=== PATIENT | male | born 1955 | race African-American/Black ===

== ENCOUNTER 2016-12-01 14:24 | Outpatient (CLI) | payer BC ==
[~2016-12-01] VITALS: Ht 170.2 cm; Wt 96.4 kg
[2016-12-01 14:22] VITALS: BP 151/84; PULSE 78; RESP 18; Ht 170.2 cm; Wt 96.4 kg
[2016-12-01] MEDS ORDERED: LISI20TA11 PO (14:30)
[2016-12-01] MEDS ORDERED: NPH,100I5 SQ (14:30)
[2016-12-01] MEDS ORDERED: DILT240C79 PO (14:30)
[2016-12-01] MEDS ORDERED: LEDI1TAB PO (14:30)
[2016-12-01] MEDS ORDERED: HYDR-3672 PO (14:30)
[2016-12-01] MEDS ORDERED: ATOR20TA38 PO (14:30)
[2016-12-01] MEDS ORDERED: ASPI-716 PO (14:30)
[2016-12-01] MEDS ORDERED: CLON-379 PO (14:30)
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
== END 2016-12-01 16:49 | disposition home or self-care (01) ==
LOC: HPC 14:24
PROVIDERS: ATTEND Transplant Surgery
DX: C22.0 Liver cell carcinoma (principal); B19.20 Unspecified viral hepatitis C without hepatic coma; E11.9 Type 2 diabetes mellitus without complications; E78.5 Hyperlipidemia, unspecified; I10 Essential (primary) hypertension; Z87.891 Personal history of nicotine dependence; Z79.82 Long term (current) use of aspirin; Z87.81 Personal history of (healed) traumatic fracture
CPT/HCPCS: G0463

== ENCOUNTER 2017-02-04 09:24 | Outpatient (CLI) | payer BC ==
[~2017-02-04] VITALS: Ht 170.2 cm; Wt 98.6 kg
[~2017-02-04 09:24] MED LIST: ASPI-716 PO; ATOR20TA38 PO; CLON-379 PO; DILT240C79 PO; HYDR-3672 PO; LEDI1TAB PO; LISI20TA11 PO; NPH,100I5 SQ
[2017-02-04 09:40] VITALS: BP 135/81; PULSE 86; RESP 18; Ht 170.2 cm; Wt 98.6 kg
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
== END 2017-02-04 16:54 | disposition home or self-care (01) ==
LOC: HPC 09:24
PROVIDERS: ATTEND Transplant Surgery
DX: B18.2 Chronic viral hepatitis C (principal); E11.9 Type 2 diabetes mellitus without complications; I10 Essential (primary) hypertension; E78.5 Hyperlipidemia, unspecified
CPT/HCPCS: G0463

== ENCOUNTER 2017-05-27 14:57 | Outpatient (CLI) | payer BC ==
[~2017-05-27] VITALS: Ht 170.2 cm; Wt 98.2 kg
[2017-05-27 15:05] VITALS: BP 184/93; PULSE 85; RESP 18; Ht 170.2 cm; Wt 98.2 kg
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
== END 2017-05-27 16:11 | disposition home or self-care (01) ==
LOC: HPC 14:57
PROVIDERS: ATTEND Transplant Surgery
DX: C22.8 Malignant neoplasm of liver, primary, unspecified as to type (principal); B19.20 Unspecified viral hepatitis C without hepatic coma; E11.9 Type 2 diabetes mellitus without complications; E78.5 Hyperlipidemia, unspecified; I10 Essential (primary) hypertension; G47.33 Obstructive sleep apnea (adult) (pediatric); E55.9 Vitamin D deficiency, unspecified; Z87.891 Personal history of nicotine dependence
CPT/HCPCS: G0463

== ENCOUNTER 2017-06-09 06:00 | Inpatient (IN) | payer BC ==
[2017-06-09] VITALS (69 sets, daily range): BP systolic 64–218; BP diastolic 44–97; PULSE 62–118; RESP 0–27; Ht 170.2 cm; Wt 97.4 kg
[~2017-06-09] VITALS: Ht 170.2 cm; Wt 97.4 kg
[~2017-06-09 06:00] MED LIST changes: +NACL 0.9% 3 ML SYG IV SCH; +PIPER-TAZO 3.375 GM IV (PMX) 100 ML IVPB SCH
[2017-06-09] MEDS ORDERED: BUPIVACAINE 0.25%/EPI (SDV) 30 ML INJ ONE (07:05)
[2017-06-09] MEDS ORDERED: INSU100V3 SQ (07:20)
[2017-06-09] MEDS ORDERED: HYDR100T7 PO (07:20)
[2017-06-09] MEDS ORDERED: LISI40TA9 PO (07:20)
--- NOTE | 2017-06-09 07:30 | HPN ---
Date/Time of Note Date/Time of Note DATE: 06/09/17 TIME: 07:30 Interval H&P Admission Note Pt. seen H&P reviewed: No system changes Pt. seen H&P reviewed. No system changes (I attest that I have seen and examined the patient and reviewed the operation in detail, as well as its risks , benefits and alternatives of the operation). I attest that I have seen and examined the patient and reviewed in detail the operation, and its associated risks, benefits and alternative. I have answered all the patient's questions to the best of my ability and the patient wishes to proceed. Please refer to rest of electronic medical record for additional updates. KAYA BERMAN M.D. Jun 09, 2017 07:30
[2017-06-09] MEDS ORDERED: SUCCINYLCHOLINE CHLORIDE 100 MG/5 ML SYG IV ONE (07:44)
[2017-06-09] MEDS ORDERED: MIDAZOLAM 1 MG/ML 2 ML INJ ONE (07:44)
[2017-06-09] MEDS ORDERED: ROCURONIUM 50 MG INJ ONE ×3 (07:44→10:34)
[2017-06-09] MEDS ORDERED: LIDOCAINE 2% (SDV) 5 ML INJ ONE (07:44)
[2017-06-09] MEDS ORDERED: PROPOFOL 20 ML ONE (07:44)
[2017-06-09] MEDS ORDERED: FENTAnyl 50 MCG/ML VIAL ONE (07:45)
[2017-06-09] MEDS ORDERED: PHENYLephrine (100 MCG/ML) 5ML SYG ONE ×4 (08:12→15:43)
[2017-06-09] MEDS ORDERED: FAMOTIDINE 20 MG INJ ONE (09:48)
[2017-06-09] MEDS ORDERED: ONDANSETRON 4 MG INJ ONE (09:48)
[2017-06-09] MEDS ORDERED: HYDROmorphONE (0.2 MG/ML) 10ML SYG IV PRN ×2 (10:30→13:30)
[2017-06-09] MEDS ORDERED: hydrALAzine 20 MG INJ IV PRN ×2 (10:30→13:30)
[2017-06-09] MEDS ORDERED: DIPHENHYDRAMINE 50 MG INJ IV PRN ×2 (10:30→13:30)
[2017-06-09] MEDS ORDERED: MEPERIDINE 25 MG INJ IV PRN ×2 (10:30→13:30)
[2017-06-09] MEDS ORDERED: ONDANSETRON 4 MG INJ IV PRN ×2 (10:30→13:30)
[2017-06-09] MEDS ORDERED: LABETALOL HCL 20MG INJ IV PRN ×2 (10:30→13:30)
[2017-06-09] MEDS ORDERED: FENTAnyl 50 MCG/ML VIAL IV PRN ×2 (10:30→13:30)
[2017-06-09] MEDS ORDERED: OXYCODONE/ACETAMINOPHEN (5/325) TAB PO PRN (10:30)
[2017-06-09] MEDS ORDERED: EPHEDrine SULFATE 50 MG/5 ML SYG ONE (10:58)
[2017-06-09] MEDS ORDERED: HYDROmorphONE 2 MG/ML SYG ONE (12:31)
[2017-06-09] MEDS ORDERED: GLYCOPYRROLATE 0.4 MG INJ ONE (12:39)
[2017-06-09] MEDS ORDERED: NEOSTIGMINE 3 MG/3 ML SYRINGE ONE ×2 (12:39→13:48)
[2017-06-09] MEDS ORDERED: LABETALOL HCL 20MG INJ ONE (13:49)
[2017-06-09] MEDS ORDERED: D5W-0.45 NACL + KCL 20 MEQ 1,000 ML IV SCH (13:56)
[2017-06-09] MEDS ORDERED: DOCUSATE SODIUM 100 MG CAP PO PRN (14:00)
[2017-06-09] MEDS ORDERED: HYDROmorphONE 1 MG/ML SYG IV PRN (14:00)
[2017-06-09] MEDS ORDERED: HYDROCODONE/APAP (5/325) TAB PO PRN ×2 (14:00)
[2017-06-09] MEDS ORDERED: NA PHOSPHATE/BIPHOS 133 ML ENEMA PR PRN (14:00)
[2017-06-09] MEDS ORDERED: BISACODYL 10 MG SUPP PR PRN (14:00)
[2017-06-09] MEDS ORDERED: hydrALAzine 20 MG INJ ONE ×2 (14:21→14:47)
--- NOTE | 2017-06-09 14:30 | OPR ---
Date/Time of Note Date/Time of Note DATE: 06/09/17 TIME: 14:29 Operative Report Procedure Description [facility] INPATIENT OPERATIVE NOTE PLACE OF SERVICE: [facility] DATE OF SURGERY: 06/09/2017 PREOPERATIVE DIAGNOSIS: 1. Hepatocellular carcinoma in the setting of hepatitis C. Hepatitis C that was thought to be chronic, treated with Harvoni 08/2016 with near resolution and disappearance of the viral load. His hepatitis C is thought to be genotype 1A with prior viral load in 2012 of approximately 18 million international units per mL. 2. Diabetes mellitus type 2. 3. Hyperlipidemia. 4. Hypertension. 5. Left distal tibial fracture. 6. Left tibia fracture. 7. Obstructive sleep apnea. 8. Vitamin D deficiency. 9. Former smoker. POSTOPERATIVE DIAGNOSIS: 1. Hepatocellular carcinoma in segment 5 of liver in the setting of hepatitis C , along with several regenerative nodules. Hepatitis C that was thought to be chronic, treated with Harvoni 08/2016 with near resolution and disappearance of the viral load. His hepatitis C is thought to be genotype 1A with prior viral load in 2012 of approximately 18 million international units per mL. 2. Diabetes mellitus type 2. 3. Hyperlipidemia. 4. Hypertension. 5. Left distal tibial fracture. 6. Left tibia fracture. 7. Obstructive sleep apnea. 8. Vitamin D deficiency. 9. Former smoker. OPERATION: 1. Laparoscopic exploration with intraoperative ultrasound of liver and core needle liver biopsy with ultrasound guidance segment 8 lesion and separately segment 4B normal liver 2. Open partial hepatectomy segment 5/6 3. Ultrasound-guided core needle liver biopsy segment 4B (left side) mass under direct visualization 4. Cholecystectomy 5. Lysis of adhesions 6. Umbilical hernia repair SURGEON: Kaya Berman M.D. DRAY TRUCK DRIVER: 1. DIANA Durán Please note that Katiuska Ferraro was present for the entire duration of the operation and was instrumental in assisting with the most critical portions of the operation. ANESTHESIA: General endotracheal tube anesthesia ANESTHESIOLOGIST: Elissa Hardwick M.D. BRIEF SUMMARY: An otherwise uncomplicated but somewhat challenging partial hepatectomy mainly due to decision-making was performed with findings of hepatocellular carcinoma in the setting of hepatitis C early cirrhosis and several regenerative nodules (6 additional areas noted with ultrasound) with nonmalignant intraoperative biopsy findings on frozen section. Cholecystectomy was also performed as well as incidental umbilical hernia repair without mesh. Updated Clinical Summary: Patient is a very pleasant 60-year-old gentleman with comorbid issues including a BMI of 34, as well as history of hepatitis C, treated with Harvoni in August 2016 with near complete disappearance of his viral count, who was noted to have a liver lesion that was initially detected on 04/26/2016, liver CT of the abdomen and pelvis read as a somewhat well-defined 4.8 x 4.4 x 4.6 cm area of low attenuation within the right lobe of the liver. Note that he also had a few followup scans since then including ultrasound of the abdomen 05/22/2016 showing a solid mass 4.6 x 4.8 x 3.9 cm that appeared to be hypoechoic and no increased Doppler flow, liver dedicated MRI of the abdomen 06/19/2016 showing a 3.5 cm solid mass anteriorly in the right lobe of the liver that cannot be further characterized due to lack of contrast, liver dedicated contrast study of the abdomen on 07/08/2016 showing no evidence of increased uptake, corresponding to a liver mass seen in the right lobe of the liver and therefore not consistent with a hemangioma. He had a liver biopsy percutaneously done on 08/07/2016 with ultrasound guidance with the final pathology showing necrotic material, otherwise nondiagnostic. He had a repeat MRI of the liver with and without contrast 09/24/2016 that showed the previously seen lesion that was 3.8 cm at the junction of the right and left lobes but additional 2.3 cm lesion in segment 5 of the liver showing low signal intensity on the T1 weighted images, intermediate signal intensity on the T2 weighted images and arterial phase contrast enhancement. These findings were thought to be metastatic disease or multifocal hepatocellular carcinoma. Due to growth seen in segment 5 lesion, repeat biopsy of the liver was ordered which was done on 04/07/2017. Segment 5 lesion was biopsied and final pathology was consistent with moderately differentiated hepatocellular carcinoma in a background of chronic hepatitis C. Normal liver biopsy done at the same time showed grade 2 portal inflammation and interface hepatitis, grade 2 lobular activity and stage I fibrosis. Comorbidities: 1. Hepatitis C that was chronic, treated with Harvoni 08/2016 with near resolution and disappearance of the viral load. His hepatitis C is thought to be genotype 1A with prior viral load in 2012 of approximately 18 million international units per mL. 2. Diabetes mellitus type 2. 3. Hyperlipidemia. 4. Hypertension. 5. Left distal tibial fracture. 6. Left tibia fracture. 7. Obstructive sleep apnea. 8. Vitamin D deficiency. 9. Former smoker. BRIEF HISTORY: The patient is a very pleasant 60-year-old gentleman with above- mentioned comorbidities with hepatitis C history and mass in segment 5 of liver that was biopsy-proven HCC as above. I met with the patient and family and counseled them regarding the possible options of treatment, and I strongly suggested a laparoscopic exploration with intraoperative ultrasound of liver, possible biopsy and possible partial hepatectomy if still clinically indicated or possible. We reviewed the operation in detail as well as the risks, benefits , alternatives, and expected outcomes of this operation. After careful consideration of all the risks, benefits, and alternatives, the patient and family appeared to understand those risks and wished to proceed with surgery. For a detailed report of my consultation with patient and family, please refer to my separate consultation note. STATEMENT OF THE INFORMED CONSENT: The patient and family appeared to understand the risks of the operation to include, but not be limited to risk of postoperative pain and scar tissue, possible infection or bleeding requiring other interventions such as opening the wound, placement of drainage catheters, or other operative interventions; possible injury to surrounding to structures including bowel, bladder, bile duct, or blood vessels, or solid organs such as liver, kidney, or pancreas requiring other interventions or procedures; possible leakage of bowel from anastomotic sites or suture lines causing significant increase in morbidity and mortality and requiring multiple interventions including but not limited to, placement of drainage catheters, imaging studies, as well as operative interventions; possible other source of sepsis such as urinary tract infections or pneumonias, or other sources of potentially life threatening problems such as deep venous thrombus formation causing pulmonary embolism, myocardial arrhythmias and infarctions, and even . We also briefly discussed the potential need to receive blood products and their potential complications of blood transfusion reactions, transmission of infections, or other complications. We also discussed liver specific complications such as liver failure, liver dysfunction, bile leak or bleeding from cut surface of liver or other issues stemming from his liver resection. I also specifically reviewed the reality that an unlimited number of complications may occur and that it is virtually impossible to educate the patient completely on all of them. After careful consideration of all their options, the patient and family appeared to understand and wished to proceed with surgery. DESCRIPTION OF PROCEDURE: After obtaining informed consent, the patient was brought into the operating room and was placed in a normal supine position, where successful general endotracheal tube anesthesia was performed. Intravenous access was already in place and intravenous antimicrobials had been appropriately chosen and dosed prior to the operation. Central line and A-line were placed by anesthesia. At my request, an epidural was not placed due to potential elevation in INR that is commonly seen after partial hepatectomy is in this clinical condition. The patient's abdominal skin was prepped and draped from the nipple line down to the level of the upper thighs in the usual sterile fashion. We then called a surgical time-out where the patient's identification, date of , nature of the operation, allergies, presence of intravenous antimicrobials, presence of needed equipment, and any other concerns were reviewed and agreed upon by all members of the operating room team. We then started the operation by placing a 5 mm skin incision in the right upper quadrant midclavicular subcostal line and placing and applied medical trocar into the peritoneal space visualizing all the layers of the abdominal wall as we entered using direct entry technique. Note that there was no indication of any injury to underlying structures once we entered the abdominal cavity. We insufflated the abdominal cavity to a maximum pressure of 15 mmHg and inspected the portions that were visible. Liver appeared not to have macronodular cirrhotic appearance. There was no obvious ascites or evidence for portal hypertension. Visible portion of bowel appear to be normal. There was no significant abnormalities on the peritoneal surfaces and no evidence of malignancy that was obvious. Right upper quadrant area was covered by the omentum and we could not see the lesion in segment 5 of the liver. I therefore injected the future site of a another 5 mm trocar that we placed in the midline after injecting the site with quarter percent Marcaine with epinephrine and used this to visualize the area of segment 5. Lesion was noticed. There was adhesions from the transverse colon onto the area of the gallbladder, but the lesion itself did not appear to have direct invasion into any organs that were surrounding it. The lesion appeared to be bigger than what we had noted in the preoperative images. We also noted that there was an umbilical hernia. In order to do the intraoperative ultrasound, I injected the periumbilical skin with quarter percent Marcaine with epinephrine and cut through skin using a scalpel and then placed a 12 mm trocar through the umbilical hernia area which allowed us to perform an intraoperative ultrasound of the liver. Intraoperative ultrasound of the liver: The following segments were visualized, and there were the following findings: Caudate lobe: No lesion. Segment 2: No lesion. Segment 3: No lesion. Segment 4: No lesion in segment 4A and portion of a round masslike area was inside of segment 4B overlying the left portal pedicle (this was the left lesion in segment 4B that we eventually biopsied under direct visualization using intraoperative ultrasound). Segment 5: 2 round areas that were overlying the course of the portal pedicle at the bifurcation. The one to the right was approximately 1.5 cm. One to the left was approximately 2 cm in diameter. There was also the known hepatocellular carcinoma lesion that was approximately 10 cm in greatest dimension at the age of segment 5 and also involving portion of segment 6. Segment 6: Above-mentioned involvement of segment 6 from segment 5 lesion. Segment 7: Single 1-1/2 cm area of hypoechoic lesion in segment 7. Segment 8: Small area of hypoechoic lesion that was also around approximately 1.5 cm in greatest dimension. We also noted antegrade flow through the portal vein on the left and right as well as the hepatic artery on the left and right and also antegrade flow through the middle right and left hepatic veins. Biliary system was not dilated. With this information, I used the guidance of intraoperative ultrasound to perform biopsy of the segment 4B lesion as a human resources hr representative biopsy to see if there is any obvious malignancy. We also obtained further tissue from segment 4B away from these lesions to send for permanent sections of the normal liver. 3 core needle biopsies were obtained at each biopsy location. Frozen section of the segment 4B lesion came back as benign liver. After careful consideration of all the options, I decided to proceed with surgical resection. Part of the thought process was that if these lesions were malignant, that there would most likely be no meaningful benefit to life by further surgical treatment and surgery may not be possible given the extent of liver resection that would be needed to clear all of these lesions (trisegmentectomy with very careful dissection around the left portal pedicle to remove all of the abnormal areas on the ultrasound). Additionally, we had 2 separate biopsies of these lesions, one preoperatively and one intraoperatively that showed normal benign liver possibly indicating these lesions to be regenerative nodules. In that situation, the patient would benefit from surgical resection of the segment 5 lesion which was on the periphery and could be easily performed without undue harm to the patient. With this thought process, I decided to continue with the operation and placed a subcostal skin incision using a scalpel and then going through the subcutaneous fat onto the fascia using cautery, entering the fascia and the peritoneal space using cautery and then placing a Kemp retractor to achieve excellent access to the abdominal cavity. We then performed lysis of adhesions to disconnect the colon from the gallbladder, and then performed a cholecystectomy top-down using cautery. Gallbladder was sent to pathology for permanent sections. Cystic duct and cystic artery were transected between 2-0 silk ligatures. I then marked the borders of the main and right portal pedicle as well as the borders of the lesion and shows a plane between them that would give us adequate normal liver parenchyma around the tumor using high-energy cautery on the surface of the liver. We then performed a partial hepatectomy removing segment 5 and 6 using the Erbe jet to come through the parenchyma and appropriate use of clips versus judicious application of 4-0 Prolene suture and 2-0 silk ligatures to come across the parenchyma and all the large and small vessels and bile ducts ever going into segments 5 and 6. Blood loss for this portion of the operation was approximately 100-250 cc. All of this went with adequate control without any major complications. We marked the specimen by putting long silk sutures on the lateral aspect and short silk suture on the superior aspect and intraoperative pathologic evaluation of the margins showed adequate margin on the medial side (at least 5 mm) and this was the closest margin. Adequate hemostasis and bile stasis was achieved. We then performed ultrasound-guided biopsy of the left sided segment 4B lesion again, this time using the open probe and under direct visualization to visualize the needle going through the lesion and send this core (single) of liver tissue to pathology for permanent sections. Hemostasis was again achieved. Repeat intraoperative ultrasound of the liver showed adequate and antegrade flow of blood through the portal pedicles as well as the hepatic veins. We then ensured adequate hemostasis prior to closing the umbilical hernia defect site after dissecting the hernia sac away from the edges of the fascia and closing the edges of the fascia using 4 [id number] 0 Vicryl sutures on UR 6 needle. We then reapproximated the main surgical incision in layers using #1 PDS suture, washed the wounds with copious amounts of normal saline, and then closed the skin using a skin stapler on the subcostal incision and interrupted 4 -0 Monocryl suture on the umbilical incision. Light dressing was then applied. At the end of the operation, both the sponge count and needle count were reportedly correct x2. The patient tolerated the procedure without any reported complications. ESTIMATED BLOOD LOSS: 200 mL BLOOD OR BLOOD PRODUCT TRANSFUSIONS: None to my knowledge. SPECIMENS: 1. Segment 4B (left) lesion with intraoperative ultrasound guidance (3 cores) 2. Segment 4B normal liver (3 cores) 3. Gallbladder 4. Segment 5 and 6 of liver 6. Re-biopsy of segment 4B left lesion with intraoperative ultrasound guidance (1 core) COMPLICATIONS: None. DISPOSITION: Recovery area. Disclaimer: Inadvertent spelling and grammatical errors are likely due to EHR/ dictation software use and do not reflect on the quality of delivered patient care. Also, please note that the electronic time recorded on this node does not necessarily reflect the actual time of the visit. KAYA BERMAN M.D. Jun 09, 2017 14:30
[2017-06-09] MEDS ORDERED: ESMOLOL 10 ML ONE (14:50)
[2017-06-09] MEDS ORDERED: ALBUTEROL 0.5% (NEB) 2.5 MG/0.5 ML AMP ONE (15:19)
[2017-06-09] MEDS ORDERED: ALBUTEROL 0.083% (NEB) 2.5 MG/3 ML AMP HHN PRN (15:30)
[2017-06-09] MEDS ORDERED: IPRATROPIUM (NEB) 0.5 MG/2.5 ML AMP HHN PRN (15:30)
[2017-06-09 15:51] LABS: ABNORMAL IP MESSAGE 1; BASOPHIL # 0.1 10^3/ul (0.0-0.1); BASOPHILS % 0.2 % (0.0-2.0); EOSINOPHILS % 0.1 % (0.0-7.0); HEMATOCRIT 46.3 % (42.0-52.0); HEMOGLOBIN 14.2 g/dl (14.0-18.0); LYMPHOCYTES # 2.9 10^3/ul (0.8-2.9); LYMPHOCYTES % 14.5 % (15.0-51.0); MEAN CORPUSCULAR HEMOGLOBIN 25.8 pg (29.0-33.0); MEAN CORPUSCULAR HGB CONC 30.7 g/dl (32.0-37.0); MEAN PLATELET VOLUME 9.7 fl (7.4-10.4); MONOCYTE # 1.7 10^3/ul (0.3-0.9); MONOCYTES % 8.6 % (0.0-11.0); NEUTROPHIL # 15.2 10^3/ul (1.6-7.5); NEUTROPHILS % 75.7 % (39.0-77.0); PLATELET COUNT 372 10^3/UL (140-415); POSITIVE DIFF @See below; RED BLOOD COUNT 5.51 10^6/ul (4.70-6.10); RED CELL DISTRIBUTION WIDTH 15.8 % (11.5-14.5); WHITE BLOOD COUNT 20.1 10^3/ul (4.8-10.8)
[2017-06-09 16:05] LABS: INR 1.01; PROTIME 13.3 Sec (12.2-14.2)
[2017-06-09 16:06] LABS: PARTIAL THROMBOPLASTIN TIME 29.6 Sec (25.0-35.0)
[2017-06-09 16:09] LABS: MAGNESIUM 1.4 mg/dl (1.7-2.5); PHOSPHORUS 6.4 mg/dl (2.5-4.9)
[2017-06-09] MEDS ORDERED: PROPOFOL 100 ML IV ONE (16:30)
[2017-06-09 16:50] LABS: AADO2 Arterial 526.5 mmHg (7.0-24.0); Arterial Base Excess -11.5 mmol/L (-3.0-3); Arterial COHb 0.3 % (0.0-3.0); Arterial Fraction of Oxyhgb 96.6 % (93.0-99.0); Arterial HCO3 18.3 mmol/L (22.0-26.0); Arterial MetHb 0.6 % (0.0-1.5); Arterial Total Hemglobin 15.2 g/dl (12.0-18.0); MODE VENT - AC
[2017-06-09 17:15] LABS: ALBUMIN 3.3 g/dl (3.3-4.9); ALBUMIN/GLOBULIN RATIO 0.86; TOTAL PROTEIN 7.1 g/dl (6.1-8.1)
[2017-06-09 17:16] LABS: CALCIUM 7.6 mg/dl (8.4-10.2); CREATININE 3.52 mg/dl (0.61-1.24); POTASSIUM 9.1 mmol/L (3.5-5.1)
[2017-06-09] MEDS ORDERED: CA CHLORIDE 10% 10 ML SYRINGE ONE (17:17)
[2017-06-09] MEDS ORDERED: DEXTROSE 50% 50 ML SYRINGE ONE (17:20)
--- NOTE | 2017-06-09 17:20 | RADRPT ---
PROCEDURE: XR Chest. CLINICAL INDICATION: Central line placement. TECHNIQUE: Single frontal chest x-ray. COMPARISON: None available FINDINGS: The right internal jugular central venous catheters present with the tip in the region of the right atrium. Endotracheal tube is present with the tip 3.9 cm above the ellen. The lungs are hypoinfla stevie. There are scattered bilateral interstitial opacities, predominately in the left upper lobe and bilateral lower lobes. There is mild blunting of the bilateral costophrenic angles. There is no e vidence of pneumothorax. The heart size is enlarged. There is gaseous distension of the stomach wh ich is partially imaged in the left upper abdomen. The osseous structures are grossly intact. IMPRESSION: 1. Endotracheal tube tip 3.9 cm above the ellen. 2. Right internal jugular central venous catheter tip in the region of the right atrium. 3. Hypoinflation with bilateral prominent interstitial lung markings, especially at the lung bases, may represent atypical infection versus edema or chronic interstitial lung change. 4. Partially imaged gaseous distension of the stomach. RPTAT: JJ .Thanh Bazan MD, Date Time Electronically viewed and signed by .Thanh Bazan MD, on 06/09/2017 17:19 .A/
[2017-06-09] MEDS ORDERED: FUROSEMIDE 40 MG INJ ONE (17:29)
[2017-06-09] MEDS ORDERED: GLUCOSE GEL 15 GRAM TUBE PO PRN ×2 (17:30)
[2017-06-09] MEDS ORDERED: DEXTROSE 50% 50 ML SYRINGE IV PRN ×2 (17:30)
[2017-06-09] MEDS ORDERED: NA POLYST SULFON 15 GM/60 ML BTL GTB ONE (17:30)
[2017-06-09] MEDS ORDERED: INSULIN REGULAR 10 ML INJ IV ONE (17:30)
[2017-06-09] MEDS ORDERED: FUROSEMIDE 40 MG INJ IV ONE (17:30)
[2017-06-09] MEDS ORDERED: GLUCAGON 1 MG INJ IM PRN (17:30)
[2017-06-09] MEDS ORDERED: GLUCOSE GEL 15 GRAM TUBE BUCCAL PRN (17:30)
[2017-06-09] MEDS ORDERED: SODIUM BICARBONATE (IV ADD) 50 ML ONE (17:43)
[2017-06-09] MEDS ORDERED: NA BICARBONATE 8.4% 50 ML SYG IV STA ×2 (17:44→18:11)
[2017-06-09] MEDS ORDERED: INSULIN ASPART [NOVOLOG] 3 ML PEN SC ONE (18:00)
[2017-06-09] MEDS: PROPOFOL 100 ML IV SCH ×2 (18:12→23:38)
[2017-06-09 18:21] LABS: Arterial Base Excess -8.3 mmol/L (-3.0-3); Arterial COHb 0.2 % (0.0-3.0); Arterial Fraction of Oxyhgb 91.5 % (93.0-99.0); Arterial HCO3 18.6 mmol/L (22.0-26.0); Arterial MetHb 0.5 % (0.0-1.5); Arterial Total Hemglobin 14.5 g/dl (12.0-18.0); MODE VENT - AC
--- NOTE | 2017-06-09 18:27 | HP ---
Date/Time of Note Date/Time of Note DATE: 06/09/17 TIME: 18:13 Assessment/Plan VTE Prophylaxis VTE Prophylaxis Intervention: SCD's Assessment/Plan Chief Complaint/Hosp Course 1. Hyperkalemia secondary to CKD Patient is now status post insulin and calcium given in the PACU, patient's cardiac rhythm is stable at this time Have ordered Lasix 40 mg IV 1, bicarbonate and Kayexalate 30 g via OGT 1 Follow-up on repeat BMP this evening and in a.m. Consult nephrology with Dr. Perales 2. Acute respiratory failure Continue vent management Pulmonology consultation Transfer to ICU 3. Hepatocellular carcinoma secondary to hepatitis C now status post partial hepatectomy and biopsy Follow-up with surgery recommendations 4. Diabetes type 2 Insulin sliding scale as well as basal insulin 5. Hypertension Hydralazine as needed at this time 6. Obesity with sleep apnea Lifestyle changes to be advised when patient was stable Prophylaxis: SCD's Problems: HPI/ROS Admit Date/Time Admit Date/Time Jun 09, 2017 at 06:00 Hx of Present Illness Patient is a 61-year-old male with history of Hepatocellular carcinoma secondary to chronic hepatitis C status post treatment with Harvoni 08/2016 with near resolution and disappearance of the viral load. Patient also has a history of CKD, diabetes type 2, dyslipidemia, hypertension, obesity with sleep apnea. Patient is status post partial hepatectomy of segment 5/6 as well as well as liver biopsy. Cholecystectomy, lysis of adhesions and umbilical hernia repair postop day #0. Patient was extubated in recovery but was noted to go into respiratory distress and hence was reintubated. Patient's potassium was checked and was found to be elevated at 9.1, patient did have peak T waves and widened QRS complexes was given calcium which normalized his cardiac rhythm. Of note patient was also given insulin in the PACU. Patient's potassium was rechecked and was reportedly still elevated. Patient does have a history of CKD and last known potassium was not significantly elevated. Patient is currently intubated in the PACU and is unable to provide any history, history is obtained from medical records. ROS Unable to provide history or review of systems secondary to patient being intubated and sedated PMH/Family/Social Past Medical History HCC secondary to chronic hepatitis C which was treated with Harvoni 08/2016 now status post partial hepatectomy postop day #0, CKD, diabetes type 2, dyslipidemia, hypertension, obesity with sleep apnea Social History Unknown at this time as patient is intubated and sedated Exam/Review of Systems Vital Signs Vitals Vital Signs Date Time Temp Pulse Resp B/P Pulse Ox O2 Delivery O2 Flow Rate FiO2 06/09/17 17:16 118 23 96 50 06/09/17 16:56 158/88 Mechanical Ventilator 06/09/17 15:26 10.0 06/09/17 15:01 98.0 Exam Constitutional: non-verbal Head: normocephalic ENMT: intubated Respiratory: clear to auscultation Cardiovascular: regular rate and rhythm Gastrointestinal: soft, No distended Musculoskeletal: nl extremities to inspection Labs Result Diagram: 06/09/17 1525 06/09/17 1525 Medications Medications Current Medications Potassium Chloride/Dextrose/ Sod Cl (D5-1/2ns + KCl 20 Meq) 1,000 ml @ 100 mls/ hr Q10H IV ; Start 06/09/17 at 13:56 Acetaminophen/ Hydrocodone Bitart ([place] (5/325)) 1 tab Q4H PRN PO PAIN LEVEL 4 -7; Start 06/09/17 at 14:00 Acetaminophen/ Hydrocodone Bitart ([place] (5/325)) 2 tab Q4H PRN PO PAIN LEVEL 7 -10; Start 06/09/17 at 14:00 Hydromorphone HCl (Dilaudid) 0.5 mg Q2H PRN IV PAIN; Start 06/09/17 at 14:00 Hydromorphone HCl (Dilaudid) 1 mg Q2H PRN IV PAIN; Start 06/09/17 at 14:00 Docusate Sodium (Colace) 100 mg BID PRN PO CONSTIPATION; Start 06/09/17 at 14:00 Bisacodyl (Dulcolax Supp) 10 mg BID PRN RI CONSTIPATION; Start 06/09/17 at 14:00 Sodium Biphosphate/ Sodium Phosphate (Fleet Enema) 133 ml BID PRN RI CONSTIPATION; Start 06/09/17 at 14:00 Famotidine (Pepcid Iv) 20 mg DAILY IV ; Start 06/10/17 at 09:00 Enoxaparin Sodium (Lovenox) 40 mg DAILY SC ; Start 06/10/17 at 09:00 Miscellaneous Information 1 ea NOTE XX ; Start 06/09/17 at 17:30 Glucose (Glutose) 15 gm Q15M PRN PO DECREASED GLUCOSE; Start 06/09/17 at 17:30 Glucose (Glutose) 22.5 gm Q15M PRN PO DECREASED GLUCOSE; Start 06/09/17 at 17:30 Dextrose (D50w Syringe) 25 ml Q15M PRN IV DECREASED GLUCOSE; Start 06/09/17 at 17:30 Dextrose (D50w Syringe) 50 ml Q15M PRN IV DECREASED GLUCOSE Last administered on 06/09/17t 17:47; Admin Dose 50 ML; Start 06/09/17 at 17:30 Glucagon (Glucagen) 1 mg Q15M PRN IM DECREASED GLUCOSE; Start 06/09/17 at 17:30 Glucose 15 gm 15 gm Q15M PRN BUCCAL DECREASED GLUCOSE; Start 06/09/17 at 17:30 Propofol (Diprivan) 100 ml @ 2.922 mls/ hr Q12H IV ; Start 06/09/17 at 18:00 ODESSA ARELLANO Jun 09, 2017 18:24
[2017-06-09] MEDS: SOD CHLORIDE 0.9% 1,000 ML IV SCH (18:30)
--- NOTE | 2017-06-09 18:49 | CONS ---
Date/Time of Note Date/Time of Note DATE: 06/09/17 TIME: 18:41 Assessment/Plan Assessment/Plan Chief Complaint/Hosp Course A/P HYPERKALEMIA DM CKD HTN HEP C S/P LIVER SURGERY PLAN PER ORDER KAYEXALATE IF NO RESPONSE HD D/W DR ARELLANO AND DR BUI AND DR LEON Problems: Consultation Date/Type/Reason Admit Date/Time Jun 09, 2017 at 06:00 Initial Consult Date Type of Consultation: RENAL 24 HR Interval Summary Subjective hx not possible: pt non-verbal, other (ON VENT) Exam/Review of Systems Vital Signs Vitals Vital Signs Date Time Temp Pulse Resp B/P Pulse Ox O2 Delivery O2 Flow Rate FiO2 06/09/17 17:16 118 23 96 50 06/09/17 16:56 158/88 Mechanical Ventilator 06/09/17 15:26 10.0 06/09/17 15:01 98.0 Exam Constitutional: alert Head: normocephalic Eyes: nl conjunctiva Neck: supple Respiratory: clear to auscultation Cardiovascular: regular rate and rhythm Gastrointestinal: bowel sounds (+), soft Musculoskeletal: nl extremities to inspection Extremities: normal pulses Neurological: ASSOCIATE DIRECTOR OF DEVELOPMENT II-XII intact Results Result Diagram: 06/09/17 1525 06/09/17 1525 Results 24 hrs Laboratory Tests Test 06/09/17 06:48 06/09/17 11:28 06/09/17 14:00 06/09/17 15:19 Bedside Glucose 124 169 178 Blood Gas Specimen Source Blood arterial Arterial Blood Date Drawn 06/09/2017 4:44:58 PM Arterial Blood pH (Temp corrected) 7.122 *L Arterial Blood pCO2 (Temp correct) 57.4 H Arterial Blood pO2 (Temp corrected) 129.1 H Arterial Blood HCO3 18.3 L Arterial Blood Base Excess -11.5 L Arterial Blood Oxygen Saturation 97.5 Cristian Test N/A Arterial Blood Gas Puncture Site A-Line Arterial Blood Carboxyhemoglobin 0.3 Arterial Blood Methemoglobin 0.6 Blood Gas A-a O2 Differential 526.5 H Oxyhemoglobin Percent 96.6 Total Hemoglobin 15.2 Blood Gas Temperature 37.0 Blood Gas Respiration Rate 12.0 Blood Gas Actual Respiration Rate 12 Blood Gas Modality VENT - AC FiO2 100.0 Blood Gas Tidal Volume 550.0 Blood Gas Low PEEP Setting 5.0 Blood Gas Critical Value Read Back JLOPEZ R.N. Blood Gas Notified Whom [facility] Blood Gas Notified Time 06/09/2017 4:49:39 PM Test 06/09/17 15:25 06/09/17 15:38 06/09/17 18:16 06/09/17 18:20 White Blood Count 20.1 H Red Blood Count 5.51 Hemoglobin 14.2 Hematocrit 46.3 Mean Corpuscular Volume 84.0 Mean Corpuscular Hemoglobin 25.8 L Mean Corpuscular Hemoglobin Concent 30.7 L Red Cell Distribution Width 15.8 H Platelet Count 372 Mean Platelet Volume 9.7 Neutrophils % 75.7 Lymphocytes % 14.5 L Monocytes % 8.6 Eosinophils % 0.1 Basophils % 0.2 Nucleated Red Blood Cells % 0.0 Neutrophils # 15.2 H Lymphocytes # 2.9 Monocytes # 1.7 H Eosinophils # 0.0 Basophils # 0.1 Nucleated Red Blood Cells # 0.0 Prothrombin Time 13.3 Prothrombin Time Ratio 1.0 INR International Normalized Ratio 1.01 Activated Partial Thromboplast Time 29.6 Sodium Level 140 Potassium Level 9.1 *H Chloride Level 107 Carbon Dioxide Level 23 Anion Gap 19 H Blood Urea Nitrogen 35 H Creatinine 3.52 H Glucose Level 232 H Lactic Acid Level 2.1 H Calcium Level 7.6 L Phosphorus Level 6.4 H Magnesium Level 1.4 L Total Bilirubin 0.0 L Direct Bilirubin 0.00 Indirect Bilirubin 0.0 Aspartate Amino Transf (AST/SGOT) 145 H Alanine Aminotransferase (ALT/SGPT) 69 Alkaline Phosphatase 125 H Total Protein 7.1 Albumin 3.3 Globulin 3.80 H Albumin/Globulin Ratio 0.86 Bedside Glucose 200 291 H Blood Gas Specimen Source Blood arterial Arterial Blood Date Drawn 06/09/2017 6:15:40 PM Arterial Blood pH (Temp corrected) 7.250 *L Arterial Blood pCO2 (Temp correct) 43.4 Arterial Blood pO2 (Temp corrected) 69.7 L Arterial Blood HCO3 18.6 L Arterial Blood Base Excess -8.3 L Arterial Blood Oxygen Saturation 92.1 L Cristian Test N/A Arterial Blood Gas Puncture Site A-Line Arterial Blood Carboxyhemoglobin 0.2 Arterial Blood Methemoglobin 0.5 Blood Gas A-a O2 Differential 238.0 H Oxyhemoglobin Percent 91.5 L Total Hemoglobin 14.5 Blood Gas Temperature 37.0 Blood Gas Respiration Rate 18.0 Blood Gas Actual Respiration Rate 22 Blood Gas Modality VENT - AC FiO2 50.0 Blood Gas Tidal Volume 650.0 Blood Gas Low PEEP Setting 5.0 Blood Gas Critical Value Read Back EARNESTINE Carrion Blood Gas Notified Whom [facility] Blood Gas Notified Time 06/09/2017 6:20:52 PM Medications Medications Current Medications Potassium Chloride/Dextrose/ Sod Cl (D5-1/2ns + KCl 20 Meq) 1,000 ml @ 100 mls/ hr Q10H IV ; Start 06/09/17 at 13:56 Acetaminophen/ Hydrocodone Bitart ([place] (5/325)) 1 tab Q4H PRN PO PAIN LEVEL 4 -7; Start 06/09/17 at 14:00 Acetaminophen/ Hydrocodone Bitart ([place] (5/325)) 2 tab Q4H PRN PO PAIN LEVEL 7 -10; Start 06/09/17 at 14:00 Hydromorphone HCl (Dilaudid) 0.5 mg Q2H PRN IV PAIN; Start 06/09/17 at 14:00 Hydromorphone HCl (Dilaudid) 1 mg Q2H PRN IV PAIN; Start 06/09/17 at 14:00 Docusate Sodium (Colace) 100 mg BID PRN PO CONSTIPATION; Start 06/09/17 at 14:00 Bisacodyl (Dulcolax Supp) 10 mg BID PRN [place] CONSTIPATION; Start 06/09/17 at 14:00 Sodium Biphosphate/ Sodium Phosphate (Fleet Enema) 133 ml BID PRN [place] CONSTIPATION; Start 06/09/17 at 14:00 Famotidine (Pepcid Iv) 20 mg DAILY IV ; Start 06/10/17 at 09:00 Enoxaparin Sodium (Lovenox) 40 mg DAILY SC ; Start 06/10/17 at 09:00 Miscellaneous Information 1 ea NOTE XX ; Start 06/09/17 at 17:30 Glucose (Glutose) 15 gm Q15M PRN PO DECREASED GLUCOSE; Start 06/09/17 at 17:30 Glucose (Glutose) 22.5 gm Q15M PRN PO DECREASED GLUCOSE; Start 06/09/17 at 17:30 Dextrose (D50w Syringe) 25 ml Q15M PRN IV DECREASED GLUCOSE; Start 06/09/17 at 17:30 Dextrose (D50w Syringe) 50 ml Q15M PRN IV DECREASED GLUCOSE Last administered on 06/09/17 17:47; Admin Dose 50 ML; Start 06/09/17 at 17:30 Glucagon (Glucagen) 1 mg Q15M PRN IM DECREASED GLUCOSE; Start 06/09/17 at 17:30 Glucose 15 gm 15 gm Q15M PRN BUCCAL DECREASED GLUCOSE; Start 06/09/17 at 17:30 Propofol (Diprivan) 100 ml @ 2.922 mls/ hr Q12H IV Last administered on 18:12; Admin Dose 2.922 MLS/HR; Start 06/09/17 at 18:00 Diagnostic Test (Pha) (Accu-Chek) 1 ea 02 XX ; Start 06/10/17 at 02:00 Insulin Glargine (Lantus) 15 unit DAILY@08 SC ; Start 06/09/17 at 19:30 Insulin Aspart (Novolog Insulin Pen) NOVOLOG *MILD* ALGORI... Q4 SC ; Start 06/09 at 21:00 Hydralazine HCl 10 mg 10 mg Q4H PRN IV SBP>170; Start 06/09/17 at 18:30 Sodium Chloride (NS) 1,000 ml @ 100 mls/hr Q10H IV ; Start 06/09/17 at 19:00; Status UNV Sodium Polystyrene Sulfonate (Kayexalate) 30 gm Q6 NV ; Start 06/10/17 at 00:00; Stop 06/10/17 at 18:00; Status UNV JAY JIANG MD Jun 09, 2017 18:49
[2017-06-09] MEDS: HYDROmorphONE 1 MG/ML SYG IV PRN ×2 (19:22→23:31)
[2017-06-09 20:44] LABS: CK-MB 2.48 ng/ml (0.0-2.4)
[2017-06-09 20:45] LABS: TROPONIN-I 0.2 ng/ml (0.00-0.12)
[2017-06-09] MEDS: INSULIN ASPART [NOVOLOG] 3 ML PEN SC SCH (21:47)
[2017-06-09] MEDS: INSULIN GLARGINE [LANtus] 3 ML PEN SC SCH (21:48)
[2017-06-09] MEDS: hydrALAzine 20 MG INJ IV PRN (23:36)
[2017-06-10] VITALS (35 sets, daily range): BP systolic 112–186; BP diastolic 64–109; PULSE 71–134; RESP 9–28
[2017-06-10] MEDS ORDERED: NA POLYST SULFON 15 GM/60 ML BTL PR SCH
[2017-06-10] MEDS: INSULIN ASPART [NOVOLOG] 3 ML PEN SC SCH ×6 (01:04→21:13)
--- NOTE | 2017-06-10 01:08 | OPR ---
DATE OF OPERATION: 06/09/2017 PREOPERATIVE DIAGNOSIS: Renal failure. POSTOPERATIVE DIAGNOSIS: Renal failure. OPERATION PERFORMED: Right femoral hemodialysis catheter placement. SURGEON: Joey Bills MD ANESTHESIA: Local. COMPLICATIONS: None. INDICATION: Alternatives therapies explained to the patient and the family. Consent obtained. OPERATIVE TECHNIQUE: The patient was placed in the supine position and prepped and draped in the usual sterile fashion; 1 percent lidocaine was used throughout the outpatient for local anesthesia. Access was gained in the right common femoral vein. Guidewire was advanced through without any difficulty. Subcutaneous tissue was dilated; 20-cm dialysis catheter advanced over the guidewire and secured to skin using silk sutures. All ports of the catheter were aspirated and injected using saline solution. The patient tolerated the procedure well. Dictated By: Joey Bills MD /[email or web address]/bryan /Document#: [id number]
[2017-06-10] MEDS ORDERED: ACCU-CHEK XX SCH (02:00)
[2017-06-10] MEDS: SOD CHLORIDE 0.9% 1,000 ML IV SCH ×2 (04:00→15:42)
[2017-06-10] MEDS: PROPOFOL 100 ML IV SCH (05:22)
[2017-06-10 05:31] LABS: ABNORMAL IP MESSAGE 1; BASOPHIL # 0.1 10^3/ul (0.0-0.1); BASOPHILS % 0.3 % (0.0-2.0); EOSINOPHILS % 0.2 % (0.0-7.0); HEMATOCRIT 38.2 % (42.0-52.0); HEMOGLOBIN 11.8 g/dl (14.0-18.0); LYMPHOCYTES # 1.6 10^3/ul (0.8-2.9); LYMPHOCYTES % 10.3 % (15.0-51.0); MEAN CORPUSCULAR HEMOGLOBIN 24.9 pg (29.0-33.0); MEAN CORPUSCULAR HGB CONC 30.9 g/dl (32.0-37.0); MEAN CORPUSCULAR VOLUME 80.8 fl (82.0-101.0); MEAN PLATELET VOLUME 9.9 fl (7.4-10.4); MONOCYTE # 1.6 10^3/ul (0.3-0.9); MONOCYTES % 10.8 % (0.0-11.0); NEUTROPHIL # 11.7 10^3/ul (1.6-7.5); PLATELET COUNT 211 10^3/UL (140-415); POSITIVE DIFF @See below; RED BLOOD COUNT 4.73 10^6/ul (4.70-6.10); RED CELL DISTRIBUTION WIDTH 16.2 % (11.5-14.5)
--- NOTE | 2017-06-10 05:44 | RADRPT ---
PROCEDURE: XR Chest. CLINICAL INDICATION: Respiratory distress TECHNIQUE: A single AP view of the chest was obtained. COMPARISON: Chest x-ray dated 06/09/2017 FINDINGS: The endotracheal tube tip is approximately 3.0 cm above the ellen. The tip of the enteric tube pr ojects over the left upper quadrant. There is a right internal jugular central venous catheter with tip in the mid SVC. Lung volumes are low with compressive changes and crowding of the central pulmonary vascular marking s. There is mild prominence of the interstitial markings. There are small bilateral pleural effusi ons. No pneumothorax is seen. The cardiomediastinal silhouette is mildly enlarged. The osseous str uctures are unremarkable. IMPRESSION: 1. Prominent interstitial markings, at least partially related to low lung volumes. Mild interstit ial edema is not excluded. No significant interval change. 2. Mild cardiomegaly. 3. Tubes and lines, as described above. RPTAT: .Shanel Menendez MD, MD Date Time Electronically viewed and signed by .Shanel Menendez MD, on 06/10/2017 05:43 .G/
[2017-06-10 06:19] LABS: ALBUMIN 2.5 g/dl (3.3-4.9); ALBUMIN/GLOBULIN RATIO 0.8; BILIRUBIN,INDIRECT 0.1 mg/dl (0-1.1); BILIRUBIN,TOTAL 0.1 mg/dl (0.2-1.3); CALCIUM 8.2 mg/dl (8.4-10.2); CREATININE 3.65 mg/dl (0.61-1.24); MAGNESIUM 1.4 mg/dl (1.7-2.5); PHOSPHORUS 4.7 mg/dl (2.5-4.9); POTASSIUM 4.6 mmol/L (3.5-5.1); TOTAL PROTEIN 5.6 g/dl (6.1-8.1)
--- NOTE | 2017-06-10 06:22 | CONS ---
DATE OF ADMISSION: 06/09/2017 DATE OF CONSULTATION: 06/09/2017 REASON FOR CONSULTATION: Evaluation for dialysis catheter placement. HISTORY OF PRESENT ILLNESS: Thank you, Dr. Perales for asking me to see this patient. This is a 61-year-old male admitted for liver resection and subsequently was found to have renal failure. I have been asked by Dr. Perales to evaluate this patient for the placement of a dialysis catheter. The patient is currently in the recovery room, blood pressure is 155/70, pulse is 103, respirations 18, saturation 97 percent and orotracheal intubated. Potassium has been checked and has been evaluated to be 9. PAST MEDICAL HISTORY: Diabetes, hypertension, hyperlipidemia, hepatocellular carcinoma, hepatitis C and former smoker. PAST SURGICAL HISTORY: None. ALLERGIES: NONE. SOCIAL HISTORY: Former smoker. PHYSICAL EXAMINATION: GENERAL APPEARANCE: The patient is asleep. VITAL SIGNS: Blood pressure is 150/79, pulse is 105, respirations 18, and saturation 98 percent on room air. HEART: Irregularly irregular. LUNGS: Clear. ABDOMEN: Soft. EXTREMITIES: Warm. IMPRESSION: Renal failure. RECOMMENDATIONS: We will proceed with placement of dialysis catheter. Risks, benefits, complications and alternatives therapies explained to the patient. All questions answered. Dictated By: Joey Bills MD /[email or web address]/yoel /Document#: [id number]
[2017-06-10 06:41] LABS: INR 1.14; PROTIME 14.6 Sec (12.2-14.2); PT RATIO 1.1
[2017-06-10 06:42] LABS: PARTIAL THROMBOPLASTIN TIME 30.1 Sec (25.0-35.0)
[2017-06-10 07:16] LABS: AADO2 Arterial 168.5 mmHg (7.0-24.0); Arterial COHb 0.3 % (0.0-3.0); Arterial Fraction of Oxyhgb 94.9 % (93.0-99.0); Arterial HCO3 25.1 mmol/L (22.0-26.0); Arterial MetHb 0.4 % (0.0-1.5); Arterial Total Hemglobin 12.9 g/dl (12.0-18.0); MODE VENT - AC
[2017-06-10] MEDS: FAMOTIDINE 20 MG INJ IV SCH (08:32)
[2017-06-10] MEDS: ENOXAPARIN 40 MG/0.4 ML SYG SC SCH (08:38)
[2017-06-10] MEDS: INSULIN GLARGINE [LANtus] 3 ML PEN SC SCH (08:39)
[2017-06-10] MEDS: HYDROmorphONE 1 MG/ML SYG IV PRN ×3 (09:57→16:03)
--- NOTE | 2017-06-10 12:23 | CONS ---
Date/Time of Note Date/Time of Note DATE: 06/10/17 TIME: 12:19 Assessment/Plan Assessment/Plan Additional Assessment/Plan Chest x-ray was reviewed from today which is essentially clear. Endotracheal tube is at an adequate level. Current ventilator setting; patient on CPAP pressure support 10, 35% FiO2. Assessment recommendations; next 1. Patient admitted for hyperkalemia as well as liver mass status post partial hepatic resection. 2. End-stage renal disease, patient required one dialysis session yesterday. 3. History of hypertension. Extubated the patient. Continue current supportive care. Consultation Date/Type/Reason Admit Date/Time Jun 09, 2017 at 06:00 Date of Consultation: Jun 10, 2017 Type of Consultation: Pulmonary/critical care Reason for Consultation Pulmonary consultation requested for evaluation of respiratory failure. Patient status post partial liver resection for hepatocellular carcinoma. Next History of presenting any; patient is a very pleasant 61-year-old F [place] male who was admitted to the hospital yesterday with complaints of not feeling well upon evaluation patient was diagnosed with liver mass as well as one hyperkalemic patient was emergently dialyzed with correction of hyperkalemia also underwent resection of liver tumor. Patient could not be immediately extubated postop and was transferred to ICU intubated. By the time I saw the patient the patient was on ventilator but on CPAP mode for the last hour and a half and was completely awake and alert. Past medical history; 1. Patient with history of hepatitis C, hepatocellular carcinoma. 2. Hypertension. 3. End-stage renal disease, on hemodialysis. Which apparently was performed once yesterday. Medications; reviewed. Allergies; none. Social history; patient does not smoke. Family history; patient is , has supportive . No swelling illnesses in the family. Occupational history; patient is retired. Review systems; patient denies any headache, shortness of breath, abdominal pain is very minimal denies any nausea vomiting. Denies any recent GI or urinary symptoms. General exam; elderly male, awake alert currently in no distress. Orally intubated. Exam/Review of Systems Vital Signs Vitals Vital Signs Date Time Temp Pulse Resp B/P Pulse Ox O2 Delivery O2 Flow Rate FiO2 06/10/17 09:00 100 24 140/77 98 Mechanical Ventilator 06/10/17 08:00 40 06/10/17 08:00 98.4 06/09/17 15:26 10.0 Intake and Output 06/09/17 06/09/17 06/10/17 15:00 23:00 07:00 Intake Total 3600 ml 766.68 ml 879.932 ml Output Total 450 ml 1275 ml 310 ml Balance 3150 ml -508.32 ml 569.932 ml Exam HEENT exam; supple neck, no JVD. No lymphadenopathy. Midline trachea. No thyromegaly. Orally intubated. She has good dentition. Pupils are equal and reactive to light bilaterally and equally. Chest exam; clear to ulceration. S1-S2 audible, no murmurs. Regular rhythm. Abdomen exam; soft, protuberant. Nontender. There is a dressing applied over the right upper quadrant. Bowel sounds are sluggish. Extremity exam; no peripheral edema. Pulses 1+ bilaterally. No clubbing. WIRE PULLER exam; no focal deficit. Results Result Diagram: 06/10/17 0445 06/10/17 0925 Results 24 hrs Laboratory Tests Test 06/09/17 14:00 06/09/17 15:19 06/09/17 15:22 06/09/17 15:25 Bedside Glucose 178 Blood Gas Specimen Source Blood arterial Arterial Blood Date Drawn 06/09/2017 4:44:58 PM Arterial Blood pH (Temp corrected) 7.122 *L Arterial Blood pCO2 (Temp correct) 57.4 H Arterial Blood pO2 (Temp corrected) 129.1 H Arterial Blood HCO3 18.3 L Arterial Blood Base Excess -11.5 L Arterial Blood Oxygen Saturation 97.5 Cristian Test N/A Arterial Blood Gas Puncture Site A-Line Arterial Blood Carboxyhemoglobin 0.3 Arterial Blood Methemoglobin 0.6 Blood Gas A-a O2 Differential 526.5 H Oxyhemoglobin Percent 96.6 Total Hemoglobin 15.2 Blood Gas Temperature 37.0 Blood Gas Respiration Rate 12.0 Blood Gas Actual Respiration Rate 12 Blood Gas Modality VENT - AC FiO2 100.0 Blood Gas Tidal Volume 550.0 Blood Gas Low PEEP Setting 5.0 Blood Gas Critical Value Read Back EARNESTINE Carrion Blood Gas Notified Whom [facility] Blood Gas Notified Time 06/09/2017 4:49:39 PM Urine Random Sodium 80 White Blood Count 20.1 H Red Blood Count 5.51 Hemoglobin 14.2 Hematocrit 46.3 Mean Corpuscular Volume 84.0 Mean Corpuscular Hemoglobin 25.8 L Mean Corpuscular Hemoglobin Concent 30.7 L Red Cell Distribution Width 15.8 H Platelet Count 372 Mean Platelet Volume 9.7 Neutrophils % 75.7 Lymphocytes % 14.5 L Monocytes % 8.6 Eosinophils % 0.1 Basophils % 0.2 Nucleated Red Blood Cells % 0.0 Neutrophils # 15.2 H Lymphocytes # 2.9 Monocytes # 1.7 H Eosinophils # 0.0 Basophils # 0.1 Nucleated Red Blood Cells # 0.0 Prothrombin Time 13.3 Prothrombin Time Ratio 1.0 INR International Normalized Ratio 1.01 Activated Partial Thromboplast Time 29.6 Sodium Level 140 Potassium Level 9.1 *H Chloride Level 107 Carbon Dioxide Level 23 Anion Gap 19 H Blood Urea Nitrogen 35 H Creatinine 3.52 H Glucose Level 232 H Lactic Acid Level 2.1 H Calcium Level 7.6 L Phosphorus Level 6.4 H Magnesium Level 1.4 L Total Bilirubin 0.0 L Direct Bilirubin 0.00 Indirect Bilirubin 0.0 Aspartate Amino Transf (AST/SGOT) 145 H Alanine Aminotransferase (ALT/SGPT) 69 Alkaline Phosphatase 125 H Total Protein 7.1 Albumin 3.3 Globulin 3.80 H Albumin/Globulin Ratio 0.86 Test 06/09/17 15:38 06/09/17 18:16 06/09/17 18:20 06/09/17 20:05 Bedside Glucose 200 291 H Blood Gas Specimen Source Blood arterial Arterial Blood Date Drawn 06/09/2017 6:15:40 PM Arterial Blood pH (Temp corrected) 7.250 *L Arterial Blood pCO2 (Temp correct) 43.4 Arterial Blood pO2 (Temp corrected) 69.7 L Arterial Blood HCO3 18.6 L Arterial Blood Base Excess -8.3 L Arterial Blood Oxygen Saturation 92.1 L Cristian Test N/A Arterial Blood Gas Puncture Site A-Line Arterial Blood Carboxyhemoglobin 0.2 Arterial Blood Methemoglobin 0.5 Blood Gas A-a O2 Differential 238.0 H Oxyhemoglobin Percent 91.5 L Total Hemoglobin 14.5 Blood Gas Temperature 37.0 Blood Gas Respiration Rate 18.0 Blood Gas Actual Respiration Rate 22 Blood Gas Modality VENT - AC FiO2 50.0 Blood Gas Tidal Volume 650.0 Blood Gas Low PEEP Setting 5.0 Blood Gas Critical Value Read Back EARNESTINE Carrion Blood Gas Notified Whom [facility] Blood Gas Notified Time 06/09/2017 6:20:52 PM Potassium Level 6.1 #*H Creatine Kinase 1075 H Creatine Kinase Index 0.2 Creatinine Kinase MB (Mass) 2.48 H Troponin I 0.200 *H Test 06/09/17 21:14 06/10/17 00:53 06/10/17 00:56 06/10/17 04:37 Bedside Glucose 245 H 156 178 Potassium Level 4.3 Troponin I 0.339 *H Test 06/10/17 04:45 06/10/17 07:00 06/10/17 08:34 06/10/17 09:25 White Blood Count 15.0 #H Red Blood Count 4.73 Hemoglobin 11.8 L Hematocrit 38.2 L Mean Corpuscular Volume 80.8 L Mean Corpuscular Hemoglobin 24.9 L Mean Corpuscular Hemoglobin Concent 30.9 L Red Cell Distribution Width 16.2 H Platelet Count 211 # Mean Platelet Volume 9.9 Neutrophils % 78.0 H Lymphocytes % 10.3 L Monocytes % 10.8 Eosinophils % 0.2 Basophils % 0.3 Nucleated Red Blood Cells % 0.0 Neutrophils # 11.7 H Lymphocytes # 1.6 Monocytes # 1.6 H Eosinophils # 0.0 Basophils # 0.1 Nucleated Red Blood Cells # 0.0 Prothrombin Time 14.6 H Prothrombin Time Ratio 1.1 INR International Normalized Ratio 1.14 Activated Partial Thromboplast Time 30.1 Sodium Level 140 Potassium Level 4.6 4.5 Chloride Level 99 Carbon Dioxide Level 27 Anion Gap 19 H Blood Urea Nitrogen 32 H Creatinine 3.65 H Glucose Level 212 Lactic Acid Level 3.7 *H Calcium Level 8.2 L Phosphorus Level 4.7 Magnesium Level 1.4 L Total Bilirubin 0.1 L Direct Bilirubin 0.00 Indirect Bilirubin 0.1 Aspartate Amino Transf (AST/SGOT) 222 #H Alanine Aminotransferase (ALT/SGPT) 99 H Alkaline Phosphatase 81 B-Type Natriuretic Peptide 483 H Total Protein 5.6 #L Albumin 2.5 L Globulin 3.10 Albumin/Globulin Ratio 0.80 Blood Gas Specimen Source Blood arterial Arterial Blood Date Drawn 06/10/2017 7:08:51 AM Arterial Blood pH (Temp corrected) 7.478 H Arterial Blood pCO2 (Temp correct) 34.7 L Arterial Blood pO2 (Temp corrected) 76.8 L Arterial Blood HCO3 25.1 Arterial Blood Base Excess 2.0 Arterial Blood Oxygen Saturation 95.6 Cristian Test N/A Arterial Blood Gas Puncture Site A-Line Arterial Blood Carboxyhemoglobin 0.3 Arterial Blood Methemoglobin 0.4 Blood Gas A-a O2 Differential 168.5 H Oxyhemoglobin Percent 94.9 Total Hemoglobin 12.9 Blood Gas Temperature 37.0 Blood Gas Respiration Rate 18.0 Blood Gas Actual Respiration Rate 18 Blood Gas Modality VENT - AC FiO2 40.0 Blood Gas Tidal Volume 650.0 Blood Gas Low PEEP Setting 5.0 Blood Gas Notified Whom [facility] Blood Gas Notified Time 06/10/2017 7:16:43 AM Bedside Glucose 191 Troponin I 0.413 *H Medications Medications Current Medications Acetaminophen/ Hydrocodone Bitart ([place] (5/325)) 1 tab Q4H PRN PO PAIN LEVEL 4 -7; Start 06/09/17 at 14:00 Acetaminophen/ Hydrocodone Bitart ([place] (5/325)) 2 tab Q4H PRN PO PAIN LEVEL 7 -10; Start 06/09/17 at 14:00 Hydromorphone HCl (Dilaudid) 0.5 mg Q2H PRN IV PAIN; Start 06/09/17 at 14:00 Hydromorphone HCl (Dilaudid) 1 mg Q2H PRN IV PAIN Last administered on 09:57; Admin Dose 1 MG; Start 06/09/17 at 14:00 Docusate Sodium (Colace) 100 mg BID PRN PO CONSTIPATION; Start 06/09/17 at 14:00 Bisacodyl (Dulcolax Supp) 10 mg BID PRN [place] CONSTIPATION; Start 06/09/17 at 14:00 Sodium Biphosphate/ Sodium Phosphate (Fleet Enema) 133 ml BID PRN [place] CONSTIPATION; Start 06/09/17 at 14:00 Famotidine (Pepcid Iv) 20 mg DAILY IV Last administered on 06/10/17 08:32; Admin Dose 20 MG; Start 06/10/17 at 09:00 Enoxaparin Sodium (Lovenox) 40 mg DAILY SC Last administered on 06/10/17 08:38 ; Admin Dose 40 MG; Start 06/10/17 at 09:00 Miscellaneous Information 1 ea NOTE XX ; Start 06/09/17 at 17:30 Glucose (Glutose) 15 gm Q15M PRN PO DECREASED GLUCOSE; Start 06/09/17 at 17:30 Glucose (Glutose) 22.5 gm Q15M PRN PO DECREASED GLUCOSE; Start 06/09/17 at 17:30 Dextrose (D50w Syringe) 25 ml Q15M PRN IV DECREASED GLUCOSE; Start 06/09/17 at 17:30 Dextrose (D50w Syringe) 50 ml Q15M PRN IV DECREASED GLUCOSE Last administered on 06/09/17 17:47; Admin Dose 50 ML; Start 06/09/17 at 17:30 Glucagon (Glucagen) 1 mg Q15M PRN IM DECREASED GLUCOSE; Start 06/09/17 at 17:30 Glucose 15 gm 15 gm Q15M PRN BUCCAL DECREASED GLUCOSE; Start 06/09/17 at 17:30 Propofol (Diprivan) 100 ml @ 2.922 mls/ hr Q12H IV Last administered on 05:22; Admin Dose 17.532 MLS/HR; Start 06/09/17 at 18:00 Diagnostic Test (Pha) (Accu-Chek) 1 ea 02 XX ; Start 06/10/17 at 02:00 Insulin Glargine (Lantus) 15 unit DAILY@08 SC Last administered on 06/10/17 08: 39; Admin Dose 15 UNIT; Start 06/09/17 at 19:30 Insulin Aspart (Novolog Insulin Pen) NOVOLOG *MILD* ALGORI... Q4 SC Last administered on 06/10/17 08:39; Admin Dose 2 UNIT; Start 06/09/17 at 21:00 Hydralazine HCl 10 mg 10 mg Q4H PRN IV SBP>170 Last administered on 06/09/17 23 :36; Admin Dose 10 MG; Start 06/09/17 at 18:30 Sodium Chloride (NS) 1,000 ml @ 100 mls/hr Q10H IV Last administered on 04:00; Admin Dose 100 MLS/HR; Start 06/09/17 at 19:00 DEAN GLOVER Jun 10, 2017 12:23
--- NOTE | 2017-06-10 15:36 | RADRPT ---
Vent Rate: 109 bpm RR Interval: 0 msec MA Interval: 144 msec QRS Duration: 138 msec QT Interval: 400 msec QTC Interval: 538 msec P-R-T [place]: 0 - -65 - 86 degrees Sinus tachycardia versus A flutter with variable block Left axis deviation Nonspecific intraventricular block Cannot rule out Septal infarct , age undetermined Abnormal ECG Electronically Signed By: Robby Mcgill [id number]
--- NOTE | 2017-06-10 15:51 | PN ---
Date/Time of Note Date/Time of Note DATE: 06/10/17 TIME: 15:40 Assessment/Plan VTE Prophylaxis VTE Prophylaxis Intervention: SCD's Assessment/Plan Chief Complaint/Hosp Course 1. Hyperkalemia secondary to KYLE on CKD as well as possible tissue destruction during hepatectomy-resolved with dialysis and medication -Nephrology consult with Dr. Perales appreciated, further dialysis per nephrology 2. Acute respiratory failure-patient extubated today Pulmonology consultation appreciated 3. Hepatocellular carcinoma secondary to hepatitis C now status post partial hepatectomy and biopsy Follow-up with surgery recommendations 4. Diabetes type 2-stable Continue insulin sliding scale as well as basal insulin Check A1c Conservative increases of insulin considering recent hepatectomy 5. Hypertension-stable Resume home hydralazine, hold lisinopril for possible acute kidney injury on CKD , will start Norvasc 5 daily Hydralazine IV as needed 6. Obesity with sleep apnea Lifestyle changes to be advised Prophylaxis: SCD's Problems: Subjective 24 Hr Interval Summary Subjective hx not possible: pt non-verbal Exam/Review of Systems Vital Signs Vitals Vital Signs Date Time Temp Pulse Resp B/P Pulse Ox O2 Delivery O2 Flow Rate FiO2 06/10/17 13:00 118 25 142/76 96 Nasal Cannula 4.0 06/10/17 12:00 98.3 06/10/17 08:00 40 Intake and Output 06/09/17 06/09/17 06/10/17 15:00 23:00 07:00 Intake Total 3600 ml 766.68 ml 879.932 ml Output Total 450 ml 1275 ml 310 ml Balance 3150 ml -508.32 ml 569.932 ml Exam Constitutional: non-verbal ENMT: intubated Respiratory: clear to auscultation Cardiovascular: regular rate and rhythm Gastrointestinal: soft, No distended Musculoskeletal: nl extremities to inspection Results Result Diagram: 06/10/17 0445 06/10/17 0925 Results 24 hrs Laboratory Tests Test 06/09/17 18:16 06/09/17 18:20 06/09/17 20:05 06/09/17 21:14 Bedside Glucose 291 H 245 H Blood Gas Specimen Source Blood arterial Arterial Blood Date Drawn 06/09/2017 6:15:40 PM Arterial Blood pH (Temp corrected) 7.250 *L Arterial Blood pCO2 (Temp correct) 43.4 Arterial Blood pO2 (Temp corrected) 69.7 L Arterial Blood HCO3 18.6 L Arterial Blood Base Excess -8.3 L Arterial Blood Oxygen Saturation 92.1 L Cristian Test N/A Arterial Blood Gas Puncture Site A-Line Arterial Blood Carboxyhemoglobin 0.2 Arterial Blood Methemoglobin 0.5 Blood Gas A-a O2 Differential 238.0 H Oxyhemoglobin Percent 91.5 L Total Hemoglobin 14.5 Blood Gas Temperature 37.0 Blood Gas Respiration Rate 18.0 Blood Gas Actual Respiration Rate 22 Blood Gas Modality VENT - AC FiO2 50.0 Blood Gas Tidal Volume 650.0 Blood Gas Low PEEP Setting 5.0 Blood Gas Critical Value Read Back EARNESTINE Carrion Blood Gas Notified Whom MDA Blood Gas Notified Time 06/09/2017 6:20:52 PM Potassium Level 6.1 #*H Creatine Kinase 1075 H Creatine Kinase Index 0.2 Creatinine Kinase MB (Mass) 2.48 H Troponin I 0.200 *H Test 06/10/17 00:53 06/10/17 00:56 06/10/17 04:37 06/10/17 04:45 Bedside Glucose 156 178 Potassium Level 4.3 4.6 Troponin I 0.339 *H White Blood Count 15.0 #H Red Blood Count 4.73 Hemoglobin 11.8 L Hematocrit 38.2 L Mean Corpuscular Volume 80.8 L Mean Corpuscular Hemoglobin 24.9 L Mean Corpuscular Hemoglobin Concent 30.9 L Red Cell Distribution Width 16.2 H Platelet Count 211 # Mean Platelet Volume 9.9 Neutrophils % 78.0 H Lymphocytes % 10.3 L Monocytes % 10.8 Eosinophils % 0.2 Basophils % 0.3 Nucleated Red Blood Cells % 0.0 Neutrophils # 11.7 H Lymphocytes # 1.6 Monocytes # 1.6 H Eosinophils # 0.0 Basophils # 0.1 Nucleated Red Blood Cells # 0.0 Prothrombin Time 14.6 H Prothrombin Time Ratio 1.1 INR International Normalized Ratio 1.14 Activated Partial Thromboplast Time 30.1 Sodium Level 140 Chloride Level 99 Carbon Dioxide Level 27 Anion Gap 19 H Blood Urea Nitrogen 32 H Creatinine 3.65 H Glucose Level 212 Lactic Acid Level 3.7 *H Calcium Level 8.2 L Phosphorus Level 4.7 Magnesium Level 1.4 L Total Bilirubin 0.1 L Direct Bilirubin 0.00 Indirect Bilirubin 0.1 Aspartate Amino Transf (AST/SGOT) 222 #H Alanine Aminotransferase (ALT/SGPT) 99 H Alkaline Phosphatase 81 B-Type Natriuretic Peptide 483 H Total Protein 5.6 #L Albumin 2.5 L Globulin 3.10 Albumin/Globulin Ratio 0.80 Test 06/10/17 07:00 06/10/17 08:34 06/10/17 09:25 06/10/17 13:16 Blood Gas Specimen Source Blood arterial Arterial Blood Date Drawn 06/10/2017 7:08:51 AM Arterial Blood pH (Temp corrected) 7.478 H Arterial Blood pCO2 (Temp correct) 34.7 L Arterial Blood pO2 (Temp corrected) 76.8 L Arterial Blood HCO3 25.1 Arterial Blood Base Excess 2.0 Arterial Blood Oxygen Saturation 95.6 Cristian Test N/A Arterial Blood Gas Puncture Site A-Line Arterial Blood Carboxyhemoglobin 0.3 Arterial Blood Methemoglobin 0.4 Blood Gas A-a O2 Differential 168.5 H Oxyhemoglobin Percent 94.9 Total Hemoglobin 12.9 Blood Gas Temperature 37.0 Blood Gas Respiration Rate 18.0 Blood Gas Actual Respiration Rate 18 Blood Gas Modality VENT - AC FiO2 40.0 Blood Gas Tidal Volume 650.0 Blood Gas Low PEEP Setting 5.0 Blood Gas Notified Whom TM Blood Gas Notified Time 06/10/2017 7:16:43 AM Bedside Glucose 191 177 Potassium Level 4.5 Troponin I 0.413 *H Medications Medications Current Medications Acetaminophen/ Hydrocodone Bitart ([place] (5/325)) 1 tab Q4H PRN PO PAIN LEVEL 4 -7; Start 06/09/17 at 14:00 Acetaminophen/ Hydrocodone Bitart ([place] (5/325)) 2 tab Q4H PRN PO PAIN LEVEL 7 -10; Start 06/09/17 at 14:00 Hydromorphone HCl (Dilaudid) 0.5 mg Q2H PRN IV PAIN; Start 06/09/17 at 14:00 Hydromorphone HCl (Dilaudid) 1 mg Q2H PRN IV PAIN Last administered on t 12:39; Admin Dose 1 MG; Start 06/09/17 at 14:00 Docusate Sodium (Colace) 100 mg BID PRN PO CONSTIPATION; Start 06/09/17 at 14:00 Bisacodyl (Dulcolax Supp) 10 mg BID PRN [place] CONSTIPATION; Start 06/09/17 at 14:00 Sodium Biphosphate/ Sodium Phosphate (Fleet Enema) 133 ml BID PRN [place] CONSTIPATION; Start 06/09/17 at 14:00 Famotidine (Pepcid Iv) 20 mg DAILY IV Last administered on 06/10/17 08:32; Admin Dose 20 MG; Start 06/10/17 at 09:00 Enoxaparin Sodium (Lovenox) 40 mg DAILY SC Last administered on 06/10/17 08:38 ; Admin Dose 40 MG; Start 06/10/17 at 09:00 Miscellaneous Information 1 ea NOTE XX ; Start 06/09/17 at 17:30 Glucose (Glutose) 15 gm Q15M PRN PO DECREASED GLUCOSE; Start 06/09/17 at 17:30 Glucose (Glutose) 22.5 gm Q15M PRN PO DECREASED GLUCOSE; Start 06/09/17 at 17:30 Dextrose (D50w Syringe) 25 ml Q15M PRN IV DECREASED GLUCOSE; Start 06/09/17 at 17:30 Dextrose (D50w Syringe) 50 ml Q15M PRN IV DECREASED GLUCOSE Last administered on 06/09/17 17:47; Admin Dose 50 ML; Start 06/09/17 at 17:30 Glucagon (Glucagen) 1 mg Q15M PRN IM DECREASED GLUCOSE; Start 06/09/17 at 17:30 Glucose 15 gm 15 gm Q15M PRN BUCCAL DECREASED GLUCOSE; Start 06/09/17 at 17:30 Propofol (Diprivan) 100 ml @ 2.922 mls/ hr Q12H IV Last administered on 05:22; Admin Dose 17.532 MLS/HR; Start 06/09/17 at 18:00 Insulin Glargine (Lantus) 15 unit DAILY@08 SC Last administered on 06/10/17 08: 39; Admin Dose 15 UNIT; Start 06/09/17 at 19:30 Hydralazine HCl 10 mg 10 mg Q4H PRN IV SBP>170 Last administered on 06/09/17 23 :36; Admin Dose 10 MG; Start 06/09/17 at 18:30 Sodium Chloride (NS) 1,000 ml @ 100 mls/hr Q10H IV Last administered on 04:00; Admin Dose 100 MLS/HR; Start 06/09/17 at 19:00 Diagnostic Test (Pha) (Accu-Chek) 1 ea 02 XX ; Start 06/11/17 at 02:00 Diagnostic Test (Pha) (Accu-Chek) 1 XX ; Start 06/11/17 at 02:00 ODESSA ARELLANO Jun 10, 2017 15:51
[2017-06-10] MEDS: AMLODIPINE 5 MG TAB PO SCH (16:55)
[2017-06-10] MEDS ORDERED: MAGNESIUM SULFATE 4 GM/100 ML 100 ML IVPB ONE (17:30)
[2017-06-10] MEDS: HYDROmorphONE 0.2 MG/ML PCA IV SCH (19:00)
--- NOTE | 2017-06-10 19:02 | PN ---
Date/Time of Note Date/Time of Note DATE: 06/10/17 TIME: 19:01 Assessment/Plan Assessment/Plan Chief Complaint/Hosp Course CKD SP Dialysis cath placement Renal status improved will DC Dialysis cath Problems: Subjective 24 Hr Interval Summary Constitutional: improved Pain Control: mild Exam/Review of Systems Vital Signs Vitals Vital Signs Date Time Temp Pulse Resp B/P Pulse Ox O2 Delivery O2 Flow Rate FiO2 06/10/17 17:30 125 20 161/88 94 Nasal Cannula 3.0 06/10/17 16:00 98.4 06/10/17 09:25 40 Intake and Output 06/09/17 06/09/17 06/10/17 15:00 23:00 07:00 Intake Total 3600 ml 766.68 ml 879.932 ml Output Total 450 ml 1275 ml 310 ml Balance 3150 ml -508.32 ml 569.932 ml Exam ENMT: mucosa pink and moist, nl external ears & nose, nl lips & teeth, nl nasal mucosa & septum Neck: non-tender, supple Respiratory: clear to auscultation, normal air movement Cardiovascular: nl pulses, regular rate and rhythm Gastrointestinal: nl liver, spleen, non-tender, soft Results Result Diagram: 06/10/17 0445 06/10/17 1705 BEHZAD MICHEL MD Jun 10, 2017 19:02
[2017-06-10] MEDS: hydrALAzine 20 MG INJ IV PRN (19:38)
--- NOTE | 2017-06-10 19:52 | CONS ---
Date/Time of Note Date/Time of Note DATE: 06/10/17 TIME: 19:51 Assessment/Plan Assessment/Plan Chief Complaint/Hosp Course A/P HYPERKALEMIA BETTER S/P HD DM CKD HTN HEP C S/P LIVER SURGERY PLAN PER ORDER HOLD HD CK BMP Problems: Consultation Date/Type/Reason Admit Date/Time Jun 09, 2017 at 06:00 Type of Consultation: RENAL 24 HR Interval Summary Subjective hx not possible: other (NO ABD PAIN) Exam/Review of Systems Vital Signs Vitals Vital Signs Date Time Temp Pulse Resp B/P Pulse Ox O2 Delivery O2 Flow Rate FiO2 06/10/17 19:27 95 2.0 27 06/10/17 19:00 123 22 171/109 Nasal Cannula 06/10/17 16:00 98.4 Intake and Output 06/09/17 06/09/17 06/10/17 15:00 23:00 07:00 Intake Total 3600 ml 766.68 ml 879.932 ml Output Total 450 ml 1275 ml 310 ml Balance 3150 ml -508.32 ml 569.932 ml Exam Neck: supple Respiratory: clear to auscultation Cardiovascular: regular rate and rhythm Gastrointestinal: bowel sounds (+), soft Extremities: No edema Neurological: STRAIGHTENING PRESS OPERATOR II-XII intact Results Result Diagram: 06/10/17 0445 06/10/17 1705 Results 24 hrs Laboratory Tests Test 06/09/17 20:05 06/09/17 21:14 06/10/17 00:53 06/10/17 00:56 Potassium Level 6.1 #*H 4.3 Creatine Kinase 1075 H Creatine Kinase Index 0.2 Creatinine Kinase MB (Mass) 2.48 H Troponin I 0.200 *H 0.339 *H Bedside Glucose 245 H 156 Test 06/10/17 04:37 06/10/17 04:45 06/10/17 07:00 06/10/17 08:34 Bedside Glucose 178 191 White Blood Count 15.0 #H Red Blood Count 4.73 Hemoglobin 11.8 L Hematocrit 38.2 L Mean Corpuscular Volume 80.8 L Mean Corpuscular Hemoglobin 24.9 L Mean Corpuscular Hemoglobin Concent 30.9 L Red Cell Distribution Width 16.2 H Platelet Count 211 # Mean Platelet Volume 9.9 Neutrophils % 78.0 H Lymphocytes % 10.3 L Monocytes % 10.8 Eosinophils % 0.2 Basophils % 0.3 Nucleated Red Blood Cells % 0.0 Neutrophils # 11.7 H Lymphocytes # 1.6 Monocytes # 1.6 H Eosinophils # 0.0 Basophils # 0.1 Nucleated Red Blood Cells # 0.0 Prothrombin Time 14.6 H Prothrombin Time Ratio 1.1 INR International Normalized Ratio 1.14 Activated Partial Thromboplast Time 30.1 Sodium Level 140 Potassium Level 4.6 Chloride Level 99 Carbon Dioxide Level 27 Anion Gap 19 H Blood Urea Nitrogen 32 H Creatinine 3.65 H Glucose Level 212 Lactic Acid Level 3.7 *H Calcium Level 8.2 L Phosphorus Level 4.7 Magnesium Level 1.4 L Total Bilirubin 0.1 L Direct Bilirubin 0.00 Indirect Bilirubin 0.1 Aspartate Amino Transf (AST/SGOT) 222 #H Alanine Aminotransferase (ALT/SGPT) 99 H Alkaline Phosphatase 81 B-Type Natriuretic Peptide 483 H Total Protein 5.6 #L Albumin 2.5 L Globulin 3.10 Albumin/Globulin Ratio 0.80 Blood Gas Specimen Source Blood arterial Arterial Blood Date Drawn 06/10/2017 7:08:51 AM Arterial Blood pH (Temp corrected) 7.478 H Arterial Blood pCO2 (Temp correct) 34.7 L Arterial Blood pO2 (Temp corrected) 76.8 L Arterial Blood HCO3 25.1 Arterial Blood Base Excess 2.0 Arterial Blood Oxygen Saturation 95.6 Cristian Test N/A Arterial Blood Gas Puncture Site A-Line Arterial Blood Carboxyhemoglobin 0.3 Arterial Blood Methemoglobin 0.4 Blood Gas A-a O2 Differential 168.5 H Oxyhemoglobin Percent 94.9 Total Hemoglobin 12.9 Blood Gas Temperature 37.0 Blood Gas Respiration Rate 18.0 Blood Gas Actual Respiration Rate 18 Blood Gas Modality VENT - AC FiO2 40.0 Blood Gas Tidal Volume 650.0 Blood Gas Low PEEP Setting 5.0 Blood Gas Notified Whom TM Blood Gas Notified Time 06/10/2017 7:16:43 AM Test 06/10/17 09:25 06/10/17 13:16 06/10/17 17:05 06/10/17 17:36 Potassium Level 4.5 4.9 Troponin I 0.413 *H Bedside Glucose 177 207 Medications Medications Current Medications Acetaminophen/ Hydrocodone Bitart ([place] (5/325)) 1 tab Q4H PRN PO PAIN LEVEL 4 -7 Last administered on 06/10/17 16:55; Admin Dose 1 TAB; Start 06/09/17 at 14:00 ; Status Future Hold Acetaminophen/ Hydrocodone Bitart ([place] (5/325)) 2 tab Q4H PRN PO PAIN LEVEL 7 -10; Start 06/09/17 at 14:00; Status Future Hold Hydromorphone HCl (Dilaudid) 0.5 mg Q2H PRN IV PAIN; Start 06/09/17 at 14:00 Hydromorphone HCl (Dilaudid) 1 mg Q2H PRN IV PAIN Last administered on 16:03; Admin Dose 1 MG; Start 06/09/17 at 14:00 Docusate Sodium (Colace) 100 mg BID PRN PO CONSTIPATION; Start 06/09/17 at 14:00 Bisacodyl (Dulcolax Supp) 10 mg BID PRN [place] CONSTIPATION; Start 06/09/17 at 14:00 Sodium Biphosphate/ Sodium Phosphate (Fleet Enema) 133 ml BID PRN [place] CONSTIPATION; Start 06/09/17 at 14:00 Famotidine (Pepcid Iv) 20 mg DAILY IV Last administered on 06/10/17 08:32; Admin Dose 20 MG; Start 06/10/17 at 09:00 Enoxaparin Sodium (Lovenox) 40 mg DAILY SC Last administered on 06/10/17 08:38 ; Admin Dose 40 MG; Start 06/10/17 at 09:00 Miscellaneous Information 1 ea NOTE XX ; Start 06/09/17 at 17:30 Glucose (Glutose) 15 gm Q15M PRN PO DECREASED GLUCOSE; Start 06/09/17 at 17:30 Glucose (Glutose) 22.5 gm Q15M PRN PO DECREASED GLUCOSE; Start 06/09/17 at 17:30 Dextrose (D50w Syringe) 25 ml Q15M PRN IV DECREASED GLUCOSE; Start 06/09/17 at 17:30 Dextrose (D50w Syringe) 50 ml Q15M PRN IV DECREASED GLUCOSE Last administered on 06/09/17 17:47; Admin Dose 50 ML; Start 06/09/17 at 17:30 Glucagon (Glucagen) 1 mg Q15M PRN IM DECREASED GLUCOSE; Start 06/09/17 at 17:30 Glucose 15 gm 15 gm Q15M PRN BUCCAL DECREASED GLUCOSE; Start 06/09/17 at 17:30 Propofol (Diprivan) 100 ml @ 2.922 mls/ hr Q12H IV Last administered on 05:22; Admin Dose 17.532 MLS/HR; Start 06/09/17 at 18:00 Insulin Glargine (Lantus) 15 unit DAILY@08 SC Last administered on 06/10/17 08: 39; Admin Dose 15 UNIT; Start 06/09/17 at 19:30 Hydralazine HCl 10 mg 10 mg Q4H PRN IV SBP>170 Last administered on 06/10/17 19 :38; Admin Dose 10 MG; Start 06/09/17 at 18:30 Sodium Chloride (NS) 1,000 ml @ 100 mls/hr Q10H IV Last administered on 15:42; Admin Dose 100 MLS/HR; Start 06/09/17 at 19:00 Diagnostic Test (Pha) (Accu-Chek) 1 ea 02 XX ; Start 06/11/17 at 02:00 Hydralazine HCl (Apresoline) 100 mg BID PO ; Start 06/10/17 at 21:00 Amlodipine Besylate 5 mg 5 mg DAILY PO Last administered on 06/10/17 16:55; Admin Dose 5 MG; Start 06/10/17 at 16:00 Magnesium Sulfate (Magnesium Sulfate 4 Gm/100 ml) 100 ml @ 25 mls/hr ONCE ONCE IVPB Last administered on 06/10/17 16:56; Admin Dose 25 MLS/HR; Start 06/10 at 17:30; Stop 06/10/17 at 21:29 Hydromorphone HCl (Dilaudid HEEL SHAVER) 0.1 MG DOSE 10 ... Q4PCA IV Last administered on 06/10/17 19:00; Admin Dose 6 MG; Start 06/10/17 at 18:30 JAY JIANG MD Jun 10, 2017 19:52
--- NOTE | 2017-06-10 21:20 | PN ---
Date/Time of Note Date/Time of Note DATE: 06/10/17 TIME: 21:16 Assessment/Plan Lines/Catheters IV Catheter Type (from Nrsg): Central Line Sadler in Place (from Nrsg): Yes Assessment/Plan Assessment/Plan [facility] Progress Note Date of Service: 06/10/17 Today's Impression & Plan: Overall doing well post op with major issues that seem to have been appropriately managed. No major wound problems. Potassium appears to be improved and I personally do not see a clear reason for further dialysis, but will defer to Dr. Perales's excellent judgment. Liver function appears to be adequate and expected. Patient can benefit from an extra day in the ICU. With above assessment, I've recommended the following for today: 1. Keep in ICU 2. Cont current cares 3. Labs in am 4. Increase ICS 5. Increase activity Nature of presenting problem: High complexity Thank you again for your great care of this very pleasant patient and wonderful family. If there are any questions, please feel free to call me at [phone]. Disclaimer: Inadvertent spelling or grammatical errors are likely due to EHR/ dictation software use and do not reflect on the overall quality of patient care. Updated Clinical Summary: Subjective: No major events or complaints; no major abd pain and under control with medications; no n/v/d; no sob or cp; - flatus; - BM; - activity Objective: Vitals: See below Exam: GENERAL: On exam, the patient was laying in bed and appeared to be comfortable and in no acute distress. ABDOMEN: Soft, nontender and nondistended. Incision dressings are clean, dry and intact without any evidence of obvious underlying erythema, edema, discharge , or hernia. There are no peritoneal signs or guarding. SKIN: Skin appears to be pink and feels warm to touch. NEUROLOGIC: Patient is awake, alert, and follows commands appropriately. Exam/Review of Systems Vital Signs Vitals Vital Signs Date Time Temp Pulse Resp B/P Pulse Ox O2 Delivery O2 Flow Rate FiO2 06/11/17 12:00 99.3 103 27 144/113 93 Nasal Cannula 4.0 06/11/17 01:42 27 Intake and Output 06/10/17 06/10/17 06/11/17 15:00 23:00 07:00 Intake Total 698.408 ml 2140 ml 755 ml Output Total 155 ml 195 ml 595 ml Balance 543.408 ml 1945 ml 160 ml Results Result Diagram: 06/11/17 0500 06/11/17 0500 KAYA BERMAN M.D. Jun 10, 2017 21:20 KAYA BERMAN M.D. Jun 10, 2017 21:20
[2017-06-10] MEDS ORDERED: LABETALOL HCL 20MG INJ IV ONE (22:00)
--- NOTE | 2017-06-10 23:25 | CONS ---
Date/Time of Note Date/Time of Note DATE: 06/10/17 TIME: 23:24 Assessment/Plan Assessment/Plan Chief Complaint/Hosp Course A/P HYPERKALEMIA BETTER S/P HD DM CKD HTN HEP C S/P LIVER SURGERY PLAN PER ORDER HOLD HD CK BMP Problems: Consultation Date/Type/Reason Admit Date/Time Jun 09, 2017 at 06:00 Type of Consultation: RENAL [id number] HR Interval Summary Constitutional: no complaints Exam/Review of Systems Vital Signs Vitals Vital Signs Date Time Temp Pulse Resp B/P Pulse Ox O2 Delivery O2 Flow Rate FiO2 06/10/17 23:00 71 06/10/17 20:00 Nasal Cannula 4.0 06/10/17 19:27 95 27 06/10/17 19:00 22 171/109 06/10/17 16:00 98.4 Intake and Output 06/09/17 06/09/17 06/10/17 15:00 23:00 07:00 Intake Total 3600 ml 766.68 ml 879.932 ml Output Total 450 ml 1275 ml 310 ml Balance 3150 ml -508.32 ml 569.932 ml Exam Neck: supple Respiratory: clear to auscultation Cardiovascular: regular rate and rhythm Gastrointestinal: soft Results Result Diagram: 06/10/17 0445 06/10/17 2110 Results 24 hrs Laboratory Tests Test 06/10/17 00:53 06/10/17 00:56 06/10/17 04:37 06/10/17 04:45 Bedside Glucose 156 178 Potassium Level 4.3 4.6 Troponin I 0.339 *H White Blood Count 15.0 #H Red Blood Count 4.73 Hemoglobin 11.8 L Hematocrit 38.2 L Mean Corpuscular Volume 80.8 L Mean Corpuscular Hemoglobin 24.9 L Mean Corpuscular Hemoglobin Concent 30.9 L Red Cell Distribution Width 16.2 H Platelet Count 211 # Mean Platelet Volume 9.9 Neutrophils % 78.0 H Lymphocytes % 10.3 L Monocytes % 10.8 Eosinophils % 0.2 Basophils % 0.3 Nucleated Red Blood Cells % 0.0 Neutrophils # 11.7 H Lymphocytes # 1.6 Monocytes # 1.6 H Eosinophils # 0.0 Basophils # 0.1 Nucleated Red Blood Cells # 0.0 Prothrombin Time 14.6 H Prothrombin Time Ratio 1.1 INR International Normalized Ratio 1.14 Activated Partial Thromboplast Time 30.1 Sodium Level 140 Chloride Level 99 Carbon Dioxide Level 27 Anion Gap 19 H Blood Urea Nitrogen 32 H Creatinine 3.65 H Glucose Level 212 Lactic Acid Level 3.7 *H Calcium Level 8.2 L Phosphorus Level 4.7 Magnesium Level 1.4 L Total Bilirubin 0.1 L Direct Bilirubin 0.00 Indirect Bilirubin 0.1 Aspartate Amino Transf (AST/SGOT) 222 #H Alanine Aminotransferase (ALT/SGPT) 99 H Alkaline Phosphatase 81 B-Type Natriuretic Peptide 483 H Total Protein 5.6 #L Albumin 2.5 L Globulin 3.10 Albumin/Globulin Ratio 0.80 Test 06/10/17 07:00 06/10/17 08:34 06/10/17 09:25 06/10/17 13:16 Blood Gas Specimen Source Blood arterial Arterial Blood Date Drawn 06/10/2017 7:08:51 AM Arterial Blood pH (Temp corrected) 7.478 H Arterial Blood pCO2 (Temp correct) 34.7 L Arterial Blood pO2 (Temp corrected) 76.8 L Arterial Blood HCO3 25.1 Arterial Blood Base Excess 2.0 Arterial Blood Oxygen Saturation 95.6 Cristian Test N/A Arterial Blood Gas Puncture Site A-Line Arterial Blood Carboxyhemoglobin 0.3 Arterial Blood Methemoglobin 0.4 Blood Gas A-a O2 Differential 168.5 H Oxyhemoglobin Percent 94.9 Total Hemoglobin 12.9 Blood Gas Temperature 37.0 Blood Gas Respiration Rate 18.0 Blood Gas Actual Respiration Rate 18 Blood Gas Modality VENT - AC FiO2 40.0 Blood Gas Tidal Volume 650.0 Blood Gas Low PEEP Setting 5.0 Blood Gas Notified Whom TM Blood Gas Notified Time 06/10/2017 7:16:43 AM Bedside Glucose 191 177 Potassium Level 4.5 Troponin I 0.413 *H Test 06/10/17 17:05 06/10/17 17:36 06/10/17 21:10 Potassium Level 4.9 4.8 Bedside Glucose 207 224 H Medications Medications Current Medications Acetaminophen/ Hydrocodone Bitart ([place] (5/325)) 1 tab Q4H PRN PO PAIN LEVEL 4 -7 Last administered on 06/10/17t 16:55; Admin Dose 1 TAB; Start 06/09/17 at 14:00 ; Status Future Hold Acetaminophen/ Hydrocodone Bitart ([place] (5/325)) 2 tab Q4H PRN PO PAIN LEVEL 7 -10; Start 06/09/17 at 14:00; Status Future Hold Hydromorphone HCl (Dilaudid) 0.5 mg Q2H PRN IV PAIN; Start 06/09/17 at 14:00 Hydromorphone HCl (Dilaudid) 1 mg Q2H PRN IV PAIN Last administered on 16:03; Admin Dose 1 MG; Start 06/09/17 at 14:00 Docusate Sodium (Colace) 100 mg BID PRN PO CONSTIPATION; Start 06/09/17 at 14:00 Bisacodyl (Dulcolax Supp) 10 mg BID PRN [place] CONSTIPATION; Start 06/09/17 at 14:00 Sodium Biphosphate/ Sodium Phosphate (Fleet Enema) 133 ml BID PRN [place] CONSTIPATION; Start 06/09/17 at 14:00 Famotidine (Pepcid Iv) 20 mg DAILY IV Last administered on 06/10/17 08:32; Admin Dose 20 MG; Start 06/10/17 at 09:00 Enoxaparin Sodium (Lovenox) 40 mg DAILY SC Last administered on 06/10/17 08:38 ; Admin Dose 40 MG; Start 06/10/17 at 09:00 Miscellaneous Information 1 ea NOTE XX ; Start 06/09/17 at 17:30 Glucose (Glutose) 15 gm Q15M PRN PO DECREASED GLUCOSE; Start 06/09/17 at 17:30 Glucose (Glutose) 22.5 gm Q15M PRN PO DECREASED GLUCOSE; Start 06/09/17 at 17:30 Dextrose (D50w Syringe) 25 ml Q15M PRN IV DECREASED GLUCOSE; Start 06/09/17 at 17:30 Dextrose (D50w Syringe) 50 ml Q15M PRN IV DECREASED GLUCOSE Last administered on 06/09/17 17:47; Admin Dose 50 ML; Start 06/09/17 at 17:30 Glucagon (Glucagen) 1 mg Q15M PRN IM DECREASED GLUCOSE; Start 06/09/17 at 17:30 Glucose 15 gm 15 gm Q15M PRN BUCCAL DECREASED GLUCOSE; Start 06/09/17 at 17:30 Propofol (Diprivan) 100 ml @ 2.922 mls/ hr Q12H IV Last administered on 05:22; Admin Dose 17.532 MLS/HR; Start 06/09/17 at 18:00 Insulin Glargine (Lantus) 15 unit DAILY@08 SC Last administered on 06/10/17 08: 39; Admin Dose 15 UNIT; Start 06/09/17 at 19:30 Hydralazine HCl 10 mg 10 mg Q4H PRN IV SBP>170 Last administered on 06/10/17 19 :38; Admin Dose 10 MG; Start 06/09/17 at 18:30 Sodium Chloride (NS) 1,000 ml @ 100 mls/hr Q10H IV Last administered on 15:42; Admin Dose 100 MLS/HR; Start 06/09/17 at 19:00 Diagnostic Test (Pha) (Accu-Chek) 1 ea 02 XX ; Start 06/11/17 at 02:00 Hydralazine HCl (Apresoline) 100 mg BID PO Last administered on 06/10/17 21:08 ; Admin Dose 100 MG; Start 06/10/17 at 21:00 Amlodipine Besylate (Norvasc) 5 mg DAILY PO Last administered on 06/10/17 16:55 ; Admin Dose 5 MG; Start 06/10/17 at 16:00 Hydromorphone HCl (Dilaudid INVESTIGATOR VICE) 0.1 MG DOSE 10 ... Q4PCA IV Last administered on 06/10/17 19:00; Admin Dose 6 MG; Start 06/10/17 at 18:30 JAY JIANG MD Jun 10, 2017 23:25
[2017-06-11] VITALS (29 sets, daily range): BP systolic 131–210; BP diastolic 77–113; PULSE 99–120; RESP 16–35
[2017-06-11] MEDS: SOD CHLORIDE 0.9% 1,000 ML IV SCH (00:57)
[2017-06-11] MEDS: ACCU-CHEK XX SCH (01:23)
[2017-06-11] MEDS ORDERED: ACCU-CHEK XX SCH (02:00)
[2017-06-11] MEDS: LABETALOL HCL 20MG INJ IV PRN ×2 (02:02→07:03)
[2017-06-11 05:46] LABS: ABNORMAL IP MESSAGE 1; BASOPHILS % 0.3 % (0.0-2.0); EOSINOPHILS # 0.3 10^3/ul (0.0-0.5); HEMATOCRIT 34.6 % (42.0-52.0); HEMOGLOBIN 10.7 g/dl (14.0-18.0); LYMPHOCYTES # 1.4 10^3/ul (0.8-2.9); LYMPHOCYTES % 10.6 % (15.0-51.0); MEAN CORPUSCULAR HEMOGLOBIN 25.4 pg (29.0-33.0); MEAN CORPUSCULAR HGB CONC 30.9 g/dl (32.0-37.0); MEAN CORPUSCULAR VOLUME 82.2 fl (82.0-101.0); MEAN PLATELET VOLUME 9.9 fl (7.4-10.4); MONOCYTE # 2.1 10^3/ul (0.3-0.9); MONOCYTES % 15.6 % (0.0-11.0); NEUTROPHIL # 9.5 10^3/ul (1.6-7.5); NEUTROPHILS % 71.2 % (39.0-77.0); PLATELET COUNT 168 10^3/UL (140-415); POSITIVE DIFF @See below; RED BLOOD COUNT 4.21 10^6/ul (4.70-6.10); RED CELL DISTRIBUTION WIDTH 16.1 % (11.5-14.5); WHITE BLOOD COUNT 13.3 10^3/ul (4.8-10.8)
[2017-06-11] MEDS: hydrALAzine 20 MG INJ IV PRN ×4 (05:50→21:48)
[2017-06-11 06:25] LABS: CHOL/HDL RATIO 2.9 RATIO
[2017-06-11 06:27] LABS: CALCIUM 7.3 mg/dl (8.4-10.2); CREATININE 5.33 mg/dl (0.61-1.24); MAGNESIUM 2.3 mg/dl (1.7-2.5); PHOSPHORUS 4.7 mg/dl (2.5-4.9)
[2017-06-11 06:29] LABS: POTASSIUM 5.3 mmol/L (3.5-5.1)
[2017-06-11 06:53] LABS: TROPONIN-I 0.238 ng/ml (0.00-0.12)
[2017-06-11] MEDS: INSULIN ASPART [NOVOLOG] 3 ML PEN SC SCH ×5 (08:26→20:27)
[2017-06-11] MEDS: INSULIN GLARGINE [LANtus] 3 ML PEN SC SCH (08:29)
[2017-06-11] MEDS: AMLODIPINE 5 MG TAB PO SCH (08:44)
[2017-06-11] MEDS: FAMOTIDINE 20 MG INJ IV SCH (09:34)
[2017-06-11] MEDS: ENOXAPARIN 40 MG/0.4 ML SYG SC SCH (09:35)
--- NOTE | 2017-06-11 10:32 | CONS ---
Date/Time of Note Date/Time of Note DATE: 06/11/17 TIME: 10:29 Assessment/Plan Assessment/Plan Additional Assessment/Plan Assessment and recommendations; 1. Status post partial hepatic resection for possibly underlying malignancy. Patient with a history of hepatitis C. 2. Patient successfully extubated yesterday morning. With stable hemodynamics and respiratory status. 3. Mild postoperative pain. 4. Worsening serum creatinine. Continue current treatment. Monitor renal function. Patient may need dialysis. Consultation Date/Type/Reason Admit Date/Time Jun 09, 2017 at 06:00 Initial Consult Date 06/10/17 Type of Consultation: Pulmonary/critical care 24 HR Interval Summary Free Text/Dictation Patient condition is stable. Complains of right upper quadrant pain. Denies any shortness breath, nausea or vomiting. General exam; elderly male, awake and alert. Currently no distress. Exam/Review of Systems Vital Signs Vitals Vital Signs Date Time Temp Pulse Resp B/P Pulse Ox O2 Delivery O2 Flow Rate FiO2 06/11/17 09:00 105 26 174/89 93 Nasal Cannula 4.0 06/11/17 07:30 99.2 06/11/17 01:42 27 Intake and Output 06/10/17 06/10/17 06/11/17 15:00 23:00 07:00 Intake Total 698.408 ml 2140 ml 655 ml Output Total 155 ml 195 ml 595 ml Balance 543.408 ml 1945 ml 60 ml Exam HEENT exam; supple neck, no JVD. No lymphadenopathy. Midline trachea. No thyromegaly. Patient has fair dentition. Chest exam; clear to auscultation. S1-S2 audible, no murmurs. Regular rhythm. Abdomen exam; soft, tenderness involving right upper quadrant. There is a dressing in place as well. Bowel sounds are audible. Extremity exam; no peripheral edema. Pulses 1+ bilaterally. JAVASCRIPT APPLICATION DEVELOPER exam; no focal deficit. Results Result Diagram: 06/11/17 0500 06/11/17 0500 Results 24 hrs Laboratory Tests Test 06/10/17 13:16 06/10/17 17:05 06/10/17 17:36 06/10/17 21:10 Bedside Glucose 177 207 224 H Potassium Level 4.9 4.8 Test 06/11/17 00:55 06/11/17 05:00 06/11/17 08:22 Bedside Glucose 230 H 207 White Blood Count 13.3 H Red Blood Count 4.21 L Hemoglobin 10.7 L Hematocrit 34.6 L Mean Corpuscular Volume 82.2 Mean Corpuscular Hemoglobin 25.4 L Mean Corpuscular Hemoglobin Concent 30.9 L Red Cell Distribution Width 16.1 H Platelet Count 168 # Mean Platelet Volume 9.9 Neutrophils % 71.2 Lymphocytes % 10.6 L Monocytes % 15.6 H Eosinophils % 2.0 Basophils % 0.3 Nucleated Red Blood Cells % 0.0 Neutrophils # 9.5 H Lymphocytes # 1.4 Monocytes # 2.1 H Eosinophils # 0.3 Basophils # 0.0 Nucleated Red Blood Cells # 0.0 Sodium Level 139 Potassium Level 5.3 H Chloride Level 98 Carbon Dioxide Level 28 Anion Gap 18 H Blood Urea Nitrogen 49 #H Creatinine 5.33 H Glucose Level 236 H Hemoglobin A1c 7.9 H Lactic Acid Level 1.4 Calcium Level 7.3 L Phosphorus Level 4.7 Magnesium Level 2.3 Troponin I 0.238 *H Triglycerides Level 191 H Cholesterol Level 70 L LDL Cholesterol, Calculated 8 HDL Cholesterol 24 L Cholesterol/HDL Ratio 2.9 Medications Medications Current Medications Acetaminophen/ Hydrocodone Bitart ([place] (5/325)) 1 tab Q4H PRN PO PAIN LEVEL 4 -7 Last administered on 06/10/17 16:55; Admin Dose 1 TAB; Start 06/09/17 at 14:00 ; Status Future Hold Acetaminophen/ Hydrocodone Bitart ([place] (5/325)) 2 tab Q4H PRN PO PAIN LEVEL 7 -10; Start 06/09/17 at 14:00; Status Future Hold Hydromorphone HCl (Dilaudid) 0.5 mg Q2H PRN IV PAIN; Start 06/09/17 at 14:00 Hydromorphone HCl (Dilaudid) 1 mg Q2H PRN IV PAIN Last administered on 16:03; Admin Dose 1 MG; Start 06/09/17 at 14:00 Docusate Sodium (Colace) 100 mg BID PRN PO CONSTIPATION; Start 06/09/17 at 14:00 Bisacodyl (Dulcolax Supp) 10 mg BID PRN [place] CONSTIPATION; Start 06/09/17 at 14:00 Sodium Biphosphate/ Sodium Phosphate (Fleet Enema) 133 ml BID PRN [place] CONSTIPATION; Start 06/09/17 at 14:00 Famotidine (Pepcid Iv) 20 mg DAILY IV Last administered on 06/11/17 09:34; Admin Dose 20 MG; Start 06/10/17 at 09:00 Enoxaparin Sodium (Lovenox) 40 mg DAILY SC Last administered on 06/11/17 09:35 ; Admin Dose 40 MG; Start 06/10/17 at 09:00 Miscellaneous Information 1 ea NOTE XX ; Start 06/09/17 at 17:30 Glucose (Glutose) 15 gm Q15M PRN PO DECREASED GLUCOSE; Start 06/09/17 at 17:30 Glucose (Glutose) 22.5 gm Q15M PRN PO DECREASED GLUCOSE; Start 06/09/17 at 17:30 Dextrose (D50w Syringe) 25 ml Q15M PRN IV DECREASED GLUCOSE; Start 06/09/17 at 17:30 Dextrose (D50w Syringe) 50 ml Q15M PRN IV DECREASED GLUCOSE Last administered on 06/09/17 17:47; Admin Dose 50 ML; Start 06/09/17 at 17:30 Glucagon (Glucagen) 1 mg Q15M PRN IM DECREASED GLUCOSE; Start 06/09/17 at 17:30 Glucose (Glutose) 15 gm Q15M PRN BUCCAL DECREASED GLUCOSE; Start 06/09/17 at 17: 30 Insulin Glargine (Lantus) 15 unit DAILY@08 SC Last administered on 06/11/17 08: 29; Admin Dose 15 UNIT; Start 06/09/17 at 19:30 Hydralazine HCl 10 mg 10 mg Q4H PRN IV SBP>170 Last administered on 06/11/17 05 :50; Admin Dose 10 MG; Start 06/09/17 at 18:30 Sodium Chloride (NS) 1,000 ml @ 100 mls/hr Q10H IV Last administered on 00:57; Admin Dose 100 MLS/HR; Start 06/09/17 at 19:00 Diagnostic Test (Pha) (Accu-Chek) 1 ea 02 XX Last administered on 06/11/17 01: 23; Admin Dose 1 EA; Start 06/11/17 at 02:00 Hydralazine HCl (Apresoline) 100 mg BID PO Last administered on 06/11/17 08:43 ; Admin Dose 100 MG; Start 06/10/17 at 21:00 Amlodipine Besylate (Norvasc) 5 mg DAILY PO Last administered on 06/11/17 08:44 ; Admin Dose 5 MG; Start 06/10/17 at 16:00 Hydromorphone HCl (Dilaudid ACCOUNT INFORMATION CLERK) 0.1 MG DOSE 10 ... Q4PCA IV Last administered on 06/10/17 19:00; Admin Dose 6 MG; Start 06/10/17 at 18:30 Labetalol HCl (Labetalol) 10 mg Q2H PRN IV SBP>160 Last administered on 07:03; Admin Dose 10 MG; Start 06/11/17 at 01:30 DEAN GLOVER Jun 11, 2017 10:32
--- NOTE | 2017-06-11 13:18 | PN ---
Date/Time of Note Date/Time of Note DATE: 06/11/17 TIME: 13:15 Assessment/Plan Lines/Catheters IV Catheter Type (from Nrs): SVETLANA Sadler in Place (from Nrs): Yes Assessment/Plan Assessment/Plan [facility] Progress Note Date of Service: 06/11/17 Today's Impression & Plan: Overall stable and relatively doing well. No major wound problems. Potassium and renal function appear to be improved. Cardiopulmonary function and hepatic function also appear to be stable. No evidence for major intra-abdominal complication or surgical site infection. No indication for acute surgical intervention. Discussed with patient and with his over the phone and answered all questions. Patient and appear to understand and agreed with the plans. Also discussed with rest of the team. With above assessment, I've recommended the following for today: 1. Okay to transfer out of the ICU to [facility] 2. Saline lock IV with oral conversion 3. Labs in am 4. Increase ICS 5. Increase activity 6. Discontinue Sadler catheter if okay by Dr. Perales; same for dialysis catheter Nature of presenting problem: High complexity Thank you again for your great care of this very pleasant patient and wonderful family. If there are any questions, please feel free to call me at [phone]. Disclaimer: Inadvertent spelling or grammatical errors are likely due to EHR/ dictation software use and do not reflect on the overall quality of patient care. Updated Clinical Summary: Subjective: No major events or complaints; no major abd pain and under control with medications; no n/v/d; no sob or cp; + flatus; - BM; minimal activity Objective: Vitals: See below Exam: GENERAL: On exam, the patient was sitting in a chair and appeared to be comfortable and in no acute distress. ABDOMEN: Soft, nontender and nondistended. Incision dressings DC'd and incisions are clean, dry and intact without any evidence of obvious erythema, edema, discharge, or hernia. There are no peritoneal signs or guarding. SKIN: Skin appears to be pink and feels warm to touch. NEUROLOGIC: Patient is awake, alert, and follows commands appropriately. Exam/Review of Systems Vital Signs Vitals Vital Signs Date Time Temp Pulse Resp B/P Pulse Ox O2 Delivery O2 Flow Rate FiO2 06/11/17 12:00 99.3 103 27 144/113 93 Nasal Cannula 4.0 06/11/17 01:42 27 Intake and Output 06/10/17 06/10/17 06/11/17 15:00 23:00 07:00 Intake Total 698.408 ml 2140 ml 755 ml Output Total 155 ml 195 ml 595 ml Balance 543.408 ml 1945 ml 160 ml Results Result Diagram: 06/11/17 0500 06/11/17 0500 KAYA BERMAN M.D. Jun 11, 2017 13:18
--- NOTE | 2017-06-11 15:52 | PN ---
Date/Time of Note Date/Time of Note DATE: 06/11/17 TIME: 15:41 Assessment/Plan VTE Prophylaxis VTE Prophylaxis Intervention: SCD's Lines/Catheters IV Catheter Type (from [facility]): SVETLANA Assessment/Plan Chief Complaint/Hosp Course 1. Hyperkalemia secondary to KYLE on CKD as well as possible tissue destruction during hepatectomy-resolved with dialysis and medication -Nephrology consult with Dr. Perales appreciated, further dialysis per nephrology , patient having good urine output 2. Acute respiratory failure-patient extubated Pulmonology consultation appreciated 3. Hepatocellular carcinoma secondary to hepatitis C now status post partial hepatectomy and biopsy Follow-up with surgery recommendations 4. Diabetes type 2-sugars elevated Increase sliding scale to moderate, increase basal insulin to 20 units and start mealtime insulin A1c at 7.9 Conservative increases of insulin considering recent hepatectomy 5. Hypertension-BP elevated Continue home hydralazine and have resumed home clonidine today, hold lisinopril for possible acute kidney injury on CKD and in its place have started Norvasc 5 daily, BP still elevated tomorrow then increase Norvasc dose to 10 mg Hydralazine IV as needed 6. Obesity with sleep apnea Lifestyle changes to be advised Prophylaxis: SCD's Problems: Subjective 24 Hr Interval Summary Constitutional: no complaints Exam/Review of Systems Vital Signs Vitals Vital Signs Date Time Temp Pulse Resp B/P Pulse Ox O2 Delivery O2 Flow Rate FiO2 06/11/17 14:00 99 22 161/98 98 Nasal Cannula 06/11/17 12:00 99.3 4.0 06/11/17 01:42 27 Intake and Output 06/10/17 06/10/17 06/11/17 15:00 23:00 07:00 Intake Total 698.408 ml 2140 ml 755 ml Output Total 155 ml 195 ml 595 ml Balance 543.408 ml 1945 ml 160 ml Exam Constitutional: alert, oriented Head: normocephalic Respiratory: clear to auscultation Cardiovascular: regular rate and rhythm Gastrointestinal: soft, No distended Musculoskeletal: nl extremities to inspection Results Result Diagram: 06/11/17 0500 06/11/17 0500 Results 24 hrs Laboratory Tests Test 06/10/17 17:05 06/10/17 17:36 06/10/17 21:10 06/11/17 00:55 Potassium Level 4.9 4.8 Bedside Glucose 207 224 H 230 H Test 06/11/17 05:00 06/11/17 08:22 06/11/17 11:47 White Blood Count 13.3 H Red Blood Count 4.21 L Hemoglobin 10.7 L Hematocrit 34.6 L Mean Corpuscular Volume 82.2 Mean Corpuscular Hemoglobin 25.4 L Mean Corpuscular Hemoglobin Concent 30.9 L Red Cell Distribution Width 16.1 H Platelet Count 168 # Mean Platelet Volume 9.9 Neutrophils % 71.2 Lymphocytes % 10.6 L Monocytes % 15.6 H Eosinophils % 2.0 Basophils % 0.3 Nucleated Red Blood Cells % 0.0 Neutrophils # 9.5 H Lymphocytes # 1.4 Monocytes # 2.1 H Eosinophils # 0.3 Basophils # 0.0 Nucleated Red Blood Cells # 0.0 Sodium Level 139 Potassium Level 5.3 H Chloride Level 98 Carbon Dioxide Level 28 Anion Gap 18 H Blood Urea Nitrogen 49 #H Creatinine 5.33 H Glucose Level 236 H Hemoglobin A1c 7.9 H Lactic Acid Level 1.4 Calcium Level 7.3 L Phosphorus Level 4.7 Magnesium Level 2.3 Troponin I 0.238 *H Triglycerides Level 191 H Cholesterol Level 70 L LDL Cholesterol, Calculated 8 HDL Cholesterol 24 L Cholesterol/HDL Ratio 2.9 Bedside Glucose 207 237 H Medications Medications Current Medications Acetaminophen/ Hydrocodone Bitart ([place] (5/325)) 1 tab Q4H PRN PO PAIN LEVEL 4 -7 Last administered on 06/10/17 16:55; Admin Dose 1 TAB; Start 06/09/17 at 14:00 ; Status Future Hold Acetaminophen/ Hydrocodone Bitart ([place] (5/325)) 2 tab Q4H PRN PO PAIN LEVEL 7 -10; Start 06/09/17 at 14:00; Status Future Hold Hydromorphone HCl (Dilaudid) 0.5 mg Q2H PRN IV PAIN; Start 06/09/17 at 14:00 Hydromorphone HCl (Dilaudid) 1 mg Q2H PRN IV PAIN Last administered on 16:03; Admin Dose 1 MG; Start 06/09/17 at 14:00 Docusate Sodium (Colace) 100 mg BID PRN PO CONSTIPATION; Start 06/09/17 at 14:00 Bisacodyl (Dulcolax Supp) 10 mg BID PRN [place] CONSTIPATION; Start 06/09/17 at 14:00 Sodium Biphosphate/ Sodium Phosphate (Fleet Enema) 133 ml BID PRN [place] CONSTIPATION; Start 06/09/17 at 14:00 Enoxaparin Sodium (Lovenox) 40 mg DAILY SC Last administered on 06/11/17 09:35 ; Admin Dose 40 MG; Start 06/10/17 at 09:00 Miscellaneous Information 1 ea NOTE XX ; Start 06/09/17 at 17:30 Glucose (Glutose) 15 gm Q15M PRN PO DECREASED GLUCOSE; Start 06/09/17 at 17:30 Glucose (Glutose) 22.5 gm Q15M PRN PO DECREASED GLUCOSE; Start 06/09/17 at 17:30 Dextrose (D50w Syringe) 25 ml Q15M PRN IV DECREASED GLUCOSE; Start 06/09/17 at 17:30 Dextrose (D50w Syringe) 50 ml Q15M PRN IV DECREASED GLUCOSE Last administered on 06/09/17 17:47; Admin Dose 50 ML; Start 06/09/17 at 17:30 Glucagon (Glucagen) 1 mg Q15M PRN IM DECREASED GLUCOSE; Start 06/09/17 at 17:30 Glucose (Glutose) 15 gm Q15M PRN BUCCAL DECREASED GLUCOSE; Start 06/09/17 at 17: 30 Hydralazine HCl (Apresoline) 10 mg Q4H PRN IV SBP>170 Last administered on 14:17; Admin Dose 10 MG; Start 06/09/17 at 18:30 Diagnostic Test (Pha) (Accu-Chek) 1 ea 02 XX Last administered on 06/11/17 01: 23; Admin Dose 1 EA; Start 06/11/17 at 02:00 Hydralazine HCl (Apresoline) 100 mg BID PO Last administered on 06/11/17 08:43 ; Admin Dose 100 MG; Start 06/10/17 at 21:00 Amlodipine Besylate (Norvasc) 5 mg DAILY PO Last administered on 06/11/17 08:44 ; Admin Dose 5 MG; Start 06/10/17 at 16:00 Hydromorphone HCl (Dilaudid MEDICAL RESEARCH SCIENTIST) 0.1 MG DOSE 10 ... Q4PCA IV Last administered on 06/10/17 19:00; Admin Dose 6 MG; Start 06/10/17 at 18:30 Labetalol HCl (Labetalol) 10 mg Q2H PRN IV SBP>160 Last administered on t 07:03; Admin Dose 10 MG; Start 06/11/17 at 01:30 Famotidine (Pepcid) 40 mg HS PO ; Start 06/11/17 at 21:00 Clonidine (Catapres) 0.2 mg BID PO ; Start 06/11/17 at 21:00 Insulin Glargine (Lantus) 20 unit DAILY@08 SC ; Start 06/12/17 at 08:00 ODESSA ARELLANO Jun 11, 2017 15:52
[2017-06-11] MEDS ORDERED: NA POLYST SULFON 15 GM/60 ML BTL PO ONE (17:30)
[2017-06-11] MEDS ORDERED: SOD CHLORIDE 0.45% 1,000 ML IV SCH (18:30)
--- NOTE | 2017-06-11 19:16 | PN ---
Date/Time of Note Date/Time of Note DATE: 06/11/17 TIME: 19:15 Assessment/Plan Lines/Catheters IV Catheter Type (from Nrsg): SVETLANA Assessment/Plan Chief Complaint/Hosp Course CKD SP Dialysis cath placement Renal status improved Dialysis catheter removed Problems: Subjective 24 Hr Interval Summary Constitutional: improved Pain Control: mild Exam/Review of Systems Vital Signs Vitals Vital Signs Date Time Temp Pulse Resp B/P Pulse Ox O2 Delivery O2 Flow Rate FiO2 06/11/17 18:15 106 20 210/100 99 Nasal Cannula 06/11/17 16:22 2.0 06/11/17 12:00 99.3 06/11/17 01:42 27 Intake and Output 06/10/17 06/10/17 06/11/17 15:00 23:00 07:00 Intake Total 698.408 ml 2140 ml 755 ml Output Total 155 ml 195 ml 595 ml Balance 543.408 ml 1945 ml 160 ml Exam ENMT: mucosa pink and moist, nl external ears & nose, nl lips & teeth, nl nasal mucosa & septum Neck: non-tender, supple Respiratory: clear to auscultation, normal air movement Cardiovascular: nl pulses, regular rate and rhythm Results Result Diagram: 06/11/17 0500 06/11/17 0500 BEHZAD MICHEL MD Jun 11, 2017 19:16
[2017-06-11] MEDS: FAMOTIDINE 20 MG TAB PO SCH (20:23)
[2017-06-12] VITALS (54 sets, daily range): BP systolic 123–227; BP diastolic 63–114; PULSE 80–122; RESP 8–25
--- NOTE | 2017-06-12 00:07 | CONS ---
Date/Time of Note Date/Time of Note DATE: 06/12/17 TIME: 00:06 Assessment/Plan Assessment/Plan Chief Complaint/Hosp Course A/P HYPERKALEMIA BETTER S/P HD DM CKD HTN unc HEP C S/P LIVER SURGERY PLAN PER ORDER HOLD HD CK BMP kayexalate inc bp meds Problems: Consultation Date/Type/Reason Admit Date/Time Jun 09, 2017 at 06:00 Type of Consultation: renal 24 HR Interval Summary Constitutional: other (no sob) Exam/Review of Systems Vital Signs Vitals Vital Signs Date Time Temp Pulse Resp B/P Pulse Ox O2 Delivery O2 Flow Rate FiO2 06/11/17 20:45 99.2 113 20 191/99 92 06/11/17 18:15 Nasal Cannula 06/11/17 16:22 2.0 06/11/17 01:42 27 Intake and Output 06/11/17 06/11/17 06/12/17 15:00 23:00 07:00 Intake Total 1000 ml 500 ml Output Total 800 ml 800 ml Balance 200 ml -300 ml Exam Respiratory: diminished breath sounds Cardiovascular: regular rate and rhythm Gastrointestinal: bowel sounds (+), soft Musculoskeletal: nl extremities to inspection Extremities: normal pulses Results Result Diagram: 06/11/17 0500 06/11/17 0500 Results 24 hrs Laboratory Tests Test 06/11/17 00:55 06/11/17 05:00 06/11/17 08:22 06/11/17 11:47 Bedside Glucose 230 H 207 237 H White Blood Count 13.3 H Red Blood Count 4.21 L Hemoglobin 10.7 L Hematocrit 34.6 L Mean Corpuscular Volume 82.2 Mean Corpuscular Hemoglobin 25.4 L Mean Corpuscular Hemoglobin Concent 30.9 L Red Cell Distribution Width 16.1 H Platelet Count 168 # Mean Platelet Volume 9.9 Neutrophils % 71.2 Lymphocytes % 10.6 L Monocytes % 15.6 H Eosinophils % 2.0 Basophils % 0.3 Nucleated Red Blood Cells % 0.0 Neutrophils # 9.5 H Lymphocytes # 1.4 Monocytes # 2.1 H Eosinophils # 0.3 Basophils # 0.0 Nucleated Red Blood Cells # 0.0 Sodium Level 139 Potassium Level 5.3 H Chloride Level 98 Carbon Dioxide Level 28 Anion Gap 18 H Blood Urea Nitrogen 49 #H Creatinine 5.33 H Glucose Level 236 H Hemoglobin A1c 7.9 H Lactic Acid Level 1.4 Calcium Level 7.3 L Phosphorus Level 4.7 Magnesium Level 2.3 Troponin I 0.238 *H Triglycerides Level 191 H Cholesterol Level 70 L LDL Cholesterol, Calculated 8 HDL Cholesterol 24 L Cholesterol/HDL Ratio 2.9 Test 06/11/17 17:36 06/11/17 20:26 Bedside Glucose 184 145 Medications Medications Current Medications Acetaminophen/ Hydrocodone Bitart ([place] (5/325)) 1 tab Q4H PRN PO PAIN LEVEL 4 -7 Last administered on 06/10/17 16:55; Admin Dose 1 TAB; Start 06/09/17 at 14:00 ; Status Future Hold Acetaminophen/ Hydrocodone Bitart ([place] (5/325)) 2 tab Q4H PRN PO PAIN LEVEL 7 -10; Start 06/09/17 at 14:00; Status Future Hold Hydromorphone HCl (Dilaudid) 0.5 mg Q2H PRN IV PAIN; Start 06/09/17 at 14:00 Hydromorphone HCl (Dilaudid) 1 mg Q2H PRN IV PAIN Last administered on 16:03; Admin Dose 1 MG; Start 06/09/17 at 14:00 Docusate Sodium (Colace) 100 mg BID PRN PO CONSTIPATION; Start 06/09/17 at 14:00 Bisacodyl (Dulcolax Supp) 10 mg BID PRN [place] CONSTIPATION; Start 06/09/17 at 14:00 Sodium Biphosphate/ Sodium Phosphate (Fleet Enema) 133 ml BID PRN [place] CONSTIPATION; Start 06/09/17 at 14:00 Enoxaparin Sodium (Lovenox) 40 mg DAILY SC Last administered on 06/11/17 09:35 ; Admin Dose 40 MG; Start 06/10/17 at 09:00 Miscellaneous Information 1 ea NOTE XX ; Start 06/09/17 at 17:30 Glucose (Glutose) 15 gm Q15M PRN PO DECREASED GLUCOSE; Start 06/09/17 at 17:30 Glucose (Glutose) 22.5 gm Q15M PRN PO DECREASED GLUCOSE; Start 06/09/17 at 17:30 Dextrose (D50w Syringe) 25 ml Q15M PRN IV DECREASED GLUCOSE; Start 06/09/17 at 17:30 Dextrose (D50w Syringe) 50 ml Q15M PRN IV DECREASED GLUCOSE Last administered on 06/09/17 17:47; Admin Dose 50 ML; Start 06/09/17 at 17:30 Glucagon (Glucagen) 1 mg Q15M PRN IM DECREASED GLUCOSE; Start 06/09/17 at 17:30 Glucose (Glutose) 15 gm Q15M PRN BUCCAL DECREASED GLUCOSE; Start 06/09/17 at 17: 30 Hydralazine HCl (Apresoline) 10 mg Q4H PRN IV SBP>170 Last administered on 21:48; Admin Dose 10 MG; Start 06/09/17 at 18:30 Diagnostic Test (Pha) (Accu-Chek) 1 ea 02 XX Last administered on 06/11/17 01: 23; Admin Dose 1 EA; Start 06/11/17 at 02:00 Hydralazine HCl (Apresoline) 100 mg BID PO Last administered on 06/11/17 20:27 ; Admin Dose 100 MG; Start 06/10/17 at 21:00 Amlodipine Besylate (Norvasc) 5 mg DAILY PO Last administered on 06/11/17 08:44 ; Admin Dose 5 MG; Start 06/10/17 at 16:00 Hydromorphone HCl (Dilaudid MENTAL HEALTH NURSE PRACTITIONER) 0.1 MG DOSE 10 ... Q4PCA IV Last administered on 06/10/17 19:00; Admin Dose 6 MG; Start 06/10/17 at 18:30 Famotidine (Pepcid) 40 mg HS PO Last administered on 06/11/17 20:23; Admin Dose 40 MG; Start 06/11/17 at 21:00 Clonidine (Catapres) 0.2 mg BID PO Last administered on 06/11/17 20:27; Admin Dose 0.2 MG; Start 06/11/17 at 21:00 Insulin Glargine (Lantus) 20 unit DAILY@08 SC ; Start 06/12/17 at 08:00 Simethicone 80 mg 80 mg Q6H PRN GTB DISTENSION/GAS/BLOATING Last administered on 06/11/17 18:13; Admin Dose 80 MG; Start 06/11/17 at 18:00 Sodium Chloride (1/2 NS) 1,000 ml @ 50 mls/hr Q20H IV Last administered on 06/11t 20:28; Admin Dose 50 MLS/HR; Start 06/11/17 at 18:30 JAY JIANG MD Jun 12, 2017 00:07
[2017-06-12] MEDS: ACCU-CHEK XX SCH (00:59)
[2017-06-12] MEDS: hydrALAzine 20 MG INJ IV PRN (01:59)
[2017-06-12] MEDS ORDERED: ACCU-CHEK XX SCH (02:00)
[2017-06-12] MEDS ORDERED: METOPROLOL 25 MG TAB PO ONE (04:00)
[2017-06-12] MEDS ORDERED: METOPROLOL 50 MG TAB PO ONE (04:19)
[2017-06-12 05:13] LABS: ABNORMAL IP MESSAGE 1; BASOPHILS % 0.3 % (0.0-2.0); EOSINOPHILS # 0.2 10^3/ul (0.0-0.5); EOSINOPHILS % 1.2 % (0.0-7.0); HEMATOCRIT 35.2 % (42.0-52.0); HEMOGLOBIN 10.8 g/dl (14.0-18.0); LYMPHOCYTES # 1.3 10^3/ul (0.8-2.9); LYMPHOCYTES % 10.1 % (15.0-51.0); MEAN CORPUSCULAR HGB CONC 30.7 g/dl (32.0-37.0); MEAN CORPUSCULAR VOLUME 81.5 fl (82.0-101.0); MEAN PLATELET VOLUME 10.5 fl (7.4-10.4); MONOCYTE # 1.9 10^3/ul (0.3-0.9); MONOCYTES % 14.4 % (0.0-11.0); NEUTROPHIL # 9.7 10^3/ul (1.6-7.5); NEUTROPHILS % 73.4 % (39.0-77.0); PLATELET COUNT 196 10^3/UL (140-415); POSITIVE DIFF @See below; RED BLOOD COUNT 4.32 10^6/ul (4.70-6.10); RED CELL DISTRIBUTION WIDTH 15.9 % (11.5-14.5); WHITE BLOOD COUNT 13.3 10^3/ul (4.8-10.8)
[2017-06-12 05:18] LABS: CALCIUM 7.6 mg/dl (8.4-10.2); CREATININE 5.85 mg/dl (0.61-1.24); POTASSIUM 4.4 mmol/L (3.5-5.1)
[2017-06-12] MEDS ORDERED: niCARdipine-NS 0.1MG/ML DRIP 200 ML ONE (05:30)
[2017-06-12] MEDS: niCARdipine-NS 0.1MG/ML DRIP 200 ML IV SCH ×3 (05:42→08:39)
[2017-06-12] MEDS ORDERED: INSULIN GLARGINE [LANtus] 3 ML PEN SC SCH (08:00)
[2017-06-12] MEDS: INSULIN ASPART [NOVOLOG] 3 ML PEN SC SCH ×7 (08:14→21:02)
[2017-06-12] MEDS: AMLODIPINE 5 MG TAB PO SCH (08:42)
[2017-06-12] MEDS: ENOXAPARIN 40 MG/0.4 ML SYG SC SCH (09:23)
[2017-06-12] MEDS: niCARdipine 25 MG in SOD CHLORIDE 0.9% 240 ML IV SCH ×2 (10:24→17:09)
--- NOTE | 2017-06-12 11:18 | CONS ---
Date/Time of Note Date/Time of Note DATE: 06/12/17 TIME: 11:16 Assessment/Plan Assessment/Plan Additional Assessment/Plan Chest x-ray was reviewed from today which is essentially clear. Patient currently on Cardizem drip for hypertension. Assessment and recommendations; 1. Patient status post partial liver resection for liver mass, pathology results are pending. Possibly underlying carcinoma. 2. History of hepatitis C. 3. Renal failure. 4. Hypertension, requiring readmission to ICU patient currently on Cardizem drip with significant improvement in hemodynamics. Continue current treatment. Patient responding well to current treatment regimen. Consultation Date/Type/Reason Admit Date/Time Jun 09, 2017 at 06:00 Initial Consult Date 06/10/17 Type of Consultation: Pulmonary/critical care 24 HR Interval Summary Free Text/Dictation Patient condition stable. Denies any shortness of breath, chest pain, right upper quadrant pain is markedly improved. Denies any nausea vomiting. Able to eat. General exam; elderly male, awake alert currently in no distress. Sitting in a chair by bedside. Exam/Review of Systems Vital Signs Vitals Vital Signs Date Time Temp Pulse Resp B/P Pulse Ox O2 Delivery O2 Flow Rate FiO2 06/12/17 09:00 106 22 161/72 95 Nasal Cannula 06/12/17 07:45 98.3 06/12/17 07:15 4.0 06/11/17 01:42 27 Intake and Output 06/11/17 06/11/17 06/12/17 15:00 23:00 07:00 Intake Total 1000 ml 500 ml 1122 ml Output Total 800 ml 800 ml 1900 ml Balance 200 ml -300 ml -778 ml Exam HEENT exam; supple neck, no JVD. No lymphadenopathy. Midline trachea. No thyromegaly. Patient has fair dentition. Chest exam; clear to auscultation. S1-S2 audible, no murmurs. Regular rhythm. Abdomen exam; soft, there is significant reduction in right upper quadrant tenderness. Bowel sounds audible. Extremity exam; no peripheral edema. Pulses 1+ bilaterally. POWDER PRESS OPERATOR exam; no focal deficit. Results Result Diagram: 06/12/17 0430 06/12/17 0430 Results 24 hrs Laboratory Tests Test 06/11/17 11:47 06/11/17 17:36 06/11/17 20:26 06/12/17 04:30 Bedside Glucose 237 H 184 145 White Blood Count 13.3 H Red Blood Count 4.32 L Hemoglobin 10.8 L Hematocrit 35.2 L Mean Corpuscular Volume 81.5 L Mean Corpuscular Hemoglobin 25.0 L Mean Corpuscular Hemoglobin Concent 30.7 L Red Cell Distribution Width 15.9 H Platelet Count 196 Mean Platelet Volume 10.5 H Neutrophils % 73.4 Lymphocytes % 10.1 L Monocytes % 14.4 H Eosinophils % 1.2 Basophils % 0.3 Nucleated Red Blood Cells % 0.0 Neutrophils # 9.7 H Lymphocytes # 1.3 Monocytes # 1.9 H Eosinophils # 0.2 Basophils # 0.0 Nucleated Red Blood Cells # 0.0 Sodium Level 140 Potassium Level 4.4 Chloride Level 103 Carbon Dioxide Level 24 Anion Gap 17 H Blood Urea Nitrogen 57 H Creatinine 5.85 H Glucose Level 189 Calcium Level 7.6 L B-Type Natriuretic Peptide 1620 H Test 06/12/17 08:12 Bedside Glucose 223 H Medications Medications Current Medications Acetaminophen/ Hydrocodone Bitart ([place] (5/325)) 1 tab Q4H PRN PO PAIN LEVEL 4 -7 Last administered on 06/10/17 16:55; Admin Dose 1 TAB; Start 06/09/17 at 14:00 ; Status Future Hold Acetaminophen/ Hydrocodone Bitart ([place] (5/325)) 2 tab Q4H PRN PO PAIN LEVEL 7 -10; Start 06/09/17 at 14:00; Status Future Hold Hydromorphone HCl (Dilaudid) 0.5 mg Q2H PRN IV PAIN; Start 06/09/17 at 14:00 Hydromorphone HCl (Dilaudid) 1 mg Q2H PRN IV PAIN Last administered on 16:03; Admin Dose 1 MG; Start 06/09/17 at 14:00 Docusate Sodium (Colace) 100 mg BID PRN PO CONSTIPATION; Start 06/09/17 at 14:00 Bisacodyl (Dulcolax Supp) 10 mg BID PRN [place] CONSTIPATION; Start 06/09/17 at 14:00 Sodium Biphosphate/ Sodium Phosphate (Fleet Enema) 133 ml BID PRN [place] CONSTIPATION; Start 06/09/17 at 14:00 Enoxaparin Sodium (Lovenox) 40 mg DAILY SC Last administered on 06/12/17 09:23 ; Admin Dose 40 MG; Start 06/10/17 at 09:00 Miscellaneous Information 1 ea NOTE XX ; Start 06/09/17 at 17:30 Glucose (Glutose) 15 gm Q15M PRN PO DECREASED GLUCOSE; Start 06/09/17 at 17:30 Glucose (Glutose) 22.5 gm Q15M PRN PO DECREASED GLUCOSE; Start 06/09/17 at 17:30 Dextrose (D50w Syringe) 25 ml Q15M PRN IV DECREASED GLUCOSE; Start 06/09/17 at 17:30 Dextrose (D50w Syringe) 50 ml Q15M PRN IV DECREASED GLUCOSE Last administered on 06/09/17 17:47; Admin Dose 50 ML; Start 06/09/17 at 17:30 Glucagon (Glucagen) 1 mg Q15M PRN IM DECREASED GLUCOSE; Start 06/09/17 at 17:30 Glucose (Glutose) 15 gm Q15M PRN BUCCAL DECREASED GLUCOSE; Start 06/09/17 at 17: 30 Hydralazine HCl (Apresoline) 10 mg Q4H PRN IV SBP>170 Last administered on 01:59; Admin Dose 10 MG; Start 06/09/17 at 18:30 Diagnostic Test (Pha) (Accu-Chek) 1 ea 02 XX Last administered on 06/11/17 01: 23; Admin Dose 1 EA; Start 06/11/17 at 02:00 Hydromorphone HCl (Dilaudid SOAPING DEPARTMENT SUPERVISOR) 0.1 MG DOSE 10 ... Q4PCA IV Last administered on 06/10/17 19:00; Admin Dose 6 MG; Start 06/10/17 at 18:30 Famotidine (Pepcid) 40 mg HS PO Last administered on 06/11/17 20:23; Admin Dose 40 MG; Start 06/11/17 at 21:00 Insulin Glargine (Lantus) 20 unit DAILY@08 SC Last administered on 06/12/17 08: 19; Admin Dose 20 UNIT; Start 06/12/17 at 08:00 Simethicone 80 mg 80 mg Q6H PRN GTB DISTENSION/GAS/BLOATING Last administered on 06/12/17 00:58; Admin Dose 80 MG; Start 06/11/17 at 18:00 Sodium Chloride (1/2 NS) 1,000 ml @ 50 mls/hr Q20H IV Last administered on 06/11 20:28; Admin Dose 50 MLS/HR; Start 06/11/17 at 18:30 Clonidine (Catapres) 0.2 mg TID PO Last administered on 06/12/17 08:41; Admin Dose 0.2 MG; Start 06/12/17 at 09:00 Hydralazine HCl 100 mg 100 mg TID PO Last administered on 06/12/17 08:42; Admin Dose 100 MG; Start 06/12/17 at 09:00 Nicardipine HCl 25 mg/Sodium Chloride 250 ml @ 50 mls/hr TITRATE IV Last administered on 06/12/17 10:24; Admin Dose 50 MLS/HR; Start 06/12/17 at 09:00 Bumetanide/ Dextrose (Bumex/D5W) 60 ml @ 10 mls/hr Q6H ONCE IV ; Start 06/12/17 at 12:00; Stop 06/12/17 at 17:59 Nifedipine (Procardia Xl) 30 mg BID PO ; Start 06/12/17 at 21:00; Status UNV Labetalol HCl (Normodyne) 200 mg TID PO ; Start 06/12/17 at 13:00; Status UNV DEAN GLOVER Jun 12, 2017 11:18
--- NOTE | 2017-06-12 11:18 | PN ---
Date/Time of Note Date/Time of Note DATE: 06/12/17 TIME: 11:14 Assessment/Plan Lines/Catheters IV Catheter Type (from [facility] Central Line Sadler in Place (from [facility]): No Assessment/Plan Assessment/Plan [facility] Progress Note Date of Service: 06/12/17 Today's Impression & Plan: Overall stable and relatively doing well. Had to be transferred back to the ICU due to hypertension and tachycardia. No obvious surgical etiology behind this finding (no evidence of aortic dissection on recent CT-guided biopsy); no major wound problems. Potassium and renal function appear to be improved. Cardiopulmonary function and hepatic function also appear to be stable other than above. No evidence for major intra-abdominal complication or surgical site infection. No indication for acute surgical intervention. Discussed with patient and with his and answered all questions. Patient and appear to understand and agreed with the plans. Also discussed with rest of the team. With above assessment, I've recommended the following for today: 1. Keep in ICU 2. Saline lock IV with oral conversion 3. Labs in am 4. Increase ICS 5. Increase activity 6. Gentle diuresis is okay by Dr. Perales Nature of presenting problem: High complexity Thank you again for your great care of this very pleasant patient and wonderful family. If there are any questions, please feel free to call me at [phone]. Disclaimer: Inadvertent spelling or grammatical errors are likely due to EHR/ dictation software use and do not reflect on the overall quality of patient care. Updated Clinical Summary: Patient is a very pleasant 60-year-old gentleman with comorbid issues including a BMI of 34, as well as history of hepatitis C, treated with Harvoni in August 2016 with near complete disappearance of his viral count, who was noted to have a liver lesion that was initially detected on 04/26/2016, liver CT of the abdomen and pelvis read as a somewhat well-defined 4.8 x 4.4 x 4.6 cm area of low attenuation within the right lobe of the liver. Note that he also had a few followup scans since then including ultrasound of the abdomen 05/22/2016 showing a solid mass 4.6 x 4.8 x 3.9 cm that appeared to be hypoechoic and no increased Doppler flow, liver dedicated MRI of the abdomen 06/19/2016 showing a 3.5 cm solid mass anteriorly in the right lobe of the liver that cannot be further characterized due to lack of contrast, liver dedicated contrast study of the abdomen on 07/08/2016 showing no evidence of increased uptake, corresponding to a liver mass seen in the right lobe of the liver and therefore not consistent with a hemangioma. He had a liver biopsy percutaneously done on 08/07/2016 with ultrasound guidance with the final pathology showing necrotic material, otherwise nondiagnostic. He had a repeat MRI of the liver with and without contrast 09/24/2016 that showed the previously seen lesion that was 3.8 cm at the junction of the right and left lobes but additional 2.3 cm lesion in segment 5 of the liver showing low signal intensity on the T1 weighted images, intermediate signal intensity on the T2 weighted images and arterial phase contrast enhancement. These findings were thought to be metastatic disease or multifocal hepatocellular carcinoma. Due to growth seen in segment 5 lesion, repeat biopsy of the liver was ordered which was done on 04/07/2017. Segment 5 lesion was biopsied and final pathology was consistent with moderately differentiated hepatocellular carcinoma in a background of chronic hepatitis C. Normal liver biopsy done at the same time showed grade 2 portal inflammation and interface hepatitis, grade 2 lobular activity and stage I fibrosis. Comorbidities: 1. Hepatocellular carcinoma in segment 5 of liver in the setting of hepatitis C , along with several regenerative nodules. Hepatitis C that was thought to be chronic, treated with Harvoni 08/2016 with near resolution and disappearance of the viral load. His hepatitis C is thought to be genotype 1A with prior viral load in 2012 of approximately 18 million international units per mL. 2. Diabetes mellitus type 2. 3. Hyperlipidemia. 4. Hypertension. 5. Left distal tibial fracture. 6. Left tibia fracture. 7. Obstructive sleep apnea. 8. Vitamin D deficiency. 9. Former smoker. 10. S/p laparoscopic exploration with intraoperative ultrasound of liver and core needle liver biopsy with ultrasound guidance segment 8 lesion and separately segment 4B normal liver, open partial hepatectomy segment 5/6, ultrasound-guided core needle liver biopsy segment 4B (left side) mass under direct visualization, cholecystectomy, lysis of adhesions, and umbilical hernia repair at [facility] 06/10/17. Subjective: No major events or complaints other than above; no major abd pain and under control with medications; no n/v/d; no sob or cp; + flatus; - BM; minimal activity Objective: Vitals: See below Exam: GENERAL: On exam, the patient was sitting in a chair and appeared to be comfortable and in no acute distress. ABDOMEN: Soft, nontender and nondistended. Incisions are clean, dry and intact without any evidence of obvious erythema, edema, discharge, or hernia. There are no peritoneal signs or guarding. SKIN: Skin appears to be pink and feels warm to touch. NEUROLOGIC: Patient is awake, alert, and follows commands appropriately. Exam/Review of Systems Vital Signs Vitals Vital Signs Date Time Temp Pulse Resp B/P Pulse Ox O2 Delivery O2 Flow Rate FiO2 06/12/17 09:00 106 22 161/72 95 Nasal Cannula 06/12/17 07:45 98.3 06/12/17 07:15 4.0 06/11/17 01:42 27 Intake and Output 06/11/17 06/11/17 06/12/17 15:00 23:00 07:00 Intake Total 1000 ml 500 ml 1122 ml Output Total 800 ml 800 ml 1900 ml Balance 200 ml -300 ml -778 ml Results Result Diagram: 06/12/17 0430 06/12/17 0430 KAYA BERMAN M.D. Jun 12, 2017 11:18
--- NOTE | 2017-06-12 11:19 | RADRPT ---
PROCEDURE: XR Chest. CLINICAL INDICATION: F/U TECHNIQUE: Single frontal view of the chest was obtained COMPARISON: Chest x-ray 06/10/2017 FINDINGS: The endotracheal tube and nasogastric tube have been removed. Right internal jugular central venous catheter stable in position. The cardiac silhouette is mildly enlarged. No pneumothorax is identified. There are increased ill-defined linear opacities in the right mid to upper lung. There is increased ill-defined opacity in the left lung base, suggesting increased atelectasis or co nsolidation. There is mild increased line atelectasis at the right lung base. Stable small bilateral pleural effusions. There are degenerative changes of the visualized spine. IMPRESSION: 1. Interval removal of endotracheal tube and nasogastric tube. Stable right internal jugular central venous catheter. 2. Increased ill-defined linear opacities in the right mid to upper lung with differential including atelectasis, edema, or early consolidation. 3. Interval increased ill-defined opacity at the left lung base, suggesting increased atelectasis or consolidation. 4. Stable small bilateral pleural effusions. 5. Mild cardiomegaly RPTAT: PP Physician Sarah Date Time Electronically viewed and signed by Physician Sarah on 06/12/2017 11:19 /
[2017-06-12] MEDS ORDERED: BUMETANIDE 6 MG in DEXTROSE 5% 36 ML IV ONE (12:00)
[2017-06-12] MEDS: LABETALOL 200 MG TAB PO SCH ×2 (12:18→21:08)
[2017-06-12] MEDS: NIFEdipine (XL) 30 MG TAB PO SCH ×2 (12:22→21:09)
--- NOTE | 2017-06-12 13:22 | CONS ---
Date/Time of Note Date/Time of Note DATE: 06/12/17 TIME: 13:18 Assessment/Plan Assessment/Plan Chief Complaint/Hosp Course 1. Acute kidney injury 2. HEPATIS C 3. S/P LIVER BIOPSY 4. dm TYPE II 5. CKD moderate Problems: Additional Assessment/Plan 1. Continue HD as needed if diuresis with [id number] are not sucessful 2. Better DM control Consultation Date/Type/Reason Admit Date/Time Jun 09, 2017 at 06:00 Initial Consult Date 06/10/17 Type of Consultation: Nephrology Reason for Consultation Dr Perales Exam/Review of Systems Vital Signs Vitals Vital Signs Date Time Temp Pulse Resp B/P Pulse Ox O2 Delivery O2 Flow Rate FiO2 06/12/17 12:00 106 06/12/17 12:00 18 149/83 94 06/12/17 11:30 Nasal Cannula 06/12/17 11:00 98.4 06/12/17 07:15 4.0 06/11/17 01:42 27 Intake and Output 06/11/17 06/11/17 06/12/17 15:00 23:00 07:00 Intake Total 1000 ml 500 ml 1122 ml Output Total 800 ml 800 ml 1900 ml Balance 200 ml -300 ml -778 ml Exam Constitutional: alert, oriented Neck: supple Respiratory: clear to auscultation, diminished breath sounds Cardiovascular: regular rate and rhythm Gastrointestinal: soft Genitourinary - Male: nl penis Results Result Diagram: 06/12/17 0430 06/12/17 0430 Results 24 hrs Laboratory Tests Test 06/11/17 17:36 06/11/17 20:26 06/12/17 04:30 06/12/17 08:12 Bedside Glucose 184 145 223 H White Blood Count 13.3 H Red Blood Count 4.32 L Hemoglobin 10.8 L Hematocrit 35.2 L Mean Corpuscular Volume 81.5 L Mean Corpuscular Hemoglobin 25.0 L Mean Corpuscular Hemoglobin Concent 30.7 L Red Cell Distribution Width 15.9 H Platelet Count 196 Mean Platelet Volume 10.5 H Neutrophils % 73.4 Lymphocytes % 10.1 L Monocytes % 14.4 H Eosinophils % 1.2 Basophils % 0.3 Nucleated Red Blood Cells % 0.0 Neutrophils # 9.7 H Lymphocytes # 1.3 Monocytes # 1.9 H Eosinophils # 0.2 Basophils # 0.0 Nucleated Red Blood Cells # 0.0 Sodium Level 140 Potassium Level 4.4 Chloride Level 103 Carbon Dioxide Level 24 Anion Gap 17 H Blood Urea Nitrogen 57 H Creatinine 5.85 H Glucose Level 189 Calcium Level 7.6 L B-Type Natriuretic Peptide 1620 H Test 06/12/17 12:09 Bedside Glucose 292 H Medications Medications Current Medications Acetaminophen/ Hydrocodone Bitart ([place] (5/325)) 1 tab Q4H PRN PO PAIN LEVEL 4 -7 Last administered on 06/10/17 16:55; Admin Dose 1 TAB; Start 06/09/17 at 14:00 ; Status Future Hold Acetaminophen/ Hydrocodone Bitart ([place] (5/325)) 2 tab Q4H PRN PO PAIN LEVEL 7 -10; Start 06/09/17 at 14:00; Status Future Hold Hydromorphone HCl (Dilaudid) 0.5 mg Q2H PRN IV PAIN; Start 06/09/17 at 14:00 Hydromorphone HCl (Dilaudid) 1 mg Q2H PRN IV PAIN Last administered on 16:03; Admin Dose 1 MG; Start 06/09/17 at 14:00 Docusate Sodium (Colace) 100 mg BID PRN PO CONSTIPATION; Start 06/09/17 at 14:00 Bisacodyl (Dulcolax Supp) 10 mg BID PRN [place] CONSTIPATION; Start 06/09/17 at 14:00 Sodium Biphosphate/ Sodium Phosphate (Fleet Enema) 133 ml BID PRN [place] CONSTIPATION; Start 06/09/17 at 14:00 Enoxaparin Sodium (Lovenox) 40 mg DAILY SC Last administered on 06/12/17 09:23 ; Admin Dose 40 MG; Start 06/10/17 at 09:00 Miscellaneous Information 1 ea NOTE XX ; Start 06/09/17 at 17:30 Glucose (Glutose) 15 gm Q15M PRN PO DECREASED GLUCOSE; Start 06/09/17 at 17:30 Glucose (Glutose) 22.5 gm Q15M PRN PO DECREASED GLUCOSE; Start 06/09/17 at 17:30 Dextrose (D50w Syringe) 25 ml Q15M PRN IV DECREASED GLUCOSE; Start 06/09/17 at 17:30 Dextrose (D50w Syringe) 50 ml Q15M PRN IV DECREASED GLUCOSE Last administered on 06/09/17 17:47; Admin Dose 50 ML; Start 06/09/17 at 17:30 Glucagon (Glucagen) 1 mg Q15M PRN IM DECREASED GLUCOSE; Start 06/09/17 at 17:30 Glucose (Glutose) 15 gm Q15M PRN BUCCAL DECREASED GLUCOSE; Start 06/09/17 at 17: 30 Hydralazine HCl (Apresoline) 10 mg Q4H PRN IV SBP>170 Last administered on 01:59; Admin Dose 10 MG; Start 06/09/17 at 18:30 Diagnostic Test (Pha) (Accu-Chek) 1 ea 02 XX Last administered on 06/11/17 01: 23; Admin Dose 1 EA; Start 06/11/17 at 02:00 Hydromorphone HCl (Dilaudid PLASTICS HEAT WELDER) 0.1 MG DOSE 10 ... Q4PCA IV Last administered on 06/10/17 19:00; Admin Dose 6 MG; Start 06/10/17 at 18:30 Famotidine (Pepcid) 40 mg HS PO Last administered on 06/11/17 20:23; Admin Dose 40 MG; Start 06/11/17 at 21:00 Insulin Glargine (Lantus) 20 unit DAILY@08 SC Last administered on 06/12/17 08: 19; Admin Dose 20 UNIT; Start 06/12/17 at 08:00 Simethicone (Mylicon) 80 mg Q6H PRN GTB DISTENSION/GAS/BLOATING Last administered on 06/12/17 00:58; Admin Dose 80 MG; Start 06/11/17 at 18:00 Clonidine (Catapres) 0.2 mg TID PO Last administered on 06/12/17 12:18; Admin Dose 0.2 MG; Start 06/12/17 at 09:00 Hydralazine HCl 100 mg 100 mg TID PO Last administered on 06/12/17 12:18; Admin Dose 100 MG; Start 06/12/17 at 09:00 Nicardipine HCl 25 mg/Sodium Chloride 250 ml @ 50 mls/hr TITRATE IV Last administered on 06/12/17 10:24; Admin Dose 50 MLS/HR; Start 06/12/17 at 09:00 Bumetanide/ Dextrose (Bumex/D5W) 60 ml @ 10 mls/hr Q6H ONCE IV Last administered on 06/12/17 11:34; Admin Dose 10 MLS/HR; Start 06/12/17 at 12:00; Stop 06/12/17 at 17:59 Nifedipine (Procardia Xl) 30 mg BID PO Last administered on 06/12/17 12:22; Admin Dose 30 MG; Start 06/12/17 at 12:00 Labetalol HCl (Normodyne) 200 mg TID PO Last administered on 06/12/17 12:18; Admin Dose 200 MG; Start 06/12/17 at 12:00 DELGADO LORENZ Jun 12, 2017 13:22
[2017-06-12 14:45] LABS: TROPONIN-I 0.102 ng/ml (0.00-0.12)
[2017-06-12 14:46] LABS: CK-MB 3.02 ng/ml (0.0-2.4)
--- NOTE | 2017-06-12 14:47 | CONS ---
DATE OF ADMISSION: 06/09/2017 DATE OF CONSULTATION: 06/12/2017 REASON FOR CONSULTATION: REFERRING PHYSICIAN:: Mark Banerjee MD HISTORY OF PRESENT ILLNESS: Mr. Edmondson is a 61-year-old male with a history of hepatocellular carcinoma secondary to chronic hepatitis c which has been status post treatment August 2016, chronic kidney disease, diabetes mellitus, dyslipidemia, hypertension, obstructive sleep apnea, who subsequently presented for and underwent a partial hepatectomy as well as liver biopsy, cholecystectomy, lysis of adhesions, and umbilical hernia repair. Postoperatively, the patient was then placed in ICU and has been having uncontrolled systolic blood pressures requiring IV drip. Given these findings, cardiology consult was requested. The patient this time, denies chest pain, shortness of breath. PAST MEDICAL HISTORY: As above in HPI. MEDICATION: Currently in the hospital: 1. Bumex drip to be started. 2. Clonidine 0.2 mg p.o. t.i.d. 3. Hydralazine 100 mg t.i.d. 4. Nicardipine drip. 5. Norvasc 5 mg daily. 6. Lovenox 40 mg subcu daily. ALLERGIES: NO KNOWN DRUG ALLERGIES. SOCIAL HISTORY: Remote history of tobacco. ETOH intake: None times greater than 15-20 years in. No illicit drug use. FAMILY HISTORY: No history of sudden cardiac or early CAD. REVIEW OF SYSTEMS: As above in HPI. CONSTITUTIONAL: No fevers or chills. PULMONARY: No current shortness of breath. CARDIOVASCULAR: No current chest pain, tachycardia. GASTROINTESTINAL: No vomiting. Status post liver resection. GENITOURINARY: No hematuria. MUSCULOSKELETAL: No joint disease. PSYCHIATRIC: Patient denies depression. NEUROLOGIC: No documented CVA. ENDOCRINE: Diabetes positive history. PHYSICAL EXAMINATION: VITAL SIGNS: At this time, temperature of 98.3, blood pressure most recent 161/72, pulse 106, respiratory rate 22, satting 95 percent. GENERAL: The patient is alert, awake, in no acute distress. NECK: JVP approximately 8 to 9 cm water. CHEST: Fair with mildly decreased breath sounds at the bases bilaterally. HEART: Regular rate and rhythm. Normal S1, S2. 1/6 systolic murmur. Nondisplaced PMI. ABDOMEN: Positive bowel sounds. Soft. Abdomen with lateral incision with indu in place. Clean, dry and intact. EXTREMITIES: Trace edema, 1 plus pulses bilaterally posterior tibial. NEUROLOGIC: No focal defects. LABORATORY: Most recently from today: Sodium 140, potassium 4.4, creatinine 5.5, BUN 57, BNP of 1620. INR of 1.1. White blood count 13.3, hemoglobin 10.8, platelet count 196. IMAGING STUDIES: As above in HPI. Imaging studies available for my review at this time with most recent being 06/10/2017 revealing prominent interstitial markings, mild interstitial edema. ELECTROCARDIOGRAM: No electrocardiogram for review at this time IMPRESSION: 1. Hypertensive urgency emergency. 2. Tachycardia consistent with sinus tachycardia at this time. 3. History of dyslipidemia. 4. Status post liver resection of hepatocellular carcinoma. 5. History of hepatocellular carcinoma, status post resection as above. 6. Acute on chronic renal failure with intermittent hemodialysis as necessary. 7. Hyperkalemia, resolved with dialysis. 8. Congestive heart failure. Assess for volume overload by chest x-ray. 9. Diabetes mellitus. RECOMMENDATIONS: 1. At this time, would maintain patient on telemetry monitoring to follow rhythm and rates closely. Check a baseline EKG to assess the patient's current rhythm and repeat EKG in the morning. 2. Check 2D echo to ejection fraction, wall motion, and major abnormalities. 3. Continue the patient's current hydralazine and clonidine for control of blood pressure, as well as the patient's Nicardipine drip. Will titrate the patient's baseline p.o. calcium channel caridad and change from Norvasc to Procardia XL for possible increased efficacy, and will additionally add beta caridad to improve overall blood pressure and heart rate control. Follow the patient's potassium closely with further hemodialysis as necessary. 4. Agree with Bumex drip in order to improve volume status and possible also affecting patient's blood pressure. 5. Pain control. Thank you very much for allowing me to take part in the care of this patient. I will continue to follow him closely with you with further recommendations to be made through patient's hospital course. Dictated By: Raymond Alfonso /[email or web address]/jose /Document#: [id number] CC: Mark Banerjee MD;*[facility]*
[2017-06-12] MEDS: HYDROmorphONE 0.2 MG/ML PCA IV SCH (14:48)
--- NOTE | 2017-06-12 15:03 | RADRPT ---
Echocardiogram Report Patient Name: SHANIKA HEIN Gender: Male Date: 1955 Study Date: 12-Jun-2017 Public Service Representative: Carmen Curran BRINA Location: [facility] Ref. Physician: SAI MCGILL Quality: Good Procedures: Transthoracic echocardiogram with complete 2D, M-Mode, and doppler examination. Indications: Hypertension. 2D/M Mode Doppler Measurement Value Normal Ranges Measurement Value Normal Ranges LVIDd 2D 4.3 3.5 - 5.6 cm AV Peak Jose 1.8 m/sec LVIDs 2D 2.2 2.1 - 4.1 cm AV Peak PG 12.4 mmHg LVPWd 2D 1.7 0.6 - 1.1 cm LVOT Peak Jose 1.2 m/sec IVSd 2D 1.6 0.6 - 1.1 cm LVOT Peak PG 5.5 mmHg AoR Diam 2D 3.2 2.0 - 3.7 cm MV E Peak Jose 0.6 m/sec EDV 2D 82.0 cm3 MV A Peak Jose 0.9 m/sec ESV 2D 11.1 cm3 MV E/A 0.7 LA Dimen 2D 3.1 2.3 - 4.0 cm MV Decel Time 150 msec MV Decel Alfalfa 4 MV E/A 0.7 Findings Left Ventricle: Hyperdynamic left ventricular systolic function. Normal left ventricular cavity size. Moderate concentric left ventricular hypertrophy. Ejection fraction is visually estimated at >65 %. Tissue Doppler/Mitral Doppler indices are consistent with impaired relaxation (Stage I diastolic dysfunction). Right Ventricle: Normal right ventricular size. Normal right ventricular systolic function. Left Atrium: The left atrium is normal in size. Right Atrium: The right atrium is normal in size. Mitral Valve: Normal appearance and function of the mitral valve with trace physiologic regurgitation. Aortic Valve: Normal appearance of the aortic valve. No significant aortic stenosis or insufficiency. Tricuspid Valve: Normal appearance of the tricuspid valve. Unable to obtain RVSP due to minimal presence of tricuspid regurgitation. Pulmonic Valve: Normal pulmonic valve appearance. Pericardium: Normal pericardium with no significant pericardial effusion. Aorta: Normal aortic root. IVC: Normal size and normal respiratory collapse consistent with normal right atrial pressure. Conclusions 1.Hyperdynamic left ventricular systolic function. Normal left ventricular cavity size. Moderate concentric left ventricular hypertrophy. Ejection fraction is visually estimated at >65 %. Tissue Doppler/Mitral Doppler indices are consistent with impaired relaxation (Stage I diastolic dysfunction). 2.Normal appearance and function of the mitral valve with trace physiologic regurgitation. 3.Normal appearance of the tricuspid valve. Unable to obtain RVSP due to minimal presence of tricuspid regurgitation. Electronically Signed By: Sai Mcgill 12-Jun-2017 15:02:40 -0700 Patient Name: SHANIKA HEIN Study Date: 12-Jun-2017 [id number]
--- NOTE | 2017-06-12 15:05 | RADRPT ---
Vent Rate: 104 bpm RR Interval: 0 msec SD Interval: 128 msec QRS Duration: 64 msec QT Interval: 354 msec QTC Interval: 465 msec P-R-T [place]: 54 - -34 - 1 degrees Sinus tachycardia Left axis deviation Abnormal ECG Electronically Signed By: Robby Mcgill [id number]
--- NOTE | 2017-06-12 17:32 | PN ---
Date/Time of Note Date/Time of Note DATE: 06/12/17 TIME: 17:07 Assessment/Plan VTE Prophylaxis VTE Prophylaxis Intervention: SCD's Assessment/Plan Chief Complaint/Hosp Course 1. Hyperkalemia secondary to KYLE on CKD as well as possible tissue destruction during hepatectomy-resolved with dialysis and medication -Nephrology consult with Dr. Perales appreciated, further dialysis per nephrology , patient having good urine output 2. Acute respiratory failure-patient extubated Pulmonology consultation appreciated 3. Hepatocellular carcinoma secondary to hepatitis C now status post partial hepatectomy and biopsy Follow-up with surgery recommendations 4. Diabetes type 2-sugars elevated Insulin increased A1c at 7.9 5. Hypertension-BP elevated Cardiology consultation appreciated, Norvasc discontinued and patient started on nifedipine as well as nicardipine IV Continue home hydralazine and clonidine today, hold lisinopril for possible acute kidney injury on CKD 6. Obesity with sleep apnea Lifestyle changes to be advised 7. Anasarca Continue Bumex Prophylaxis: SCD's Problems: Subjective 24 Hr Interval Summary Constitutional: no complaints Exam/Review of Systems Vital Signs Vitals Vital Signs Date Time Temp Pulse Resp B/P Pulse Ox O2 Delivery O2 Flow Rate FiO2 06/12/17 15:00 19 06/12/17 14:00 108 160/83 92 Nasal Cannula 06/12/17 11:00 98.4 06/12/17 07:15 4.0 06/11/17 01:42 27 Intake and Output 06/11/17 06/11/17 06/12/17 15:00 23:00 07:00 Intake Total 1000 ml 500 ml 1122 ml Output Total 800 ml 800 ml 1900 ml Balance 200 ml -300 ml -778 ml Exam Constitutional: alert, oriented Respiratory: clear to auscultation Cardiovascular: regular rate and rhythm Gastrointestinal: soft, No distended Extremities: edema Results Result Diagram: 06/12/17 0430 06/12/17 0430 Results 24 hrs Laboratory Tests Test 06/11/17 17:36 06/11/17 20:26 06/12/17 04:30 06/12/17 08:12 Bedside Glucose 184 145 223 H White Blood Count 13.3 H Red Blood Count 4.32 L Hemoglobin 10.8 L Hematocrit 35.2 L Mean Corpuscular Volume 81.5 L Mean Corpuscular Hemoglobin 25.0 L Mean Corpuscular Hemoglobin Concent 30.7 L Red Cell Distribution Width 15.9 H Platelet Count 196 Mean Platelet Volume 10.5 H Neutrophils % 73.4 Lymphocytes % 10.1 L Monocytes % 14.4 H Eosinophils % 1.2 Basophils % 0.3 Nucleated Red Blood Cells % 0.0 Neutrophils # 9.7 H Lymphocytes # 1.3 Monocytes # 1.9 H Eosinophils # 0.2 Basophils # 0.0 Nucleated Red Blood Cells # 0.0 Sodium Level 140 Potassium Level 4.4 Chloride Level 103 Carbon Dioxide Level 24 Anion Gap 17 H Blood Urea Nitrogen 57 H Creatinine 5.85 H Glucose Level 189 Calcium Level 7.6 L B-Type Natriuretic Peptide 1620 H Test 06/12/17 12:09 06/12/17 13:59 Bedside Glucose 292 H Creatine Kinase 2266 H Creatine Kinase Index 0.1 Creatinine Kinase MB (Mass) 3.02 H Troponin I 0.102 Medications Medications Current Medications Acetaminophen/ Hydrocodone Bitart ([place] (5/325)) 1 tab Q4H PRN PO PAIN LEVEL 4 -7 Last administered on 06/10/17 16:55; Admin Dose 1 TAB; Start 06/09/17 at 14:00 ; Status Future Hold Acetaminophen/ Hydrocodone Bitart ([place] (5/325)) 2 tab Q4H PRN PO PAIN LEVEL 7 -10; Start 06/09/17 at 14:00; Status Future Hold Hydromorphone HCl (Dilaudid) 0.5 mg Q2H PRN IV PAIN; Start 06/09/17 at 14:00 Hydromorphone HCl (Dilaudid) 1 mg Q2H PRN IV PAIN Last administered on 16:03; Admin Dose 1 MG; Start 06/09/17 at 14:00 Docusate Sodium (Colace) 100 mg BID PRN PO CONSTIPATION; Start 06/09/17 at 14:00 Bisacodyl (Dulcolax Supp) 10 mg BID PRN [place] CONSTIPATION; Start 06/09/17 at 14:00 Sodium Biphosphate/ Sodium Phosphate (Fleet Enema) 133 ml BID PRN [place] CONSTIPATION; Start 06/09/17 at 14:00 Enoxaparin Sodium (Lovenox) 40 mg DAILY SC Last administered on 06/12/17 09:23 ; Admin Dose 40 MG; Start 06/10/17 at 09:00 Miscellaneous Information 1 ea NOTE XX ; Start 06/09/17 at 17:30 Glucose (Glutose) 15 gm Q15M PRN PO DECREASED GLUCOSE; Start 06/09/17 at 17:30 Glucose (Glutose) 22.5 gm Q15M PRN PO DECREASED GLUCOSE; Start 06/09/17 at 17:30 Dextrose (D50w Syringe) 25 ml Q15M PRN IV DECREASED GLUCOSE; Start 06/09/17 at 17:30 Dextrose (D50w Syringe) 50 ml Q15M PRN IV DECREASED GLUCOSE Last administered on 06/09/17 17:47; Admin Dose 50 ML; Start 06/09/17 at 17:30 Glucagon (Glucagen) 1 mg Q15M PRN IM DECREASED GLUCOSE; Start 06/09/17 at 17:30 Glucose (Glutose) 15 gm Q15M PRN BUCCAL DECREASED GLUCOSE; Start 06/09/17 at 17: 30 Hydralazine HCl (Apresoline) 10 mg Q4H PRN IV SBP>170 Last administered on 01:59; Admin Dose 10 MG; Start 06/09/17 at 18:30 Diagnostic Test (Pha) (Accu-Chek) 1 ea 02 XX Last administered on 06/11/17 01: 23; Admin Dose 1 EA; Start 06/11/17 at 02:00 Hydromorphone HCl (Dilaudid GUIDE TRAVEL) 0.1 MG DOSE 10 ... Q4PCA IV Last administered on 06/12/17 14:48; Admin Dose 0.1 MG; Start 06/10/17 at 18:30 Famotidine (Pepcid) 40 mg HS PO Last administered on 06/11/17 20:23; Admin Dose 40 MG; Start 06/11/17 at 21:00 Simethicone (Mylicon) 80 mg Q6H PRN GTB DISTENSION/GAS/BLOATING Last administered on 06/12/17 00:58; Admin Dose 80 MG; Start 06/11/17 at 18:00 Clonidine (Catapres) 0.2 mg TID PO Last administered on 06/12/17 12:18; Admin Dose 0.2 MG; Start 06/12/17 at 09:00 Hydralazine HCl 100 mg 100 mg TID PO Last administered on 06/12/17 12:18; Admin Dose 100 MG; Start 06/12/17 at 09:00 Nicardipine HCl 25 mg/Sodium Chloride 250 ml @ 50 mls/hr TITRATE IV Last administered on 06/12/17 10:24; Admin Dose 50 MLS/HR; Start 06/12/17 at 09:00 Bumetanide/ Dextrose (Bumex/D5W) 60 ml @ 10 mls/hr Q6H ONCE IV Last administered on 06/12/17 11:34; Admin Dose 10 MLS/HR; Start 06/12/17 at 12:00; Stop 06/12/17 at 17:59 Nifedipine (Procardia Xl) 30 mg BID PO Last administered on 06/12/17 12:22; Admin Dose 30 MG; Start 06/12/17 at 12:00 Labetalol HCl (Normodyne) 200 mg TID PO Last administered on 06/12/17 12:18; Admin Dose 200 MG; Start 06/12/17 at 12:00 Insulin Glargine (Lantus) 35 unit QHS SC ; Start 06/12/17 at 21:00 ODESSA ARELLANO Jun 12, 2017 17:32
[2017-06-12 19:20] LABS: TROPONIN-I 0.108 ng/ml (0.00-0.12)
[2017-06-12 19:30] LABS: CK-MB 3.4 ng/ml (0.0-2.4)
[2017-06-12] MEDS: INSULIN GLARGINE [LANtus] 3 ML PEN SC SCH (20:56)
[2017-06-12] MEDS: FAMOTIDINE 20 MG TAB PO SCH (21:09)
[2017-06-13] VITALS (44 sets, daily range): BP systolic 107–161; BP diastolic 61–96; PULSE 92–112; RESP 13–31
[2017-06-13] MEDS: ACCU-CHEK XX SCH (02:00)
[2017-06-13] MEDS: BUMETANIDE 1 MG INJ IV SCH ×2 (05:24→17:28)
[2017-06-13 06:08] LABS: ABNORMAL IP MESSAGE 1; BASOPHILS % 0.1 % (0.0-2.0); EOSINOPHILS # 0.3 10^3/ul (0.0-0.5); EOSINOPHILS % 2.1 % (0.0-7.0); HEMATOCRIT 27.6 % (42.0-52.0); HEMOGLOBIN 8.6 g/dl (14.0-18.0); LYMPHOCYTES # 1.7 10^3/ul (0.8-2.9); LYMPHOCYTES % 11.3 % (15.0-51.0); MEAN CORPUSCULAR HEMOGLOBIN 25.1 pg (29.0-33.0); MEAN CORPUSCULAR HGB CONC 31.2 g/dl (32.0-37.0); MEAN CORPUSCULAR VOLUME 80.7 fl (82.0-101.0); MEAN PLATELET VOLUME 10.2 fl (7.4-10.4); MONOCYTE # 1.8 10^3/ul (0.3-0.9); MONOCYTES % 12.2 % (0.0-11.0); NEUTROPHIL # 10.9 10^3/ul (1.6-7.5); NEUTROPHILS % 73.6 % (39.0-77.0); PLATELET COUNT 241 10^3/UL (140-415); POSITIVE DIFF @See below; RED BLOOD COUNT 3.42 10^6/ul (4.70-6.10); RED CELL DISTRIBUTION WIDTH 15.9 % (11.5-14.5); WHITE BLOOD COUNT 14.8 10^3/ul (4.8-10.8)
[2017-06-13 06:36] LABS: ALBUMIN 2.4 g/dl (3.3-4.9); ALBUMIN/GLOBULIN RATIO 0.75; BILIRUBIN,DIRECT 0.3 mg/dl (0.00-0.20); BILIRUBIN,INDIRECT 0.1 mg/dl (0-1.1); BILIRUBIN,TOTAL 0.4 mg/dl (0.2-1.3); CALCIUM 7.2 mg/dl (8.4-10.2); CREATININE 6.24 mg/dl (0.61-1.24); POTASSIUM 3.9 mmol/L (3.5-5.1); TOTAL PROTEIN 5.6 g/dl (6.1-8.1)
[2017-06-13 06:37] LABS: MAGNESIUM 2.1 mg/dl (1.7-2.5); PHOSPHORUS 5.2 mg/dl (2.5-4.9)
[2017-06-13] MEDS: INSULIN ASPART [NOVOLOG] 3 ML PEN SC SCH ×7 (07:35→21:00)
[2017-06-13] MEDS: LABETALOL 200 MG TAB PO SCH ×3 (08:20→21:46)
[2017-06-13] MEDS: MUPIROCIN 2% 22 GM OINT TOP SCH ×2 (08:20→22:01)
[2017-06-13] MEDS: NIFEdipine (XL) 30 MG TAB PO SCH ×2 (08:20→21:46)
[2017-06-13] MEDS: ENOXAPARIN 40 MG/0.4 ML SYG SC SCH (08:22)
--- NOTE | 2017-06-13 12:19 | CONS ---
Date/Time of Note Date/Time of Note DATE: 06/13/17 TIME: 12:15 Assessment/Plan Assessment/Plan Additional Assessment/Plan Hepatocellular carcinoma secondary to chronic hepatitis c s/p Hepatectomy chronic kidney disease diabetes mellitus dyslipidemia, hypertension Obstructive sleep apnea Hyperkalemia receiving HD Anemia He is tachycardic and BP controlled Continue HD as scheduled Continue Labetalol, Clonidine and Hydralazine Continue Procardia Continue Bumex drip Continue Insulin Continue GI and DVT Prophylaxis Consultation Date/Type/Reason Admit Date/Time Jun 09, 2017 at 06:00 Constitutional: no complaints Exam/Review of Systems Vital Signs Vitals Vital Signs Date Time Temp Pulse Resp B/P Pulse Ox O2 Delivery O2 Flow Rate FiO2 06/13/17 10:30 100 25 125/76 94 Nasal Cannula 4.0 06/13/17 07:30 98.8 06/11/17 01:42 27 Intake and Output 06/12/17 06/12/17 06/13/17 15:00 23:00 07:00 Intake Total 1230 ml 575 ml 540 ml Output Total 1100 ml 1025 ml 850 ml Balance 130 ml -450 ml -310 ml Exam Constitutional: alert, oriented Head: atraumatic, normocephalic Neck: non-tender, supple Respiratory: clear to auscultation Cardiovascular: regular rate and rhythm Gastrointestinal: soft Extremities: normal pulses Results Result Diagram: 06/13/17 0500 06/13/17 0500 Results 24 hrs Laboratory Tests Test 06/12/17 13:59 06/12/17 17:45 06/12/17 18:00 06/12/17 20:51 Creatine Kinase 2266 H 2306 H Creatine Kinase Index 0.1 0.1 Creatinine Kinase MB (Mass) 3.02 H 3.40 H Troponin I 0.102 0.108 Bedside Glucose 192 143 Test 06/13/17 02:20 06/13/17 05:00 06/13/17 05:12 06/13/17 08:00 Bedside Glucose 99 75 88 White Blood Count 14.8 H Red Blood Count 3.42 #L Hemoglobin 8.6 #L Hematocrit 27.6 #L Mean Corpuscular Volume 80.7 L Mean Corpuscular Hemoglobin 25.1 L Mean Corpuscular Hemoglobin Concent 31.2 L Red Cell Distribution Width 15.9 H Platelet Count 241 # Mean Platelet Volume 10.2 Neutrophils % 73.6 Lymphocytes % 11.3 L Monocytes % 12.2 H Eosinophils % 2.1 Basophils % 0.1 Nucleated Red Blood Cells % 0.0 Neutrophils # 10.9 H Lymphocytes # 1.7 Monocytes # 1.8 H Eosinophils # 0.3 Basophils # 0.0 Nucleated Red Blood Cells # 0.0 Sodium Level 140 Potassium Level 3.9 Chloride Level 99 Carbon Dioxide Level 25 Anion Gap 20 H Blood Urea Nitrogen 87 #H Creatinine 6.24 H Glucose Level 58 #L Calcium Level 7.2 L Phosphorus Level 5.2 H Magnesium Level 2.1 Total Bilirubin 0.4 Direct Bilirubin 0.30 H Indirect Bilirubin 0.1 Aspartate Amino Transf (AST/SGOT) 132 H Alanine Aminotransferase (ALT/SGPT) 108 H Alkaline Phosphatase 196 H Total Protein 5.6 L Albumin 2.4 L Globulin 3.20 Albumin/Globulin Ratio 0.75 Test 06/13/17 11:49 Bedside Glucose 91 Medications Medications Current Medications Acetaminophen/ Hydrocodone Bitart ([place] (5/325)) 1 tab Q4H PRN PO PAIN LEVEL 4 -7 Last administered on 06/10/17 16:55; Admin Dose 1 TAB; Start 06/09/17 at 14:00 ; Status Future Hold Acetaminophen/ Hydrocodone Bitart ([place] (5/325)) 2 tab Q4H PRN PO PAIN LEVEL 7 -10; Start 06/09/17 at 14:00; Status Future Hold Hydromorphone HCl (Dilaudid) 0.5 mg Q2H PRN IV PAIN; Start 06/09/17 at 14:00 Hydromorphone HCl (Dilaudid) 1 mg Q2H PRN IV PAIN Last administered on 16:03; Admin Dose 1 MG; Start 06/09/17 at 14:00 Docusate Sodium (Colace) 100 mg BID PRN PO CONSTIPATION; Start 06/09/17 at 14:00 Bisacodyl (Dulcolax Supp) 10 mg BID PRN [place] CONSTIPATION; Start 06/09/17 at 14:00 Sodium Biphosphate/ Sodium Phosphate (Fleet Enema) 133 ml BID PRN [place] CONSTIPATION; Start 06/09/17 at 14:00 Enoxaparin Sodium (Lovenox) 40 mg DAILY SC Last administered on 06/13/17 08:22 ; Admin Dose 40 MG; Start 06/10/17 at 09:00 Miscellaneous Information 1 ea NOTE XX ; Start 06/09/17 at 17:30 Glucose (Glutose) 15 gm Q15M PRN PO DECREASED GLUCOSE; Start 06/09/17 at 17:30 Glucose (Glutose) 22.5 gm Q15M PRN PO DECREASED GLUCOSE; Start 06/09/17 at 17:30 Dextrose (D50w Syringe) 25 ml Q15M PRN IV DECREASED GLUCOSE; Start 06/09/17 at 17:30 Dextrose (D50w Syringe) 50 ml Q15M PRN IV DECREASED GLUCOSE Last administered on 06/09/17 17:47; Admin Dose 50 ML; Start 06/09/17 at 17:30 Glucagon (Glucagen) 1 mg Q15M PRN IM DECREASED GLUCOSE; Start 06/09/17 at 17:30 Glucose (Glutose) 15 gm Q15M PRN BUCCAL DECREASED GLUCOSE; Start 06/09/17 at 17: 30 Hydralazine HCl (Apresoline) 10 mg Q4H PRN IV SBP>170 Last administered on 01:59; Admin Dose 10 MG; Start 06/09/17 at 18:30 Diagnostic Test (Pha) (Accu-Chek) 1 ea 02 XX Last administered on 06/11/17 01: 23; Admin Dose 1 EA; Start 06/11/17 at 02:00 Hydromorphone HCl (Dilaudid APARTMENT MANAGER) 0.1 MG DOSE 10 ... Q4PCA IV Last administered on 06/12/17 14:48; Admin Dose 0.1 MG; Start 06/10/17 at 18:30 Famotidine (Pepcid) 40 mg HS PO Last administered on 06/12/17 21:09; Admin Dose 40 MG; Start 06/11/17 at 21:00 Simethicone (Mylicon) 80 mg Q6H PRN GTB DISTENSION/GAS/BLOATING Last administered on 06/13/17 12:12; Admin Dose 80 MG; Start 06/11/17 at 18:00 Clonidine (Catapres) 0.2 mg TID PO Last administered on 06/13/17 08:19; Admin Dose 0.2 MG; Start 06/12/17 at 09:00 Hydralazine HCl (Apresoline) 100 mg TID PO Last administered on 06/13/17 08:18 ; Admin Dose 100 MG; Start 06/12/17 at 09:00 Nifedipine (Procardia Xl) 30 mg BID PO Last administered on 06/13/17 08:20; Admin Dose 30 MG; Start 06/12/17 at 12:00 Labetalol HCl (Normodyne) 200 mg TID PO Last administered on 06/13/17 08:20; Admin Dose 200 MG; Start 06/12/17 at 12:00 Insulin Glargine (Lantus) 35 unit QHS SC Last administered on 06/12/17 20:56; Admin Dose 35 UNIT; Start 06/12/17 at 21:00 Mupirocin (Bactroban) 1 applic BID TOP Last administered on 06/13/17 08:20; Admin Dose 1 APPLIC; Start 06/13/17 at 09:00 ANSON JON M.D. Jun 13, 2017 12:19
--- NOTE | 2017-06-13 12:40 | PN ---
Date/Time of Note Date/Time of Note DATE: 06/13/17 TIME: 12:39 Assessment/Plan Lines/Catheters IV Catheter Type (from Nrsg): SVETLANA Sadler in Place (from Nrsg): Yes Assessment/Plan Chief Complaint/Hosp Course CKD SP Dialysis cath placement Renal status improved Patient to have 1 more session of dialysis today We will remove the dialysis catheter after no more dialysis needed Problems: Subjective 24 Hr Interval Summary Constitutional: improved Pain Control: mild Exam/Review of Systems Vital Signs Vitals Vital Signs Date Time Temp Pulse Resp B/P Pulse Ox O2 Delivery O2 Flow Rate FiO2 06/13/17 10:30 100 25 125/76 94 Nasal Cannula 4.0 06/13/17 07:30 98.8 06/11/17 01:42 27 Intake and Output 06/12/17 06/12/17 06/13/17 15:00 23:00 07:00 Intake Total 1230 ml 575 ml 540 ml Output Total 1100 ml 1025 ml 850 ml Balance 130 ml -450 ml -310 ml Exam Neck: non-tender, supple Respiratory: clear to auscultation, normal air movement Cardiovascular: nl pulses, regular rate and rhythm Gastrointestinal: nl liver, spleen, non-tender, soft Results Result Diagram: 06/13/17 0500 06/13/17 0500 BEHZAD MICHEL MD Jun 13, 2017 12:40
--- NOTE | 2017-06-13 12:54 | CONS ---
Date/Time of Note Date/Time of Note DATE: 06/13/17 TIME: 12:51 Assessment/Plan Assessment/Plan Chief Complaint/Hosp Course 1. Acute kidney injury 2. HEPATIS C 3. S/P LIVER BIOPSY 4. dm TYPE II, controlled 5. CKD moderate Problems: Additional Assessment/Plan 1. Pt is having HD today 2. Transfer to telemetry Consultation Date/Type/Reason Admit Date/Time Jun 09, 2017 at 06:00 Initial Consult Date 06/10/17 Type of Consultation: Nephrology Reason for Consultation Dr Perales 24 HR Interval Summary Subjective hx not possible: pt non-verbal Exam/Review of Systems Vital Signs Vitals Vital Signs Date Time Temp Pulse Resp B/P Pulse Ox O2 Delivery O2 Flow Rate FiO2 06/13/17 10:30 100 25 125/76 94 Nasal Cannula 4.0 06/13/17 07:30 98.8 06/11/17 01:42 27 Intake and Output 06/12/17 06/12/17 06/13/17 14:59 22:59 06:59 Intake Total 1330 ml 650 ml 465 ml Output Total 950 ml 1125 ml 800 ml Balance 380 ml -475 ml -335 ml Exam Constitutional: alert, oriented Eyes: nl conjunctiva ENMT: nl external ears & nose Respiratory: clear to auscultation Cardiovascular: regular rate and rhythm Genitourinary - Male: nl scrotum, other (R femoral Charan) Results Result Diagram: 06/13/17 0500 06/13/17 0500 Results 24 hrs Laboratory Tests Test 06/12/17 13:59 06/12/17 17:45 06/12/17 18:00 06/12/17 20:51 Creatine Kinase 2266 H 2306 H Creatine Kinase Index 0.1 0.1 Creatinine Kinase MB (Mass) 3.02 H 3.40 H Troponin I 0.102 0.108 Bedside Glucose 192 143 Test 06/13/17 02:20 06/13/17 05:00 06/13/17 05:12 06/13/17 08:00 Bedside Glucose 99 75 88 White Blood Count 14.8 H Red Blood Count 3.42 #L Hemoglobin 8.6 #L Hematocrit 27.6 #L Mean Corpuscular Volume 80.7 L Mean Corpuscular Hemoglobin 25.1 L Mean Corpuscular Hemoglobin Concent 31.2 L Red Cell Distribution Width 15.9 H Platelet Count 241 # Mean Platelet Volume 10.2 Neutrophils % 73.6 Lymphocytes % 11.3 L Monocytes % 12.2 H Eosinophils % 2.1 Basophils % 0.1 Nucleated Red Blood Cells % 0.0 Neutrophils # 10.9 H Lymphocytes # 1.7 Monocytes # 1.8 H Eosinophils # 0.3 Basophils # 0.0 Nucleated Red Blood Cells # 0.0 Sodium Level 140 Potassium Level 3.9 Chloride Level 99 Carbon Dioxide Level 25 Anion Gap 20 H Blood Urea Nitrogen 87 #H Creatinine 6.24 H Glucose Level 58 #L Calcium Level 7.2 L Phosphorus Level 5.2 H Magnesium Level 2.1 Total Bilirubin 0.4 Direct Bilirubin 0.30 H Indirect Bilirubin 0.1 Aspartate Amino Transf (AST/SGOT) 132 H Alanine Aminotransferase (ALT/SGPT) 108 H Alkaline Phosphatase 196 H Total Protein 5.6 L Albumin 2.4 L Globulin 3.20 Albumin/Globulin Ratio 0.75 Test 06/13/17 11:49 Bedside Glucose 91 Medications Medications Current Medications Acetaminophen/ Hydrocodone Bitart ([place] (5/325)) 1 tab Q4H PRN PO PAIN LEVEL 4 -7 Last administered on 06/10/17 16:55; Admin Dose 1 TAB; Start 06/09/17 at 14:00 ; Status Future Hold Acetaminophen/ Hydrocodone Bitart ([place] (5/325)) 2 tab Q4H PRN PO PAIN LEVEL 7 -10; Start 06/09/17 at 14:00; Status Future Hold Hydromorphone HCl (Dilaudid) 0.5 mg Q2H PRN IV PAIN; Start 06/09/17 at 14:00 Hydromorphone HCl (Dilaudid) 1 mg Q2H PRN IV PAIN Last administered on 16:03; Admin Dose 1 MG; Start 06/09/17 at 14:00 Docusate Sodium (Colace) 100 mg BID PRN PO CONSTIPATION; Start 06/09/17 at 14:00 Bisacodyl (Dulcolax Supp) 10 mg BID PRN [place] CONSTIPATION; Start 06/09/17 at 14:00 Sodium Biphosphate/ Sodium Phosphate (Fleet Enema) 133 ml BID PRN [place] CONSTIPATION; Start 06/09/17 at 14:00 Enoxaparin Sodium (Lovenox) 40 mg DAILY SC Last administered on 06/13/17 08:22 ; Admin Dose 40 MG; Start 06/10/17 at 09:00 Miscellaneous Information 1 ea NOTE XX ; Start 06/09/17 at 17:30 Glucose (Glutose) 15 gm Q15M PRN PO DECREASED GLUCOSE; Start 06/09/17 at 17:30 Glucose (Glutose) 22.5 gm Q15M PRN PO DECREASED GLUCOSE; Start 06/09/17 at 17:30 Dextrose (D50w Syringe) 25 ml Q15M PRN IV DECREASED GLUCOSE; Start 06/09/17 at 17:30 Dextrose (D50w Syringe) 50 ml Q15M PRN IV DECREASED GLUCOSE Last administered on 06/09/17 17:47; Admin Dose 50 ML; Start 06/09/17 at 17:30 Glucagon (Glucagen) 1 mg Q15M PRN IM DECREASED GLUCOSE; Start 06/09/17 at 17:30 Glucose (Glutose) 15 gm Q15M PRN BUCCAL DECREASED GLUCOSE; Start 06/09/17 at 17: 30 Hydralazine HCl (Apresoline) 10 mg Q4H PRN IV SBP>170 Last administered on 01:59; Admin Dose 10 MG; Start 06/09/17 at 18:30 Diagnostic Test (Pha) (Accu-Chek) 1 ea 02 XX Last administered on 06/11/17 01: 23; Admin Dose 1 EA; Start 06/11/17 at 02:00 Hydromorphone HCl (Dilaudid MEDICAL BILLER/CODER) 0.1 MG DOSE 10 ... Q4PCA IV Last administered on 06/12/17 14:48; Admin Dose 0.1 MG; Start 06/10/17 at 18:30 Famotidine (Pepcid) 40 mg HS PO Last administered on 06/12/17 21:09; Admin Dose 40 MG; Start 06/11/17 at 21:00 Simethicone (Mylicon) 80 mg Q6H PRN GTB DISTENSION/GAS/BLOATING Last administered on 06/13/17 12:12; Admin Dose 80 MG; Start 06/11/17 at 18:00 Clonidine (Catapres) 0.2 mg TID PO Last administered on 06/13/17 08:19; Admin Dose 0.2 MG; Start 06/12/17 at 09:00 Hydralazine HCl (Apresoline) 100 mg TID PO Last administered on 06/13/17 08:18 ; Admin Dose 100 MG; Start 06/12/17 at 09:00 Nifedipine (Procardia Xl) 30 mg BID PO Last administered on 06/13/17 08:20; Admin Dose 30 MG; Start 06/12/17 at 12:00 Labetalol HCl (Normodyne) 200 mg TID PO Last administered on 06/13/17 08:20; Admin Dose 200 MG; Start 06/12/17 at 12:00 Insulin Glargine (Lantus) 35 unit QHS SC Last administered on 06/12/17 20:56; Admin Dose 35 UNIT; Start 06/12/17 at 21:00 Mupirocin (Bactroban) 1 applic BID TOP Last administered on 06/13/17 08:20; Admin Dose 1 APPLIC; Start 06/13/17 at 09:00 DELGADO LORENZ Jun 13, 2017 12:53
--- NOTE | 2017-06-13 13:05 | CONS ---
Date/Time of Note Date/Time of Note DATE: 06/13/17 TIME: 13:00 Consult Date/Type/Reason Admit Date/Time Jun 09, 2017 at 06:00 Initial Consult Date 06/10/17 Type of Consultation: Pulm/CCM Subjective s/p HD; no events. Objective Vital Signs Date Time Temp Pulse Resp B/P Pulse Ox O2 Delivery O2 Flow Rate FiO2 06/13/17 10:30 100 25 125/76 94 Nasal Cannula 4.0 06/13/17 07:30 98.8 06/11/17 01:42 27 Intake and Output 06/12/17 06/12/17 06/13/17 15:00 23:00 07:00 Intake Total 1230 ml 575 ml 540 ml Output Total 1100 ml 1025 ml 850 ml Balance 130 ml -450 ml -310 ml Exam HEENT: Neck supple; no JVD; no LAD CVS: RRR, S1 and S2 CHEST: Clear ABD: Soft, NT, + BS EXT: No c/c; + edema Results/Medications Result Diagram: 06/13/17 0500 06/13/17 0500 Results 24 hrs Laboratory Tests Test 06/12/17 13:59 06/12/17 17:45 06/12/17 18:00 06/12/17 20:51 Creatine Kinase 2266 H 2306 H Creatine Kinase Index 0.1 0.1 Creatinine Kinase MB (Mass) 3.02 H 3.40 H Troponin I 0.102 0.108 Bedside Glucose 192 143 Test 06/13/17 02:20 06/13/17 05:00 06/13/17 05:12 06/13/17 08:00 Bedside Glucose 99 75 88 White Blood Count 14.8 H Red Blood Count 3.42 #L Hemoglobin 8.6 #L Hematocrit 27.6 #L Mean Corpuscular Volume 80.7 L Mean Corpuscular Hemoglobin 25.1 L Mean Corpuscular Hemoglobin Concent 31.2 L Red Cell Distribution Width 15.9 H Platelet Count 241 # Mean Platelet Volume 10.2 Neutrophils % 73.6 Lymphocytes % 11.3 L Monocytes % 12.2 H Eosinophils % 2.1 Basophils % 0.1 Nucleated Red Blood Cells % 0.0 Neutrophils # 10.9 H Lymphocytes # 1.7 Monocytes # 1.8 H Eosinophils # 0.3 Basophils # 0.0 Nucleated Red Blood Cells # 0.0 Sodium Level 140 Potassium Level 3.9 Chloride Level 99 Carbon Dioxide Level 25 Anion Gap 20 H Blood Urea Nitrogen 87 #H Creatinine 6.24 H Glucose Level 58 #L Calcium Level 7.2 L Phosphorus Level 5.2 H Magnesium Level 2.1 Total Bilirubin 0.4 Direct Bilirubin 0.30 H Indirect Bilirubin 0.1 Aspartate Amino Transf (AST/SGOT) 132 H Alanine Aminotransferase (ALT/SGPT) 108 H Alkaline Phosphatase 196 H Total Protein 5.6 L Albumin 2.4 L Globulin 3.20 Albumin/Globulin Ratio 0.75 Test 06/13/17 11:49 Bedside Glucose 91 Medications Current Medications Acetaminophen/ Hydrocodone Bitart ([place] (5/325)) 1 tab Q4H PRN PO PAIN LEVEL 4 -7 Last administered on 06/10/17 16:55; Admin Dose 1 TAB; Start 06/09/17 at 14:00 ; Status Future Hold Acetaminophen/ Hydrocodone Bitart ([place] (5/325)) 2 tab Q4H PRN PO PAIN LEVEL 7 -10; Start 06/09/17 at 14:00; Status Future Hold Hydromorphone HCl (Dilaudid) 0.5 mg Q2H PRN IV PAIN; Start 06/09/17 at 14:00 Hydromorphone HCl (Dilaudid) 1 mg Q2H PRN IV PAIN Last administered on 16:03; Admin Dose 1 MG; Start 06/09/17 at 14:00 Docusate Sodium (Colace) 100 mg BID PRN PO CONSTIPATION; Start 06/09/17 at 14:00 Bisacodyl (Dulcolax Supp) 10 mg BID PRN [place] CONSTIPATION; Start 06/09/17 at 14:00 Sodium Biphosphate/ Sodium Phosphate (Fleet Enema) 133 ml BID PRN [place] CONSTIPATION; Start 06/09/17 at 14:00 Enoxaparin Sodium (Lovenox) 40 mg DAILY SC Last administered on 06/13/17 08:22 ; Admin Dose 40 MG; Start 06/10/17 at 09:00 Miscellaneous Information 1 ea NOTE XX ; Start 06/09/17 at 17:30 Glucose (Glutose) 15 gm Q15M PRN PO DECREASED GLUCOSE; Start 06/09/17 at 17:30 Glucose (Glutose) 22.5 gm Q15M PRN PO DECREASED GLUCOSE; Start 06/09/17 at 17:30 Dextrose (D50w Syringe) 25 ml Q15M PRN IV DECREASED GLUCOSE; Start 06/09/17 at 17:30 Dextrose (D50w Syringe) 50 ml Q15M PRN IV DECREASED GLUCOSE Last administered on 06/09/17 17:47; Admin Dose 50 ML; Start 06/09/17 at 17:30 Glucagon (Glucagen) 1 mg Q15M PRN IM DECREASED GLUCOSE; Start 06/09/17 at 17:30 Glucose (Glutose) 15 gm Q15M PRN BUCCAL DECREASED GLUCOSE; Start 06/09/17 at 17: 30 Hydralazine HCl (Apresoline) 10 mg Q4H PRN IV SBP>170 Last administered on 01:59; Admin Dose 10 MG; Start 06/09/17 at 18:30 Diagnostic Test (Pha) (Accu-Chek) 1 ea 02 XX Last administered on 06/11/17 01: 23; Admin Dose 1 EA; Start 06/11/17 at 02:00 Hydromorphone HCl (Dilaudid [employer] INS[employer]ATION SUPERVISOR) 0.1 MG DOSE 10 ... Q4PCA IV Last administered on 06/12/17 14:48; Admin Dose 0.1 MG; Start 06/10/17 at 18:30 Famotidine (Pepcid) 40 mg HS PO Last administered on 06/12/17 21:09; Admin Dose 40 MG; Start 06/11/17 at 21:00 Simethicone (Mylicon) 80 mg Q6H PRN GTB DISTENSION/GAS/BLOATING Last administered on 06/13/17 12:12; Admin Dose 80 MG; Start 06/11/17 at 18:00 Clonidine (Catapres) 0.2 mg TID PO Last administered on 06/13/17 08:19; Admin Dose 0.2 MG; Start 06/12/17 at 09:00 Hydralazine HCl (Apresoline) 100 mg TID PO Last administered on 06/13/17 08:18 ; Admin Dose 100 MG; Start 06/12/17 at 09:00 Nifedipine (Procardia Xl) 30 mg BID PO Last administered on 06/13/17 08:20; Admin Dose 30 MG; Start 06/12/17 at 12:00 Labetalol HCl (Normodyne) 200 mg TID PO Last administered on 06/13/17 08:20; Admin Dose 200 MG; Start 06/12/17 at 12:00 Insulin Glargine (Lantus) 35 unit QHS SC Last administered on 06/12/17 20:56; Admin Dose 35 UNIT; Start 06/12/17 at 21:00 Mupirocin (Bactroban) 1 applic BID TOP Last administered on 06/13/17 08:20; Admin Dose 1 APPLIC; Start 06/13/17 at 09:00 Assessment/Plan Additional Assessment/Plan IMP: 1. s/p Acute Respiratory Failure 2. ARF 3. Hepatocellular ca 4. DM 5. Anemia RECS: 1. HD 2. Titrate FiO2 3. ICS 4. BD's 5. Mobilize OOB to chair 35 min cc time TIAN LICONA MD Jun 13, 2017 13:05
--- NOTE | 2017-06-13 13:46 | PN ---
Date/Time of Note Date/Time of Note DATE: 06/13/17 TIME: 13:42 Assessment/Plan VTE Prophylaxis VTE Prophylaxis Intervention: SCD's Lines/Catheters IV Catheter Type (from Nrs): SVETLANA Assessment/Plan Chief Complaint/Hosp Course 1. Hyperkalemia secondary to KYLE on CKD as well as possible tissue destruction during hepatectomy-resolved with dialysis and medication -Creatinine and BUN continue to trend up -Nephrology consult with Dr. Perales appreciated, further dialysis per nephrology , patient having good urine output with Bumex, will have hemodialysis today 2. Acute respiratory failure-patient extubated Pulmonology consultation appreciated 3. Hepatocellular carcinoma secondary to hepatitis C now status post partial hepatectomy and biopsy Follow-up with surgery recommendations 4. Diabetes type 2-sugars elevated Insulin increased A1c at 7.9 5. Hypertension-BP now stable Cardiology consultation appreciated, continue nifedipine, hydralazine, labetalol and clonidine -Continue hold lisinopril for possible acute kidney injury on CKD -No longer requiring nicardipine IV 6. Obesity with sleep apnea Lifestyle changes to be advised 7. Anasarca Continue Bumex Prophylaxis: SCD's Problems: Subjective 24 Hr Interval Summary Constitutional: no complaints Exam/Review of Systems Vital Signs Vitals Vital Signs Date Time Temp Pulse Resp B/P Pulse Ox O2 Delivery O2 Flow Rate FiO2 06/13/17 13:30 100 13 140/83 06/13/17 13:00 94 Nasal Cannula 4.0 06/13/17 12:00 98.7 06/11/17 01:42 27 Intake and Output 06/12/17 06/12/17 06/13/17 15:00 23:00 07:00 Intake Total 1230 ml 575 ml 540 ml Output Total 1100 ml 1025 ml 850 ml Balance 130 ml -450 ml -310 ml Exam Constitutional: alert Respiratory: clear to auscultation Cardiovascular: regular rate and rhythm Gastrointestinal: soft, No distended Musculoskeletal: nl extremities to inspection Results Result Diagram: 06/13/17 0500 06/13/17 0500 Results 24 hrs Laboratory Tests Test 06/12/17 13:59 06/12/17 17:45 06/12/17 18:00 06/12/17 20:51 Creatine Kinase 2266 H 2306 H Creatine Kinase Index 0.1 0.1 Creatinine Kinase MB (Mass) 3.02 H 3.40 H Troponin I 0.102 0.108 Bedside Glucose 192 143 Test 06/13/17 02:20 06/13/17 05:00 06/13/17 05:12 06/13/17 08:00 Bedside Glucose 99 75 88 White Blood Count 14.8 H Red Blood Count 3.42 #L Hemoglobin 8.6 #L Hematocrit 27.6 #L Mean Corpuscular Volume 80.7 L Mean Corpuscular Hemoglobin 25.1 L Mean Corpuscular Hemoglobin Concent 31.2 L Red Cell Distribution Width 15.9 H Platelet Count 241 # Mean Platelet Volume 10.2 Neutrophils % 73.6 Lymphocytes % 11.3 L Monocytes % 12.2 H Eosinophils % 2.1 Basophils % 0.1 Nucleated Red Blood Cells % 0.0 Neutrophils # 10.9 H Lymphocytes # 1.7 Monocytes # 1.8 H Eosinophils # 0.3 Basophils # 0.0 Nucleated Red Blood Cells # 0.0 Sodium Level 140 Potassium Level 3.9 Chloride Level 99 Carbon Dioxide Level 25 Anion Gap 20 H Blood Urea Nitrogen 87 #H Creatinine 6.24 H Glucose Level 58 #L Calcium Level 7.2 L Phosphorus Level 5.2 H Magnesium Level 2.1 Total Bilirubin 0.4 Direct Bilirubin 0.30 H Indirect Bilirubin 0.1 Aspartate Amino Transf (AST/SGOT) 132 H Alanine Aminotransferase (ALT/SGPT) 108 H Alkaline Phosphatase 196 H Total Protein 5.6 L Albumin 2.4 L Globulin 3.20 Albumin/Globulin Ratio 0.75 Test 06/13/17 11:49 Bedside Glucose 91 Medications Medications Current Medications Acetaminophen/ Hydrocodone Bitart ([place] (5/325)) 1 tab Q4H PRN PO PAIN LEVEL 4 -7 Last administered on 06/10/17 16:55; Admin Dose 1 TAB; Start 06/09/17 at 14:00 ; Status Future Hold Acetaminophen/ Hydrocodone Bitart ([place] (5/325)) 2 tab Q4H PRN PO PAIN LEVEL 7 -10; Start 06/09/17 at 14:00; Status Future Hold Hydromorphone HCl (Dilaudid) 0.5 mg Q2H PRN IV PAIN; Start 06/09/17 at 14:00 Hydromorphone HCl (Dilaudid) 1 mg Q2H PRN IV PAIN Last administered on 16:03; Admin Dose 1 MG; Start 06/09/17 at 14:00 Docusate Sodium (Colace) 100 mg BID PRN PO CONSTIPATION; Start 06/09/17 at 14:00 Bisacodyl (Dulcolax Supp) 10 mg BID PRN [place] CONSTIPATION; Start 06/09/17 at 14:00 Sodium Biphosphate/ Sodium Phosphate (Fleet Enema) 133 ml BID PRN [place] CONSTIPATION; Start 06/09/17 at 14:00 Enoxaparin Sodium (Lovenox) 40 mg DAILY SC Last administered on 06/13/17 08:22 ; Admin Dose 40 MG; Start 06/10/17 at 09:00 Miscellaneous Information 1 ea NOTE XX ; Start 06/09/17 at 17:30 Glucose (Glutose) 15 gm Q15M PRN PO DECREASED GLUCOSE; Start 06/09/17 at 17:30 Glucose (Glutose) 22.5 gm Q15M PRN PO DECREASED GLUCOSE; Start 06/09/17 at 17:30 Dextrose (D50w Syringe) 25 ml Q15M PRN IV DECREASED GLUCOSE; Start 06/09/17 at 17:30 Dextrose (D50w Syringe) 50 ml Q15M PRN IV DECREASED GLUCOSE Last administered on 06/09/17 17:47; Admin Dose 50 ML; Start 06/09/17 at 17:30 Glucagon (Glucagen) 1 mg Q15M PRN IM DECREASED GLUCOSE; Start 06/09/17 at 17:30 Glucose (Glutose) 15 gm Q15M PRN BUCCAL DECREASED GLUCOSE; Start 06/09/17 at 17: 30 Hydralazine HCl (Apresoline) 10 mg Q4H PRN IV SBP>170 Last administered on 01:59; Admin Dose 10 MG; Start 06/09/17 at 18:30 Diagnostic Test (Pha) (Accu-Chek) 1 ea 02 XX Last administered on 06/11/17 01: 23; Admin Dose 1 EA; Start 06/11/17 at 02:00 Hydromorphone HCl (Dilaudid PLEATING SUPERVISOR) 0.1 MG DOSE 10 ... Q4PCA IV Last administered on 06/12/17 14:48; Admin Dose 0.1 MG; Start 06/10/17 at 18:30 Famotidine (Pepcid) 40 mg HS PO Last administered on 06/12/17 21:09; Admin Dose 40 MG; Start 06/11/17 at 21:00 Simethicone (Mylicon) 80 mg Q6H PRN GTB DISTENSION/GAS/BLOATING Last administered on 06/13/17 12:12; Admin Dose 80 MG; Start 06/11/17 at 18:00 Clonidine (Catapres) 0.2 mg TID PO Last administered on 06/13/17 08:19; Admin Dose 0.2 MG; Start 06/12/17 at 09:00 Hydralazine HCl (Apresoline) 100 mg TID PO Last administered on 06/13/17 08:18 ; Admin Dose 100 MG; Start 06/12/17 at 09:00 Nifedipine (Procardia Xl) 30 mg BID PO Last administered on 06/13/17 08:20; Admin Dose 30 MG; Start 06/12/17 at 12:00 Labetalol HCl (Normodyne) 200 mg TID PO Last administered on 06/13/17 08:20; Admin Dose 200 MG; Start 06/12/17 at 12:00 Insulin Glargine (Lantus) 35 unit QHS SC Last administered on 06/12/17 20:56; Admin Dose 35 UNIT; Start 06/12/17 at 21:00 Mupirocin (Bactroban) 1 applic BID TOP Last administered on 06/13/17 08:20; Admin Dose 1 APPLIC; Start 06/13/17 at 09:00 ODESSA ARELLANO Jun 13, 2017 13:46
[2017-06-13 15:19] LABS: HEMATOCRIT 27.9 % (42.0-52.0); HEMOGLOBIN 8.8 g/dl (14.0-18.0)
[2017-06-13 15:33] LABS: INR 1.05; PROTIME 13.7 Sec (12.2-14.2); PT RATIO 1.1
[2017-06-13 15:34] LABS: PARTIAL THROMBOPLASTIN TIME 31.8 Sec (25.0-35.0)
[2017-06-13] MEDS: PANTOPRAZOLE 40 MG INJ IV SCH (16:02)
--- NOTE | 2017-06-13 19:59 | PN ---
Date/Time of Note Date/Time of Note DATE: 06/13/17 TIME: 13:56 Assessment/Plan Lines/Catheters IV Catheter Type (from Nrs): SVETLANA Assessment/Plan Assessment/Plan [facility] Progress Note Date of Service: 06/13/17 Today's Impression & Plan: Overall stable, but with issues keeping him in the ICU including need for dialysis, tachycardia, hypertension, and others; no major wound problems. No evidence for major intra-abdominal complication or surgical site infection. No indication for acute surgical intervention. Discussed with patient and with his , including the preliminary pathology that demonstrates possibility of residual separate HCC in his liver, and answered all questions. Will await final pathology report prior to further planning for the HCC. Patient and appear to understand and agreed with the plans. Also discussed with rest of the team. With above assessment, I've recommended the following for today: 1. Keep in ICU 2. Shortened dialysis, prophylactic anticoagulation and need for diuresis per renal 3. Labs in am 4. Increase ICS 5. Increase activity Nature of presenting problem: High complexity Thank you again for your great care of this very pleasant patient and wonderful family. If there are any questions, please feel free to call me at [phone]. Disclaimer: Inadvertent spelling or grammatical errors are likely due to EHR/ dictation software use and do not reflect on the overall quality of patient care. Updated Clinical Summary: Patient is a very pleasant 60-year-old gentleman with comorbid issues including a BMI of 34, as well as history of hepatitis C, treated with Harvoni in August 2016 with near complete disappearance of his viral count, who was noted to have a liver lesion that was initially detected on 04/26/2016, liver CT of the abdomen and pelvis read as a somewhat well-defined 4.8 x 4.4 x 4.6 cm area of low attenuation within the right lobe of the liver. Note that he also had a few followup scans since then including ultrasound of the abdomen 05/22/2016 showing a solid mass 4.6 x 4.8 x 3.9 cm that appeared to be hypoechoic and no increased Doppler flow, liver dedicated MRI of the abdomen 06/19/2016 showing a 3.5 cm solid mass anteriorly in the right lobe of the liver that cannot be further characterized due to lack of contrast, liver dedicated contrast study of the abdomen on 07/08/2016 showing no evidence of increased uptake, corresponding to a liver mass seen in the right lobe of the liver and therefore not consistent with a hemangioma. He had a liver biopsy percutaneously done on 08/07/2016 with ultrasound guidance with the final pathology showing necrotic material, otherwise nondiagnostic. He had a repeat MRI of the liver with and without contrast 09/24/2016 that showed the previously seen lesion that was 3.8 cm at the junction of the right and left lobes but additional 2.3 cm lesion in segment 5 of the liver showing low signal intensity on the T1 weighted images, intermediate signal intensity on the T2 weighted images and arterial phase contrast enhancement. These findings were thought to be metastatic disease or multifocal hepatocellular carcinoma. Due to growth seen in segment 5 lesion, repeat biopsy of the liver was ordered which was done on 04/07/2017. Segment 5 lesion was biopsied and final pathology was consistent with moderately differentiated hepatocellular carcinoma in a background of chronic hepatitis C. Normal liver biopsy done at the same time showed grade 2 portal inflammation and interface hepatitis, grade 2 lobular activity and stage I fibrosis. Comorbidities: 1. Hepatocellular carcinoma in segment 5 of liver in the setting of hepatitis C , along with several regenerative nodules. Hepatitis C that was thought to be chronic, treated with Harvoni 08/2016 with near resolution and disappearance of the viral load. His hepatitis C is thought to be genotype 1A with prior viral load in 2012 of approximately 18 million international units per mL. 2. Diabetes mellitus type 2. 3. Hyperlipidemia. 4. Hypertension. 5. Left distal tibial fracture. 6. Left tibia fracture. 7. Obstructive sleep apnea. 8. Vitamin D deficiency. 9. Former smoker. 10. S/p laparoscopic exploration with intraoperative ultrasound of liver and core needle liver biopsy with ultrasound guidance segment 8 lesion and separately segment 4B normal liver, open partial hepatectomy segment 5/6, ultrasound-guided core needle liver biopsy segment 4B (left side) mass under direct visualization, cholecystectomy, lysis of adhesions, and umbilical hernia repair at [facility] 06/10/17. Subjective: No major events or complaints other than above; no major abd pain and under control with medications; no n/v/d; no sob or cp; + flatus; - BM; minimal activity Objective: Vitals: See below Exam: GENERAL: On exam, the patient was laying in bed being dialyzed and appeared to be comfortable and in no acute distress. ABDOMEN: Soft, nontender and nondistended. Incisions are clean, dry and intact without any evidence of obvious erythema, edema, discharge, or hernia. There are no peritoneal signs or guarding. SKIN: Skin appears to be pink and feels warm to touch. NEUROLOGIC: Patient is awake, alert, and follows commands appropriately. Exam/Review of Systems Vital Signs Vitals Vital Signs Date Time Temp Pulse Resp B/P Pulse Ox O2 Delivery O2 Flow Rate FiO2 06/13/17 19:00 102 20 143/95 94 Nasal Cannula 4.0 06/13/17 16:00 98.0 06/11/17 01:42 27 Intake and Output 06/12/17 06/12/17 06/13/17 15:00 23:00 07:00 Intake Total 1230 ml 575 ml 540 ml Output Total 1100 ml 1025 ml 850 ml Balance 130 ml -450 ml -310 ml Results Result Diagram: 06/13/17 1455 06/13/17 0500 KAYA BERMAN M.D. Jun 13, 2017 19:59
[2017-06-13] MEDS: ONDANSETRON 4 MG INJ IV PRN (20:34)
[2017-06-13] MEDS: INSULIN GLARGINE [LANtus] 3 ML PEN SC SCH (21:00)
[2017-06-14] VITALS (30 sets, daily range): BP systolic 94–137; BP diastolic 42–83; PULSE 72–102; RESP 15–31
[2017-06-14] MEDS: ACCU-CHEK XX SCH (02:00)
[2017-06-14 03:18] LABS: ADD UMIC YES; UR ASCORBIC ACID NEGATIVE (NEGATIVE); UR BILIRUBIN (Dip) NEGATIVE (NEGATIVE); UR BLOOD (Dip) NEGATIVE (NEGATIVE); UR CLARITY CLEAR (CLEAR); UR COLOR YELLOW (YELLOW); UR GLUCOSE (Dip) NEGATIVE (NEGATIVE); UR KETONES (Dip) NEGATIVE (NEGATIVE); UR LEUKOCYTE ESTERASE (Dip) TRACE Leu/ul (NEGATIVE); UR NITRITE (Dip) NEGATIVE (NEGATIVE); UR RBC 5 /HPF (0-5); UR SPECIFIC GRAVITY (Dip) 1.009 (1.003-1.030); UR TOTAL PROTEIN (Dip) NEGATIVE (NEGATIVE); UR UROBILINOGEN (Dip) 1+ mg/dL (NEGATIVE)
[2017-06-14] MEDS: BUMETANIDE 1 MG INJ IV SCH ×2 (05:40→18:24)
[2017-06-14] MEDS: PANTOPRAZOLE 40 MG INJ IV SCH ×2 (05:40→18:24)
[2017-06-14 05:41] LABS: ABNORMAL IP MESSAGE 1; BASOPHILS % 0.2 % (0.0-2.0); EOSINOPHILS # 0.3 10^3/ul (0.0-0.5); EOSINOPHILS % 1.4 % (0.0-7.0); HEMATOCRIT 25.3 % (42.0-52.0); HEMOGLOBIN 8.2 g/dl (14.0-18.0); LYMPHOCYTES # 2.5 10^3/ul (0.8-2.9); LYMPHOCYTES % 13.4 % (15.0-51.0); MEAN CORPUSCULAR HGB CONC 32.4 g/dl (32.0-37.0); MEAN CORPUSCULAR VOLUME 80.3 fl (82.0-101.0); MEAN PLATELET VOLUME 10.5 fl (7.4-10.4); MONOCYTE # 2.9 10^3/ul (0.3-0.9); MONOCYTES % 15.2 % (0.0-11.0); NEUTROPHILS % 68.7 % (39.0-77.0); NUCLEATED RED BLOOD CELLS% 0.1 /100WBC (0.0-0.0); PLATELET COUNT 249 10^3/UL (140-415); POSITIVE DIFF @See below; RED BLOOD COUNT 3.15 10^6/ul (4.70-6.10); RED CELL DISTRIBUTION WIDTH 15.6 % (11.5-14.5); WHITE BLOOD COUNT 18.9 10^3/ul (4.8-10.8)
[2017-06-14 06:23] LABS: CALCIUM 7.1 mg/dl (8.4-10.2); CREATININE 5.64 mg/dl (0.61-1.24); POTASSIUM 4.1 mmol/L (3.5-5.1)
[2017-06-14] MEDS: ENOXAPARIN 40 MG/0.4 ML SYG SC SCH (09:00)
[2017-06-14] MEDS: NIFEdipine (XL) 30 MG TAB PO SCH ×2 (09:22→21:00)
[2017-06-14] MEDS: LABETALOL 200 MG TAB PO SCH ×3 (09:22→21:00)
[2017-06-14] MEDS: INSULIN ASPART [NOVOLOG] 3 ML PEN SC SCH ×7 (09:26→21:16)
[2017-06-14] MEDS: MUPIROCIN 2% 22 GM OINT TOP SCH ×2 (09:27→21:14)
--- NOTE | 2017-06-14 12:30 | CONS ---
Date/Time of Note Date/Time of Note DATE: 06/14/17 TIME: 12:28 Consult Date/Type/Reason Admit Date/Time Jun 09, 2017 at 06:00 Initial Consult Date 06/10/17 Type of Consultation: Pulm/CCM Subjective No events. Doing well. Objective Vital Signs Date Time Temp Pulse Resp B/P Pulse Ox O2 Delivery O2 Flow Rate FiO2 06/14/17 12:00 97.8 86 28 98/59 94 Nasal Cannula 4.0 06/11/17 01:42 27 Intake and Output 06/13/17 06/13/17 06/14/17 15:00 23:00 07:00 Intake Total 900 ml 660 ml 0 ml Output Total 2000 ml 420 ml Balance -1100 ml 240 ml 0 ml Exam HEENT: Neck supple; no JVD; no LAD CVS: RRR, S1 and S2 CHEST: Clear ABD: Soft, NT, + BS EXT: No c/c; + edema Results/Medications Result Diagram: 06/14/17 0450 06/14/17 0450 Results 24 hrs Laboratory Tests Test 06/13/17 14:55 06/13/17 17:12 06/13/17 21:49 06/13/17 23:00 Hemoglobin 8.8 L Hematocrit 27.9 L Prothrombin Time 13.7 Prothrombin Time Ratio 1.1 INR International Normalized Ratio 1.05 Activated Partial Thromboplast Time 31.8 Bedside Glucose 142 72 Urine Color YELLOW Urine Clarity CLEAR Urine pH 5.0 Urine Specific [place] 1.009 Urine Ketones NEGATIVE Urine Nitrite NEGATIVE Urine Bilirubin NEGATIVE Urine Urobilinogen 1+ H Urine Leukocyte Esterase TRACE A Urine Microscopic RBC 5 Urine Microscopic WBC 11 H Urine Bacteria Urine Hemoglobin NEGATIVE Urine Glucose NEGATIVE Urine Total Protein NEGATIVE Test 06/14/17 02:20 06/14/17 04:50 06/14/17 09:15 Bedside Glucose 137 185 White Blood Count 18.9 #H Red Blood Count 3.15 L Hemoglobin 8.2 L Hematocrit 25.3 L Mean Corpuscular Volume 80.3 L Mean Corpuscular Hemoglobin 26.0 L Mean Corpuscular Hemoglobin Concent 32.4 Red Cell Distribution Width 15.6 H Platelet Count 249 Mean Platelet Volume 10.5 H Neutrophils % 68.7 Lymphocytes % 13.4 L Monocytes % 15.2 H Eosinophils % 1.4 Basophils % 0.2 Nucleated Red Blood Cells % 0.1 H Neutrophils # 13.0 H Lymphocytes # 2.5 Monocytes # 2.9 H Eosinophils # 0.3 Basophils # 0.0 Nucleated Red Blood Cells # 0.0 Sodium Level 135 Potassium Level 4.1 Chloride Level 97 Carbon Dioxide Level 22 Anion Gap 20 H Blood Urea Nitrogen 92 H Creatinine 5.64 H Glucose Level 157 Calcium Level 7.1 L Medications Current Medications Acetaminophen/ Hydrocodone Bitart ([place] (5/325)) 1 tab Q4H PRN PO PAIN LEVEL 4 -7 Last administered on 06/10/17 16:55; Admin Dose 1 TAB; Start 06/09/17 at 14:00 ; Status Future Hold Acetaminophen/ Hydrocodone Bitart ([place] (5/325)) 2 tab Q4H PRN PO PAIN LEVEL 7 -10; Start 06/09/17 at 14:00; Status Future Hold Hydromorphone HCl (Dilaudid) 0.5 mg Q2H PRN IV PAIN; Start 06/09/17 at 14:00 Hydromorphone HCl (Dilaudid) 1 mg Q2H PRN IV PAIN Last administered on 16:03; Admin Dose 1 MG; Start 06/09/17 at 14:00 Docusate Sodium (Colace) 100 mg BID PRN PO CONSTIPATION; Start 06/09/17 at 14:00 Bisacodyl (Dulcolax Supp) 10 mg BID PRN [place] CONSTIPATION; Start 06/09/17 at 14:00 Sodium Biphosphate/ Sodium Phosphate (Fleet Enema) 133 ml BID PRN ME CONSTIPATION; Start 06/09/17 at 14:00 Enoxaparin Sodium (Lovenox) 40 mg DAILY SC Last administered on 06/13/17 08:22 ; Admin Dose 40 MG; Start 06/10/17 at 09:00; Status Future Hold Miscellaneous Information 1 ea NOTE XX ; Start 06/09/17 at 17:30 Glucose (Glutose) 15 gm Q15M PRN PO DECREASED GLUCOSE; Start 06/09/17 at 17:30 Glucose (Glutose) 22.5 gm Q15M PRN PO DECREASED GLUCOSE; Start 06/09/17 at 17:30 Dextrose (D50w Syringe) 25 ml Q15M PRN IV DECREASED GLUCOSE; Start 06/09/17 at 17:30 Dextrose (D50w Syringe) 50 ml Q15M PRN IV DECREASED GLUCOSE Last administered on 06/09/17 17:47; Admin Dose 50 ML; Start 06/09/17 at 17:30 Glucagon (Glucagen) 1 mg Q15M PRN IM DECREASED GLUCOSE; Start 06/09/17 at 17:30 Glucose (Glutose) 15 gm Q15M PRN BUCCAL DECREASED GLUCOSE; Start 06/09/17 at 17: 30 Hydralazine HCl (Apresoline) 10 mg Q4H PRN IV SBP>170 Last administered on 01:59; Admin Dose 10 MG; Start 06/09/17 at 18:30 Diagnostic Test (Pha) (Accu-Chek) 1 ea 02 XX Last administered on 06/11/17 01: 23; Admin Dose 1 EA; Start 06/11/17 at 02:00 Hydromorphone HCl (Dilaudid [employer]Y CH[employer]GRAM MANAGER) 0.1 MG DOSE 10 ... Q4PCA IV Last administered on 06/12/17 14:48; Admin Dose 0.1 MG; Start 06/10/17 at 18:30 Simethicone (Mylicon) 80 mg Q6H PRN GTB DISTENSION/GAS/BLOATING Last administered on 06/13/17 18:41; Admin Dose 80 MG; Start 06/11/17 at 18:00 Clonidine (Catapres) 0.2 mg TID PO Last administered on 06/13/17 21:47; Admin Dose 0.2 MG; Start 06/12/17 at 09:00 Hydralazine HCl (Apresoline) 100 mg TID PO Last administered on 06/13/17 21:46 ; Admin Dose 100 MG; Start 06/12/17 at 09:00 Nifedipine (Procardia Xl) 30 mg BID PO Last administered on 06/14/17 09:22; Admin Dose 30 MG; Start 06/12/17 at 12:00 Labetalol HCl (Normodyne) 200 mg TID PO Last administered on 06/14/17 09:22; Admin Dose 200 MG; Start 06/12/17 at 12:00 Insulin Glargine (Lantus) 35 unit QHS SC Last administered on 06/12/17 20:56; Admin Dose 35 UNIT; Start 06/12/17 at 21:00 Mupirocin (Bactroban) 1 applic BID TOP Last administered on 06/14/17 09:27; Admin Dose 1 APPLIC; Start 06/13/17 at 09:00 Pantoprazole (Protonix Iv) 40 mg DAILY@06 IV Last administered on 06/14/17 05: 40; Admin Dose 40 MG; Start 06/13/17 at 15:00 Ondansetron HCl (Zofran Inj) 4 mg Q6H PRN IV NAUSEA AND/OR VOMITING Last administered on 06/13/17 20:34; Admin Dose 4 MG; Start 06/13/17 at 20:30 Assessment/Plan Additional Assessment/Plan IMP: 1. s/p Acute Respiratory Failure 2. ARF--on HD 3. Hepatocellular ca -- s/p resection 4. DM 5. Anemia 6. Leukocytosis RECS: 1. Obtain Cxs 2. Titrate FiO2 3. ICS/BD's 4. HD 5. Mobilize OOB to chair 35 min cc time TIAN LICONA MD Jun 14, 2017 12:30
--- NOTE | 2017-06-14 12:41 | PN ---
Date/Time of Note Date/Time of Note DATE: 06/14/17 TIME: 12:40 Assessment/Plan Lines/Catheters IV Catheter Type (from Nrs): Nader Assessment/Plan Chief Complaint/Hosp Course CKD SP Dialysis cath placement Renal status improved Patient to have 1 more session of dialysis today We will remove the dialysis catheter after no more dialysis needed Problems: Subjective 24 Hr Interval Summary Constitutional: improved Exam/Review of Systems Vital Signs Vitals Vital Signs Date Time Temp Pulse Resp B/P Pulse Ox O2 Delivery O2 Flow Rate FiO2 06/14/17 12:00 97.8 86 28 98/59 94 Nasal Cannula 4.0 06/11/17 01:42 27 Intake and Output 06/13/17 06/13/17 06/14/17 15:00 23:00 07:00 Intake Total 900 ml 660 ml 0 ml Output Total 2000 ml 420 ml Balance -1100 ml 240 ml 0 ml Exam ENMT: mucosa pink and moist, nl external ears & nose, nl lips & teeth, nl nasal mucosa & septum Neck: non-tender, supple Respiratory: clear to auscultation, normal air movement Cardiovascular: nl pulses, regular rate and rhythm Results Result Diagram: 06/14/1744906/14/17449 BEHZAD MICHEL MD Jun 14, 2017 12:41
--- NOTE | 2017-06-14 13:41 | PN ---
Date/Time of Note Date/Time of Note DATE: 06/14/17 TIME: 13:38 Assessment/Plan VTE Prophylaxis VTE Prophylaxis Intervention: SCD's Lines/Catheters IV Catheter Type (from Nrsg): Nader Assessment/Plan Chief Complaint/Hosp Course 1. Hyperkalemia secondary to YKLE on CKD as well as possible tissue destruction during hepatectomy-resolved with dialysis and medication -Creatinine and BUN continue to trend up, patient is status post dialysis 2 last time was yesterday -Nephrology consult with Dr. Perales appreciated, further dialysis per nephrology , patient having good urine output with Bumex 2. Acute respiratory failure-patient extubated Pulmonology consultation appreciated 3. Hepatocellular carcinoma secondary to hepatitis C now status post partial hepatectomy and biopsy Follow-up with surgery recommendations 4. Diabetes type 2-sugars stable Continue insulin regimen A1c at 7.9 5. Hypertension-BP now stable Cardiology consultation appreciated, continue nifedipine, hydralazine, labetalol and clonidine -Continue hold lisinopril for possible acute kidney injury on CKD -No longer requiring nicardipine IV 6. Obesity with sleep apnea Lifestyle changes to be advised 7. Anasarca Continue Bumex 8. Melena Obtain stool occult sample and have consulted GI Prophylaxis: SCD's Problems: Subjective 24 Hr Interval Summary Respiratory: cough Exam/Review of Systems Vital Signs Vitals Vital Signs Date Time Temp Pulse Resp B/P Pulse Ox O2 Delivery O2 Flow Rate FiO2 06/14/17 12:00 97.8 86 28 98/59 94 Nasal Cannula 4.0 06/11/17 01:42 27 Intake and Output 06/13/17 06/13/17 06/14/17 15:00 23:00 07:00 Intake Total 900 ml 660 ml 0 ml Output Total 2000 ml 420 ml Balance -1100 ml 240 ml 0 ml Exam Constitutional: alert, oriented Respiratory: clear to auscultation Cardiovascular: regular rate and rhythm Gastrointestinal: soft, No distended Musculoskeletal: nl extremities to inspection Results Result Diagram: 06/14/17 0450 06/14/17449 Results 24 hrs Laboratory Tests Test 06/13/17 14:55 06/13/17 17:12 06/13/17 21:49 06/13/17 23:00 Hemoglobin 8.8 L Hematocrit 27.9 L Prothrombin Time 13.7 Prothrombin Time Ratio 1.1 INR International Normalized Ratio 1.05 Activated Partial Thromboplast Time 31.8 Bedside Glucose 142 72 Urine Color YELLOW Urine Clarity CLEAR Urine pH 5.0 Urine Specific [place] 1.009 Urine Ketones NEGATIVE Urine Nitrite NEGATIVE Urine Bilirubin NEGATIVE Urine Urobilinogen 1+ H Urine Leukocyte Esterase TRACE A Urine Microscopic RBC 5 Urine Microscopic WBC 11 H Urine Bacteria Urine Hemoglobin NEGATIVE Urine Glucose NEGATIVE Urine Total Protein NEGATIVE Test 06/14/17 02:20 06/14/17 04:50 06/14/17 09:15 06/14/17 12:57 Bedside Glucose 137 185 100 White Blood Count 18.9 #H Red Blood Count 3.15 L Hemoglobin 8.2 L Hematocrit 25.3 L Mean Corpuscular Volume 80.3 L Mean Corpuscular Hemoglobin 26.0 L Mean Corpuscular Hemoglobin Concent 32.4 Red Cell Distribution Width 15.6 H Platelet Count 249 Mean Platelet Volume 10.5 H Neutrophils % 68.7 Lymphocytes % 13.4 L Monocytes % 15.2 H Eosinophils % 1.4 Basophils % 0.2 Nucleated Red Blood Cells % 0.1 H Neutrophils # 13.0 H Lymphocytes # 2.5 Monocytes # 2.9 H Eosinophils # 0.3 Basophils # 0.0 Nucleated Red Blood Cells # 0.0 Sodium Level 135 Potassium Level 4.1 Chloride Level 97 Carbon Dioxide Level 22 Anion Gap 20 H Blood Urea Nitrogen 92 H Creatinine 5.64 H Glucose Level 157 Calcium Level 7.1 L Medications Medications Current Medications Acetaminophen/ Hydrocodone Bitart ([place] (5/325)) 1 tab Q4H PRN PO PAIN LEVEL 4 -7 Last administered on 06/10/17 16:55; Admin Dose 1 TAB; Start 06/09/17 at 14:00 ; Status Future Hold Acetaminophen/ Hydrocodone Bitart ([place] (5/325)) 2 tab Q4H PRN PO PAIN LEVEL 7 -10; Start 06/09/17 at 14:00; Status Future Hold Hydromorphone HCl (Dilaudid) 0.5 mg Q2H PRN IV PAIN; Start 06/09/17 at 14:00 Hydromorphone HCl (Dilaudid) 1 mg Q2H PRN IV PAIN Last administered on 16:03; Admin Dose 1 MG; Start 06/09/17 at 14:00 Docusate Sodium (Colace) 100 mg BID PRN PO CONSTIPATION; Start 06/09/17 at 14:00 Bisacodyl (Dulcolax Supp) 10 mg BID PRN [place] CONSTIPATION; Start 06/09/17 at 14:00 Sodium Biphosphate/ Sodium Phosphate (Fleet Enema) 133 ml BID PRN [place] CONSTIPATION; Start 06/09/17 at 14:00 Enoxaparin Sodium (Lovenox) 40 mg DAILY SC Last administered on 06/13/17 08:22 ; Admin Dose 40 MG; Start 06/10/17 at 09:00; Status Future Hold Miscellaneous Information 1 ea NOTE XX ; Start 06/09/17 at 17:30 Glucose (Glutose) 15 gm Q15M PRN PO DECREASED GLUCOSE; Start 06/09/17 at 17:30 Glucose (Glutose) 22.5 gm Q15M PRN PO DECREASED GLUCOSE; Start 06/09/17 at 17:30 Dextrose (D50w Syringe) 25 ml Q15M PRN IV DECREASED GLUCOSE; Start 06/09/17 at 17:30 Dextrose (D50w Syringe) 50 ml Q15M PRN IV DECREASED GLUCOSE Last administered on 06/09/17 17:47; Admin Dose 50 ML; Start 06/09/17 at 17:30 Glucagon (Glucagen) 1 mg Q15M PRN IM DECREASED GLUCOSE; Start 06/09/17 at 17:30 Glucose (Glutose) 15 gm Q15M PRN BUCCAL DECREASED GLUCOSE; Start 06/09/17 at 17: 30 Hydralazine HCl (Apresoline) 10 mg Q4H PRN IV SBP>170 Last administered on 01:59; Admin Dose 10 MG; Start 06/09/17 at 18:30 Diagnostic Test (Pha) (Accu-Chek) 1 ea 02 XX Last administered on 06/11/17 01: 23; Admin Dose 1 EA; Start 06/11/17 at 02:00 Hydromorphone HCl (Dilaudid POWER PLANT OPERATOR) 0.1 MG DOSE 10 ... Q4PCA IV Last administered on 06/12/17 14:48; Admin Dose 0.1 MG; Start 06/10/17 at 18:30 Simethicone (Mylicon) 80 mg Q6H PRN GTB DISTENSION/GAS/BLOATING Last administered on 06/13/17 18:41; Admin Dose 80 MG; Start 06/11/17 at 18:00 Clonidine (Catapres) 0.2 mg TID PO Last administered on 06/13/17 21:47; Admin Dose 0.2 MG; Start 06/12/17 at 09:00 Hydralazine HCl (Apresoline) 100 mg TID PO Last administered on 06/13/17 21:46 ; Admin Dose 100 MG; Start 06/12/17 at 09:00 Nifedipine (Procardia Xl) 30 mg BID PO Last administered on 06/14/17 09:22; Admin Dose 30 MG; Start 06/12/17 at 12:00 Labetalol HCl (Normodyne) 200 mg TID PO Last administered on 06/14/17 09:22; Admin Dose 200 MG; Start 06/12/17 at 12:00 Insulin Glargine (Lantus) 35 unit QHS SC Last administered on 06/12/17 20:56; Admin Dose 35 UNIT; Start 06/12/17 at 21:00 Mupirocin (Bactroban) 1 applic BID TOP Last administered on 06/14/17 09:27; Admin Dose 1 APPLIC; Start 06/13/17 at 09:00 Pantoprazole (Protonix Iv) 40 mg DAILY@06 IV Last administered on 06/14/17 05: 40; Admin Dose 40 MG; Start 06/13/17 at 15:00 Ondansetron HCl (Zofran Inj) 4 mg Q6H PRN IV NAUSEA AND/OR VOMITING Last administered on 06/13/17 20:34; Admin Dose 4 MG; Start 06/13/17 at 20:30 ODESSA ARELLANO Jun 14, 2017 13:41
--- NOTE | 2017-06-14 14:01 | CONS ---
Date/Time of Note Date/Time of Note DATE: 06/14/17 TIME: 14:01 Assessment/Plan Assessment/Plan Additional Assessment/Plan Assessment: * GI bleeding/melena * Rule out variceal (unlikely) versus non-variceal * Chronic hepatitis C/post Harvoni treatment with eradication * Hepatocellular carcinoma/post segmental hepatectomy * Renal failure on dialysis * Hypertension * Diabetes mellitus Plan: * EGD tomorrow afternoon. Patient was informed the procedure, including risks, benefits and alternatives. He is agreeable to proceed * Monitor H&H every 6 hours transfuse for hemoglobin less than 7.5 * Increase Protonix to 40 mg twice daily * Further recommendations pending our findings and patient's clinical course Consultation Date/Type/Reason Admit Date/Time Jun 09, 2017 at 06:00 Date of Consultation: Jun 14, 2017 Reason for Consultation GI bleeding/melena Hx of Present Illness 61-year-old male with history of hepatitis C and hepatocellular carcinoma, and underwent segmental hepatectomy, the patient has required dialysis post surgery. Yesterday the patient experienced an episode of coffee-ground/dark material emesis which was followed by several episodes of tarry stool. Patient also was noticed to have a significant drop of hemoglobin and hematocrit. The patient has no previous history of gastrointestinal bleeding, he cannot recall being evaluated endoscopically prior to this time or any mention of esophageal varices in relationship to his liver disease. At this time the patient appears comfortable in the last 2 hemoglobin determinations have been stable In the 8.5 g range, he has not required blood transfusions and is receiving PPI therapy. At this point I would recommend the patient be evaluated endoscopically, we will continue to monitor hemoglobin hematocrit and if hemoglobin drops below 7.5 blood transfusions will be advisable. The patient has been informed of the procedure including risks, benefits alternatives and is agreeable to proceed. Constitutional: no complaints Eyes: no complaints ENT: no complaints Respiratory: cough Cardiovascular: no complaints Gastrointestinal: other (See HPI) Genitourinary: no complaints Musculoskeletal: no complaints Skin: no complaints Neurologic: no complaints Endocrine: no complaints Lymphatic: no complaints Psychological: nl mood/affect, no complaints Immunologic: no complaints Past Medical History * Chronic hepatitis C/post Harvoni treatment with eradication * Hepatocellular carcinoma/post segmental hepatectomy * Renal failure on dialysis * Hypertension * Diabetes mellitus Past Surgical History Segmental hepatectomy 06/09/2017 Family History Significant Family History: no pertinent family hx Social History Alcohol Use: none Smoking Status: Former smoker Drug Use: none Exam/Review of Systems Vital Signs Vitals Vital Signs Date Time Temp Pulse Resp B/P Pulse Ox O2 Delivery O2 Flow Rate FiO2 06/14/17 12:00 97.8 86 28 98/59 94 Nasal Cannula 4.0 06/11/17 01:42 27 Intake and Output 06/13/17 06/13/17 06/14/17 15:00 23:00 07:00 Intake Total 900 ml 660 ml 0 ml Output Total 2000 ml 420 ml Balance -1100 ml 240 ml 0 ml Exam Constitutional: alert, obese, oriented, well developed Psych: nl mood/affect, no complaints Head: atraumatic, normocephalic Eyes: EOMI, PERRL, nl conjunctiva, nl lids, nl sclera ENMT: nl external ears & nose, nl lips & teeth, nl nasal mucosa & septum Neck: non-tender, supple Respiratory: clear to auscultation, normal air movement Cardiovascular: nl pulses, regular rate and rhythm Gastrointestinal: bowel sounds, distended, nl liver, spleen, non-tender, soft, surgical scars (Clean dressing), No ascites, No mass, No rebound or guarding Musculoskeletal: nl extremities to inspection Extremities: normal pulses Neurological: LINING VAMPER II-XII intact, nl mental status, nl speech, nl strength Skin: nl turgor, No rash or lesions Lymph: nl lymph nodes Results Result Diagram: 06/14/17 0450 06/14/17 0450 Results 24 hrs Laboratory Tests Test 06/13/17 14:55 06/13/17 17:12 06/13/17 21:49 06/13/17 23:00 Hemoglobin 8.8 L Hematocrit 27.9 L Prothrombin Time 13.7 Prothrombin Time Ratio 1.1 INR International Normalized Ratio 1.05 Activated Partial Thromboplast Time 31.8 Bedside Glucose 142 72 Urine Color YELLOW Urine Clarity CLEAR Urine pH 5.0 Urine Specific [place] 1.009 Urine Ketones NEGATIVE Urine Nitrite NEGATIVE Urine Bilirubin NEGATIVE Urine Urobilinogen 1+ H Urine Leukocyte Esterase TRACE A Urine Microscopic RBC 5 Urine Microscopic WBC 11 H Urine Bacteria Urine Hemoglobin NEGATIVE Urine Glucose NEGATIVE Urine Total Protein NEGATIVE Test 06/14/17 02:20 06/14/17 04:50 06/14/17 09:15 06/14/17 12:57 Bedside Glucose 137 185 100 White Blood Count 18.9 #H Red Blood Count 3.15 L Hemoglobin 8.2 L Hematocrit 25.3 L Mean Corpuscular Volume 80.3 L Mean Corpuscular Hemoglobin 26.0 L Mean Corpuscular Hemoglobin Concent 32.4 Red Cell Distribution Width 15.6 H Platelet Count 249 Mean Platelet Volume 10.5 H Neutrophils % 68.7 Lymphocytes % 13.4 L Monocytes % 15.2 H Eosinophils % 1.4 Basophils % 0.2 Nucleated Red Blood Cells % 0.1 H Neutrophils # 13.0 H Lymphocytes # 2.5 Monocytes # 2.9 H Eosinophils # 0.3 Basophils # 0.0 Nucleated Red Blood Cells # 0.0 Sodium Level 135 Potassium Level 4.1 Chloride Level 97 Carbon Dioxide Level 22 Anion Gap 20 H Blood Urea Nitrogen 92 H Creatinine 5.64 H Glucose Level 157 Calcium Level 7.1 L Medications Medications Current Medications Acetaminophen/ Hydrocodone Bitart ([place] (5/325)) 1 tab Q4H PRN PO PAIN LEVEL 4 -7 Last administered on 06/10/17 16:55; Admin Dose 1 TAB; Start 06/09/17 at 14:00 ; Status Future Hold Acetaminophen/ Hydrocodone Bitart ([place] (5/325)) 2 tab Q4H PRN PO PAIN LEVEL 7 -10; Start 06/09/17 at 14:00; Status Future Hold Hydromorphone HCl (Dilaudid) 0.5 mg Q2H PRN IV PAIN; Start 06/09/17 at 14:00 Hydromorphone HCl (Dilaudid) 1 mg Q2H PRN IV PAIN Last administered on 16:03; Admin Dose 1 MG; Start 06/09/17 at 14:00 Docusate Sodium (Colace) 100 mg BID PRN PO CONSTIPATION; Start 06/09/17 at 14:00 Bisacodyl (Dulcolax Supp) 10 mg BID PRN [place] CONSTIPATION; Start 06/09/17 at 14:00 Sodium Biphosphate/ Sodium Phosphate (Fleet Enema) 133 ml BID PRN [place] CONSTIPATION; Start 06/09/17 at 14:00 Enoxaparin Sodium (Lovenox) 40 mg DAILY SC Last administered on 06/13/17 08:22 ; Admin Dose 40 MG; Start 06/10/17 at 09:00; Status Future Hold Miscellaneous Information 1 ea NOTE XX ; Start 06/09/17 at 17:30 Glucose (Glutose) 15 gm Q15M PRN PO DECREASED GLUCOSE; Start 06/09/17 at 17:30 Glucose (Glutose) 22.5 gm Q15M PRN PO DECREASED GLUCOSE; Start 06/09/17 at 17:30 Dextrose (D50w Syringe) 25 ml Q15M PRN IV DECREASED GLUCOSE; Start 06/09/17 at 17:30 Dextrose (D50w Syringe) 50 ml Q15M PRN IV DECREASED GLUCOSE Last administered on 06/09/17 17:47; Admin Dose 50 ML; Start 06/09/17 at 17:30 Glucagon (Glucagen) 1 mg Q15M PRN IM DECREASED GLUCOSE; Start 06/09/17 at 17:30 Glucose (Glutose) 15 gm Q15M PRN BUCCAL DECREASED GLUCOSE; Start 06/09/17 at 17: 30 Hydralazine HCl (Apresoline) 10 mg Q4H PRN IV SBP>170 Last administered on 01:59; Admin Dose 10 MG; Start 06/09/17 at 18:30 Diagnostic Test (Pha) (Accu-Chek) 1 ea 02 XX Last administered on 06/11/17 01: 23; Admin Dose 1 EA; Start 06/11/17 at 02:00 Hydromorphone HCl (Dilaudid BIOMETRIC SCREENER) 0.1 MG DOSE 10 ... Q4PCA IV Last administered on 06/12/17 14:48; Admin Dose 0.1 MG; Start 06/10/17 at 18:30 Simethicone (Mylicon) 80 mg Q6H PRN GTB DISTENSION/GAS/BLOATING Last administered on 06/13/17 18:41; Admin Dose 80 MG; Start 06/11/17 at 18:00 Clonidine (Catapres) 0.2 mg TID PO Last administered on 06/13/17 21:47; Admin Dose 0.2 MG; Start 06/12/17 at 09:00 Hydralazine HCl (Apresoline) 100 mg TID PO Last administered on 06/13/17 21:46 ; Admin Dose 100 MG; Start 06/12/17 at 09:00 Nifedipine (Procardia Xl) 30 mg BID PO Last administered on 06/14/17 09:22; Admin Dose 30 MG; Start 06/12/17 at 12:00 Labetalol HCl (Normodyne) 200 mg TID PO Last administered on 06/14/17 09:22; Admin Dose 200 MG; Start 06/12/17 at 12:00 Insulin Glargine (Lantus) 35 unit QHS SC Last administered on 06/12/17 20:56; Admin Dose 35 UNIT; Start 06/12/17 at 21:00 Mupirocin (Bactroban) 1 applic BID TOP Last administered on 06/14/17 09:27; Admin Dose 1 APPLIC; Start 06/13/17 at 09:00 Pantoprazole (Protonix Iv) 40 mg DAILY@06 IV Last administered on 06/14/17 05: 40; Admin Dose 40 MG; Start 06/13/17 at 15:00 Ondansetron HCl (Zofran Inj) 4 mg Q6H PRN IV NAUSEA AND/OR VOMITING Last administered on 06/13/17 20:34; Admin Dose 4 MG; Start 06/13/17 at 20:30 RAIN CASTELLANO MD Jun 14, 2017 14:01
--- NOTE | 2017-06-14 14:35 | CONS ---
Date/Time of Note Date/Time of Note DATE: 06/14/17 TIME: 14:33 Assessment/Plan Assessment/Plan Additional Assessment/Plan Hepatocellular carcinoma secondary to chronic hepatitis c s/p Hepatectomy chronic kidney disease diabetes mellitus dyslipidemia, hypertension Obstructive sleep apnea Hyperkalemia receiving HD Anemia Tachycardia resolved Continue HD as scheduled Continue Labetalol, Clonidine and Hydralazine Continue Procardia Continue Bumex Continue Insulin Continue GI and DVT Prophylaxis Consultation Date/Type/Reason Admit Date/Time Jun 09, 2017 at 06:00 Initial Consult Date 06/10/17 Type of Consultation: Pulm/CCM Exam/Review of Systems Vital Signs Vitals Vital Signs Date Time Temp Pulse Resp B/P Pulse Ox O2 Delivery O2 Flow Rate FiO2 06/14/17 13:30 90 29 111/58 93 Nasal Cannula 4.0 06/14/17 12:00 97.8 06/11/17 01:42 27 Intake and Output 06/13/17 06/13/17 06/14/17 15:00 23:00 07:00 Intake Total 900 ml 660 ml 0 ml Output Total 2000 ml 420 ml Balance -1100 ml 240 ml 0 ml Exam Constitutional: alert, oriented Head: atraumatic, normocephalic Neck: non-tender, supple Cardiovascular: regular rate and rhythm Gastrointestinal: soft Extremities: normal pulses Results Result Diagram: 06/14/17 0450 06/14/17 0450 Results 24 hrs Laboratory Tests Test 06/13/17 14:55 06/13/17 17:12 06/13/17 21:49 06/13/17 23:00 Hemoglobin 8.8 L Hematocrit 27.9 L Prothrombin Time 13.7 Prothrombin Time Ratio 1.1 INR International Normalized Ratio 1.05 Activated Partial Thromboplast Time 31.8 Bedside Glucose 142 72 Urine Color YELLOW Urine Clarity CLEAR Urine pH 5.0 Urine Specific [place] 1.009 Urine Ketones NEGATIVE Urine Nitrite NEGATIVE Urine Bilirubin NEGATIVE Urine Urobilinogen 1+ H Urine Leukocyte Esterase TRACE A Urine Microscopic RBC 5 Urine Microscopic WBC 11 H Urine Bacteria Urine Hemoglobin NEGATIVE Urine Glucose NEGATIVE Urine Total Protein NEGATIVE Test 06/14/17 02:20 06/14/17 04:50 06/14/17 09:15 06/14/17 12:57 Bedside Glucose 137 185 100 White Blood Count 18.9 #H Red Blood Count 3.15 L Hemoglobin 8.2 L Hematocrit 25.3 L Mean Corpuscular Volume 80.3 L Mean Corpuscular Hemoglobin 26.0 L Mean Corpuscular Hemoglobin Concent 32.4 Red Cell Distribution Width 15.6 H Platelet Count 249 Mean Platelet Volume 10.5 H Neutrophils % 68.7 Lymphocytes % 13.4 L Monocytes % 15.2 H Eosinophils % 1.4 Basophils % 0.2 Nucleated Red Blood Cells % 0.1 H Neutrophils # 13.0 H Lymphocytes # 2.5 Monocytes # 2.9 H Eosinophils # 0.3 Basophils # 0.0 Nucleated Red Blood Cells # 0.0 Sodium Level 135 Potassium Level 4.1 Chloride Level 97 Carbon Dioxide Level 22 Anion Gap 20 H Blood Urea Nitrogen 92 H Creatinine 5.64 H Glucose Level 157 Calcium Level 7.1 L Medications Medications Current Medications Acetaminophen/ Hydrocodone Bitart ([place] (5/325)) 1 tab Q4H PRN PO PAIN LEVEL 4 -7 Last administered on 06/10/17 16:55; Admin Dose 1 TAB; Start 06/09/17 at 14:00 ; Status Future Hold Acetaminophen/ Hydrocodone Bitart ([place] (5/325)) 2 tab Q4H PRN PO PAIN LEVEL 7 -10; Start 06/09/17 at 14:00; Status Future Hold Hydromorphone HCl (Dilaudid) 0.5 mg Q2H PRN IV PAIN; Start 06/09/17 at 14:00 Hydromorphone HCl (Dilaudid) 1 mg Q2H PRN IV PAIN Last administered on 16:03; Admin Dose 1 MG; Start 06/09/17 at 14:00 Docusate Sodium (Colace) 100 mg BID PRN PO CONSTIPATION; Start 06/09/17 at 14:00 Bisacodyl (Dulcolax Supp) 10 mg BID PRN [place] CONSTIPATION; Start 06/09/17 at 14:00 Sodium Biphosphate/ Sodium Phosphate (Fleet Enema) 133 ml BID PRN [place] CONSTIPATION; Start 06/09/17 at 14:00 Enoxaparin Sodium (Lovenox) 40 mg DAILY SC Last administered on 06/13/17 08:22 ; Admin Dose 40 MG; Start 06/10/17 at 09:00; Status Future Hold Miscellaneous Information 1 ea NOTE XX ; Start 06/09/17 at 17:30 Glucose (Glutose) 15 gm Q15M PRN PO DECREASED GLUCOSE; Start 06/09/17 at 17:30 Glucose (Glutose) 22.5 gm Q15M PRN PO DECREASED GLUCOSE; Start 06/09/17 at 17:30 Dextrose (D50w Syringe) 25 ml Q15M PRN IV DECREASED GLUCOSE; Start 06/09/17 at 17:30 Dextrose (D50w Syringe) 50 ml Q15M PRN IV DECREASED GLUCOSE Last administered on 06/09/17 17:47; Admin Dose 50 ML; Start 06/09/17 at 17:30 Glucagon (Glucagen) 1 mg Q15M PRN IM DECREASED GLUCOSE; Start 06/09/17 at 17:30 Glucose (Glutose) 15 gm Q15M PRN BUCCAL DECREASED GLUCOSE; Start 06/09/17 at 17: 30 Hydralazine HCl (Apresoline) 10 mg Q4H PRN IV SBP>170 Last administered on 01:59; Admin Dose 10 MG; Start 06/09/17 at 18:30 Diagnostic Test (Pha) (Accu-Chek) 1 ea 02 XX Last administered on 06/11/17 01: 23; Admin Dose 1 EA; Start 06/11/17 at 02:00 Hydromorphone HCl (Dilaudid LOPPER) 0.1 MG DOSE 10 ... Q4PCA IV Last administered on 06/12/17 14:48; Admin Dose 0.1 MG; Start 06/10/17 at 18:30 Simethicone (Mylicon) 80 mg Q6H PRN GTB DISTENSION/GAS/BLOATING Last administered on 06/13/17 18:41; Admin Dose 80 MG; Start 06/11/17 at 18:00 Clonidine (Catapres) 0.2 mg TID PO Last administered on 06/13/17 21:47; Admin Dose 0.2 MG; Start 06/12/17 at 09:00 Hydralazine HCl (Apresoline) 100 mg TID PO Last administered on 06/13/17 21:46 ; Admin Dose 100 MG; Start 06/12/17 at 09:00 Nifedipine (Procardia Xl) 30 mg BID PO Last administered on 06/14/17 09:22; Admin Dose 30 MG; Start 06/12/17 at 12:00 Labetalol HCl (Normodyne) 200 mg TID PO Last administered on 06/14/17 09:22; Admin Dose 200 MG; Start 06/12/17 at 12:00 Insulin Glargine (Lantus) 35 unit QHS SC Last administered on 06/12/17 20:56; Admin Dose 35 UNIT; Start 06/12/17 at 21:00 Mupirocin (Bactroban) 1 applic BID TOP Last administered on 06/14/17 09:27; Admin Dose 1 APPLIC; Start 06/13/17 at 09:00 Ondansetron HCl (Zofran Inj) 4 mg Q6H PRN IV NAUSEA AND/OR VOMITING Last administered on 06/13/17 20:34; Admin Dose 4 MG; Start 06/13/17 at 20:30 Pantoprazole (Protonix Iv) 40 mg BID@06,18 IV ; Start 06/14/17 at 18:00 ANSON JON M.D. Jun 14, 2017 14:35
--- NOTE | 2017-06-14 16:53 | RADRPT ---
PROCEDURE: XR Chest. CLINICAL INDICATION: eval for PNA TECHNIQUE: Single frontal view of the chest was obtained COMPARISON: Chest x-ray 06/12/2017 FINDINGS: Underpenetration of the image related to body habitus limits evaluation. The right internal jugular central venous catheter is stable in position. The cardiac silhouette remains enlarged. There is mild increased pulmonary vascular congestion. There is improved aeration in the right mid lung and right lung base. Evaluation for pleural effusion is difficult due to extensive overlying soft tissue/underpenetration . No pneumothorax is identified. There are degenerative changes of the visualized spine. IMPRESSION: 1. Cardiomegaly with mild increased pulmonary vascular congestion. 2. Improved aeration of the right lung. 3. No new infiltrate. RPTAT: QQ Physician Sarah Date Time Electronically viewed and signed by Physician Sarah on 06/14/2017 16:53 DAGOBERTO/
[2017-06-14] MEDS: ONDANSETRON 4 MG INJ IV PRN (17:36)
--- NOTE | 2017-06-14 18:03 | PN ---
Date/Time of Note Date/Time of Note DATE: 06/14/17 TIME: 17:57 Assessment/Plan Lines/Catheters IV Catheter Type (from Nrs): Nader Assessment/Plan Assessment/Plan [facility] Progress Note Date of Service: 06/14/17 Today's Impression & Plan: Overall stable, but with multiple issues keeping him in the ICU including need for dialysis, tachycardia which now seems to be under control with medications, hypertension which also appears to be under control with medications, and others , including dark emesis which has prompted gastroneurology consultation and upper endoscopy scheduled, intermittent emesis, and rising white blood cell count of unclear etiology; no major wound problems. Throughout all this, the abdomen has remained benign. In fact, the patient has not required any significant pain medication so far. No evidence for major intra-abdominal complication or surgical site infection. No indication for acute surgical intervention. Suspect some of his symptoms are related to the need for dialysis , but need to investigate further. Discussed with patient and with his , including the preliminary pathology that demonstrates possibility of residual separate HCC in his liver, and answered all questions. Will await final pathology report prior to further planning for the HCC. Patient and appear to understand and agreed with the plans. Also discussed with rest of the team. With above assessment, I've recommended the following for today: 1. Keep in ICU 2. Short-term dialysis, prophylactic anticoagulation and need for diuresis per renal 3. Labs in am 4. Increase ICS 5. Increase activity 6. Right upper quadrant ultrasound of the liver with duplex evaluation of blood flow through the liver 7. Possible need for noncontrast CT of chest abdomen and pelvis if indicated after ultrasound 8. Continue careful cardiopulmonary surveillance (patient was short of breath after taking a short walk); EKG yesterday showed normal sinus rhythm without obvious acute cardiac issues. Cardiology involved (much appreciated) Nature of presenting problem: High complexity Thank you again for your great care of this very pleasant patient and wonderful family. If there are any questions, please feel free to call me at [phone]. Disclaimer: Inadvertent spelling or grammatical errors are likely due to EHR/ dictation software use and do not reflect on the overall quality of patient care. Updated Clinical Summary: Patient is a very pleasant 60-year-old gentleman with comorbid issues including a BMI of 34, as well as history of hepatitis C, treated with Harvoni in August 2016 with near complete disappearance of his viral count, who was noted to have a liver lesion that was initially detected on 04/26/2016, liver CT of the abdomen and pelvis read as a somewhat well-defined 4.8 x 4.4 x 4.6 cm area of low attenuation within the right lobe of the liver. Note that he also had a few followup scans since then including ultrasound of the abdomen 05/22/2016 showing a solid mass 4.6 x 4.8 x 3.9 cm that appeared to be hypoechoic and no increased Doppler flow, liver dedicated MRI of the abdomen 06/19/2016 showing a 3.5 cm solid mass anteriorly in the right lobe of the liver that cannot be further characterized due to lack of contrast, liver dedicated contrast study of the abdomen on 07/08/2016 showing no evidence of increased uptake, corresponding to a liver mass seen in the right lobe of the liver and therefore not consistent with a hemangioma. He had a liver biopsy percutaneously done on 08/07/2016 with ultrasound guidance with the final pathology showing necrotic material, otherwise nondiagnostic. He had a repeat MRI of the liver with and without contrast 09/24/2016 that showed the previously seen lesion that was 3.8 cm at the junction of the right and left lobes but additional 2.3 cm lesion in segment 5 of the liver showing low signal intensity on the T1 weighted images, intermediate signal intensity on the T2 weighted images and arterial phase contrast enhancement. These findings were thought to be metastatic disease or multifocal hepatocellular carcinoma. Due to growth seen in segment 5 lesion, repeat biopsy of the liver was ordered which was done on 04/07/2017. Segment 5 lesion was biopsied and final pathology was consistent with moderately differentiated hepatocellular carcinoma in a background of chronic hepatitis C. Normal liver biopsy done at the same time showed grade 2 portal inflammation and interface hepatitis, grade 2 lobular activity and stage I fibrosis. Comorbidities: 1. Hepatocellular carcinoma in segment 5 of liver in the setting of hepatitis C , along with several regenerative nodules. Hepatitis C that was thought to be chronic, treated with Harvoni 08/2016 with near resolution and disappearance of the viral load. His hepatitis C is thought to be genotype 1A with prior viral load in 2012 of approximately 18 million international units per mL. 2. Diabetes mellitus type 2. 3. Hyperlipidemia. 4. Hypertension. 5. Left distal tibial fracture. 6. Left tibia fracture. 7. Obstructive sleep apnea. 8. Vitamin D deficiency. 9. Former smoker. 10. S/p laparoscopic exploration with intraoperative ultrasound of liver and core needle liver biopsy with ultrasound guidance segment 8 lesion and separately segment 4B normal liver, open partial hepatectomy segment 5/6, ultrasound-guided core needle liver biopsy segment 4B (left side) mass under direct visualization, cholecystectomy, lysis of adhesions, and umbilical hernia repair at [facility] 06/10/17. Subjective: No major events or complaints other than above; no major abd pain and under control with medications; no n/v/d; no sob or cp; + flatus; + BM; minimal activity Objective: Vitals: See below Exam: GENERAL: On exam, the patient was laying in bed and appeared to be comfortable and in no acute distress. ABDOMEN: Soft, nontender and nondistended. Incisions are clean, dry and intact without any evidence of obvious erythema, edema, discharge, or hernia. There are no peritoneal signs or guarding. SKIN: Skin appears to be pink and feels warm to touch. NEUROLOGIC: Patient is awake, alert, and follows commands appropriately. Exam/Review of Systems Vital Signs Vitals Vital Signs Date Time Temp Pulse Resp B/P Pulse Ox O2 Delivery O2 Flow Rate FiO2 06/14/17 17:54 93 4.0 06/14/17 17:00 72 25 105/61 Nasal Cannula 06/14/17 12:00 97.8 06/11/17 01:42 27 Intake and Output 06/13/17 06/13/17 06/14/17 15:00 23:00 07:00 Intake Total 900 ml 660 ml 0 ml Output Total 2000 ml 420 ml Balance -1100 ml 240 ml 0 ml Results Result Diagram: 06/14/17 0450 06/14/17 0450 KAYA BERMAN M.D. Jun 14, 2017 18:03
--- NOTE | 2017-06-14 18:22 | CONS ---
Date/Time of Note Date/Time of Note DATE: 06/14/17 TIME: 18:20 Assessment/Plan Assessment/Plan Chief Complaint/Hosp Course A/P HYPERKALEMIA BETTER S/P HD DM CKD HTN BETTER HEP C S/P LIVER SURGERY PLAN PER ORDER HOLD HD CK BMP kayexalate PRN HD AM CHANGE RT GROIN CATH PER DR LEON CALLED Problems: Consultation Date/Type/Reason Admit Date/Time Jun 09, 2017 at 06:00 Type of Consultation: RENAL 24 HR Interval Summary Constitutional: other (SOB BETTER) Exam/Review of Systems Vital Signs Vitals Vital Signs Date Time Temp Pulse Resp B/P Pulse Ox O2 Delivery O2 Flow Rate FiO2 06/14/17 17:54 93 4.0 06/14/17 17:00 72 25 105/61 Nasal Cannula 06/14/17 12:00 97.8 06/11/17 01:42 27 Intake and Output 06/13/17 06/13/17 06/14/17 15:00 23:00 07:00 Intake Total 900 ml 660 ml 0 ml Output Total 2000 ml 420 ml Balance -1100 ml 240 ml 0 ml Exam Neck: supple Respiratory: diminished breath sounds Cardiovascular: regular rate and rhythm Gastrointestinal: bowel sounds (+), soft Extremities: edema (LESS) Results Result Diagram: 06/14/17 0450 06/14/17 0450 Results 24 hrs Laboratory Tests Test 06/13/17 21:49 06/13/17 23:00 06/14/17 02:20 06/14/17 04:50 Bedside Glucose 72 137 Urine Color YELLOW Urine Clarity CLEAR Urine pH 5.0 Urine Specific [place] 1.009 Urine Ketones NEGATIVE Urine Nitrite NEGATIVE Urine Bilirubin NEGATIVE Urine Urobilinogen 1+ H Urine Leukocyte Esterase TRACE A Urine Microscopic RBC 5 Urine Microscopic WBC 11 H Urine Bacteria Urine Hemoglobin NEGATIVE Urine Glucose NEGATIVE Urine Total Protein NEGATIVE White Blood Count 18.9 #H Red Blood Count 3.15 L Hemoglobin 8.2 L Hematocrit 25.3 L Mean Corpuscular Volume 80.3 L Mean Corpuscular Hemoglobin 26.0 L Mean Corpuscular Hemoglobin Concent 32.4 Red Cell Distribution Width 15.6 H Platelet Count 249 Mean Platelet Volume 10.5 H Neutrophils % 68.7 Lymphocytes % 13.4 L Monocytes % 15.2 H Eosinophils % 1.4 Basophils % 0.2 Nucleated Red Blood Cells % 0.1 H Neutrophils # 13.0 H Lymphocytes # 2.5 Monocytes # 2.9 H Eosinophils # 0.3 Basophils # 0.0 Nucleated Red Blood Cells # 0.0 Sodium Level 135 Potassium Level 4.1 Chloride Level 97 Carbon Dioxide Level 22 Anion Gap 20 H Blood Urea Nitrogen 92 H Creatinine 5.64 H Glucose Level 157 Calcium Level 7.1 L Test 06/14/17 09:15 06/14/17 12:57 Bedside Glucose 185 100 Medications Medications Current Medications Acetaminophen/ Hydrocodone Bitart ([place] (5/325)) 1 tab Q4H PRN PO PAIN LEVEL 4 -7 Last administered on 06/10/17 16:55; Admin Dose 1 TAB; Start 06/09/17 at 14:00 ; Status Future Hold Acetaminophen/ Hydrocodone Bitart ([place] (5/325)) 2 tab Q4H PRN PO PAIN LEVEL 7 -10; Start 06/09/17 at 14:00; Status Future Hold Hydromorphone HCl (Dilaudid) 0.5 mg Q2H PRN IV PAIN; Start 06/09/17 at 14:00 Hydromorphone HCl (Dilaudid) 1 mg Q2H PRN IV PAIN Last administered on 16:03; Admin Dose 1 MG; Start 06/09/17 at 14:00 Docusate Sodium (Colace) 100 mg BID PRN PO CONSTIPATION; Start 06/09/17 at 14:00 Bisacodyl (Dulcolax Supp) 10 mg BID PRN [place] CONSTIPATION; Start 06/09/17 at 14:00 Sodium Biphosphate/ Sodium Phosphate (Fleet Enema) 133 ml BID PRN [place] CONSTIPATION; Start 06/09/17 at 14:00 Enoxaparin Sodium (Lovenox) 40 mg DAILY SC Last administered on 06/13/17 08:22 ; Admin Dose 40 MG; Start 06/10/17 at 09:00; Status Future Hold Miscellaneous Information 1 ea NOTE XX ; Start 06/09/17 at 17:30 Glucose (Glutose) 15 gm Q15M PRN PO DECREASED GLUCOSE; Start 06/09/17 at 17:30 Glucose (Glutose) 22.5 gm Q15M PRN PO DECREASED GLUCOSE; Start 06/09/17 at 17:30 Dextrose (D50w Syringe) 25 ml Q15M PRN IV DECREASED GLUCOSE; Start 06/09/17 at 17:30 Dextrose (D50w Syringe) 50 ml Q15M PRN IV DECREASED GLUCOSE Last administered on 06/09/17 17:47; Admin Dose 50 ML; Start 06/09/17 at 17:30 Glucagon (Glucagen) 1 mg Q15M PRN IM DECREASED GLUCOSE; Start 06/09/17 at 17:30 Glucose (Glutose) 15 gm Q15M PRN BUCCAL DECREASED GLUCOSE; Start 06/09/17 at 17: 30 Hydralazine HCl (Apresoline) 10 mg Q4H PRN IV SBP>170 Last administered on 01:59; Admin Dose 10 MG; Start 06/09/17 at 18:30 Diagnostic Test (Pha) (Accu-Chek) 1 ea 02 XX Last administered on 06/11/17 01: 23; Admin Dose 1 EA; Start 06/11/17 at 02:00 Hydromorphone HCl (Dilaudid RAWHIDE BONE ROLLER) 0.1 MG DOSE 10 ... Q4PCA IV Last administered on 06/12/17 14:48; Admin Dose 0.1 MG; Start 06/10/17 at 18:30 Simethicone (Mylicon) 80 mg Q6H PRN GTB DISTENSION/GAS/BLOATING Last administered on 06/13/17 18:41; Admin Dose 80 MG; Start 06/11/17 at 18:00 Clonidine (Catapres) 0.2 mg TID PO Last administered on 06/13/17 21:47; Admin Dose 0.2 MG; Start 06/12/17 at 09:00 Hydralazine HCl (Apresoline) 100 mg TID PO Last administered on 06/13/17 21:46 ; Admin Dose 100 MG; Start 06/12/17 at 09:00 Nifedipine (Procardia Xl) 30 mg BID PO Last administered on 06/14/17 09:22; Admin Dose 30 MG; Start 06/12/17 at 12:00 Labetalol HCl (Normodyne) 200 mg TID PO Last administered on 06/14/17 09:22; Admin Dose 200 MG; Start 06/12/17 at 12:00 Insulin Glargine (Lantus) 35 unit QHS SC Last administered on 06/12/17 20:56; Admin Dose 35 UNIT; Start 06/12/17 at 21:00 Mupirocin (Bactroban) 1 applic BID TOP Last administered on 06/14/17 09:27; Admin Dose 1 APPLIC; Start 06/13/17 at 09:00 Ondansetron HCl (Zofran Inj) 4 mg Q6H PRN IV NAUSEA AND/OR VOMITING Last administered on 06/14/17 17:36; Admin Dose 4 MG; Start 06/13/17 at 20:30 Pantoprazole (Protonix Iv) 40 mg BID@06,18 IV ; Start 06/14/17 at 18:00 JAY JIANG MD Jun 14, 2017 18:22
--- NOTE | 2017-06-14 18:40 | RADRPT ---
PROCEDURE: Retroperitoneal ultrasound. CLINICAL INDICATION: Chronic renal insufficiency TECHNIQUE: Gonzalez scale and color doppler ultrasound images of the retroperitoneum, kidneys, urinary bladder COMPARISON: MRI of the abdomen 09/22/2016 FINDINGS: Kidneys: Right length (cm) : 9.4 Right cortical thickness: Normal. Left kidney is not visualized. Echogenicity: Normal. Hydronephrosis: None. Renal calculi: None. Focal lesions: None. Free fluid/ascites: None. Abdominal aorta: Not visualized. Bladder: Not imaged. Other findings: None. IMPRESSION: Normal appearance of the right kidney, unchanged. Left kidney is not identified. RPTAT: AADD .Mark Garay MD, MD Date Time Electronically viewed and signed by .Mark Garay MD, on 06/14/2017 18:40 .B/
[2017-06-14 19:07] LABS: HEMATOCRIT 22.4 % (42.0-52.0); HEMOGLOBIN 7.2 g/dl (14.0-18.0)
[2017-06-14] MEDS ORDERED: SOD CHLORIDE 0.9% 250 ML IV* ONE (19:54)
[2017-06-14] MEDS: INSULIN GLARGINE [LANtus] 3 ML PEN SC SCH (21:18)
[2017-06-14] MEDS: HYDROmorphONE 1 MG/ML SYG IV PRN (21:26)
[2017-06-15] VITALS (38 sets, daily range): BP systolic 100–137; BP diastolic 44–93; PULSE 82–96; RESP 12–28
[2017-06-15 01:04] LABS: HEMATOCRIT 21.4 % (42.0-52.0)
[2017-06-15] MEDS: ACCU-CHEK XX SCH (01:51)
[2017-06-15 05:15] LABS: ABNORMAL IP MESSAGE 1; BASOPHILS % 0.2 % (0.0-2.0); EOSINOPHILS # 0.4 10^3/ul (0.0-0.5); HEMATOCRIT 21.1 % (42.0-52.0); LYMPHOCYTES # 3.4 10^3/ul (0.8-2.9); LYMPHOCYTES % 16.1 % (15.0-51.0); MEAN CORPUSCULAR HGB CONC 32.7 g/dl (32.0-37.0); MEAN CORPUSCULAR VOLUME 79.6 fl (82.0-101.0); MONOCYTE # 2.8 10^3/ul (0.3-0.9); MONOCYTES % 13.2 % (0.0-11.0); NEUTROPHIL # 14.1 10^3/ul (1.6-7.5); NEUTROPHILS % 66.7 % (39.0-77.0); NUCLEATED RED BLOOD CELLS # 0.1 10^3/ul (0.0-0.0); NUCLEATED RED BLOOD CELLS% 0.2 /100WBC (0.0-0.0); PLATELET COUNT 235 10^3/UL (140-415); POSITIVE DIFF @See below; RED BLOOD COUNT 2.65 10^6/ul (4.70-6.10); RED CELL DISTRIBUTION WIDTH 15.8 % (11.5-14.5); WHITE BLOOD COUNT 21.2 10^3/ul (4.8-10.8)
[2017-06-15 05:23] LABS: HEMOGLOBIN 6.9 g/dl (14.0-18.0)
[2017-06-15 05:39] LABS: PROTIME 13.2 Sec (12.2-14.2)
[2017-06-15 05:40] LABS: PARTIAL THROMBOPLASTIN TIME 28.1 Sec (25.0-35.0)
[2017-06-15] MEDS: BUMETANIDE 1 MG INJ IV SCH ×2 (06:01→18:48)
[2017-06-15] MEDS: ONDANSETRON 4 MG INJ IV PRN (06:01)
[2017-06-15] MEDS: PANTOPRAZOLE 40 MG INJ IV SCH ×2 (06:02→18:48)
[2017-06-15 06:11] LABS: ALBUMIN 2.1 g/dl (3.3-4.9); ALBUMIN/GLOBULIN RATIO 0.75; CALCIUM 6.7 mg/dl (8.4-10.2); CREATININE 7.05 mg/dl (0.61-1.24); PHOSPHORUS 7.3 mg/dl (2.5-4.9); POTASSIUM 3.4 mmol/L (3.5-5.1); TOTAL PROTEIN 4.9 g/dl (6.1-8.1)
[2017-06-15 06:13] LABS: MAGNESIUM 2.1 mg/dl (1.7-2.5)
[2017-06-15] MEDS: INSULIN ASPART [NOVOLOG] 3 ML PEN SC SCH ×7 (07:35→21:25)
[2017-06-15] MEDS: MUPIROCIN 2% 22 GM OINT TOP SCH ×2 (09:00→21:27)
--- NOTE | 2017-06-15 09:07 | CONS ---
Date/Time of Note Date/Time of Note DATE: 06/15/17 TIME: 09:04 Assessment/Plan Assessment/Plan Additional Assessment/Plan 1. Hypertensive urgency emergency- much better now, BP in good range. 2. Tachycardia consistent with sinus tachycardia at this time- improved - blood trx now 3. History of dyslipidemia. 4. Status post liver resection of hepatocellular carcinoma- tolerated procedure well, con't to recover. 5. History of hepatocellular carcinoma, status post resection as above. 6. Acute on chronic renal failure with intermittent hemodialysis as necessary. Stable - renal follows 7. Hyperkalemia, resolved with dialysis. 8. Congestive heart failure. Assess for volume overload by chest x-ray. Remove fluid via HD. 9. Diabetes mellitus. Consultation Date/Type/Reason Admit Date/Time Jun 09, 2017 at 06:00 Initial Consult Date 06/14/17 Type of Consultation: RENAL 24 HR Interval Summary Free Text/Dictation N acute events - blood Tx 1u today - stable.NO CP now. ROS: No fever, no chills, no nausea, no vomiting, no diarrhea/constipation No recent weight changes No chest pain, no PND, no orthopnea No dizziness, blurred vision No thirst, no heat or cold intolerance Exam/Review of Systems Vital Signs Vitals Vital Signs Date Time Temp Pulse Resp B/P Pulse Ox O2 Delivery O2 Flow Rate FiO2 06/15/17 08:00 91 06/15/17 08:00 99.0 22 116/68 94 Nasal Cannula 4.0 06/15/17 01:35 33 Intake and Output 06/14/17 06/14/17 06/15/17 15:00 23:00 07:00 Intake Total 480 ml 60 ml Output Total 20 ml 625 ml Balance 480 ml 40 ml -625 ml Exam General: WN/WD/NAD, AOx 3 HEENT: Unicetric/atraumatic/EOMI (follows commands) NECK: JVD elevated, no thyromegaly Lymph: no lymphadenopathy HEART: regular with no S3, II/ systolic murmur at apex LUNGS: Coarse sounds ABD: soft, NT, ND, +BS - post op : Intact Neuro: non focal SKIN: chronic changes EXT: trace edema Results Result Diagram: 06/15/17 0500 06/15/17 0500 Results 24 hrs Laboratory Tests Test 06/14/17 09:15 06/14/17 12:57 06/14/17 16:15 06/14/17 18:21 Bedside Glucose 185 100 75 Stool Occult Blood NEGATIVE Test 06/14/17 18:32 06/14/17 18:47 06/14/17 21:08 06/15/17 00:51 Bedside Glucose 78 159 90 Hemoglobin 7.2 L Hematocrit 22.4 L Test 06/15/17 00:52 06/15/17 05:00 06/15/17 08:02 06/15/17 08:37 Hemoglobin 7.0 L 6.9 *L Hematocrit 21.4 L 21.1 L White Blood Count 21.2 H Red Blood Count 2.65 L Mean Corpuscular Volume 79.6 L Mean Corpuscular Hemoglobin 26.0 L Mean Corpuscular Hemoglobin Concent 32.7 Red Cell Distribution Width 15.8 H Platelet Count 235 Mean Platelet Volume 10.0 Neutrophils % 66.7 Lymphocytes % 16.1 Monocytes % 13.2 H Eosinophils % 2.0 Basophils % 0.2 Nucleated Red Blood Cells % 0.2 H Neutrophils # 14.1 H Lymphocytes # 3.4 H Monocytes # 2.8 H Eosinophils # 0.4 Basophils # 0.0 Nucleated Red Blood Cells # 0.1 H Prothrombin Time 13.2 Prothrombin Time Ratio 1.0 INR International Normalized Ratio 1.00 Activated Partial Thromboplast Time 28.1 Sodium Level 133 L Potassium Level 3.4 L Chloride Level 94 L Carbon Dioxide Level 22 Anion Gap 20 H Blood Urea Nitrogen 122 #H Creatinine 7.05 H Glucose Level 104 # Lactic Acid Level 1.0 Calcium Level 6.7 L Phosphorus Level 7.3 #H Magnesium Level 2.1 Total Bilirubin 0.0 L Direct Bilirubin 0.00 # Indirect Bilirubin 0.0 Aspartate Amino Transf (AST/SGOT) 76 H Alanine Aminotransferase (ALT/SGPT) 74 H Alkaline Phosphatase 230 H B-Type Natriuretic Peptide 660 H Total Protein 4.9 L Albumin 2.1 L Globulin 2.80 Albumin/Globulin Ratio 0.75 Lipase 142 Bedside Glucose 120 Lab Scanned Report REFERENCE LAB Medications Medications Current Medications Acetaminophen/ Hydrocodone Bitart ([place] (5/325)) 1 tab Q4H PRN PO PAIN LEVEL 4 -7 Last administered on 06/10/17t 16:55; Admin Dose 1 TAB; Start 06/09/17 at 14:00 ; Status Future Hold Acetaminophen/ Hydrocodone Bitart ([place] (5/325)) 2 tab Q4H PRN PO PAIN LEVEL 7 -10; Start 06/09/17 at 14:00; Status Future Hold Hydromorphone HCl (Dilaudid) 0.5 mg Q2H PRN IV PAIN; Start 06/09/17 at 14:00 Hydromorphone HCl (Dilaudid) 1 mg Q2H PRN IV PAIN Last administered on 21:26; Admin Dose 1 MG; Start 06/09/17 at 14:00 Docusate Sodium (Colace) 100 mg BID PRN PO CONSTIPATION; Start 06/09/17 at 14:00 Bisacodyl (Dulcolax Supp) 10 mg BID PRN [place] CONSTIPATION; Start 06/09/17 at 14:00 Sodium Biphosphate/ Sodium Phosphate (Fleet Enema) 133 ml BID PRN [place] CONSTIPATION; Start 06/09/17 at 14:00 Enoxaparin Sodium (Lovenox) 40 mg DAILY SC Last administered on 06/13/17 08:22 ; Admin Dose 40 MG; Start 06/10/17 at 09:00; Status Future Hold Miscellaneous Information 1 ea NOTE XX ; Start 06/09/17 at 17:30 Glucose (Glutose) 15 gm Q15M PRN PO DECREASED GLUCOSE; Start 06/09/17 at 17:30 Glucose (Glutose) 22.5 gm Q15M PRN PO DECREASED GLUCOSE; Start 06/09/17 at 17:30 Dextrose (D50w Syringe) 25 ml Q15M PRN IV DECREASED GLUCOSE; Start 06/09/17 at 17:30 Dextrose (D50w Syringe) 50 ml Q15M PRN IV DECREASED GLUCOSE Last administered on 06/09/17 17:47; Admin Dose 50 ML; Start 06/09/17 at 17:30 Glucagon (Glucagen) 1 mg Q15M PRN IM DECREASED GLUCOSE; Start 06/09/17 at 17:30 Glucose (Glutose) 15 gm Q15M PRN BUCCAL DECREASED GLUCOSE; Start 06/09/17 at 17: 30 Hydralazine HCl (Apresoline) 10 mg Q4H PRN IV SBP>170 Last administered on 01:59; Admin Dose 10 MG; Start 06/09/17 at 18:30 Diagnostic Test (Pha) (Accu-Chek) 1 ea 02 XX Last administered on 06/15/17 01: 51; Admin Dose 1 EA; Start 06/11/17 at 02:00 Hydromorphone HCl (Dilaudid RIPRAP PLACING SUPERVISOR) 0.1 MG DOSE 10 ... Q4PCA IV Last administered on 06/12/17 14:48; Admin Dose 0.1 MG; Start 06/10/17 at 18:30 Simethicone (Mylicon) 80 mg Q6H PRN GTB DISTENSION/GAS/BLOATING Last administered on 06/13/17 18:41; Admin Dose 80 MG; Start 06/11/17 at 18:00 Clonidine (Catapres) 0.2 mg TID PO Last administered on 06/13/17 21:47; Admin Dose 0.2 MG; Start 06/12/17 at 09:00 Hydralazine HCl (Apresoline) 100 mg TID PO Last administered on 06/13/17 21:46 ; Admin Dose 100 MG; Start 06/12/17 at 09:00 Nifedipine (Procardia Xl) 30 mg BID PO Last administered on 06/14/17 09:22; Admin Dose 30 MG; Start 06/12/17 at 12:00 Labetalol HCl (Normodyne) 200 mg TID PO Last administered on 06/14/17 09:22; Admin Dose 200 MG; Start 06/12/17 at 12:00 Insulin Glargine (Lantus) 35 unit QHS SC Last administered on 06/14/17 21:18; Admin Dose 35 UNIT; Start 06/12/17 at 21:00 Mupirocin (Bactroban) 1 applic BID TOP Last administered on 06/14/17 21:14; Admin Dose 1 APPLIC; Start 06/13/17 at 09:00 Ondansetron HCl (Zofran Inj) 4 mg Q6H PRN IV NAUSEA AND/OR VOMITING Last administered on 06/15/17 06:01; Admin Dose 4 MG; Start 06/13/17 at 20:30 Pantoprazole (Protonix Iv) 40 mg BID@18 IV Last administered on 06/15/17 06: 02; Admin Dose 40 MG; Start 06/14/17 at 18:00 EVERETT RIVERS MD Jun 15, 2017 09:06
--- NOTE | 2017-06-15 10:35 | CONS ---
Date/Time of Note Date/Time of Note DATE: 06/15/17 TIME: 10:29 Assessment/Plan Assessment/Plan Chief Complaint/Hosp Course 1. A/P HYPERKALEMIA BETTER S/P HD WITH INTERMITTENT HD 2. DM on Insulin 3 KYLE on CKD 4 .HTN currently normotensive BP meds on hold 5 HEP C s/p S/P LIVER SURGERY 6 Urinary retention s/p Straight cath 7 Anemia plan for EGD today Recs: PLAN PER ORDER HD today with fluid removal / blood transfusion CK BMP kayexalate PRN CHANGE RT GROIN CATH PER DR LEON CALLED [place] catheter Hold BP meds Problems: Consultation Date/Type/Reason Admit Date/Time Jun 09, 2017 at 06:00 Initial Consult Date 06/14/17 Type of Consultation: RENAL 24 HR Interval Summary Free Text/Dictation HB 6.9 this am, planning for EGD s/p Straight cath last night UOP 1570 ml last 24 hrs on Bumex gtt Exam/Review of Systems Vital Signs Vitals Vital Signs Date Time Temp Pulse Resp B/P Pulse Ox O2 Delivery O2 Flow Rate FiO2 06/15/17 08:00 91 06/15/17 08:00 99.0 22 116/68 94 Nasal Cannula 4.0 06/15/17 01:35 33 Intake and Output 06/14/17 06/14/17 06/15/17 15:00 23:00 07:00 Intake Total 480 ml 60 ml Output Total 20 ml 625 ml Balance 480 ml 40 ml -625 ml Exam Constitutional: alert, oriented Eyes: EOMI Neck: supple Respiratory: diminished breath sounds Cardiovascular: regular rate and rhythm Gastrointestinal: distended, surgical scars Extremities: edema Additional Comments Rt groin femoral catheter Results Result Diagram: 06/15/17 0500 06/15/17 0500 Results 24 hrs Laboratory Tests Test 06/14/17 12:57 06/14/17 16:15 06/14/17 18:21 06/14/17 18:32 Bedside Glucose 100 75 78 Stool Occult Blood NEGATIVE Test 06/14/17 18:47 06/14/17 21:08 06/15/17 00:51 06/15/17 00:52 Hemoglobin 7.2 L 7.0 L Hematocrit 22.4 L 21.4 L Bedside Glucose 159 90 Test 06/15/17 05:00 06/15/17 08:02 06/15/17 08:37 White Blood Count 21.2 H Red Blood Count 2.65 L Hemoglobin 6.9 *L Hematocrit 21.1 L Mean Corpuscular Volume 79.6 L Mean Corpuscular Hemoglobin 26.0 L Mean Corpuscular Hemoglobin Concent 32.7 Red Cell Distribution Width 15.8 H Platelet Count 235 Mean Platelet Volume 10.0 Neutrophils % 66.7 Lymphocytes % 16.1 Monocytes % 13.2 H Eosinophils % 2.0 Basophils % 0.2 Nucleated Red Blood Cells % 0.2 H Neutrophils # 14.1 H Lymphocytes # 3.4 H Monocytes # 2.8 H Eosinophils # 0.4 Basophils # 0.0 Nucleated Red Blood Cells # 0.1 H Prothrombin Time 13.2 Prothrombin Time Ratio 1.0 INR International Normalized Ratio 1.00 Activated Partial Thromboplast Time 28.1 Sodium Level 133 L Potassium Level 3.4 L Chloride Level 94 L Carbon Dioxide Level 22 Anion Gap 20 H Blood Urea Nitrogen 122 #H Creatinine 7.05 H Glucose Level 104 # Lactic Acid Level 1.0 Calcium Level 6.7 L Phosphorus Level 7.3 #H Magnesium Level 2.1 Total Bilirubin 0.0 L Direct Bilirubin 0.00 # Indirect Bilirubin 0.0 Aspartate Amino Transf (AST/SGOT) 76 H Alanine Aminotransferase (ALT/SGPT) 74 H Alkaline Phosphatase 230 H B-Type Natriuretic Peptide 660 H Total Protein 4.9 L Albumin 2.1 L Globulin 2.80 Albumin/Globulin Ratio 0.75 Lipase 142 Bedside Glucose 120 Lab Scanned Report REFERENCE LAB Medications Medications Current Medications Acetaminophen/ Hydrocodone Bitart ([place] (5/325)) 1 tab Q4H PRN PO PAIN LEVEL 4 -7 Last administered on 06/10/17 16:55; Admin Dose 1 TAB; Start 06/09/17 at 14:00 ; Status Future Hold Acetaminophen/ Hydrocodone Bitart ([place] (5/325)) 2 tab Q4H PRN PO PAIN LEVEL 7 -10; Start 06/09/17 at 14:00; Status Future Hold Hydromorphone HCl (Dilaudid) 0.5 mg Q2H PRN IV PAIN; Start 06/09/17 at 14:00 Hydromorphone HCl (Dilaudid) 1 mg Q2H PRN IV PAIN Last administered on 21:26; Admin Dose 1 MG; Start 06/09/17 at 14:00 Docusate Sodium (Colace) 100 mg BID PRN PO CONSTIPATION; Start 06/09/17 at 14:00 Bisacodyl (Dulcolax Supp) 10 mg BID PRN [place] CONSTIPATION; Start 06/09/17 at 14:00 Sodium Biphosphate/ Sodium Phosphate (Fleet Enema) 133 ml BID PRN [place] CONSTIPATION; Start 06/09/17 at 14:00 Enoxaparin Sodium (Lovenox) 40 mg DAILY SC Last administered on 06/13/17 08:22 ; Admin Dose 40 MG; Start 06/10/17 at 09:00; Status Future Hold Miscellaneous Information 1 ea NOTE XX ; Start 06/09/17 at 17:30 Glucose (Glutose) 15 gm Q15M PRN PO DECREASED GLUCOSE; Start 06/09/17 at 17:30 Glucose (Glutose) 22.5 gm Q15M PRN PO DECREASED GLUCOSE; Start 06/09/17 at 17:30 Dextrose (D50w Syringe) 25 ml Q15M PRN IV DECREASED GLUCOSE; Start 06/09/17 at 17:30 Dextrose (D50w Syringe) 50 ml Q15M PRN IV DECREASED GLUCOSE Last administered on 06/09/17 17:47; Admin Dose 50 ML; Start 06/09/17 at 17:30 Glucagon (Glucagen) 1 mg Q15M PRN IM DECREASED GLUCOSE; Start 06/09/17 at 17:30 Glucose (Glutose) 15 gm Q15M PRN BUCCAL DECREASED GLUCOSE; Start 06/09/17 at 17: 30 Hydralazine HCl (Apresoline) 10 mg Q4H PRN IV SBP>170 Last administered on 01:59; Admin Dose 10 MG; Start 06/09/17 at 18:30 Diagnostic Test (Pha) (Accu-Chek) 1 ea 02 XX Last administered on 06/15/17 01: 51; Admin Dose 1 EA; Start 06/11/17 at 02:00 Hydromorphone HCl (Dilaudid SECURITY ASSURANCE SPECIALIST) 0.1 MG DOSE 10 ... Q4PCA IV Last administered on 06/12/17 14:48; Admin Dose 0.1 MG; Start 06/10/17 at 18:30 Simethicone (Mylicon) 80 mg Q6H PRN GTB DISTENSION/GAS/BLOATING Last administered on 06/13/17 18:41; Admin Dose 80 MG; Start 06/11/17 at 18:00 Clonidine (Catapres) 0.2 mg TID PO Last administered on 06/13/17 21:47; Admin Dose 0.2 MG; Start 06/12/17 at 09:00 Hydralazine HCl (Apresoline) 100 mg TID PO Last administered on 06/13/17 21:46 ; Admin Dose 100 MG; Start 06/12/17 at 09:00 Nifedipine (Procardia Xl) 30 mg BID PO Last administered on 06/14/17 09:22; Admin Dose 30 MG; Start 06/12/17 at 12:00 Labetalol HCl (Normodyne) 200 mg TID PO Last administered on 06/14/17 09:22; Admin Dose 200 MG; Start 06/12/17 at 12:00 Insulin Glargine (Lantus) 35 unit QHS SC Last administered on 06/14/17 21:18; Admin Dose 35 UNIT; Start 06/12/17 at 21:00 Mupirocin (Bactroban) 1 applic BID TOP Last administered on 06/14/17 21:14; Admin Dose 1 APPLIC; Start 06/13/17 at 09:00 Ondansetron HCl (Zofran Inj) 4 mg Q6H PRN IV NAUSEA AND/OR VOMITING Last administered on 06/15/17 06:01; Admin Dose 4 MG; Start 06/13/17 at 20:30 Pantoprazole (Protonix Iv) 40 mg BID@18 IV Last administered on 06/15/17 06: 02; Admin Dose 40 MG; Start 06/14/17 at 18:00 OSIEL ISAACS MD Jun 15, 2017 10:35
[2017-06-15] MEDS: NIFEdipine (XL) 30 MG TAB PO SCH ×2 (11:04→20:21)
[2017-06-15] MEDS: LABETALOL 200 MG TAB PO SCH ×3 (11:04→20:21)
--- NOTE | 2017-06-15 11:41 | CONS ---
Date/Time of Note Date/Time of Note DATE: 06/15/17 TIME: 11:39 Consult Date/Type/Reason Admit Date/Time Jun 09, 2017 at 06:00 Initial Consult Date 06/14/17 Type of Consultation: Pulmonary Subjective Sitting up in chair appears comfortable no acute distress. Productive cough continue supplemental oxygen. Pending dialysis and endoscopy today. Objective Vital Signs Date Time Temp Pulse Resp B/P Pulse Ox O2 Delivery O2 Flow Rate FiO2 06/15/17 11:37 4.0 33 06/15/17 08:00 91 06/15/17 08:00 99.0 22 116/68 94 Nasal Cannula Intake and Output 06/14/17 06/14/17 06/15/17 14:59 22:59 06:59 Intake Total 480 ml 60 ml Output Total 20 ml 625 ml Balance 480 ml 40 ml -625 ml Exam GENERAL: Morbidly obese -Maced[place] gentleman comfortable at rest no acute distress VITAL SIGNS: per chart NECK: Supple. No JVD or lymphadenopathy. CARDIAC EXAM: S1, S2. No added sounds or murmurs. CHEST: clear bilaterally, No added sounds, rales or wheezes ABDOMEN: Soft, nontender. No guarding or rebound. EXTREMITIES: No cyanosis, clubbing or edema. NEUROLOGIC: Generalized weakness. No focal deficits. Results/Medications Result Diagram: 06/15/17 0500 06/15/17 0500 Results 24 hrs Laboratory Tests Test 06/14/17 12:57 06/14/17 16:15 06/14/17 18:21 06/14/17 18:32 Bedside Glucose 100 75 78 Stool Occult Blood NEGATIVE Test 06/14/17 18:47 06/14/17 21:08 06/15/17 00:51 06/15/17 00:52 Hemoglobin 7.2 L 7.0 L Hematocrit 22.4 L 21.4 L Bedside Glucose 159 90 Test 06/15/17 05:00 06/15/17 08:02 06/15/17 08:37 White Blood Count 21.2 H Red Blood Count 2.65 L Hemoglobin 6.9 *L Hematocrit 21.1 L Mean Corpuscular Volume 79.6 L Mean Corpuscular Hemoglobin 26.0 L Mean Corpuscular Hemoglobin Concent 32.7 Red Cell Distribution Width 15.8 H Platelet Count 235 Mean Platelet Volume 10.0 Neutrophils % 66.7 Lymphocytes % 16.1 Monocytes % 13.2 H Eosinophils % 2.0 Basophils % 0.2 Nucleated Red Blood Cells % 0.2 H Neutrophils # 14.1 H Lymphocytes # 3.4 H Monocytes # 2.8 H Eosinophils # 0.4 Basophils # 0.0 Nucleated Red Blood Cells # 0.1 H Prothrombin Time 13.2 Prothrombin Time Ratio 1.0 INR International Normalized Ratio 1.00 Activated Partial Thromboplast Time 28.1 Sodium Level 133 L Potassium Level 3.4 L Chloride Level 94 L Carbon Dioxide Level 22 Anion Gap 20 H Blood Urea Nitrogen 122 #H Creatinine 7.05 H Glucose Level 104 # Lactic Acid Level 1.0 Calcium Level 6.7 L Phosphorus Level 7.3 #H Magnesium Level 2.1 Total Bilirubin 0.0 L Direct Bilirubin 0.00 # Indirect Bilirubin 0.0 Aspartate Amino Transf (AST/SGOT) 76 H Alanine Aminotransferase (ALT/SGPT) 74 H Alkaline Phosphatase 230 H B-Type Natriuretic Peptide 660 H Total Protein 4.9 L Albumin 2.1 L Globulin 2.80 Albumin/Globulin Ratio 0.75 Lipase 142 Bedside Glucose 120 Lab Scanned Report REFERENCE LAB Medications Current Medications Acetaminophen/ Hydrocodone Bitart ([place] (5/325)) 1 tab Q4H PRN PO PAIN LEVEL 4 -7 Last administered on 06/10/17 16:55; Admin Dose 1 TAB; Start 06/09/17 at 14:00 ; Status Future Hold Acetaminophen/ Hydrocodone Bitart ([place] (5/325)) 2 tab Q4H PRN PO PAIN LEVEL 7 -10; Start 06/09/17 at 14:00; Status Future Hold Hydromorphone HCl (Dilaudid) 0.5 mg Q2H PRN IV PAIN; Start 06/09/17 at 14:00 Hydromorphone HCl (Dilaudid) 1 mg Q2H PRN IV PAIN Last administered on 21:26; Admin Dose 1 MG; Start 06/09/17 at 14:00 Docusate Sodium (Colace) 100 mg BID PRN PO CONSTIPATION; Start 06/09/17 at 14:00 Bisacodyl (Dulcolax Supp) 10 mg BID PRN [place] CONSTIPATION; Start 06/09/17 at 14:00 Sodium Biphosphate/ Sodium Phosphate (Fleet Enema) 133 ml BID PRN [place] CONSTIPATION; Start 06/09/17 at 14:00 Enoxaparin Sodium (Lovenox) 40 mg DAILY SC Last administered on 06/13/17 08:22 ; Admin Dose 40 MG; Start 06/10/17 at 09:00; Status Future Hold Miscellaneous Information 1 ea NOTE XX ; Start 06/09/17 at 17:30 Glucose (Glutose) 15 gm Q15M PRN PO DECREASED GLUCOSE; Start 06/09/17 at 17:30 Glucose (Glutose) 22.5 gm Q15M PRN PO DECREASED GLUCOSE; Start 06/09/17 at 17:30 Dextrose (D50w Syringe) 25 ml Q15M PRN IV DECREASED GLUCOSE; Start 06/09/17 at 17:30 Dextrose (D50w Syringe) 50 ml Q15M PRN IV DECREASED GLUCOSE Last administered on 06/09/17 17:47; Admin Dose 50 ML; Start 06/09/17 at 17:30 Glucagon (Glucagen) 1 mg Q15M PRN IM DECREASED GLUCOSE; Start 06/09/17 at 17:30 Glucose (Glutose) 15 gm Q15M PRN BUCCAL DECREASED GLUCOSE; Start 06/09/17 at 17: 30 Hydralazine HCl (Apresoline) 10 mg Q4H PRN IV SBP>170 Last administered on 01:59; Admin Dose 10 MG; Start 06/09/17 at 18:30 Diagnostic Test (Pha) (Accu-Chek) 1 ea 02 XX Last administered on 06/15/17 01: 51; Admin Dose 1 EA; Start 06/11/17 at 02:00 Hydromorphone HCl (Dilaudid CHIEF AIRLINE RADIO OPERATOR) 0.1 MG DOSE 10 ... Q4PCA IV Last administered on 06/12/17 14:48; Admin Dose 0.1 MG; Start 06/10/17 at 18:30 Simethicone (Mylicon) 80 mg Q6H PRN GTB DISTENSION/GAS/BLOATING Last administered on 06/13/17 18:41; Admin Dose 80 MG; Start 06/11/17 at 18:00 Clonidine (Catapres) 0.2 mg TID PO Last administered on 06/13/17 21:47; Admin Dose 0.2 MG; Start 06/12/17 at 09:00 Hydralazine HCl (Apresoline) 100 mg TID PO Last administered on 06/13/17 21:46 ; Admin Dose 100 MG; Start 06/12/17 at 09:00 Nifedipine (Procardia Xl) 30 mg BID PO Last administered on 06/14/17 09:22; Admin Dose 30 MG; Start 06/12/17 at 12:00 Labetalol HCl (Normodyne) 200 mg TID PO Last administered on 06/14/17 09:22; Admin Dose 200 MG; Start 06/12/17 at 12:00 Insulin Glargine (Lantus) 35 unit QHS SC Last administered on 06/14/17 21:18; Admin Dose 35 UNIT; Start 06/12/17 at 21:00 Mupirocin (Bactroban) 1 applic BID TOP Last administered on 06/15/17 09:00; Admin Dose 1 APPLIC; Start 06/13/17 at 09:00 Ondansetron HCl (Zofran Inj) 4 mg Q6H PRN IV NAUSEA AND/OR VOMITING Last administered on 06/15/17 06:01; Admin Dose 4 MG; Start 06/13/17 at 20:30 Pantoprazole (Protonix Iv) 40 mg BID@06,18 IV Last administered on 06/15/17 06: 02; Admin Dose 40 MG; Start 06/14/17 at 18:00 Assessment/Plan Chief Complaint/Hosp Course Additional Assessment/Plan IMP: 1. s/p Acute Respiratory Failure 2. ARF--on HD 3. Hepatocellular ca -- s/p resection 4. DM 5. Anemia 6. Leukocytosis RECS: 1. Obtain Cxs, defer antibiotics to surgery team. 2. Titrate FiO2 3. ICS/BD's 4. HD scheduled for today. 5. Mobilize OOB to chair 6. Endoscopy scheduled today. Keep in ICU. Problems: TRISTAN HAMILTON MD, [facility] Jun 15, 2017 11:41
[2017-06-15 11:56] LABS: HEMATOCRIT 27.6 % (42.0-52.0); HEMOGLOBIN 9.1 g/dl (14.0-18.0)
--- NOTE | 2017-06-15 12:08 | RADRPT ---
PROCEDURE: US Abdomen limited. CLINICAL INDICATION: Partial hepatectomy with complications. Evaluate hepatic vessels. Evaluate f or fluid collection. TECHNIQUE: Multiple sonographic images of the right upper quadrant of the abdomen were obtained. D oppler interrogation of the hepatic vessels was also performed. COMPARISON: CT guided liver biopsy 04/07/2017. Liver ultrasound 02/26/2017. MRI abdomen 09/24/20 16. FINDINGS: The visualized pancreas, aorta and IVC are unremarkable. The liver measures approximately 12.0 cm in a craniocaudal dimension. There is mild broad-based ant erior bulging of the left lobe of the liver and is similar in appearance from prior examination. The re is a 1.4 cm echogenic mass within the medial segment of the left hepatic lobe which is slightly s maller in size, measuring 2.0 cm on prior ultrasound. Remaining visualized portions of the liver are heterogeneous in echogenicity. There is no evidence of jae hepatic fluid collection. The main por kiara vein is patent with antegrade flow. The right and left hepatic veins are patent with normal dir ection of flow. The hepatic veins are patent. The hepatic artery is patent with a peak systolic ve locity of 58 cm/sec. The gallbladder is not visualized. The common bile duct measures 4-5 mm. The right kidney measures 9.8 cm in length. There is no hydronephrosis or abnormal perinephric flui d collection. IMPRESSION: Heterogeneous liver with mild broad-based bulging of the anterior margin of the left lobe, which is similar in appearance from prior ultrasound. There is also a small 1.4 cm echogenic mass within the medial segment of the left hepatic lobe, which is slightly smaller from prior ultrasound. Unremarkable hepatic Doppler ultrasound. RPTAT: [facility]ST .Paz Morgan MD, MD Date Time Electronically viewed and signed by .Paz Morgan MD, MD on 06/15/2017 12:07 .T/
[2017-06-15] MEDS ORDERED: LIDOCAINE 1% (MDV) 20 ML INJ ONE (14:32)
[2017-06-15 14:42] LABS: PROTEIN/CREAT RATIO 0.26 RATIO
--- NOTE | 2017-06-15 17:12 | CONS ---
Date/Time of Note Date/Time of Note DATE: 06/15/17 TIME: 17:10 Assessment/Plan Assessment/Plan Additional Assessment/Plan 61 yo M with h/o HepC admitted with hcc admitted for partial heatectomy, post op course c/b KYLE and hyperkalemia on CKD, and acute respiratory failure requiring intubation which has resolved and acute on chronic hypertension #hyperK, KYLE on CKD -HD as per renal -cont dieretic though consider changing bumex from IV to PO as tolerating PO #elevated BPs: cont current regimen though unclear to me why labetalol chosen over metop/carvedilol -acei on hold given KYLE on CKD #melena: FOBT pending #DM2: cont current insulin Prophylaxis: SCD's transfer out of unit as per primary Consultation Date/Type/Reason Admit Date/Time Jun 09, 2017 at 06:00 Initial Consult Date 06/14/17 Type of Consultation: hospitalist 24 HR Interval Summary Free Text/Dictation pt feels well this AM. Exam/Review of Systems Vital Signs Vitals Vital Signs Date Time Temp Pulse Resp B/P Pulse Ox O2 Delivery O2 Flow Rate FiO2 06/15/17 16:00 98.2 88 14 130/66 98 Nasal Cannula 4.0 06/15/17 11:37 33 Intake and Output 06/14/17 06/14/17 06/15/17 15:00 23:00 07:00 Intake Total 480 ml 60 ml Output Total 20 ml 625 ml Balance 480 ml 40 ml -625 ml Exam nad, sitting up in bed +central line in R neck no mrg lungs clear abd obese no rashes anemia noted Results Result Diagram: 06/15/17 1100 06/15/17 0500 Results 24 hrs Laboratory Tests Test 06/14/17 18:21 06/14/17 18:32 06/14/17 18:47 06/14/17 21:08 Bedside Glucose 75 78 159 Hemoglobin 7.2 L Hematocrit 22.4 L Test 06/15/17 00:51 06/15/17 00:52 06/15/17 01:30 06/15/17 05:00 Bedside Glucose 90 Hemoglobin 7.0 L 6.9 *L Hematocrit 21.4 L 21.1 L Urine Eosinophils % 0.0 Urine Random Creatinine 90.07 Urine Random Sodium 32 Urine Protein/Creatinine Ratio 0.26 Urine Total Protein 24.0 H White Blood Count 21.2 H Red Blood Count 2.65 L Mean Corpuscular Volume 79.6 L Mean Corpuscular Hemoglobin 26.0 L Mean Corpuscular Hemoglobin Concent 32.7 Red Cell Distribution Width 15.8 H Platelet Count 235 Mean Platelet Volume 10.0 Neutrophils % 66.7 Lymphocytes % 16.1 Monocytes % 13.2 H Eosinophils % 2.0 Basophils % 0.2 Nucleated Red Blood Cells % 0.2 H Neutrophils # 14.1 H Lymphocytes # 3.4 H Monocytes # 2.8 H Eosinophils # 0.4 Basophils # 0.0 Nucleated Red Blood Cells # 0.1 H Prothrombin Time 13.2 Prothrombin Time Ratio 1.0 INR International Normalized Ratio 1.00 Activated Partial Thromboplast Time 28.1 Sodium Level 133 L Potassium Level 3.4 L Chloride Level 94 L Carbon Dioxide Level 22 Anion Gap 20 H Blood Urea Nitrogen 122 #H Creatinine 7.05 H Glucose Level 104 # Lactic Acid Level 1.0 Calcium Level 6.7 L Phosphorus Level 7.3 #H Magnesium Level 2.1 Total Bilirubin 0.0 L Direct Bilirubin 0.00 # Indirect Bilirubin 0.0 Aspartate Amino Transf (AST/SGOT) 76 H Alanine Aminotransferase (ALT/SGPT) 74 H Alkaline Phosphatase 230 H B-Type Natriuretic Peptide 660 H Total Protein 4.9 L Albumin 2.1 L Globulin 2.80 Albumin/Globulin Ratio 0.75 Lipase 142 Test 06/15/17 08:02 06/15/17 08:37 06/15/17 11:00 06/15/17 12:59 Bedside Glucose 120 126 Lab Scanned Report REFERENCE LAB Hemoglobin 9.1 #L Hematocrit 27.6 #L Medications Medications Current Medications Acetaminophen/ Hydrocodone Bitart ([place] (5/325)) 1 tab Q4H PRN PO PAIN LEVEL 4 -7 Last administered on 06/10/17t 16:55; Admin Dose 1 TAB; Start 06/09/17 at 14:00 ; Status Future Hold Acetaminophen/ Hydrocodone Bitart ([place] (5/325)) 2 tab Q4H PRN PO PAIN LEVEL 7 -10; Start 06/09/17 at 14:00; Status Future Hold Hydromorphone HCl (Dilaudid) 0.5 mg Q2H PRN IV PAIN; Start 06/09/17 at 14:00 Hydromorphone HCl (Dilaudid) 1 mg Q2H PRN IV PAIN Last administered on 21:26; Admin Dose 1 MG; Start 06/09/17 at 14:00 Docusate Sodium (Colace) 100 mg BID PRN PO CONSTIPATION; Start 06/09/17 at 14:00 Bisacodyl (Dulcolax Supp) 10 mg BID PRN [place] CONSTIPATION; Start 06/09/17 at 14:00 Sodium Biphosphate/ Sodium Phosphate (Fleet Enema) 133 ml BID PRN [place] CONSTIPATION; Start 06/09/17 at 14:00 Enoxaparin Sodium (Lovenox) 40 mg DAILY SC Last administered on 06/13/17 08:22 ; Admin Dose 40 MG; Start 06/10/17 at 09:00; Status Future Hold Miscellaneous Information 1 ea NOTE XX ; Start 06/09/17 at 17:30 Glucose (Glutose) 15 gm Q15M PRN PO DECREASED GLUCOSE; Start 06/09/17 at 17:30 Glucose (Glutose) 22.5 gm Q15M PRN PO DECREASED GLUCOSE; Start 06/09/17 at 17:30 Dextrose (D50w Syringe) 25 ml Q15M PRN IV DECREASED GLUCOSE; Start 06/09/17 at 17:30 Dextrose (D50w Syringe) 50 ml Q15M PRN IV DECREASED GLUCOSE Last administered on 06/09/17 17:47; Admin Dose 50 ML; Start 06/09/17 at 17:30 Glucagon (Glucagen) 1 mg Q15M PRN IM DECREASED GLUCOSE; Start 06/09/17 at 17:30 Glucose (Glutose) 15 gm Q15M PRN BUCCAL DECREASED GLUCOSE; Start 06/09/17 at 17: 30 Hydralazine HCl (Apresoline) 10 mg Q4H PRN IV SBP>170 Last administered on 01:59; Admin Dose 10 MG; Start 06/09/17 at 18:30 Diagnostic Test (Pha) (Accu-Chek) 1 ea 02 XX Last administered on 06/15/17 01: 51; Admin Dose 1 EA; Start 06/11/17 at 02:00 Hydromorphone HCl (Dilaudid MANAGER CHILD) 0.1 MG DOSE 10 ... Q4PCA IV Last administered on 06/12/17 14:48; Admin Dose 0.1 MG; Start 06/10/17 at 18:30 Simethicone (Mylicon) 80 mg Q6H PRN GTB DISTENSION/GAS/BLOATING Last administered on 06/13/17 18:41; Admin Dose 80 MG; Start 06/11/17 at 18:00 Clonidine (Catapres) 0.2 mg TID PO Last administered on 06/13/17 21:47; Admin Dose 0.2 MG; Start 06/12/17 at 09:00 Hydralazine HCl (Apresoline) 100 mg TID PO Last administered on 06/13/17 21:46 ; Admin Dose 100 MG; Start 06/12/17 at 09:00 Nifedipine (Procardia Xl) 30 mg BID PO Last administered on 06/14/17 09:22; Admin Dose 30 MG; Start 06/12/17 at 12:00 Labetalol HCl (Normodyne) 200 mg TID PO Last administered on 06/14/17 09:22; Admin Dose 200 MG; Start 06/12/17 at 12:00 Insulin Glargine (Lantus) 35 unit QHS SC Last administered on 06/14/17 21:18; Admin Dose 35 UNIT; Start 06/12/17 at 21:00 Mupirocin (Bactroban) 1 applic BID TOP Last administered on 06/15/17 09:00; Admin Dose 1 APPLIC; Start 06/13/17 at 09:00 Ondansetron HCl (Zofran Inj) 4 mg Q6H PRN IV NAUSEA AND/OR VOMITING Last administered on 06/15/17 06:01; Admin Dose 4 MG; Start 06/13/17 at 20:30 Pantoprazole (Protonix Iv) 40 mg BID@18 IV Last administered on 06/15/17 06: 02; Admin Dose 40 MG; Start 06/14/17 at 18:00 PERRI JANE MD Jun 15, 2017 17:12
[2017-06-15 18:19] LABS: HEMATOCRIT 23.8 % (42.0-52.0); HEMOGLOBIN 7.8 g/dl (14.0-18.0)
--- NOTE | 2017-06-15 19:31 | PN ---
Date/Time of Note Date/Time of Note DATE: 06/15/17 TIME: 19:27 Assessment/Plan Lines/Catheters IV Catheter Type (from Nrsg): Central Line Sadler in Place (from Nrsg): Yes Assessment/Plan Assessment/Plan [facility] Progress Note Date of Service: 06/15/17 Today's Impression & Plan: Stable with adequate liver function. Yesterday's duplex ultrasound demonstrated expected findings from the liver with normal blood flow and no major fluid collections around it indicating lack of obvious bile leak. However , bile leak is still in the differential. May need further testing with HIDA scan if rising white blood cell count is not explained. White blood cell count rising without known etiology. Cultures so far negative. Scheduled for endoscopy. Required one packed red blood cell transfusion and hemoglobin seems semi-stable. Likely from GI loss. Multiple medical issues postop and not unexpected given preoperative medical problems. No indication for acute surgical intervention. Appreciate all the consultants excellent care. Answered multiple questions from the patient, his and his daughter to the best my ability. Patient and family appear to understand and agreed with the plans. Yesterday's overall assessment that is applicable for today: Overall stable, but with multiple issues keeping him in the ICU including need for dialysis, tachycardia which now seems to be under control with medications, hypertension which also appears to be under control with medications, and others , including dark emesis which has prompted gastroenterology consultation and upper endoscopy scheduled, intermittent emesis, and rising white blood cell count of unclear etiology; no major wound problems. Throughout all this, the abdomen has remained benign. In fact, the patient has not required any significant pain medication so far. No evidence for major intra-abdominal complication or surgical site infection. No indication for acute surgical intervention. Suspect some of his symptoms are related to the need for dialysis , but need to investigate further. Discussed with patient and with his , including the preliminary pathology that demonstrates possibility of residual separate HCC in his liver, and answered all questions. Will await final pathology report prior to further planning for the HCC. Patient and appear to understand and agreed with the plans. Also discussed with rest of the team. With above assessment, I've recommended the following for today: 1. Keep in ICU 2. Short-term dialysis, prophylactic anticoagulation and need for diuresis per renal 3. Labs in am 4. Increase ICS 5. Increase activity 6. Right upper quadrant ultrasound of the liver with duplex evaluation of blood flow through the liver 7. Possible need for noncontrast CT of chest abdomen and pelvis if indicated after ultrasound 8. Continue careful cardiopulmonary surveillance 9. Blood cultures 10. May need urologic evaluation if urinary retention continues Nature of presenting problem: High complexity Thank you again for your great care of this very pleasant patient and wonderful family. If there are any questions, please feel free to call me at [phone]. Disclaimer: Inadvertent spelling or grammatical errors are likely due to EHR/ dictation software use and do not reflect on the overall quality of patient care. Updated Clinical Summary: Patient is a very pleasant 60-year-old gentleman with comorbid issues including a BMI of 34, as well as history of hepatitis C, treated with Harvoni in August 2016 with near complete disappearance of his viral count, who was noted to have a liver lesion that was initially detected on 04/26/2016, liver CT of the abdomen and pelvis read as a somewhat well-defined 4.8 x 4.4 x 4.6 cm area of low attenuation within the right lobe of the liver. Note that he also had a few followup scans since then including ultrasound of the abdomen 05/22/2016 showing a solid mass 4.6 x 4.8 x 3.9 cm that appeared to be hypoechoic and no increased Doppler flow, liver dedicated MRI of the abdomen 06/19/2016 showing a 3.5 cm solid mass anteriorly in the right lobe of the liver that cannot be further characterized due to lack of contrast, liver dedicated contrast study of the abdomen on 07/08/2016 showing no evidence of increased uptake, corresponding to a liver mass seen in the right lobe of the liver and therefore not consistent with a hemangioma. He had a liver biopsy percutaneously done on 08/07/2016 with ultrasound guidance with the final pathology showing necrotic material, otherwise nondiagnostic. He had a repeat MRI of the liver with and without contrast 09/24/2016 that showed the previously seen lesion that was 3.8 cm at the junction of the right and left lobes but additional 2.3 cm lesion in segment 5 of the liver showing low signal intensity on the T1 weighted images, intermediate signal intensity on the T2 weighted images and arterial phase contrast enhancement. These findings were thought to be metastatic disease or multifocal hepatocellular carcinoma. Due to growth seen in segment 5 lesion, repeat biopsy of the liver was ordered which was done on 04/07/2017. Segment 5 lesion was biopsied and final pathology was consistent with moderately differentiated hepatocellular carcinoma in a background of chronic hepatitis C. Normal liver biopsy done at the same time showed grade 2 portal inflammation and interface hepatitis, grade 2 lobular activity and stage I fibrosis. Comorbidities: 1. Hepatocellular carcinoma in segment 5 of liver in the setting of hepatitis C , along with several regenerative nodules. Hepatitis C that was thought to be chronic, treated with Harvoni 08/2016 with near resolution and disappearance of the viral load. His hepatitis C is thought to be genotype 1A with prior viral load in 2012 of approximately 18 million international units per mL. 2. Diabetes mellitus type 2. 3. Hyperlipidemia. 4. Hypertension. 5. Left distal tibial fracture. 6. Left tibia fracture. 7. Obstructive sleep apnea. 8. Vitamin D deficiency. 9. Former smoker. 10. S/p laparoscopic exploration with intraoperative ultrasound of liver and core needle liver biopsy with ultrasound guidance segment 8 lesion and separately segment 4B normal liver, open partial hepatectomy segment 5/6, ultrasound-guided core needle liver biopsy segment 4B (left side) mass under direct visualization, cholecystectomy, lysis of adhesions, and umbilical hernia repair at [facility] 06/10/17. Subjective: No major events or complaints other than above; no major abd pain and under control with medications; no n/v/d; no sob or cp; + flatus; + BM; minimal activity; issues with urinary retention requiring reinsertion of Sadler catheter. Objective: Vitals: See below Exam: GENERAL: On exam, the patient was laying in bed and appeared to be comfortable and in no acute distress. ABDOMEN: Soft, nontender and nondistended. Incisions are clean, dry and intact without any evidence of obvious erythema, edema, discharge, or hernia. There are no peritoneal signs or guarding. SKIN: Skin appears to be pink and feels warm to touch. NEUROLOGIC: Patient is awake, alert, and follows commands appropriately. Exam/Review of Systems Vital Signs Vitals Vital Signs Date Time Temp Pulse Resp B/P Pulse Ox O2 Delivery O2 Flow Rate FiO2 06/15/17 20:37 96 5.0 06/15/17 20:00 98.4 93 17 131/68 Nasal Cannula 06/15/17 11:37 33 Intake and Output 06/14/17 06/14/17 06/15/17 15:00 23:00 07:00 Intake Total 480 ml 60 ml Output Total 20 ml 625 ml Balance 480 ml 40 ml -625 ml Results Result Diagram: 06/15/17 1813 06/15/17 0500 KAYA BERMAN M.D. Jun 15, 2017 19:31
[2017-06-15] MEDS ORDERED: PROPOFOL 20 ML ONE (19:41)
--- NOTE | 2017-06-15 20:20 | OPR ---
Date/Time of Note Date/Time of Note DATE: 06/15/17 TIME: 20:16 Operative Report Preoperative Diagnosis GI bleeding/melena Postoperative Diagnosis Impression: * Severe erosive esophagitis * Moderate gastritis * No biopsies Plan: Protonix 40 mg bid Monitor H/H transfuse for Hgb <7.5 . Operation/Procedure Performed EGD Surgeon: RAIN CASTELLANO MD Anesthesia Type: MAC Estimated Blood Loss: none Transfusion Required: no Specimen: none Grafts/Implants: none Complications: no RANI CASTELLANO MD Jun 15, 2017 20:20
--- NOTE | 2017-06-15 20:26 | PN ---
Date/Time of Note Date/Time of Note DATE: 06/15/17 TIME: 20:25 Assessment/Plan VTE Prophylaxis VTE Prophylaxis Intervention: other Lines/Catheters IV Catheter Type (from Nrs): Central line still needed: No Urinary Cath still in place: No Assessment/Plan Chief Complaint/Hosp Course CKD SP Dialysis cath placement Status post dialysis today Plan to switch the dialysis site to internal jugular vein tomorrow Problems: Subjective 24 Hr Interval Summary Cardiovascular: no complaints Gastrointestinal: no complaints Genitourinary: no complaints Musculoskeletal: no complaints Skin: no complaints Exam/Review of Systems Vital Signs Vitals Vital Signs Date Time Temp Pulse Resp B/P Pulse Ox O2 Delivery O2 Flow Rate FiO2 06/15/17 19:05 99.1 72 20 122/72 98 06/15/17 18:00 Nasal Cannula 4.0 06/15/17 11:37 33 Intake and Output 06/14/17 06/14/17 06/15/17 15:00 23:00 07:00 Intake Total 480 ml 60 ml Output Total 20 ml 625 ml Balance 480 ml 40 ml -625 ml Exam ENMT: nl external ears & nose, nl lips & teeth, nl nasal mucosa & septum Neck: non-tender, supple Respiratory: clear to auscultation, normal air movement Cardiovascular: nl pulses, regular rate and rhythm Gastrointestinal: nl liver, spleen, non-tender, soft Results Result Diagram: 06/15/17 1813 06/15/17 0500 Results 24 hrs Laboratory Tests Test 06/14/17 21:08 06/15/17 00:51 06/15/17 00:52 06/15/17 01:30 Bedside Glucose 159 90 Hemoglobin 7.0 L Hematocrit 21.4 L Urine Eosinophils % 0.0 Urine Random Creatinine 90.07 Urine Random Sodium 32 Urine Protein/Creatinine Ratio 0.26 Urine Total Protein 24.0 H Test 06/15/17 05:00 06/15/17 08:02 06/15/17 08:37 06/15/17 11:00 White Blood Count 21.2 H Red Blood Count 2.65 L Hemoglobin 6.9 *L 9.1 #L Hematocrit 21.1 L 27.6 #L Mean Corpuscular Volume 79.6 L Mean Corpuscular Hemoglobin 26.0 L Mean Corpuscular Hemoglobin Concent 32.7 Red Cell Distribution Width 15.8 H Platelet Count 235 Mean Platelet Volume 10.0 Neutrophils % 66.7 Lymphocytes % 16.1 Monocytes % 13.2 H Eosinophils % 2.0 Basophils % 0.2 Nucleated Red Blood Cells % 0.2 H Neutrophils # 14.1 H Lymphocytes # 3.4 H Monocytes # 2.8 H Eosinophils # 0.4 Basophils # 0.0 Nucleated Red Blood Cells # 0.1 H Prothrombin Time 13.2 Prothrombin Time Ratio 1.0 INR International Normalized Ratio 1.00 Activated Partial Thromboplast Time 28.1 Sodium Level 133 L Potassium Level 3.4 L Chloride Level 94 L Carbon Dioxide Level 22 Anion Gap 20 H Blood Urea Nitrogen 122 #H Creatinine 7.05 H Glucose Level 104 # Lactic Acid Level 1.0 Calcium Level 6.7 L Phosphorus Level 7.3 #H Magnesium Level 2.1 Total Bilirubin 0.0 L Direct Bilirubin 0.00 # Indirect Bilirubin 0.0 Aspartate Amino Transf (AST/SGOT) 76 H Alanine Aminotransferase (ALT/SGPT) 74 H Alkaline Phosphatase 230 H B-Type Natriuretic Peptide 660 H Total Protein 4.9 L Albumin 2.1 L Globulin 2.80 Albumin/Globulin Ratio 0.75 Lipase 142 Bedside Glucose 120 Lab Scanned Report REFERENCE LAB Test 06/15/17 12:59 06/15/17 18:13 06/15/17 18:47 Bedside Glucose 126 173 Hemoglobin 7.8 L Hematocrit 23.8 L Medications Medications Current Medications Acetaminophen/ Hydrocodone Bitart ([place] (5/325)) 1 tab Q4H PRN PO PAIN LEVEL 4 -7 Last administered on 06/10/17 16:55; Admin Dose 1 TAB; Start 06/09/17 at 14:00 ; Status Future Hold Acetaminophen/ Hydrocodone Bitart ([place] (5/325)) 2 tab Q4H PRN PO PAIN LEVEL 7 -10; Start 06/09/17 at 14:00; Status Future Hold Hydromorphone HCl (Dilaudid) 0.5 mg Q2H PRN IV PAIN; Start 06/09/17 at 14:00 Hydromorphone HCl (Dilaudid) 1 mg Q2H PRN IV PAIN Last administered on 21:26; Admin Dose 1 MG; Start 06/09/17 at 14:00 Docusate Sodium (Colace) 100 mg BID PRN PO CONSTIPATION; Start 06/09/17 at 14:00 Bisacodyl (Dulcolax Supp) 10 mg BID PRN [place] CONSTIPATION; Start 06/09/17 at 14:00 Sodium Biphosphate/ Sodium Phosphate (Fleet Enema) 133 ml BID PRN [place] CONSTIPATION; Start 06/09/17 at 14:00 Enoxaparin Sodium (Lovenox) 40 mg DAILY SC Last administered on 06/13/17 08:22 ; Admin Dose 40 MG; Start 06/10/17 at 09:00; Status Future Hold Miscellaneous Information 1 ea NOTE XX ; Start 06/09/17 at 17:30 Glucose (Glutose) 15 gm Q15M PRN PO DECREASED GLUCOSE; Start 06/09/17 at 17:30 Glucose (Glutose) 22.5 gm Q15M PRN PO DECREASED GLUCOSE; Start 06/09/17 at 17:30 Dextrose (D50w Syringe) 25 ml Q15M PRN IV DECREASED GLUCOSE; Start 06/09/17 at 17:30 Dextrose (D50w Syringe) 50 ml Q15M PRN IV DECREASED GLUCOSE Last administered on 06/09/17 17:47; Admin Dose 50 ML; Start 06/09/17 at 17:30 Glucagon (Glucagen) 1 mg Q15M PRN IM DECREASED GLUCOSE; Start 06/09/17 at 17:30 Glucose (Glutose) 15 gm Q15M PRN BUCCAL DECREASED GLUCOSE; Start 06/09/17 at 17: 30 Hydralazine HCl (Apresoline) 10 mg Q4H PRN IV SBP>170 Last administered on 01:59; Admin Dose 10 MG; Start 06/09/17 at 18:30 Diagnostic Test (Pha) (Accu-Chek) 1 ea 02 XX Last administered on 06/15/17 01: 51; Admin Dose 1 EA; Start 06/11/17 at 02:00 Hydromorphone HCl (Dilaudid PROCESS ENG) 0.1 MG DOSE 10 ... Q4PCA IV Last administered on 06/12/17 14:48; Admin Dose 0.1 MG; Start 06/10/17 at 18:30 Simethicone (Mylicon) 80 mg Q6H PRN GTB DISTENSION/GAS/BLOATING Last administered on 06/13/17 18:41; Admin Dose 80 MG; Start 06/11/17 at 18:00 Clonidine (Catapres) 0.2 mg TID PO Last administered on 06/13/17 21:47; Admin Dose 0.2 MG; Start 06/12/17 at 09:00 Hydralazine HCl (Apresoline) 100 mg TID PO Last administered on 06/13/17 21:46 ; Admin Dose 100 MG; Start 06/12/17 at 09:00 Nifedipine (Procardia Xl) 30 mg BID PO Last administered on 06/14/17 09:22; Admin Dose 30 MG; Start 06/12/17 at 12:00 Labetalol HCl (Normodyne) 200 mg TID PO Last administered on 06/14/17 09:22; Admin Dose 200 MG; Start 06/12/17 at 12:00 Insulin Glargine (Lantus) 35 unit QHS SC Last administered on 06/14/17 21:18; Admin Dose 35 UNIT; Start 06/12/17 at 21:00 Mupirocin (Bactroban) 1 applic BID TOP Last administered on 06/15/17 09:00; Admin Dose 1 APPLIC; Start 06/13/17 at 09:00 Ondansetron HCl (Zofran Inj) 4 mg Q6H PRN IV NAUSEA AND/OR VOMITING Last administered on 06/15/17 06:01; Admin Dose 4 MG; Start 06/13/17 at 20:30 Pantoprazole (Protonix Iv) 40 mg BID@18 IV Last administered on 06/15/17 18: 48; Admin Dose 40 MG; Start 06/14/17 at 18:00 BEHZAD MICHEL MD Jun 15, 2017 20:26
[2017-06-15] MEDS: INSULIN GLARGINE [LANtus] 3 ML PEN SC SCH (21:25)
[2017-06-16] VITALS (26 sets, daily range): BP systolic 116–141; BP diastolic 51–87; PULSE 77–96; RESP 12–20
[2017-06-16] MEDS: ACCU-CHEK XX SCH (02:00)
--- NOTE | 2017-06-16 04:13 | GILP ---
DATE OF PROCEDURE: 06/15/2017 PROCEDURE PERFORMED: Esophagogastroduodenoscopy. PREMEDICATIONS: Monitored anesthesia care by anesthesiologist. ENDOSCOPIST: Enrique Cortes MD INDICATION: The patient is being evaluated for Melena and significant drop in hemoglobin and hematocrit. INSTRUMENT USED: Olympus panendoscope. TECHNIQUE: After informed consent, with the patient/relatives understanding the procedure, its indications, potential risks, and complications, including, but not limited to allergic reaction, bleeding, perforation or infection, and after all pertinent questions were answered to the patients satisfaction, the patient/relatives signed witnessed informed consent. Following this, premedication was administered slowly ,IV push, under careful cardiovascular and respiratory monitoring with pulse oximetry, and automatic blood pressure and pvc monitor. Once the sedative effect was achieved, the patient was place in the left lateral decubitus and the panendoscope was introduced and advanced under visual control. Careful examination of the upper gastrointestinal tract, both on insertion, as well as withdrawal of the instrument, disclosed the following findings: ESOPHAGUS: The esophagus shows severe erythema, edema, and extensive erosion of the mucosa in the distal one-half of the esophagus. STOMACH: Upon entrance to the stomach air was insufflated and the gastric briseno distended normally. The mucosa of the fundus, body and antrum of the stomach was carefully examined and shows erythema and edema of the mucosa of a moderate degree. No biopsies were obtained. PYLORUS: The pylorus appears patent and within normal limits, with no evidence of gastric outlet obstruction. DUODENUM: The duodenal mucosa was carefully examined in the duodenal bulb, as well as the 2nd portion of the duodenum and appears unremarkable, with no evidence of duodenitis, ulcer or neoplasm. The instrument was then withdrawn. The patient tolerated the procedure well and was transferred out of the endoscopy suite awake and in good condition to continue recovery under observation. IMPRESSION: 1. Severe erosive esophagitis. 2. Moderate gastritis. 3. No biopsies were obtained. PLAN: The patient will be continued on PPI b.i.d. with close monitoring of hemoglobin and hematocrit and transfused as necessary. Dictated By: Enrique Cortes MD /[email or web address]/bryan /Document#: [id number]
[2017-06-16 05:37] LABS: HEMATOCRIT 23.6 % (42.0-52.0); HEMOGLOBIN 7.7 g/dl (14.0-18.0)
[2017-06-16 06:06] LABS: CALCIUM 6.7 mg/dl (8.4-10.2); CREATININE 7.54 mg/dl (0.61-1.24); MAGNESIUM 2.4 mg/dl (1.7-2.5); PHOSPHORUS 7.8 mg/dl (2.5-4.9); POTASSIUM 3.4 mmol/L (3.5-5.1)
[2017-06-16] MEDS: PANTOPRAZOLE 40 MG INJ IV SCH (06:31)
[2017-06-16] MEDS: BUMETANIDE 1 MG INJ IV SCH (06:31)
[2017-06-16] MEDS: NIFEdipine (XL) 30 MG TAB PO SCH ×2 (08:23→21:00)
[2017-06-16] MEDS: LABETALOL 200 MG TAB PO SCH ×3 (08:23→21:00)
[2017-06-16] MEDS: MUPIROCIN 2% 22 GM OINT TOP SCH ×2 (08:23→21:31)
[2017-06-16] MEDS: INSULIN ASPART [NOVOLOG] 3 ML PEN SC SCH ×6 (08:25→21:00)
--- NOTE | 2017-06-16 08:31 | RADRPT ---
PROCEDURE: Chest Radiograph. CLINICAL INDICATION: Pneumonia. CHF. TECHNIQUE: Single frontal chest radiograph. COMPARISON: Chest radiograph 06/14/2017 FINDINGS: A right internal jugular venous catheter remains in place. The cardiomediastinal silhouette is with in normal limits. There is improved ventilation of the bilateral lung fernandez. No infiltrate or effu micah is seen. The bones are intact. IMPRESSION: 1. No evidence of acute cardiopulmonary disease. 2. Right internal jugular venous catheter. RPTAT: KK .Eric Raines MD, MD Date Time Electronically viewed and signed by .Eric Raines MD, on 06/16/2017 08:31 .B/
--- NOTE | 2017-06-16 09:02 | CONS ---
Date/Time of Note Date/Time of Note DATE: 06/16/17 TIME: 09:00 Assessment/Plan Assessment/Plan Additional Assessment/Plan 1. Hypertensive urgency emergency- much better now, BP in good range. Will monitor clinically. 2. Tachycardia consistent with sinus tachycardia at this time- improved - blood trx now 3. History of dyslipidemia- Rx aas neede. 4. Status post liver resection of hepatocellular carcinoma- tolerated procedure well, con't to recover. Up to chair now. 5. History of hepatocellular carcinoma, status post resection as above. 6. Acute on chronic renal failure with intermittent hemodialysis as necessary. Stable - renal follows 7. Hyperkalemia, resolved with dialysis. 8. Congestive heart failure. Assess for volume overload by chest x-ray. Remove fluid via HD. Good fluid status. 9. Diabetes mellitus. Consultation Date/Type/Reason Admit Date/Time Jun 09, 2017 at 06:00 Initial Consult Date 06/14/17 Type of Consultation: hospitalist 24 HR Interval Summary Free Text/Dictation NO acute events - BP in good range - no CP now. ROS: No fever, no chills, no nausea, no vomiting, no diarrhea/constipation No recent weight changes No chest pain, no PND, no orthopnea No dizziness, blurred vision No thirst, no heat or cold intolerance Exam/Review of Systems Vital Signs Vitals Vital Signs Date Time Temp Pulse Resp B/P Pulse Ox O2 Delivery O2 Flow Rate FiO2 06/16/17 06:00 89 136/81 97 Nasal Cannula 4.0 06/16/17 05:00 16 06/16/17 04:00 99.1 06/15/17 11:37 33 Intake and Output 06/15/17 06/15/17 06/16/17 14:59 22:59 06:59 Intake Total 850 ml 500 ml Output Total 4150 ml 650 ml 975 ml Balance -3300 ml -650 ml -475 ml Exam General: WN/WD/NAD, AOx 3 HEENT: Unicetric/atraumatic/EOMI (follows commands) NECK: JVD elevated, no thyromegaly Lymph: no lymphadenopathy HEART: regular with no S3, II/ systolic murmur at apex LUNGS: Coarse sounds ABD: soft, NT, ND, +BS, post op : Intact Neuro: non focal SKIN: chronic changes EXT: trace edema Results Result Diagram: 06/16/17 0500 06/16/17 0500 Results 24 hrs Laboratory Tests Test 06/15/17 11:00 06/15/17 12:59 06/15/17 18:13 06/15/17 18:47 Hemoglobin 9.1 #L 7.8 L Hematocrit 27.6 #L 23.8 L Bedside Glucose 126 173 Test 06/15/17 21:22 06/16/17 02:26 06/16/17 05:00 06/16/17 05:05 Bedside Glucose 214 181 Hemoglobin 7.7 L Hematocrit 23.6 L Sodium Level 139 Potassium Level 3.4 L Chloride Level 99 Carbon Dioxide Level 22 Anion Gap 21 H Blood Urea Nitrogen 114 H Creatinine 7.54 H Glucose Level 152 Calcium Level 6.7 L Phosphorus Level 7.8 H Magnesium Level 2.4 Lab Scanned Report BLOOD TRANSFUSION Test 06/16/17 08:20 Bedside Glucose 166 Medications Medications Current Medications Acetaminophen/ Hydrocodone Bitart ([place] (5/325)) 1 tab Q4H PRN PO PAIN LEVEL 4 -7 Last administered on 06/10/17 16:55; Admin Dose 1 TAB; Start 06/09/17 at 14:00 ; Status Future Hold Acetaminophen/ Hydrocodone Bitart ([place] (5/325)) 2 tab Q4H PRN PO PAIN LEVEL 7 -10; Start 06/09/17 at 14:00; Status Future Hold Hydromorphone HCl (Dilaudid) 0.5 mg Q2H PRN IV PAIN; Start 06/09/17 at 14:00 Hydromorphone HCl (Dilaudid) 1 mg Q2H PRN IV PAIN Last administered on 21:26; Admin Dose 1 MG; Start 06/09/17 at 14:00 Docusate Sodium (Colace) 100 mg BID PRN PO CONSTIPATION; Start 06/09/17 at 14:00 Bisacodyl (Dulcolax Supp) 10 mg BID PRN [place] CONSTIPATION; Start 06/09/17 at 14:00 Sodium Biphosphate/ Sodium Phosphate (Fleet Enema) 133 ml BID PRN [place] CONSTIPATION; Start 06/09/17 at 14:00 Enoxaparin Sodium (Lovenox) 40 mg DAILY SC Last administered on 06/13/17 08:22 ; Admin Dose 40 MG; Start 06/10/17 at 09:00; Status Future Hold Miscellaneous Information 1 ea NOTE XX ; Start 06/09/17 at 17:30 Glucose (Glutose) 15 gm Q15M PRN PO DECREASED GLUCOSE; Start 06/09/17 at 17:30 Glucose (Glutose) 22.5 gm Q15M PRN PO DECREASED GLUCOSE; Start 06/09/17 at 17:30 Dextrose (D50w Syringe) 25 ml Q15M PRN IV DECREASED GLUCOSE; Start 06/09/17 at 17:30 Dextrose (D50w Syringe) 50 ml Q15M PRN IV DECREASED GLUCOSE Last administered on 06/09/17 17:47; Admin Dose 50 ML; Start 06/09/17 at 17:30 Glucagon (Glucagen) 1 mg Q15M PRN IM DECREASED GLUCOSE; Start 06/09/17 at 17:30 Glucose (Glutose) 15 gm Q15M PRN BUCCAL DECREASED GLUCOSE; Start 06/09/17 at 17: 30 Hydralazine HCl (Apresoline) 10 mg Q4H PRN IV SBP>170 Last administered on 01:59; Admin Dose 10 MG; Start 06/09/17 at 18:30 Diagnostic Test (Pha) (Accu-Chek) 1 ea 02 XX Last administered on 06/16/17 02: 00; Admin Dose 1 EA; Start 06/11/17 at 02:00 Hydromorphone HCl (Dilaudid HYDRO STATION SUPERVISOR) 0.1 MG DOSE 10 ... Q4PCA IV Last administered on 06/12/17 14:48; Admin Dose 0.1 MG; Start 06/10/17 at 18:30 Simethicone (Mylicon) 80 mg Q6H PRN GTB DISTENSION/GAS/BLOATING Last administered on 06/13/17 18:41; Admin Dose 80 MG; Start 06/11/17 at 18:00 Clonidine (Catapres) 0.2 mg TID PO Last administered on 06/13/17 21:47; Admin Dose 0.2 MG; Start 06/12/17 at 09:00 Hydralazine HCl (Apresoline) 100 mg TID PO Last administered on 06/13/17 21:46 ; Admin Dose 100 MG; Start 06/12/17 at 09:00 Nifedipine (Procardia Xl) 30 mg BID PO Last administered on 06/16/17 08:23; Admin Dose 30 MG; Start 06/12/17 at 12:00 Labetalol HCl (Normodyne) 200 mg TID PO Last administered on 06/16/17 08:23; Admin Dose 200 MG; Start 06/12/17 at 12:00 Insulin Glargine (Lantus) 35 unit QHS SC Last administered on 06/15/17 21:25; Admin Dose 35 UNIT; Start 06/12/17 at 21:00 Mupirocin (Bactroban) 1 applic BID TOP Last administered on 06/16/17 08:23; Admin Dose 1 APPLIC; Start 06/13/17 at 09:00 Ondansetron HCl (Zofran Inj) 4 mg Q6H PRN IV NAUSEA AND/OR VOMITING Last administered on 06/15/17 06:01; Admin Dose 4 MG; Start 06/13/17 at 20:30 Pantoprazole (Protonix Iv) 40 mg BID@,18 IV Last administered on 06/16/17 06: 31; Admin Dose 40 MG; Start 06/14/17 at 18:00 EVERETT RIVERS MD Jun 16, 2017 09:02
--- NOTE | 2017-06-16 09:22 | CONS ---
Date/Time of Note Date/Time of Note DATE: 06/16/17 TIME: 09:20 Assessment/Plan Assessment/Plan Chief Complaint/Hosp Course 1. KYLE on A/P HYPERKALEMIA BETTER S/P HD WITH INTERMITTENT HD S/P hHD yesterday however BUN/CR 114/7.54 with poor clearence ( dehydration due to fluid loss net neg 2.4 L vs ?GI bleed) 2. DM on Insulin 3 KYLE on CKD with ATN 4 Hyperphos 5 Hypokalemia 4 .HTN WITH bp creeping BP meds on hold 5 HEP C s/p S/P LIVER SURGERY 6 Urinary retention s/p Straight cath 7 Anemia s/p EGD with erosive gastritis Recs: Due to severe uremia, will plan for HD today for clearence, pt is at high risk for GI bleed Decrease bumex to 1 mg iv daily Restart clonidine to 0.2 bid to prevent rebound HTN HD today with fluid removal / blood transfusion CK BMP kayexalate PRN CHANGE RT GROIN CATH TO PERMACATH PER DR LEON CALLED Sadler catheter Hold BP meds Add renagel 800 tid with meals Problems: Consultation Date/Type/Reason Admit Date/Time Jun 09, 2017 at 06:00 Initial Consult Date 06/14/17 Type of Consultation: hospitalist 24 HR Interval Summary Free Text/Dictation Much more awake today s/p EGD yest with erosive gastritis UOP 2775 ml ON Bumex and had Sadler and HD 3 L removal , net neg 2.4 L s/p HD yesterday Exam/Review of Systems Vital Signs Vitals Vital Signs Date Time Temp Pulse Resp B/P Pulse Ox O2 Delivery O2 Flow Rate FiO2 06/16/17 08:00 88 06/16/17 06:00 136/81 97 Nasal Cannula 4.0 06/16/17 05:00 16 06/16/17 04:00 99.1 06/15/17 11:37 33 Intake and Output 06/15/17 06/15/17 06/16/17 15:00 23:00 07:00 Intake Total 850 ml 500 ml Output Total 4150 ml 750 ml 875 ml Balance -3300 ml -750 ml -375 ml Exam Constitutional: alert, oriented Eyes: EOMI Neck: supple Respiratory: diminished breath soundsB/L Cardiovascular: regular rate and rhythm Gastrointestinal: distended, surgical scars Extremities: edema Additional Comments Rt groin femoral catheter Results Result Diagram: 06/16/17 0500 06/16/17 0500 Results 24 hrs Laboratory Tests Test 06/15/17 11:00 06/15/17 12:59 06/15/17 18:13 06/15/17 18:47 Hemoglobin 9.1 #L 7.8 L Hematocrit 27.6 #L 23.8 L Bedside Glucose 126 173 Test 06/15/17 21:22 06/16/17 02:26 06/16/17 05:00 06/16/17 05:05 Bedside Glucose 214 181 Hemoglobin 7.7 L Hematocrit 23.6 L Sodium Level 139 Potassium Level 3.4 L Chloride Level 99 Carbon Dioxide Level 22 Anion Gap 21 H Blood Urea Nitrogen 114 H Creatinine 7.54 H Glucose Level 152 Calcium Level 6.7 L Phosphorus Level 7.8 H Magnesium Level 2.4 Lab Scanned Report BLOOD TRANSFUSION Test 06/16/17 08:20 Bedside Glucose 166 Medications Medications Current Medications Acetaminophen/ Hydrocodone Bitart ([place] (5/325)) 1 tab Q4H PRN PO PAIN LEVEL 4 -7 Last administered on 06/10/17 16:55; Admin Dose 1 TAB; Start 06/09/17 at 14:00 ; Status Future Hold Acetaminophen/ Hydrocodone Bitart ([place] (5/325)) 2 tab Q4H PRN PO PAIN LEVEL 7 -10; Start 06/09/17 at 14:00; Status Future Hold Hydromorphone HCl (Dilaudid) 0.5 mg Q2H PRN IV PAIN; Start 06/09/17 at 14:00 Hydromorphone HCl (Dilaudid) 1 mg Q2H PRN IV PAIN Last administered on 21:26; Admin Dose 1 MG; Start 06/09/17 at 14:00 Docusate Sodium (Colace) 100 mg BID PRN PO CONSTIPATION; Start 06/09/17 at 14:00 Bisacodyl (Dulcolax Supp) 10 mg BID PRN [place] CONSTIPATION; Start 06/09/17 at 14:00 Sodium Biphosphate/ Sodium Phosphate (Fleet Enema) 133 ml BID PRN [place] CONSTIPATION; Start 06/09/17 at 14:00 Enoxaparin Sodium (Lovenox) 40 mg DAILY SC Last administered on 06/13/17 08:22 ; Admin Dose 40 MG; Start 06/10/17 at 09:00; Status Future Hold Miscellaneous Information 1 ea NOTE XX ; Start 06/09/17 at 17:30 Glucose (Glutose) 15 gm Q15M PRN PO DECREASED GLUCOSE; Start 06/09/17 at 17:30 Glucose (Glutose) 22.5 gm Q15M PRN PO DECREASED GLUCOSE; Start 06/09/17 at 17:30 Dextrose (D50w Syringe) 25 ml Q15M PRN IV DECREASED GLUCOSE; Start 06/09/17 at 17:30 Dextrose (D50w Syringe) 50 ml Q15M PRN IV DECREASED GLUCOSE Last administered on 06/09/17 17:47; Admin Dose 50 ML; Start 06/09/17 at 17:30 Glucagon (Glucagen) 1 mg Q15M PRN IM DECREASED GLUCOSE; Start 06/09/17 at 17:30 Glucose (Glutose) 15 gm Q15M PRN BUCCAL DECREASED GLUCOSE; Start 06/09/17 at 17: 30 Hydralazine HCl (Apresoline) 10 mg Q4H PRN IV SBP>170 Last administered on 01:59; Admin Dose 10 MG; Start 06/09/17 at 18:30 Diagnostic Test (Pha) (Accu-Chek) 1 ea 02 XX Last administered on 06/16/17 02: 00; Admin Dose 1 EA; Start 06/11/17 at 02:00 Hydromorphone HCl (Dilaudid [employer] OFFICER) 0.1 MG DOSE 10 ... Q4PCA IV Last administered on 06/12/17 14:48; Admin Dose 0.1 MG; Start 06/10/17 at 18:30 Simethicone (Mylicon) 80 mg Q6H PRN GTB DISTENSION/GAS/BLOATING Last administered on 06/13/17 18:41; Admin Dose 80 MG; Start 06/11/17 at 18:00 Clonidine (Catapres) 0.2 mg TID PO Last administered on 06/13/17 21:47; Admin Dose 0.2 MG; Start 06/12/17 at 09:00 Hydralazine HCl (Apresoline) 100 mg TID PO Last administered on 06/13/17 21:46 ; Admin Dose 100 MG; Start 06/12/17 at 09:00 Nifedipine (Procardia Xl) 30 mg BID PO Last administered on 06/16/17 08:23; Admin Dose 30 MG; Start 06/12/17 at 12:00 Labetalol HCl (Normodyne) 200 mg TID PO Last administered on 06/16/17 08:23; Admin Dose 200 MG; Start 06/12/17 at 12:00 Insulin Glargine (Lantus) 35 unit QHS SC Last administered on 06/15/17 21:25; Admin Dose 35 UNIT; Start 06/12/17 at 21:00 Mupirocin (Bactroban) 1 applic BID TOP Last administered on 06/16/17 08:23; Admin Dose 1 APPLIC; Start 06/13/17 at 09:00 Ondansetron HCl (Zofran Inj) 4 mg Q6H PRN IV NAUSEA AND/OR VOMITING Last administered on 06/15/17 06:01; Admin Dose 4 MG; Start 06/13/17 at 20:30 Pantoprazole (Protonix Iv) 40 mg BID@06,18 IV Last administered on 06/16/17 06: 31; Admin Dose 40 MG; Start 06/14/17 at 18:00 OSIEL ISAACS MD Jun 16, 2017 09:22
--- NOTE | 2017-06-16 11:08 | CONS ---
Date/Time of Note Date/Time of Note DATE: 06/16/17 TIME: 11:07 Consult Date/Type/Reason Admit Date/Time Jun 09, 2017 at 06:00 Initial Consult Date 06/14/17 Type of Consultation: Pulmonary Subjective Patient looks better today awake alert comfortable sitting up in bed. No shortness of breath or chest pain. Objective Vital Signs Date Time Temp Pulse Resp B/P Pulse Ox O2 Delivery O2 Flow Rate FiO2 06/16/17 11:00 77 20 123/71 100 Nasal Cannula 4.0 06/16/17 08:00 98.3 06/15/17 11:37 33 Intake and Output 06/15/17 06/15/17 06/16/17 14:59 22:59 06:59 Intake Total 850 ml 500 ml Output Total 4150 ml 650 ml 975 ml Balance -3300 ml -650 ml -475 ml Exam GENERAL: Morbidly obese -[place] gentleman comfortable at rest no acute distress VITAL SIGNS: per chart NECK: Supple. No JVD or lymphadenopathy. CARDIAC EXAM: S1, S2. No added sounds or murmurs. CHEST: clear bilaterally, No added sounds, rales or wheezes ABDOMEN: Soft, nontender. No guarding or rebound. EXTREMITIES: No cyanosis, clubbing or edema. NEUROLOGIC: Generalized weakness. No focal deficits. Results/Medications Result Diagram: 06/16/17 0500 06/16/17 0500 Results 24 hrs Laboratory Tests Test 06/15/17 12:59 06/15/17 18:13 06/15/17 18:47 06/15/17 21:22 Bedside Glucose 126 173 214 Hemoglobin 7.8 L Hematocrit 23.8 L Test 06/16/17 02:26 06/16/17 05:00 06/16/17 05:05 06/16/17 08:20 Bedside Glucose 181 166 Hemoglobin 7.7 L Hematocrit 23.6 L Sodium Level 139 Potassium Level 3.4 L Chloride Level 99 Carbon Dioxide Level 22 Anion Gap 21 H Blood Urea Nitrogen 114 H Creatinine 7.54 H Glucose Level 152 Calcium Level 6.7 L Phosphorus Level 7.8 H Magnesium Level 2.4 Lab Scanned Report BLOOD TRANSFUSION Medications Current Medications Acetaminophen/ Hydrocodone Bitart ([place] (5/325)) 1 tab Q4H PRN PO PAIN LEVEL 4 -7 Last administered on 06/10/17t 16:55; Admin Dose 1 TAB; Start 06/09/17 at 14:00 ; Status Future Hold Acetaminophen/ Hydrocodone Bitart ([place] (5/325)) 2 tab Q4H PRN PO PAIN LEVEL 7 -10; Start 06/09/17 at 14:00; Status Future Hold Hydromorphone HCl (Dilaudid) 0.5 mg Q2H PRN IV PAIN; Start 06/09/17 at 14:00 Hydromorphone HCl (Dilaudid) 1 mg Q2H PRN IV PAIN Last administered on 21:26; Admin Dose 1 MG; Start 06/09/17 at 14:00 Docusate Sodium (Colace) 100 mg BID PRN PO CONSTIPATION; Start 06/09/17 at 14:00 Bisacodyl (Dulcolax Supp) 10 mg BID PRN [place] CONSTIPATION; Start 06/09/17 at 14:00 Sodium Biphosphate/ Sodium Phosphate (Fleet Enema) 133 ml BID PRN [place] CONSTIPATION; Start 06/09/17 at 14:00 Enoxaparin Sodium (Lovenox) 40 mg DAILY SC Last administered on 06/13/17 08:22 ; Admin Dose 40 MG; Start 06/10/17 at 09:00; Status Future Hold Miscellaneous Information 1 ea NOTE XX ; Start 06/09/17 at 17:30 Glucose (Glutose) 15 gm Q15M PRN PO DECREASED GLUCOSE; Start 06/09/17 at 17:30 Glucose (Glutose) 22.5 gm Q15M PRN PO DECREASED GLUCOSE; Start 06/09/17 at 17:30 Dextrose (D50w Syringe) 25 ml Q15M PRN IV DECREASED GLUCOSE; Start 06/09/17 at 17:30 Dextrose (D50w Syringe) 50 ml Q15M PRN IV DECREASED GLUCOSE Last administered on 06/09/17 17:47; Admin Dose 50 ML; Start 06/09/17 at 17:30 Glucagon (Glucagen) 1 mg Q15M PRN IM DECREASED GLUCOSE; Start 06/09/17 at 17:30 Glucose (Glutose) 15 gm Q15M PRN BUCCAL DECREASED GLUCOSE; Start 06/09/17 at 17: 30 Hydralazine HCl (Apresoline) 10 mg Q4H PRN IV SBP>170 Last administered on 01:59; Admin Dose 10 MG; Start 06/09/17 at 18:30 Diagnostic Test (Pha) (Accu-Chek) 1 ea 02 XX Last administered on 06/16/17 02: 00; Admin Dose 1 EA; Start 06/11/17 at 02:00 Hydromorphone HCl (Dilaudid [employer]IC[employer]) 0.1 MG DOSE 10 ... Q4PCA IV Last administered on 06/12/17 14:48; Admin Dose 0.1 MG; Start 06/10/17 at 18:30 Simethicone (Mylicon) 80 mg Q6H PRN GTB DISTENSION/GAS/BLOATING Last administered on 06/13/17 18:41; Admin Dose 80 MG; Start 06/11/17 at 18:00 Clonidine (Catapres) 0.2 mg TID PO Last administered on 06/13/17 21:47; Admin Dose 0.2 MG; Start 06/12/17 at 09:00 Hydralazine HCl (Apresoline) 100 mg TID PO Last administered on 06/13/17 21:46 ; Admin Dose 100 MG; Start 06/12/17 at 09:00 Nifedipine (Procardia Xl) 30 mg BID PO Last administered on 06/16/17 08:23; Admin Dose 30 MG; Start 06/12/17 at 12:00 Labetalol HCl (Normodyne) 200 mg TID PO Last administered on 06/16/17 08:23; Admin Dose 200 MG; Start 06/12/17 at 12:00 Insulin Glargine (Lantus) 35 unit QHS SC Last administered on 06/15/17 21:25; Admin Dose 35 UNIT; Start 06/12/17 at 21:00 Mupirocin (Bactroban) 1 applic BID TOP Last administered on 06/16/17 08:23; Admin Dose 1 APPLIC; Start 06/13/17 at 09:00 Ondansetron HCl (Zofran Inj) 4 mg Q6H PRN IV NAUSEA AND/OR VOMITING Last administered on 06/15/17 06:01; Admin Dose 4 MG; Start 06/13/17 at 20:30 Pantoprazole (Protonix Iv) 40 mg BID@06,18 IV Last administered on 06/16/17 06: 31; Admin Dose 40 MG; Start 06/14/17 at 18:00 Bumetanide (Bumex) 1 mg DAILY IV ; Start 06/17/17 at 09:00 Assessment/Plan Chief Complaint/Hosp Course Additional Assessment/Plan IMP: 1. s/p Acute Respiratory Failure 2. ARF--on HD 3. Hepatocellular ca -- s/p resection 4. DM 5. Anemia 6. Leukocytosis RECS: 1. Obtain Cxs, defer antibiotics to surgery team. 2. Titrate FiO2 3. ICS/BD's 4. HD per nephrology 5. Mobilize OOB to chair 6. Endoscopy showed severe esophagitis Transfer to telemetry Problems: TRISTAN HAMILTON MD, [facility] Jun 16, 2017 11:08
[2017-06-16 13:01] LABS: ABNORMAL IP MESSAGE 1; BASOPHILS % 0.2 % (0.0-2.0); EOSINOPHILS # 0.7 10^3/ul (0.0-0.5); EOSINOPHILS % 3.3 % (0.0-7.0); HEMATOCRIT 25.3 % (42.0-52.0); HEMOGLOBIN 8.2 g/dl (14.0-18.0); LYMPHOCYTES # 2.7 10^3/ul (0.8-2.9); LYMPHOCYTES % 13.8 % (15.0-51.0); MEAN CORPUSCULAR HGB CONC 32.4 g/dl (32.0-37.0); MEAN CORPUSCULAR VOLUME 80.3 fl (82.0-101.0); MEAN PLATELET VOLUME 9.9 fl (7.4-10.4); MONOCYTE # 2.9 10^3/ul (0.3-0.9); MONOCYTES % 14.8 % (0.0-11.0); NEUTROPHIL # 12.9 10^3/ul (1.6-7.5); NUCLEATED RED BLOOD CELLS # 0.1 10^3/ul (0.0-0.0); NUCLEATED RED BLOOD CELLS% 0.3 /100WBC (0.0-0.0); PLATELET COUNT 257 10^3/UL (140-415); POSITIVE DIFF @See below; RED BLOOD COUNT 3.15 10^6/ul (4.70-6.10); RED CELL DISTRIBUTION WIDTH 16.2 % (11.5-14.5); WHITE BLOOD COUNT 19.8 10^3/ul (4.8-10.8)
--- NOTE | 2017-06-16 14:58 | PN ---
Date/Time of Note Date/Time of Note DATE: 06/16/17 TIME: 14:49 Assessment/Plan Lines/Catheters IV Catheter Type (from Nrs): SVETLANA Sadler in Place (from Nrs): Yes Assessment/Plan Assessment/Plan [facility] Progress Note Date of Service: 06/16/17 Today's Impression & Plan: Stable and appears to be improving with adequate liver function. White blood cell count lower. Cultures so far negative. No indication for acute surgical intervention. Appreciate all the consultants excellent care. Answered multiple questions from the patient, his and his daughter to the best my ability. Patient and family appear to understand and agreed with the plans. Yesterday's overall assessment that is applicable for today: Multiple issues keeping him in the ICU including need for dialysis, tachycardia , which became under control with medications, hypertension which also became under control with medications, and others, including dark emesis which prompted gastroenterology consultation and upper endoscopy, which showed severe esophagitis, intermittent emesis that resolved, and rising white blood cell count of unclear etiology; no major wound problems. Throughout all this, the abdomen remained benign. In fact, the patient did not required any significant pain medication. No evidence for major intra-abdominal complication or surgical site infection. Suspected some of his symptoms are related to the need for dialysis. Preliminary pathology demonstrated possibility of residual separate HCC in his liver. Multiple medical issues postop and not unexpected given preoperative medical problems. With above assessment, I've recommended the following for today: 1. Okay to transfer out of ICU 2. Short-term dialysis, prophylactic anticoagulation and need for diuresis per renal 3. Labs in am 4. Increase ICS 5. Increase activity 6. Continue careful cardiopulmonary surveillance 7. Monitor culture results 8. DC Sadler and monitor for urinary retention; if recurrent and need reinsertion of Sadler catheter, to then consult urology Nature of presenting problem: High complexity Thank you again for your great care of this very pleasant patient and wonderful family. If there are any questions, please feel free to call me at [phone]. Disclaimer: Inadvertent spelling or grammatical errors are likely due to EHR/ dictation software use and do not reflect on the overall quality of patient care. Updated Clinical Summary: Patient is a very pleasant 60-year-old gentleman with comorbid issues including a BMI of 34, as well as history of hepatitis C, treated with Harvoni in August 2016 with near complete disappearance of his viral count, who was noted to have a liver lesion that was initially detected on 04/26/2016, liver CT of the abdomen and pelvis read as a somewhat well-defined 4.8 x 4.4 x 4.6 cm area of low attenuation within the right lobe of the liver. Note that he also had a few followup scans since then including ultrasound of the abdomen 05/22/2016 showing a solid mass 4.6 x 4.8 x 3.9 cm that appeared to be hypoechoic and no increased Doppler flow, liver dedicated MRI of the abdomen 06/19/2016 showing a 3.5 cm solid mass anteriorly in the right lobe of the liver that cannot be further characterized due to lack of contrast, liver dedicated contrast study of the abdomen on 07/08/2016 showing no evidence of increased uptake, corresponding to a liver mass seen in the right lobe of the liver and therefore not consistent with a hemangioma. He had a liver biopsy percutaneously done on 08/07/2016 with ultrasound guidance with the final pathology showing necrotic material, otherwise nondiagnostic. He had a repeat MRI of the liver with and without contrast 09/24/2016 that showed the previously seen lesion that was 3.8 cm at the junction of the right and left lobes but additional 2.3 cm lesion in segment 5 of the liver showing low signal intensity on the T1 weighted images, intermediate signal intensity on the T2 weighted images and arterial phase contrast enhancement. These findings were thought to be metastatic disease or multifocal hepatocellular carcinoma. Due to growth seen in segment 5 lesion, repeat biopsy of the liver was ordered which was done on 04/07/2017. Segment 5 lesion was biopsied and final pathology was consistent with moderately differentiated hepatocellular carcinoma in a background of chronic hepatitis C. Normal liver biopsy done at the same time showed grade 2 portal inflammation and interface hepatitis, grade 2 lobular activity and stage I fibrosis. Patient had a somewhat margaret course postoperatively with renal failure requiring dialysis and prolonged ICU stay. 06/14/17 RUQ duplex ultrasound demonstrated expected findings from the liver with normal blood flow and no major fluid collections around it indicating lack of obvious bile leak. Discharge from ICU 06/16/2017 to regular floor. Comorbidities: 1. Hepatocellular carcinoma in segment 5 of liver in the setting of hepatitis C , along with several regenerative nodules. Hepatitis C that was thought to be chronic, treated with Harvoni 08/2016 with near resolution and disappearance of the viral load. His hepatitis C is thought to be genotype 1A with prior viral load in 2012 of approximately 18 million international units per mL. 2. Diabetes mellitus type 2. 3. Hyperlipidemia. 4. Hypertension. 5. Left distal tibial fracture. 6. Left tibia fracture. 7. Obstructive sleep apnea. 8. Vitamin D deficiency. 9. Former smoker. 10. S/p laparoscopic exploration with intraoperative ultrasound of liver and core needle liver biopsy with ultrasound guidance segment 8 lesion and separately segment 4B normal liver, open partial hepatectomy segment 5/6, ultrasound-guided core needle liver biopsy segment 4B (left side) mass under direct visualization, cholecystectomy, lysis of adhesions, and umbilical hernia repair at [facility] 06/10/17. Subjective: No major events or complaints; reports overall feeling better; no major abd pain and under control with medications; no n/v/d; no sob or cp; + flatus; + BM ; minimal activity; still with Sadler catheter. Off of oxygen. Objective: Vitals: See below Exam: GENERAL: On exam, the patient was laying in bed and appeared to be comfortable and in no acute distress. ABDOMEN: Soft, nontender and nondistended. Incisions are clean, dry and intact without any evidence of obvious erythema, edema, discharge, or hernia. There are no peritoneal signs or guarding. SKIN: Skin appears to be pink and feels warm to touch. NEUROLOGIC: Patient is awake, alert, and follows commands appropriately. Exam/Review of Systems Vital Signs Vitals Vital Signs Date Time Temp Pulse Resp B/P Pulse Ox O2 Delivery O2 Flow Rate FiO2 06/16/17 13:00 78 20 126/66 93 Room Air 06/16/17 12:00 98.5 06/16/17 11:00 4.0 06/15/17 11:37 33 Intake and Output 06/15/17 06/15/17 06/16/17 15:00 23:00 07:00 Intake Total 850 ml 500 ml Output Total 4150 ml 750 ml 975 ml Balance -3300 ml -750 ml -475 ml Results Result Diagram: 06/16/17 1238 06/16/17 1238 KAYA BERMAN M.D. Jun 16, 2017 14:58
--- NOTE | 2017-06-16 16:31 | PN ---
Date/Time of Note Date/Time of Note DATE: 06/16/17 TIME: 16:30 Assessment/Plan Lines/Catheters IV Catheter Type (from Nrsg): SVETLANA Sadler in Place (from Nrsg): Yes Assessment/Plan Chief Complaint/Hosp Course CKD SP Dialysis cath placement Status post dialysis today Plan to switch the dialysis site to internal jugular vein Problems: Subjective 24 Hr Interval Summary Constitutional: improved Pain Control: mild Exam/Review of Systems Vital Signs Vitals Vital Signs Date Time Temp Pulse Resp B/P Pulse Ox O2 Delivery O2 Flow Rate FiO2 06/16/17 16:00 98.6 87 16 130/87 95 Room Air 06/16/17 11:00 4.0 06/15/17 11:37 33 Intake and Output 06/15/17 06/15/17 06/16/17 15:00 23:00 07:00 Intake Total 850 ml 500 ml Output Total 4150 ml 750 ml 975 ml Balance -3300 ml -750 ml -475 ml Exam ENMT: mucosa pink and moist, nl external ears & nose, nl lips & teeth, nl nasal mucosa & septum Neck: non-tender, supple Respiratory: clear to auscultation, normal air movement Cardiovascular: nl pulses, regular rate and rhythm Results Result Diagram: 06/16/17 1238 06/16/17 1238 BEHZAD MICHEL MD Jun 16, 2017 16:31
--- NOTE | 2017-06-16 17:04 | CONS ---
Date/Time of Note Date/Time of Note DATE: 06/16/17 TIME: 17:03 Assessment/Plan Assessment/Plan Additional Assessment/Plan 61 yo M with h/o HepC admitted with hcc admitted for partial heatectomy, post op course c/b KYLE and hyperkalemia on CKD, and acute respiratory failure requiring intubation which has resolved and acute on chronic hypertension #hyperK, KYLE on CKD -HD as per renal and HD access -cont dieretic though consider changing bumex from IV to PO as tolerating PO #elevated BPs: cont current regimen though unclear to me why labetalol chosen over metop/carvedilol -acei on hold given KYLE on CKD #melena: FOBT NEGATIVE -EGD with just gastritis/esophagitis. Pt now on PPI #DM2: cont current insulin Prophylaxis: SCD's transfer out of unit as per primary Consultation Date/Type/Reason Admit Date/Time Jun 09, 2017 at 06:00 Initial Consult Date 06/14/17 Type of Consultation: Hospitalist 24 HR Interval Summary Free Text/Dictation Pt's wondering when groin line will be dc'ed and permacath placed Exam/Review of Systems Vital Signs Vitals Vital Signs Date Time Temp Pulse Resp B/P Pulse Ox O2 Delivery O2 Flow Rate FiO2 06/16/17 16:00 86 06/16/17 16:00 98.6 16 130/87 95 Room Air 06/16/17 11:00 4.0 06/15/17 11:37 33 Intake and Output 06/15/17 06/15/17 06/16/17 15:00 23:00 07:00 Intake Total 850 ml 500 ml Output Total 4150 ml 750 ml 975 ml Balance -3300 ml -750 ml -475 ml Exam nad, sitting up in chair no mrg lungs clear abd distended no rashes Results Result Diagram: 06/16/17 1238 06/16/17 1238 Results 24 hrs Laboratory Tests Test 06/15/17 18:13 06/15/17 18:47 06/15/17 21:22 06/16/17 02:26 Hemoglobin 7.8 L Hematocrit 23.8 L Bedside Glucose 173 214 181 Test 06/16/17 05:00 06/16/17 05:05 06/16/17 08:20 06/16/17 12:34 Hemoglobin 7.7 L Hematocrit 23.6 L Sodium Level 139 Potassium Level 3.4 L Chloride Level 99 Carbon Dioxide Level 22 Anion Gap 21 H Blood Urea Nitrogen 114 H Creatinine 7.54 H Glucose Level 152 Calcium Level 6.7 L Phosphorus Level 7.8 H Magnesium Level 2.4 Lab Scanned Report BLOOD TRANSFUSION Bedside Glucose 166 63 L Test 06/16/17 12:38 06/16/17 13:44 06/16/17 14:14 06/16/17 14:32 White Blood Count 19.8 H Red Blood Count 3.15 L Hemoglobin 8.2 L Hematocrit 25.3 L Mean Corpuscular Volume 80.3 L Mean Corpuscular Hemoglobin 26.0 L Mean Corpuscular Hemoglobin Concent 32.4 Red Cell Distribution Width 16.2 H Platelet Count 257 Mean Platelet Volume 9.9 Neutrophils % 65.0 Lymphocytes % 13.8 L Monocytes % 14.8 H Eosinophils % 3.3 Basophils % 0.2 Nucleated Red Blood Cells % 0.3 H Neutrophils # 12.9 H Lymphocytes # 2.7 Monocytes # 2.9 H Eosinophils # 0.7 H Basophils # 0.0 Nucleated Red Blood Cells # 0.1 H Glucose Level 52 #L Bedside Glucose 74 88 94 Medications Medications Current Medications Acetaminophen/ Hydrocodone Bitart ([place] (5/325)) 1 tab Q4H PRN PO PAIN LEVEL 4 -7 Last administered on 06/10/17 16:55; Admin Dose 1 TAB; Start 06/09/17 at 14:00 ; Status Future Hold Acetaminophen/ Hydrocodone Bitart ([place] (5/325)) 2 tab Q4H PRN PO PAIN LEVEL 7 -10; Start 06/09/17 at 14:00; Status Future Hold Hydromorphone HCl (Dilaudid) 0.5 mg Q2H PRN IV PAIN; Start 06/09/17 at 14:00 Hydromorphone HCl (Dilaudid) 1 mg Q2H PRN IV PAIN Last administered on 21:26; Admin Dose 1 MG; Start 06/09/17 at 14:00 Docusate Sodium (Colace) 100 mg BID PRN PO CONSTIPATION; Start 06/09/17 at 14:00 Bisacodyl (Dulcolax Supp) 10 mg BID PRN [place] CONSTIPATION; Start 06/09/17 at 14:00 Sodium Biphosphate/ Sodium Phosphate (Fleet Enema) 133 ml BID PRN [place] CONSTIPATION; Start 06/09/17 at 14:00 Enoxaparin Sodium (Lovenox) 40 mg DAILY SC Last administered on 06/13/17 08:22 ; Admin Dose 40 MG; Start 06/10/17 at 09:00; Status Future Hold Miscellaneous Information 1 ea NOTE XX ; Start 06/09/17 at 17:30 Glucose (Glutose) 15 gm Q15M PRN PO DECREASED GLUCOSE; Start 06/09/17 at 17:30 Glucose (Glutose) 22.5 gm Q15M PRN PO DECREASED GLUCOSE; Start 06/09/17 at 17:30 Dextrose (D50w Syringe) 25 ml Q15M PRN IV DECREASED GLUCOSE; Start 06/09/17 at 17:30 Dextrose (D50w Syringe) 50 ml Q15M PRN IV DECREASED GLUCOSE Last administered on 06/09/17 17:47; Admin Dose 50 ML; Start 06/09/17 at 17:30 Glucagon (Glucagen) 1 mg Q15M PRN IM DECREASED GLUCOSE; Start 06/09/17 at 17:30 Glucose (Glutose) 15 gm Q15M PRN BUCCAL DECREASED GLUCOSE; Start 06/09/17 at 17: 30 Hydralazine HCl (Apresoline) 10 mg Q4H PRN IV SBP>170 Last administered on 01:59; Admin Dose 10 MG; Start 06/09/17 at 18:30 Diagnostic Test (Pha) (Accu-Chek) 1 ea 02 XX Last administered on 06/16/17 02: 00; Admin Dose 1 EA; Start 06/11/17 at 02:00 Hydromorphone HCl (Dilaudid DIRECTOR OF COLLECTIONS AND ARCHIVES) 0.1 MG DOSE 10 ... Q4PCA IV Last administered on 06/12/17 14:48; Admin Dose 0.1 MG; Start 06/10/17 at 18:30 Simethicone (Mylicon) 80 mg Q6H PRN GTB DISTENSION/GAS/BLOATING Last administered on 06/13/17 18:41; Admin Dose 80 MG; Start 06/11/17 at 18:00 Clonidine (Catapres) 0.2 mg TID PO Last administered on 06/13/17 21:47; Admin Dose 0.2 MG; Start 06/12/17 at 09:00 Hydralazine HCl (Apresoline) 100 mg TID PO Last administered on 06/13/17 21:46 ; Admin Dose 100 MG; Start 06/12/17 at 09:00 Nifedipine (Procardia Xl) 30 mg BID PO Last administered on 06/16/17 08:23; Admin Dose 30 MG; Start 06/12/17 at 12:00 Labetalol HCl (Normodyne) 200 mg TID PO Last administered on 06/16/17 08:23; Admin Dose 200 MG; Start 06/12/17 at 12:00 Insulin Glargine (Lantus) 35 unit QHS SC Last administered on 06/15/17 21:25; Admin Dose 35 UNIT; Start 06/12/17 at 21:00 Mupirocin (Bactroban) 1 applic BID TOP Last administered on 06/16/17 08:23; Admin Dose 1 APPLIC; Start 06/13/17 at 09:00 Ondansetron HCl (Zofran Inj) 4 mg Q6H PRN IV NAUSEA AND/OR VOMITING Last administered on 06/15/17 06:01; Admin Dose 4 MG; Start 06/13/17 at 20:30 Bumetanide (Bumex) 1 mg DAILY IV ; Start 06/17/17 at 09:00 Pantoprazole (Protonix Tab) 40 mg BID@06,18 PO ; Start 06/16/17 at 18:00 PERRI JANE MD Jun 16, 2017 17:04
--- NOTE | 2017-06-16 17:21 | PN ---
Date/Time of Note Date/Time of Note DATE: 06/16/17 TIME: 17:17 Assessment/Plan VTE Prophylaxis VTE Prophylaxis Intervention: contraindicated VTE Contraindication Reason: bleeding Lines/Catheters IV Catheter Type (from Nrs): SVETLANA Urinary Cath still in place: Yes Reason Cath still needed: urinary retention Assessment/Plan Assessment/Plan Assessment: * GI bleeding/melena * EGD * Severe erosive esophagitis * Moderate gastritis * No biopsies * Chronic hepatitis C/post Harvoni treatment with eradication * Hepatocellular carcinoma/post segmental hepatectomy * Renal failure on dialysis * Hypertension * Diabetes mellitus Plan * continue present management * case discussed with Dr Cortes * Further orders will depend on clinical course Subjective 24 Hr Interval Summary Free Text/Dictation * Course reviewed with RN * Patient seen and examined * No untoward events overnight Exam/Review of Systems Vital Signs Vitals Vital Signs Date Time Temp Pulse Resp B/P Pulse Ox O2 Delivery O2 Flow Rate FiO2 06/16/17 16:00 86 06/16/17 16:00 98.6 16 130/87 95 Room Air 06/16/17 11:00 4.0 06/15/17 11:37 33 Intake and Output 06/15/17 06/15/17 06/16/17 15:00 23:00 07:00 Intake Total 850 ml 500 ml Output Total 4150 ml 750 ml 975 ml Balance -3300 ml -750 ml -475 ml Exam Constitutional: alert, oriented Eyes: nl conjunctiva Neck: non-tender, supple Respiratory: clear to auscultation, normal air movement Cardiovascular: nl pulses, regular rate and rhythm Gastrointestinal: non-tender, soft Musculoskeletal: nl extremities to inspection Extremities: normal pulses Neurological: nl speech Skin: nl turgor, No rash or lesions Lymph: nl lymph nodes Results Result Diagram: 06/16/17 1238 06/16/17 1238 Results 24 hrs Laboratory Tests Test 06/15/17 18:13 06/15/17 18:47 06/15/17 21:22 06/16/17 02:26 Hemoglobin 7.8 L Hematocrit 23.8 L Bedside Glucose 173 214 181 Test 06/16/17 05:00 06/16/17 05:05 06/16/17 08:20 06/16/17 12:34 Hemoglobin 7.7 L Hematocrit 23.6 L Sodium Level 139 Potassium Level 3.4 L Chloride Level 99 Carbon Dioxide Level 22 Anion Gap 21 H Blood Urea Nitrogen 114 H Creatinine 7.54 H Glucose Level 152 Calcium Level 6.7 L Phosphorus Level 7.8 H Magnesium Level 2.4 Lab Scanned Report BLOOD TRANSFUSION Bedside Glucose 166 63 L Test 06/16/17 12:38 06/16/17 13:44 06/16/17 14:14 06/16/17 14:32 White Blood Count 19.8 H Red Blood Count 3.15 L Hemoglobin 8.2 L Hematocrit 25.3 L Mean Corpuscular Volume 80.3 L Mean Corpuscular Hemoglobin 26.0 L Mean Corpuscular Hemoglobin Concent 32.4 Red Cell Distribution Width 16.2 H Platelet Count 257 Mean Platelet Volume 9.9 Neutrophils % 65.0 Lymphocytes % 13.8 L Monocytes % 14.8 H Eosinophils % 3.3 Basophils % 0.2 Nucleated Red Blood Cells % 0.3 H Neutrophils # 12.9 H Lymphocytes # 2.7 Monocytes # 2.9 H Eosinophils # 0.7 H Basophils # 0.0 Nucleated Red Blood Cells # 0.1 H Glucose Level 52 #L Bedside Glucose 74 88 94 Medications Medications Current Medications Acetaminophen/ Hydrocodone Bitart ([place] (5/325)) 1 tab Q4H PRN PO PAIN LEVEL 4 -7 Last administered on 06/10/17 16:55; Admin Dose 1 TAB; Start 06/09/17 at 14:00 ; Status Future Hold Acetaminophen/ Hydrocodone Bitart ([place] (5/325)) 2 tab Q4H PRN PO PAIN LEVEL 7 -10; Start 06/09/17 at 14:00; Status Future Hold Hydromorphone HCl (Dilaudid) 0.5 mg Q2H PRN IV PAIN; Start 06/09/17 at 14:00 Hydromorphone HCl (Dilaudid) 1 mg Q2H PRN IV PAIN Last administered on 21:26; Admin Dose 1 MG; Start 06/09/17 at 14:00 Docusate Sodium (Colace) 100 mg BID PRN PO CONSTIPATION; Start 06/09/17 at 14:00 Bisacodyl (Dulcolax Supp) 10 mg BID PRN [place] CONSTIPATION; Start 06/09/17 at 14:00 Sodium Biphosphate/ Sodium Phosphate (Fleet Enema) 133 ml BID PRN [place] CONSTIPATION; Start 06/09/17 at 14:00 Enoxaparin Sodium (Lovenox) 40 mg DAILY SC Last administered on 06/13/17 08:22 ; Admin Dose 40 MG; Start 06/10/17 at 09:00; Status Future Hold Miscellaneous Information 1 ea NOTE XX ; Start 06/09/17 at 17:30 Glucose (Glutose) 15 gm Q15M PRN PO DECREASED GLUCOSE; Start 06/09/17 at 17:30 Glucose (Glutose) 22.5 gm Q15M PRN PO DECREASED GLUCOSE; Start 06/09/17 at 17:30 Dextrose (D50w Syringe) 25 ml Q15M PRN IV DECREASED GLUCOSE; Start 06/09/17 at 17:30 Dextrose (D50w Syringe) 50 ml Q15M PRN IV DECREASED GLUCOSE Last administered on 06/09/17 17:47; Admin Dose 50 ML; Start 06/09/17 at 17:30 Glucagon (Glucagen) 1 mg Q15M PRN IM DECREASED GLUCOSE; Start 06/09/17 at 17:30 Glucose (Glutose) 15 gm Q15M PRN BUCCAL DECREASED GLUCOSE; Start 06/09/17 at 17: 30 Hydralazine HCl (Apresoline) 10 mg Q4H PRN IV SBP>170 Last administered on 01:59; Admin Dose 10 MG; Start 06/09/17 at 18:30 Diagnostic Test (Pha) (Accu-Chek) 1 ea 02 XX Last administered on 06/16/17 02: 00; Admin Dose 1 EA; Start 06/11/17 at 02:00 Hydromorphone HCl (Dilaudid DIETETIC ASSISTANT) 0.1 MG DOSE 10 ... Q4PCA IV Last administered on 06/12/17 14:48; Admin Dose 0.1 MG; Start 06/10/17 at 18:30 Simethicone (Mylicon) 80 mg Q6H PRN GTB DISTENSION/GAS/BLOATING Last administered on 06/13/17 18:41; Admin Dose 80 MG; Start 06/11/17 at 18:00 Clonidine (Catapres) 0.2 mg TID PO Last administered on 06/13/17 21:47; Admin Dose 0.2 MG; Start 06/12/17 at 09:00 Hydralazine HCl (Apresoline) 100 mg TID PO Last administered on 06/13/17 21:46 ; Admin Dose 100 MG; Start 06/12/17 at 09:00 Nifedipine (Procardia Xl) 30 mg BID PO Last administered on 06/16/17 08:23; Admin Dose 30 MG; Start 06/12/17 at 12:00 Labetalol HCl (Normodyne) 200 mg TID PO Last administered on 06/16/17 08:23; Admin Dose 200 MG; Start 06/12/17 at 12:00 Insulin Glargine (Lantus) 35 unit QHS SC Last administered on 06/15/17 21:25; Admin Dose 35 UNIT; Start 06/12/17 at 21:00 Mupirocin (Bactroban) 1 applic BID TOP Last administered on 06/16/17 08:23; Admin Dose 1 APPLIC; Start 06/13/17 at 09:00 Ondansetron HCl (Zofran Inj) 4 mg Q6H PRN IV NAUSEA AND/OR VOMITING Last administered on 06/15/17 06:01; Admin Dose 4 MG; Start 06/13/17 at 20:30 Bumetanide (Bumex) 1 mg DAILY IV ; Start 06/17/17 at 09:00 Pantoprazole (Protonix Tab) 40 mg BID@18 PO ; Start 06/16/17 at 18:00 AMANDA CABAN NP Jun 16, 2017 17:21
--- NOTE | 2017-06-16 17:33 | OPR ---
Date/Time of Note Date/Time of Note DATE: 06/16/17 TIME: 17:30 Operative Report Procedure Date: Jun 16, 2017 Preoperative Diagnosis Renal failure Postoperative Diagnosis Same Operation Performed Right internal jugular vein hemodialysis catheter placement Ultrasound guidance into the central vein Surgeon: BEHZAD MICHEL MD Anesthesia Type: MAC, other Estimated Blood Loss: none Transfusion Required: no Complications: no Pt Condition Post Procedure: critical Indications Renal failure Operative\Procedure Findings Right internal jugular vein hemodialysis catheter placement Procedure Description Response complications alternative therapies explained to the patient consent obtained Patient was placed supine position prepped and draped in usual sterile fashion Access was gained in the right internal jugular vein using ultrasound guidance Guidewire was advanced without any difficulties subcutaneous tissues were dilated using the dilator Dialysis catheter and 16 cm Mahurkar was advanced over a guidewire secured to skin using silk sutures Both ports of the catheter were aspirated and injected using saline solution Patient tolerated procedure well BEHZAD MICHEL MD Jun 16, 2017 17:33
[2017-06-16] MEDS: PANTOPRAZOLE (EC) 40 MG TAB PO SCH (17:52)
[2017-06-16 18:34] LABS: HEMATOCRIT 26.2 % (42.0-52.0); HEMOGLOBIN 8.5 g/dl (14.0-18.0)
[2017-06-16] MEDS: INSULIN GLARGINE [LANtus] 3 ML PEN SC SCH (21:00)
[2017-06-17] VITALS (11 sets, daily range): BP systolic 121–137; BP diastolic 63–79; PULSE 84–88; RESP 18–20
[2017-06-17] MEDS: INSULIN ASPART [NOVOLOG] 3 ML PEN SC SCH ×5 (00:01→21:05)
[2017-06-17] MEDS: INSULIN GLARGINE [LANtus] 3 ML PEN SC SCH ×2 (00:01→21:06)
[2017-06-17 01:04] LABS: HEMATOCRIT 26.7 % (42.0-52.0); HEMOGLOBIN 8.8 g/dl (14.0-18.0)
[2017-06-17] MEDS: ACCU-CHEK XX SCH (02:00)
[2017-06-17] MEDS: PANTOPRAZOLE (EC) 40 MG TAB PO SCH ×2 (05:43→17:40)
[2017-06-17 06:33] LABS: ABNORMAL IP MESSAGE 1; BASOPHILS % 0.2 % (0.0-2.0); EOSINOPHILS # 0.5 10^3/ul (0.0-0.5); EOSINOPHILS % 2.7 % (0.0-7.0); HEMATOCRIT 24.9 % (42.0-52.0); HEMOGLOBIN 8.3 g/dl (14.0-18.0); LYMPHOCYTES # 2.7 10^3/ul (0.8-2.9); LYMPHOCYTES % 15.9 % (15.0-51.0); MEAN CORPUSCULAR HEMOGLOBIN 26.6 pg (29.0-33.0); MEAN CORPUSCULAR HGB CONC 33.3 g/dl (32.0-37.0); MEAN CORPUSCULAR VOLUME 79.8 fl (82.0-101.0); MEAN PLATELET VOLUME 10.1 fl (7.4-10.4); MONOCYTE # 2.1 10^3/ul (0.3-0.9); MONOCYTES % 12.7 % (0.0-11.0); NEUTROPHILS % 65.9 % (39.0-77.0); NUCLEATED RED BLOOD CELLS% 0.2 /100WBC (0.0-0.0); PLATELET COUNT 226 10^3/UL (140-415); POSITIVE DIFF @See below; RED BLOOD COUNT 3.12 10^6/ul (4.70-6.10); WHITE BLOOD COUNT 16.7 10^3/ul (4.8-10.8)
[2017-06-17 06:51] LABS: INR 1.03; PARTIAL THROMBOPLASTIN TIME 27.3 Sec (25.0-35.0); PROTIME 13.5 Sec (12.2-14.2); PT RATIO 1.1
[2017-06-17 07:02] LABS: ALBUMIN 2.5 g/dl (3.3-4.9); ALBUMIN/GLOBULIN RATIO 0.75; BILIRUBIN,INDIRECT 0.1 mg/dl (0-1.1); BILIRUBIN,TOTAL 0.1 mg/dl (0.2-1.3); CALCIUM 6.9 mg/dl (8.4-10.2); CREATININE 5.9 mg/dl (0.61-1.24); MAGNESIUM 2.3 mg/dl (1.7-2.5); PHOSPHORUS 5.5 mg/dl (2.5-4.9); POTASSIUM 3.2 mmol/L (3.5-5.1); TOTAL PROTEIN 5.8 g/dl (6.1-8.1)
[2017-06-17] MEDS ORDERED: BUMETANIDE 1 MG INJ IV SCH (09:00)
[2017-06-17] MEDS: LABETALOL 200 MG TAB PO SCH ×3 (09:37→21:00)
[2017-06-17] MEDS: NIFEdipine (XL) 30 MG TAB PO SCH ×2 (09:38→21:00)
[2017-06-17] MEDS: MUPIROCIN 2% 22 GM OINT TOP SCH ×2 (09:39→21:07)
--- NOTE | 2017-06-17 11:25 | CONS ---
Date/Time of Note Date/Time of Note DATE: 06/17/17 TIME: 11:19 Assessment/Plan Assessment/Plan Chief Complaint/Hosp Course IMP: 1. Hypertensive urgency emergency-now improved 2. Tachycardia consistent with sinus tachycardia at this time- no improved 3. History of dyslipidemia. 4. Status post liver resection of hepatocellular carcinoma. 5. History of hepatocellular carcinoma, status post resection as above. 6. Acute on chronic renal failure now on HD 7. Hyperkalemia, resolved with dialysis. 8. Congestive heart failure. Assess for volume overload by chest x-ray. 9. Diabetes mellitus. REcc: -Continue current procardia/clonidine/labetelol/hydralazine with well controlled BPO -Continue bumex and follow volume status clsoely -HD for volume removal Problems: Consultation Date/Type/Reason Admit Date/Time Jun 09, 2017 at 06:00 Initial Consult Date 06/14/17 Type of Consultation: cardiology Reason for Consultation HTN Referring Provider: KAL BERMAN DPM Exam/Review of Systems Vital Signs Vitals Vital Signs Date Time Temp Pulse Resp B/P Pulse Ox O2 Delivery O2 Flow Rate FiO2 06/17/17 07:50 98.9 92 18 135/75 90 06/16/17 17:58 5.0 06/16/17 17:00 Room Air 06/15/17 11:37 33 Intake and Output 06/16/17 06/16/17 06/17/17 15:00 23:00 07:00 Intake Total 720 ml 740 ml 300 ml Output Total 975 ml 1500 ml Balance -255 ml -760 ml 300 ml Exam Review of Systems: CONSTITUTIONAL: No fevers, chills. PULMONARY: No sob CARDIOVASCULAR: No chest pain/palpitations GASTROINTESTINAL: No nausea/vomiting. GENITOURINARY: No hematuria/dysuria. MUSCULOSKELETAL: No myagias/arthalgias. PSYCHIATRIC: The patient denies depression. NEUROLOGIC: No weakness Constitutional: alert Psych: no complaints Head: normocephalic ENMT: mucosa pink and moist Neck: jvd (9 cm water), supple Respiratory: diminished breath sounds (at bases/B) Cardiovascular: regular rate and rhythm Gastrointestinal: non-tender, soft Musculoskeletal: muscle tone Extremities: edema (trace/B) Neurological: other (No focal deficits) Results Result Diagram: 06/17/17 0556 06/17/17 0608 Results 24 hrs Laboratory Tests Test 06/16/17 12:34 06/16/17 12:38 06/16/17 13:44 06/16/17 14:14 Bedside Glucose 63 L 74 88 White Blood Count 19.8 H Red Blood Count 3.15 L Hemoglobin 8.2 L Hematocrit 25.3 L Mean Corpuscular Volume 80.3 L Mean Corpuscular Hemoglobin 26.0 L Mean Corpuscular Hemoglobin Concent 32.4 Red Cell Distribution Width 16.2 H Platelet Count 257 Mean Platelet Volume 9.9 Neutrophils % 65.0 Lymphocytes % 13.8 L Monocytes % 14.8 H Eosinophils % 3.3 Basophils % 0.2 Nucleated Red Blood Cells % 0.3 H Neutrophils # 12.9 H Lymphocytes # 2.7 Monocytes # 2.9 H Eosinophils # 0.7 H Basophils # 0.0 Nucleated Red Blood Cells # 0.1 H Glucose Level 52 #L Test 06/16/17 14:32 06/16/17 17:46 06/16/17 18:12 06/16/17 23:51 Bedside Glucose 94 141 195 Hemoglobin 8.5 L Hematocrit 26.2 L Test 06/17/17 00:52 06/17/17 02:25 06/17/17 05:56 06/17/17 06:08 Hemoglobin 8.8 L 8.3 L Hematocrit 26.7 L 24.9 L Bedside Glucose 198 White Blood Count 16.7 H Red Blood Count 3.12 L Mean Corpuscular Volume 79.8 L Mean Corpuscular Hemoglobin 26.6 L Mean Corpuscular Hemoglobin Concent 33.3 Red Cell Distribution Width 16.0 H Platelet Count 226 Mean Platelet Volume 10.1 Neutrophils % 65.9 Lymphocytes % 15.9 Monocytes % 12.7 H Eosinophils % 2.7 Basophils % 0.2 Nucleated Red Blood Cells % 0.2 H Neutrophils # 11.0 H Lymphocytes # 2.7 Monocytes # 2.1 H Eosinophils # 0.5 Basophils # 0.0 Nucleated Red Blood Cells # 0.0 Prothrombin Time 13.5 Prothrombin Time Ratio 1.1 INR International Normalized Ratio 1.03 Activated Partial Thromboplast Time 27.3 Sodium Level 141 Potassium Level 3.2 L Chloride Level 98 Carbon Dioxide Level 25 Anion Gap 21 H Blood Urea Nitrogen 94 H Creatinine 5.90 H Glucose Level 162 # Calcium Level 6.9 L Phosphorus Level 5.5 #H Magnesium Level 2.3 Total Bilirubin 0.1 L Direct Bilirubin 0.00 Indirect Bilirubin 0.1 Aspartate Amino Transf (AST/SGOT) 74 H Alanine Aminotransferase (ALT/SGPT) 72 H Alkaline Phosphatase 398 H Total Protein 5.8 L Albumin 2.5 L Globulin 3.30 H Albumin/Globulin Ratio 0.75 Test 06/17/17 08:09 Bedside Glucose 162 Medications Medications Current Medications Acetaminophen/ Hydrocodone Bitart ([place] (5/325)) 1 tab Q4H PRN PO PAIN LEVEL 4 -7 Last administered on 06/10/17 16:55; Admin Dose 1 TAB; Start 06/09/17 at 14:00 ; Status Future Hold Acetaminophen/ Hydrocodone Bitart ([place] (5/325)) 2 tab Q4H PRN PO PAIN LEVEL 7 -10; Start 06/09/17 at 14:00; Status Future Hold Hydromorphone HCl (Dilaudid) 0.5 mg Q2H PRN IV PAIN; Start 06/09/17 at 14:00 Hydromorphone HCl (Dilaudid) 1 mg Q2H PRN IV PAIN Last administered on 21:26; Admin Dose 1 MG; Start 06/09/17 at 14:00 Docusate Sodium (Colace) 100 mg BID PRN PO CONSTIPATION; Start 06/09/17 at 14:00 Bisacodyl (Dulcolax Supp) 10 mg BID PRN [place] CONSTIPATION; Start 06/09/17 at 14:00 Sodium Biphosphate/ Sodium Phosphate (Fleet Enema) 133 ml BID PRN [place] CONSTIPATION; Start 06/09/17 at 14:00 Enoxaparin Sodium (Lovenox) 40 mg DAILY SC Last administered on 06/13/17 08:22 ; Admin Dose 40 MG; Start 06/10/17 at 09:00; Status Future Hold Miscellaneous Information 1 ea NOTE XX ; Start 06/09/17 at 17:30 Glucose (Glutose) 15 gm Q15M PRN PO DECREASED GLUCOSE; Start 06/09/17 at 17:30 Glucose (Glutose) 22.5 gm Q15M PRN PO DECREASED GLUCOSE; Start 06/09/17 at 17:30 Dextrose (D50w Syringe) 25 ml Q15M PRN IV DECREASED GLUCOSE; Start 06/09/17 at 17:30 Dextrose (D50w Syringe) 50 ml Q15M PRN IV DECREASED GLUCOSE Last administered on 06/09/17 17:47; Admin Dose 50 ML; Start 06/09/17 at 17:30 Glucagon (Glucagen) 1 mg Q15M PRN IM DECREASED GLUCOSE; Start 06/09/17 at 17:30 Glucose (Glutose) 15 gm Q15M PRN BUCCAL DECREASED GLUCOSE; Start 06/09/17 at 17: 30 Hydralazine HCl (Apresoline) 10 mg Q4H PRN IV SBP>170 Last administered on 01:59; Admin Dose 10 MG; Start 06/09/17 at 18:30 Diagnostic Test (Pha) (Accu-Chek) 1 ea 02 XX Last administered on 06/17/17 02: 00; Admin Dose 1 EA; Start 06/11/17 at 02:00 Hydromorphone HCl (Dilaudid SHAKER SCREEN OPERATOR) 0.1 MG DOSE 10 ... Q4PCA IV Last administered on 06/12/17 14:48; Admin Dose 0.1 MG; Start 06/10/17 at 18:30 Simethicone (Mylicon) 80 mg Q6H PRN GTB DISTENSION/GAS/BLOATING Last administered on 06/17/17 00:45; Admin Dose 80 MG; Start 06/11/17 at 18:00 Clonidine (Catapres) 0.2 mg TID PO Last administered on 06/17/17 09:36; Admin Dose 0.2 MG; Start 06/12/17 at 09:00 Hydralazine HCl (Apresoline) 100 mg TID PO Last administered on 06/17/17 09:36 ; Admin Dose 100 MG; Start 06/12/17 at 09:00 Nifedipine (Procardia Xl) 30 mg BID PO Last administered on 06/17/17 09:38; Admin Dose 30 MG; Start 06/12/17 at 12:00 Labetalol HCl (Normodyne) 200 mg TID PO Last administered on 06/17/17 09:37; Admin Dose 200 MG; Start 06/12/17 at 12:00 Insulin Glargine (Lantus) 35 unit QHS SC Last administered on 06/17/17 00:01; Admin Dose 35 UNIT; Start 06/12/17 at 21:00 Mupirocin (Bactroban) 1 applic BID TOP Last administered on 06/17/17 09:39; Admin Dose 1 APPLIC; Start 06/13/17 at 09:00 Ondansetron HCl (Zofran Inj) 4 mg Q6H PRN IV NAUSEA AND/OR VOMITING Last administered on 06/15/17 06:01; Admin Dose 4 MG; Start 06/13/17 at 20:30 Bumetanide (Bumex) 1 mg DAILY IV Last administered on 06/17/17 09:40; Admin Dose 1 MG; Start 06/17/17 at 09:00 Pantoprazole (Protonix Tab) 40 mg BID@06,18 PO Last administered on 06/17/17 05 :43; Admin Dose 40 MG; Start 06/16/17 at 18:00 SAI FITZPATRICK Jun 17, 2017 11:24
--- NOTE | 2017-06-17 11:27 | PN ---
Date/Time of Note Date/Time of Note DATE: 06/17/17 TIME: 11:24 Assessment/Plan Lines/Catheters IV Catheter Type (from Nrsg): Central Line Sadler in Place (from Nrsg): Yes Assessment/Plan Chief Complaint/Hosp Course CKD SP Dialysis cath placement Status post dialysis today SP internal jugular vein cath will continue dialysis may need permcath placement Problems: Subjective 24 Hr Interval Summary Constitutional: improved Pain Control: mild Exam/Review of Systems Vital Signs Vitals Vital Signs Date Time Temp Pulse Resp B/P Pulse Ox O2 Delivery O2 Flow Rate FiO2 06/17/17 07:50 98.9 92 18 135/75 90 06/16/17 17:58 5.0 06/16/17 17:00 Room Air 06/15/17 11:37 33 Intake and Output 06/16/17 06/16/17 06/17/17 15:00 23:00 07:00 Intake Total 720 ml 740 ml 300 ml Output Total 975 ml 1500 ml Balance -255 ml -760 ml 300 ml Exam ENMT: mucosa pink and moist, nl external ears & nose, nl lips & teeth, nl nasal mucosa & septum Neck: non-tender, supple Respiratory: clear to auscultation, normal air movement Cardiovascular: nl pulses, regular rate and rhythm Results Result Diagram: 06/17/17 0556 06/17/17 0608 BEHZAD MICHEL MD Jun 17, 2017 11:27
[2017-06-17 12:36] LABS: HEMATOCRIT 25.2 % (42.0-52.0); HEMOGLOBIN 8.2 g/dl (14.0-18.0)
[2017-06-17] MEDS ORDERED: ALBUMIN HUMAN 25% 100 ML IV PRN (14:00)
[2017-06-17] MEDS ORDERED: SOD CHLORIDE 0.9% 1,000 ML IV PRN (14:00)
[2017-06-17] MEDS ORDERED: MANNITOL 25% 50 ML IV PRN (14:00)
--- NOTE | 2017-06-17 14:56 | CONS ---
Date/Time of Note Date/Time of Note DATE: 06/17/17 TIME: 14:51 Assessment/Plan Assessment/Plan Chief Complaint/Hosp Course 1. KYLE on A/P HYPERKALEMIA BETTER S/P HD WITH INTERMITTENT HD .Pt has good UOP on Bumex but has with poor clearence ( BUN/cr 94/5.9 ) 2. DM on Insulin 3 KYLE on CKD IV with ATN 4 Hyperphos 5 Hypokalemia 4 .HTN 5 HEP C s/p S/P LIVER SURGERY 6 Urinary retention s/p Straight cath 7 Anemia s/p EGD with erosive gastritis Recs: Due to severe uremia, will plan for another session of HD today for clearence, even though has good UOP , has poor clearence change bumex to 1 mg po daily HD today for clearence thru Rt I.J. Please remove Rt femoral still in place CK BMP s/p rt I.J for HD, Pt will likely need Permacath as had CKD IV, will get old records Sadler catheter c/w renagel 800 tid with meals Problems: Consultation Date/Type/Reason Admit Date/Time Jun 09, 2017 at 06:00 Initial Consult Date 06/14/17 Type of Consultation: Nephrology Referring Provider: KAL BERMAN DPM 24 HR Interval Summary Free Text/Dictation s/p Rt IJ catheter yest and had session of HD x2 hrs Overall improving UOP 2 L Exam/Review of Systems Vital Signs Vitals Vital Signs Date Time Temp Pulse Resp B/P Pulse Ox O2 Delivery O2 Flow Rate FiO2 06/17/17 14:11 98.4 80 18 129/72 95 06/16/17 17:58 5.0 06/16/17 17:00 Room Air 06/15/17 11:37 33 Intake and Output 06/16/17 06/16/17 06/17/17 15:00 23:00 07:00 Intake Total 720 ml 740 ml 300 ml Output Total 975 ml 1500 ml Balance -255 ml -760 ml 300 ml Exam constitutional: alert, oriented Eyes: EOMI Neck: supple Respiratory: diminished breath soundsB/L Cardiovascular: regular rate and rhythm Gastrointestinal: distended, surgical scars Extremities: edema Additional Comments Rt groin catheter + rt I.J Constitutional: alert, oriented, well developed Psych: nl mood/affect, no complaints Head: atraumatic, normocephalic Eyes: EOMI, PERRL, nl conjunctiva, nl lids, nl sclera ENMT: nl external ears & nose, nl lips & teeth, nl nasal mucosa & septum Neck: non-tender, supple Respiratory: clear to auscultation, normal air movement Cardiovascular: nl pulses, regular rate and rhythm Gastrointestinal: nl liver, spleen, non-tender, soft Musculoskeletal: nl extremities to inspection, nl gait and stance Extremities: normal pulses Neurological: SOFTWARE ADMINISTRATOR II-XII intact, nl mental status, nl speech, nl strength Skin: nl turgor, No rash or lesions Lymph: nl lymph nodes Results Result Diagram: 06/17/17 1206 06/17/17 0608 Results 24 hrs Laboratory Tests Test 06/16/17 17:46 06/16/17 18:12 06/16/17 23:51 06/17/17 00:52 Bedside Glucose 141 195 Hemoglobin 8.5 L 8.8 L Hematocrit 26.2 L 26.7 L Test 06/17/17 02:25 06/17/17 05:56 06/17/17 06:08 06/17/17 08:09 Bedside Glucose 198 162 White Blood Count 16.7 H Red Blood Count 3.12 L Hemoglobin 8.3 L Hematocrit 24.9 L Mean Corpuscular Volume 79.8 L Mean Corpuscular Hemoglobin 26.6 L Mean Corpuscular Hemoglobin Concent 33.3 Red Cell Distribution Width 16.0 H Platelet Count 226 Mean Platelet Volume 10.1 Neutrophils % 65.9 Lymphocytes % 15.9 Monocytes % 12.7 H Eosinophils % 2.7 Basophils % 0.2 Nucleated Red Blood Cells % 0.2 H Neutrophils # 11.0 H Lymphocytes # 2.7 Monocytes # 2.1 H Eosinophils # 0.5 Basophils # 0.0 Nucleated Red Blood Cells # 0.0 Prothrombin Time 13.5 Prothrombin Time Ratio 1.1 INR International Normalized Ratio 1.03 Activated Partial Thromboplast Time 27.3 Sodium Level 141 Potassium Level 3.2 L Chloride Level 98 Carbon Dioxide Level 25 Anion Gap 21 H Blood Urea Nitrogen 94 H Creatinine 5.90 H Glucose Level 162 # Calcium Level 6.9 L Phosphorus Level 5.5 #H Magnesium Level 2.3 Total Bilirubin 0.1 L Direct Bilirubin 0.00 Indirect Bilirubin 0.1 Aspartate Amino Transf (AST/SGOT) 74 H Alanine Aminotransferase (ALT/SGPT) 72 H Alkaline Phosphatase 398 H Total Protein 5.8 L Albumin 2.5 L Globulin 3.30 H Albumin/Globulin Ratio 0.75 Test 06/17/17 12:06 Hemoglobin 8.2 L Hematocrit 25.2 L Bedside Glucose 116 Medications Medications Current Medications Acetaminophen/ Hydrocodone Bitart ([place] (5/325)) 1 tab Q4H PRN PO PAIN LEVEL 4 -7 Last administered on 06/10/17 16:55; Admin Dose 1 TAB; Start 06/09/17 at 14:00 ; Status Future Hold Acetaminophen/ Hydrocodone Bitart ([place] (5/325)) 2 tab Q4H PRN PO PAIN LEVEL 7 -10; Start 06/09/17 at 14:00; Status Future Hold Hydromorphone HCl (Dilaudid) 0.5 mg Q2H PRN IV PAIN; Start 06/09/17 at 14:00 Hydromorphone HCl (Dilaudid) 1 mg Q2H PRN IV PAIN Last administered on 21:26; Admin Dose 1 MG; Start 06/09/17 at 14:00 Docusate Sodium (Colace) 100 mg BID PRN PO CONSTIPATION; Start 06/09/17 at 14:00 Bisacodyl (Dulcolax Supp) 10 mg BID PRN [place] CONSTIPATION; Start 06/09/17 at 14:00 Sodium Biphosphate/ Sodium Phosphate (Fleet Enema) 133 ml BID PRN [place] CONSTIPATION; Start 06/09/17 at 14:00 Enoxaparin Sodium (Lovenox) 40 mg DAILY SC Last administered on 06/13/17 08:22 ; Admin Dose 40 MG; Start 06/10/17 at 09:00; Status Future Hold Miscellaneous Information 1 ea NOTE XX ; Start 06/09/17 at 17:30 Glucose (Glutose) 15 gm Q15M PRN PO DECREASED GLUCOSE; Start 06/09/17 at 17:30 Glucose (Glutose) 22.5 gm Q15M PRN PO DECREASED GLUCOSE; Start 06/09/17 at 17:30 Dextrose (D50w Syringe) 25 ml Q15M PRN IV DECREASED GLUCOSE; Start 06/09/17 at 17:30 Dextrose (D50w Syringe) 50 ml Q15M PRN IV DECREASED GLUCOSE Last administered on 06/09/17 17:47; Admin Dose 50 ML; Start 06/09/17 at 17:30 Glucagon (Glucagen) 1 mg Q15M PRN IM DECREASED GLUCOSE; Start 06/09/17 at 17:30 Glucose (Glutose) 15 gm Q15M PRN BUCCAL DECREASED GLUCOSE; Start 06/09/17 at 17: 30 Hydralazine HCl (Apresoline) 10 mg Q4H PRN IV SBP>170 Last administered on 01:59; Admin Dose 10 MG; Start 06/09/17 at 18:30 Diagnostic Test (Pha) (Accu-Chek) 1 ea 02 XX Last administered on 06/17/17 02: 00; Admin Dose 1 EA; Start 06/11/17 at 02:00 Hydromorphone HCl (Dilaudid WOOL PULLER) 0.1 MG DOSE 10 ... Q4PCA IV Last administered on 06/12/17 14:48; Admin Dose 0.1 MG; Start 06/10/17 at 18:30 Simethicone (Mylicon) 80 mg Q6H PRN GTB DISTENSION/GAS/BLOATING Last administered on 06/17/17 13:28; Admin Dose 80 MG; Start 06/11/17 at 18:00 Clonidine (Catapres) 0.2 mg TID PO Last administered on 06/17/17 13:24; Admin Dose 0.2 MG; Start 06/12/17 at 09:00 Hydralazine HCl (Apresoline) 100 mg TID PO Last administered on 06/17/17 13:24 ; Admin Dose 100 MG; Start 06/12/17 at 09:00 Nifedipine (Procardia Xl) 30 mg BID PO Last administered on 06/17/17 09:38; Admin Dose 30 MG; Start 06/12/17 at 12:00 Labetalol HCl (Normodyne) 200 mg TID PO Last administered on 06/17/17 09:37; Admin Dose 200 MG; Start 06/12/17 at 12:00 Insulin Glargine (Lantus) 35 unit QHS SC Last administered on 06/17/17 00:01; Admin Dose 35 UNIT; Start 06/12/17 at 21:00 Mupirocin (Bactroban) 1 applic BID TOP Last administered on 06/17/17 09:39; Admin Dose 1 APPLIC; Start 06/13/17 at 09:00 Ondansetron HCl (Zofran Inj) 4 mg Q6H PRN IV NAUSEA AND/OR VOMITING Last administered on 06/15/17 06:01; Admin Dose 4 MG; Start 06/13/17 at 20:30 Bumetanide (Bumex) 1 mg DAILY IV Last administered on 06/17/17 09:40; Admin Dose 1 MG; Start 06/17/17 at 09:00 Pantoprazole 40 mg 40 mg BID@06,18 PO Last administered on 06/17/17 05:43; Admin Dose 40 MG; Start 06/16/17 at 18:00 Sodium Chloride (NS) 1,000 ml @ 0 mls/hr Q0M PRN IV TO KEEP SBP ABOVE 90; Start 06/17/17 at 14:00 OSIEL ISAACS MD Jun 17, 2017 14:56
--- NOTE | 2017-06-17 15:33 | PN ---
Date/Time of Note Date/Time of Note DATE: 06/17/17 TIME: 15:29 Assessment/Plan VTE Prophylaxis VTE Prophylaxis Intervention: ambulation VTE Contraindication Reason: bleeding Lines/Catheters IV Catheter Type (from Nrs): Central Line Central line still needed: Yes Urinary Cath still in place: Yes Reason Cath still needed: urinary retention Assessment/Plan Assessment/Plan Assessment: * GI bleeding/melena * EGD * Severe erosive esophagitis * Moderate gastritis * No biopsies * Chronic hepatitis C/post Harvoni treatment with eradication * Hepatocellular carcinoma/post segmental hepatectomy * Renal failure on dialysis * Hypertension * Diabetes mellitus Plan * continue present management * case discussed with Dr Cortes * Further orders will depend on clinical course Subjective 24 Hr Interval Summary Free Text/Dictation * Course reviewed with RN * Patient seen and examined * No untoward events overnight Exam/Review of Systems Vital Signs Vitals Vital Signs Date Time Temp Pulse Resp B/P Pulse Ox O2 Delivery O2 Flow Rate FiO2 06/17/17 14:11 98.4 80 18 129/72 95 06/16/17 17:58 5.0 06/16/17 17:00 Room Air 06/15/17 11:37 33 Intake and Output 06/16/17 06/16/17 06/17/17 15:00 23:00 07:00 Intake Total 720 ml 740 ml 300 ml Output Total 975 ml 1500 ml Balance -255 ml -760 ml 300 ml Exam Constitutional: alert, oriented Neck: non-tender, supple Respiratory: clear to auscultation, normal air movement Cardiovascular: nl pulses, regular rate and rhythm Gastrointestinal: nl liver, spleen, non-tender, soft Musculoskeletal: nl extremities to inspection, nl gait and stance Extremities: normal pulses Neurological: nl speech, nl strength Skin: nl turgor, No rash or lesions Lymph: nl lymph nodes Results Result Diagram: 06/17/17 1206 06/17/17 0608 Results 24 hrs Laboratory Tests Test 06/16/17 17:46 06/16/17 18:12 06/16/17 23:51 06/17/17 00:52 Bedside Glucose 141 195 Hemoglobin 8.5 L 8.8 L Hematocrit 26.2 L 26.7 L Test 06/17/17 02:25 06/17/17 05:56 06/17/17 06:08 06/17/17 08:09 Bedside Glucose 198 162 White Blood Count 16.7 H Red Blood Count 3.12 L Hemoglobin 8.3 L Hematocrit 24.9 L Mean Corpuscular Volume 79.8 L Mean Corpuscular Hemoglobin 26.6 L Mean Corpuscular Hemoglobin Concent 33.3 Red Cell Distribution Width 16.0 H Platelet Count 226 Mean Platelet Volume 10.1 Neutrophils % 65.9 Lymphocytes % 15.9 Monocytes % 12.7 H Eosinophils % 2.7 Basophils % 0.2 Nucleated Red Blood Cells % 0.2 H Neutrophils # 11.0 H Lymphocytes # 2.7 Monocytes # 2.1 H Eosinophils # 0.5 Basophils # 0.0 Nucleated Red Blood Cells # 0.0 Prothrombin Time 13.5 Prothrombin Time Ratio 1.1 INR International Normalized Ratio 1.03 Activated Partial Thromboplast Time 27.3 Sodium Level 141 Potassium Level 3.2 L Chloride Level 98 Carbon Dioxide Level 25 Anion Gap 21 H Blood Urea Nitrogen 94 H Creatinine 5.90 H Glucose Level 162 # Calcium Level 6.9 L Phosphorus Level 5.5 #H Magnesium Level 2.3 Total Bilirubin 0.1 L Direct Bilirubin 0.00 Indirect Bilirubin 0.1 Aspartate Amino Transf (AST/SGOT) 74 H Alanine Aminotransferase (ALT/SGPT) 72 H Alkaline Phosphatase 398 H Total Protein 5.8 L Albumin 2.5 L Globulin 3.30 H Albumin/Globulin Ratio 0.75 Test 06/17/17 12:06 Hemoglobin 8.2 L Hematocrit 25.2 L Bedside Glucose 116 Medications Medications Current Medications Acetaminophen/ Hydrocodone Bitart ([place] (5/325)) 1 tab Q4H PRN PO PAIN LEVEL 4 -7 Last administered on 06/10/17 16:55; Admin Dose 1 TAB; Start 06/09/17 at 14:00 ; Status Future Hold Acetaminophen/ Hydrocodone Bitart ([place] (5/325)) 2 tab Q4H PRN PO PAIN LEVEL 7 -10; Start 06/09/17 at 14:00; Status Future Hold Hydromorphone HCl (Dilaudid) 0.5 mg Q2H PRN IV PAIN; Start 06/09/17 at 14:00 Hydromorphone HCl (Dilaudid) 1 mg Q2H PRN IV PAIN Last administered on 21:26; Admin Dose 1 MG; Start 06/09/17 at 14:00 Docusate Sodium (Colace) 100 mg BID PRN PO CONSTIPATION; Start 06/09/17 at 14:00 Bisacodyl (Dulcolax Supp) 10 mg BID PRN [place] CONSTIPATION; Start 06/09/17 at 14:00 Sodium Biphosphate/ Sodium Phosphate (Fleet Enema) 133 ml BID PRN [place] CONSTIPATION; Start 06/09/17 at 14:00 Enoxaparin Sodium (Lovenox) 40 mg DAILY SC Last administered on 06/13/17 08:22 ; Admin Dose 40 MG; Start 06/10/17 at 09:00; Status Future Hold Miscellaneous Information 1 ea NOTE XX ; Start 06/09/17 at 17:30 Glucose (Glutose) 15 gm Q15M PRN PO DECREASED GLUCOSE; Start 06/09/17 at 17:30 Glucose (Glutose) 22.5 gm Q15M PRN PO DECREASED GLUCOSE; Start 06/09/17 at 17:30 Dextrose (D50w Syringe) 25 ml Q15M PRN IV DECREASED GLUCOSE; Start 06/09/17 at 17:30 Dextrose (D50w Syringe) 50 ml Q15M PRN IV DECREASED GLUCOSE Last administered on 06/09/17 17:47; Admin Dose 50 ML; Start 06/09/17 at 17:30 Glucagon (Glucagen) 1 mg Q15M PRN IM DECREASED GLUCOSE; Start 06/09/17 at 17:30 Glucose (Glutose) 15 gm Q15M PRN BUCCAL DECREASED GLUCOSE; Start 06/09/17 at 17: 30 Hydralazine HCl (Apresoline) 10 mg Q4H PRN IV SBP>170 Last administered on 01:59; Admin Dose 10 MG; Start 06/09/17 at 18:30 Diagnostic Test (Pha) (Accu-Chek) 1 ea 02 XX Last administered on 06/17/17 02: 00; Admin Dose 1 EA; Start 06/11/17 at 02:00 Hydromorphone HCl (Dilaudid LINES TENDER) 0.1 MG DOSE 10 ... Q4PCA IV Last administered on 06/12/17 14:48; Admin Dose 0.1 MG; Start 06/10/17 at 18:30 Simethicone (Mylicon) 80 mg Q6H PRN GTB DISTENSION/GAS/BLOATING Last administered on 06/17/17 13:28; Admin Dose 80 MG; Start 06/11/17 at 18:00 Clonidine (Catapres) 0.2 mg TID PO Last administered on 06/17/17 13:24; Admin Dose 0.2 MG; Start 06/12/17 at 09:00 Hydralazine HCl (Apresoline) 100 mg TID PO Last administered on 06/17/17 13:24 ; Admin Dose 100 MG; Start 06/12/17 at 09:00 Nifedipine (Procardia Xl) 30 mg BID PO Last administered on 06/17/17 09:38; Admin Dose 30 MG; Start 06/12/17 at 12:00 Labetalol HCl (Normodyne) 200 mg TID PO Last administered on 06/17/17 09:37; Admin Dose 200 MG; Start 06/12/17 at 12:00 Insulin Glargine (Lantus) 35 unit QHS SC Last administered on 06/17/17 00:01; Admin Dose 35 UNIT; Start 06/12/17 at 21:00 Mupirocin (Bactroban) 1 applic BID TOP Last administered on 06/17/17 09:39; Admin Dose 1 APPLIC; Start 06/13/17 at 09:00 Ondansetron HCl (Zofran Inj) 4 mg Q6H PRN IV NAUSEA AND/OR VOMITING Last administered on 06/15/17 06:01; Admin Dose 4 MG; Start 06/13/17 at 20:30 Bumetanide (Bumex) 1 mg DAILY IV Last administered on 06/17/17 09:40; Admin Dose 1 MG; Start 06/17/17 at 09:00 Pantoprazole 40 mg 40 mg BID@06,18 PO Last administered on 06/17/17 05:43; Admin Dose 40 MG; Start 06/16/17 at 18:00 Sodium Chloride (NS) 1,000 ml @ 0 mls/hr Q0M PRN IV TO KEEP SBP ABOVE 90; Start 06/17/17 at 14:00 AMANDA CABAN NP Jun 17, 2017 15:33
--- NOTE | 2017-06-17 15:48 | CONS ---
Date/Time of Note Date/Time of Note DATE: 06/17/17 TIME: 15:44 Assessment/Plan Assessment/Plan Additional Assessment/Plan 61 yo M with h/o HepC admitted with hcc admitted for partial heatectomy, post op course c/b KYLE and hyperkalemia on CKD, and acute respiratory failure requiring intubation which has resolved and acute on chronic hypertension #hyperK, KYLE on CKD -HD as per renal and HD access -bumex converted from IV to PO #elevated BPs: cont current regimen though unclear to me why labetalol chosen over metop/carvedilol -acei on hold given KYLE on CKD #melena: FOBT NEGATIVE -EGD with just gastritis/esophagitis. Pt now on PPI #DM2: cont current insulin Prophylaxis: SCD's discharge pending outpatient HD arrangements. Will talk to HCP CM in AM Consultation Date/Type/Reason Admit Date/Time Jun 09, 2017 at 06:00 Initial Consult Date 06/14/17 Type of Consultation: Hospitalist Referring Provider: KAL BERMAN DPM 24 HR Interval Summary Free Text/Dictation Pt feeling well. Lots of questions about if he'll be on HD and for how long Exam/Review of Systems Vital Signs Vitals Vital Signs Date Time Temp Pulse Resp B/P Pulse Ox O2 Delivery O2 Flow Rate FiO2 06/17/17 14:11 98.4 80 18 129/72 95 06/16/17 17:58 5.0 06/16/17 17:00 Room Air 06/15/17 11:37 33 Intake and Output 06/16/17 06/16/17 06/17/17 15:00 23:00 07:00 Intake Total 720 ml 740 ml 300 ml Output Total 975 ml 1500 ml Balance -255 ml -760 ml 300 ml Exam nad, pleasant, sitting up in bed +HD line in R chest no mrg lungs clear abd soft BPs wnl Results Result Diagram: 06/17/17 1206 06/17/17 0608 Results 24 hrs Laboratory Tests Test 06/16/17 17:46 06/16/17 18:12 06/16/17 23:51 06/17/17 00:52 Bedside Glucose 141 195 Hemoglobin 8.5 L 8.8 L Hematocrit 26.2 L 26.7 L Test 06/17/17 02:25 06/17/17 05:56 06/17/17 06:08 06/17/17 08:09 Bedside Glucose 198 162 White Blood Count 16.7 H Red Blood Count 3.12 L Hemoglobin 8.3 L Hematocrit 24.9 L Mean Corpuscular Volume 79.8 L Mean Corpuscular Hemoglobin 26.6 L Mean Corpuscular Hemoglobin Concent 33.3 Red Cell Distribution Width 16.0 H Platelet Count 226 Mean Platelet Volume 10.1 Neutrophils % 65.9 Lymphocytes % 15.9 Monocytes % 12.7 H Eosinophils % 2.7 Basophils % 0.2 Nucleated Red Blood Cells % 0.2 H Neutrophils # 11.0 H Lymphocytes # 2.7 Monocytes # 2.1 H Eosinophils # 0.5 Basophils # 0.0 Nucleated Red Blood Cells # 0.0 Prothrombin Time 13.5 Prothrombin Time Ratio 1.1 INR International Normalized Ratio 1.03 Activated Partial Thromboplast Time 27.3 Sodium Level 141 Potassium Level 3.2 L Chloride Level 98 Carbon Dioxide Level 25 Anion Gap 21 H Blood Urea Nitrogen 94 H Creatinine 5.90 H Glucose Level 162 # Calcium Level 6.9 L Phosphorus Level 5.5 #H Magnesium Level 2.3 Total Bilirubin 0.1 L Direct Bilirubin 0.00 Indirect Bilirubin 0.1 Aspartate Amino Transf (AST/SGOT) 74 H Alanine Aminotransferase (ALT/SGPT) 72 H Alkaline Phosphatase 398 H Total Protein 5.8 L Albumin 2.5 L Globulin 3.30 H Albumin/Globulin Ratio 0.75 Test 06/17/17 12:06 Hemoglobin 8.2 L Hematocrit 25.2 L Bedside Glucose 116 Medications Medications Current Medications Acetaminophen/ Hydrocodone Bitart ([place] (5/325)) 1 tab Q4H PRN PO PAIN LEVEL 4 -7 Last administered on 06/10/17 16:55; Admin Dose 1 TAB; Start 06/09/17 at 14:00 ; Status Future Hold Acetaminophen/ Hydrocodone Bitart ([place] (5/325)) 2 tab Q4H PRN PO PAIN LEVEL 7 -10; Start 06/09/17 at 14:00; Status Future Hold Hydromorphone HCl (Dilaudid) 0.5 mg Q2H PRN IV PAIN; Start 06/09/17 at 14:00 Hydromorphone HCl (Dilaudid) 1 mg Q2H PRN IV PAIN Last administered on 21:26; Admin Dose 1 MG; Start 06/09/17 at 14:00 Docusate Sodium (Colace) 100 mg BID PRN PO CONSTIPATION; Start 06/09/17 at 14:00 Bisacodyl (Dulcolax Supp) 10 mg BID PRN [place] CONSTIPATION; Start 06/09/17 at 14:00 Sodium Biphosphate/ Sodium Phosphate (Fleet Enema) 133 ml BID PRN [place] CONSTIPATION; Start 06/09/17 at 14:00 Enoxaparin Sodium (Lovenox) 40 mg DAILY SC Last administered on 06/13/17 08:22 ; Admin Dose 40 MG; Start 06/10/17 at 09:00; Status Future Hold Miscellaneous Information 1 ea NOTE XX ; Start 06/09/17 at 17:30 Glucose (Glutose) 15 gm Q15M PRN PO DECREASED GLUCOSE; Start 06/09/17 at 17:30 Glucose (Glutose) 22.5 gm Q15M PRN PO DECREASED GLUCOSE; Start 06/09/17 at 17:30 Dextrose (D50w Syringe) 25 ml Q15M PRN IV DECREASED GLUCOSE; Start 06/09/17 at 17:30 Dextrose (D50w Syringe) 50 ml Q15M PRN IV DECREASED GLUCOSE Last administered on 06/09/17 17:47; Admin Dose 50 ML; Start 06/09/17 at 17:30 Glucagon (Glucagen) 1 mg Q15M PRN IM DECREASED GLUCOSE; Start 06/09/17 at 17:30 Glucose (Glutose) 15 gm Q15M PRN BUCCAL DECREASED GLUCOSE; Start 06/09/17 at 17: 30 Hydralazine HCl (Apresoline) 10 mg Q4H PRN IV SBP>170 Last administered on 01:59; Admin Dose 10 MG; Start 06/09/17 at 18:30 Diagnostic Test (Pha) (Accu-Chek) 1 ea 02 XX Last administered on 06/17/17 02: 00; Admin Dose 1 EA; Start 06/11/17 at 02:00 Hydromorphone HCl (Dilaudid LOOSE HAND PACKER) 0.1 MG DOSE 10 ... Q4PCA IV Last administered on 06/12/17 14:48; Admin Dose 0.1 MG; Start 06/10/17 at 18:30 Simethicone (Mylicon) 80 mg Q6H PRN GTB DISTENSION/GAS/BLOATING Last administered on 06/17/17 13:28; Admin Dose 80 MG; Start 06/11/17 at 18:00 Clonidine (Catapres) 0.2 mg TID PO Last administered on 06/17/17 13:24; Admin Dose 0.2 MG; Start 06/12/17 at 09:00 Hydralazine HCl (Apresoline) 100 mg TID PO Last administered on 06/17/17 13:24 ; Admin Dose 100 MG; Start 06/12/17 at 09:00 Nifedipine (Procardia Xl) 30 mg BID PO Last administered on 06/17/17 09:38; Admin Dose 30 MG; Start 06/12/17 at 12:00 Labetalol HCl (Normodyne) 200 mg TID PO Last administered on 06/17/17 09:37; Admin Dose 200 MG; Start 06/12/17 at 12:00 Insulin Glargine (Lantus) 35 unit QHS SC Last administered on 06/17/17 00:01; Admin Dose 35 UNIT; Start 06/12/17 at 21:00 Mupirocin (Bactroban) 1 applic BID TOP Last administered on 06/17/17 09:39; Admin Dose 1 APPLIC; Start 06/13/17 at 09:00 Ondansetron HCl (Zofran Inj) 4 mg Q6H PRN IV NAUSEA AND/OR VOMITING Last administered on 06/15/17 06:01; Admin Dose 4 MG; Start 06/13/17 at 20:30 Bumetanide (Bumex) 1 mg DAILY IV Last administered on 06/17/17 09:40; Admin Dose 1 MG; Start 06/17/17 at 09:00 Pantoprazole 40 mg 40 mg BID@06,18 PO Last administered on 06/17/17 05:43; Admin Dose 40 MG; Start 06/16/17 at 18:00 Sodium Chloride (NS) 1,000 ml @ 0 mls/hr Q0M PRN IV TO KEEP SBP ABOVE 90; Start 06/17/17 at 14:00 PERRI JANE MD Jun 17, 2017 15:47
--- NOTE | 2017-06-17 15:58 | RADRPT ---
Vent Rate: 100 bpm RR Interval: 0 msec [place] Interval: 120 msec QRS Duration: 68 msec QT Interval: 356 msec QTC Interval: 459 msec P-R-T [place]: 60 - -29 - -2 degrees Normal sinus rhythm Cannot rule out Anterior infarct , age undetermined Abnormal ECG Electronically Signed By: Robby Mcgill [id number]
[2017-06-17] MEDS: BUMETANIDE 0.5 MG TAB PO SCH (17:40)
[2017-06-17] MEDS ORDERED: BUMETANIDE 1 MG TAB PO SCH (18:00)
--- NOTE | 2017-06-17 19:57 | PN ---
Date/Time of Note Date/Time of Note DATE: 06/17/17 TIME: 19:55 Assessment/Plan Lines/Catheters IV Catheter Type (from Nrs): Central Line [facility] in Place (from Nrs): Yes Assessment/Plan Assessment/Plan [facility] Progress Note Date of Service: 06/17/17 Today's Impression & Plan: Stable and appears to be improving with adequate liver function. White blood cell count lower. Cultures so far negative. No indication for acute surgical intervention. Appreciate all the consultants excellent care. Answered multiple questions from the patient, his and his daughter to the best my ability. Patient and family appear to understand and agreed with the plans. Yesterday's overall assessment that is applicable for today: Multiple issues keeping him in the ICU including need for dialysis, tachycardia , which became under control with medications, hypertension which also became under control with medications, and others, including dark emesis which prompted gastroenterology consultation and upper endoscopy, which showed severe esophagitis, intermittent emesis that resolved, and rising white blood cell count of unclear etiology; no major wound problems. Throughout all this, the abdomen remained benign. In fact, the patient did not required any significant pain medication. No evidence for major intra-abdominal complication or surgical site infection. Suspected some of his symptoms are related to the need for dialysis. Preliminary pathology demonstrated possibility of residual separate HCC in his liver. Multiple medical issues postop and not unexpected given preoperative medical problems. With above assessment, I've recommended the following for today: 1. Cont current cares 2. Short-term dialysis, prophylactic anticoagulation and need for diuresis per renal 3. Labs in am 4. Increase ICS 5. Increase activity 6. Continue careful cardiopulmonary surveillance 7. Monitor culture results Nature of presenting problem: High complexity Thank you again for your great care of this very pleasant patient and wonderful family. If there are any questions, please feel free to call me at [phone]. Disclaimer: Inadvertent spelling or grammatical errors are likely due to EHR/ dictation software use and do not reflect on the overall quality of patient care. Updated Clinical Summary: Patient is a very pleasant 60-year-old gentleman with comorbid issues including a BMI of 34, as well as history of hepatitis C, treated with Harvoni in August 2016 with near complete disappearance of his viral count, who was noted to have a liver lesion that was initially detected on 04/26/2016, liver CT of the abdomen and pelvis read as a somewhat well-defined 4.8 x 4.4 x 4.6 cm area of low attenuation within the right lobe of the liver. Note that he also had a few followup scans since then including ultrasound of the abdomen 05/22/2016 showing a solid mass 4.6 x 4.8 x 3.9 cm that appeared to be hypoechoic and no increased Doppler flow, liver dedicated MRI of the abdomen 06/19/2016 showing a 3.5 cm solid mass anteriorly in the right lobe of the liver that cannot be further characterized due to lack of contrast, liver dedicated contrast study of the abdomen on 07/08/2016 showing no evidence of increased uptake, corresponding to a liver mass seen in the right lobe of the liver and therefore not consistent with a hemangioma. He had a liver biopsy percutaneously done on 08/07/2016 with ultrasound guidance with the final pathology showing necrotic material, otherwise nondiagnostic. He had a repeat MRI of the liver with and without contrast 09/24/2016 that showed the previously seen lesion that was 3.8 cm at the junction of the right and left lobes but additional 2.3 cm lesion in segment 5 of the liver showing low signal intensity on the T1 weighted images, intermediate signal intensity on the T2 weighted images and arterial phase contrast enhancement. These findings were thought to be metastatic disease or multifocal hepatocellular carcinoma. Due to growth seen in segment 5 lesion, repeat biopsy of the liver was ordered which was done on 04/07/2017. Segment 5 lesion was biopsied and final pathology was consistent with moderately differentiated hepatocellular carcinoma in a background of chronic hepatitis C. Normal liver biopsy done at the same time showed grade 2 portal inflammation and interface hepatitis, grade 2 lobular activity and stage I fibrosis. Patient had a somewhat margaret course postoperatively with renal failure requiring dialysis and prolonged ICU stay. 06/14/17 RUQ duplex ultrasound demonstrated expected findings from the liver with normal blood flow and no major fluid collections around it indicating lack of obvious bile leak. Discharge from ICU 06/16/2017 to regular floor[address] Comorbidities: 1. Hepatocellular carcinoma in segment 5 of liver in the setting of hepatitis C , along with several regenerative nodules. Hepatitis C that was thought to be chronic, treated with Harvoni 08/2016 with near resolution and disappearance of the viral load. His hepatitis C is thought to be genotype 1A with prior viral load in 2013 of approximately 18 million international units per mL. 2. Diabetes mellitus type 2. 3. Hyperlipidemia. 4. Hypertension. 5. Left distal tibial fracture. 6. Left tibia fracture. 7. Obstructive sleep apnea. 8. Vitamin D deficiency. 9. Former smoker. 10. S/p laparoscopic exploration with intraoperative ultrasound of liver and core needle liver biopsy with ultrasound guidance segment 8 lesion and separately segment 4B normal liver, open partial hepatectomy segment 5/6, ultrasound-guided core needle liver biopsy segment 4B (left side) mass under direct visualization, cholecystectomy, lysis of adhesions, and umbilical hernia repair at [facility] 06/10/17. Subjective: No major events or complaints; reports overall feeling better; shave today; no major abd pain and under control with medications; no n/v/d; no sob or cp; + flatus; + BM; minimal activity Objective: Vitals: See below Exam: GENERAL: On exam, the patient was laying in bed and appeared to be comfortable and in no acute distress. ABDOMEN: Soft, nontender and nondistended. Incisions are clean, dry and intact without any evidence of obvious erythema, edema, discharge, or hernia. There are no peritoneal signs or guarding. SKIN: Skin appears to be pink and feels warm to touch. NEUROLOGIC: Patient is awake, alert, and follows commands appropriately. Exam/Review of Systems Vital Signs Vitals Vital Signs Date Time Temp Pulse Resp B/P Pulse Ox O2 Delivery O2 Flow Rate FiO2 06/17/17 19:40 98.9 84 20 131/67 92 06/16/17 17:58 5.0 06/16/17 17:00 Room Air 06/15/17 11:37 33 Intake and Output 06/16/17 06/16/17 06/17/17 15:00 23:00 07:00 Intake Total 720 ml 740 ml 300 ml Output Total 975 ml 1500 ml Balance -255 ml -760 ml 300 ml Results Result Diagram: 06/17/17 1206 06/17/17 0608 KAYA BERMAN M.D. Jun 17, 2017 19:57
[2017-06-18 02:00] VITALS: BP 122/62; RESP 20
[2017-06-18] MEDS: ACCU-CHEK XX SCH (02:12)
[2017-06-18 06:07] VITALS: BP 136/69; PULSE 83
[2017-06-18] MEDS: PANTOPRAZOLE (EC) 40 MG TAB PO SCH ×2 (06:07→18:16)
[2017-06-18] MEDS: BUMETANIDE 0.5 MG TAB PO SCH ×2 (06:07→18:33)
[2017-06-18 06:34] LABS: ABNORMAL IP MESSAGE 1; BASOPHILS % 0.2 % (0.0-2.0); EOSINOPHILS # 0.5 10^3/ul (0.0-0.5); EOSINOPHILS % 3.9 % (0.0-7.0); HEMATOCRIT 23.8 % (42.0-52.0); HEMOGLOBIN 7.5 g/dl (14.0-18.0); LYMPHOCYTES # 2.8 10^3/ul (0.8-2.9); LYMPHOCYTES % 21.8 % (15.0-51.0); MEAN CORPUSCULAR HGB CONC 31.5 g/dl (32.0-37.0); MEAN CORPUSCULAR VOLUME 82.6 fl (82.0-101.0); MEAN PLATELET VOLUME 9.9 fl (7.4-10.4); MONOCYTES % 15.6 % (0.0-11.0); NEUTROPHIL # 7.2 10^3/ul (1.6-7.5); NEUTROPHILS % 56.1 % (39.0-77.0); NUCLEATED RED BLOOD CELLS% 0.2 /100WBC (0.0-0.0); PLATELET COUNT 225 10^3/UL (140-415); POSITIVE DIFF @See below; RED BLOOD COUNT 2.88 10^6/ul (4.70-6.10); RED CELL DISTRIBUTION WIDTH 16.7 % (11.5-14.5); WHITE BLOOD COUNT 12.8 10^3/ul (4.8-10.8)
[2017-06-18 07:26] VITALS: BP 143/77; RESP 18
[2017-06-18] MEDS: LABETALOL 200 MG TAB PO SCH ×3 (08:14→20:38)
[2017-06-18] MEDS: INSULIN ASPART [NOVOLOG] 3 ML PEN SC SCH ×4 (08:15→20:43)
[2017-06-18] MEDS: NIFEdipine (XL) 30 MG TAB PO SCH ×2 (08:15→20:39)
[2017-06-18] MEDS: MUPIROCIN 2% 22 GM OINT TOP SCH ×2 (08:35→20:39)
--- NOTE | 2017-06-18 10:43 | CONS ---
Date/Time of Note Date/Time of Note DATE: 06/18/17 TIME: 10:40 Assessment/Plan Assessment/Plan Chief Complaint/Hosp Course IMP: 1. Hypertensive urgency emergency-now improved on current anti-hypertensive regimen 2. Tachycardia consistent with sinus tachycardia at this time- now improved 3. History of dyslipidemia. 4. Status post liver resection of hepatocellular carcinoma. 5. History of hepatocellular carcinoma, status post resection as above. 6. Acute on chronic renal failure now on HD 7. Hyperkalemia, resolved with dialysis. 8. Congestive heart failure. Assess for volume overload by chest x-ray. 9. Diabetes mellitus. REcc: -Continue current procardia/labetelol/hydralazine with well controlled BP as patient will comply -will attempt to slowly wean clonidine in favor of alternative agents such as procardia/BB -HD for volume removal Problems: Consultation Date/Type/Reason Admit Date/Time Jun 09, 2017 at 06:00 Initial Consult Date 06/14/17 Type of Consultation: cardiology Reason for Consultation HTN Referring Provider: KAL BERMAN DPM Exam/Review of Systems Vital Signs Vitals Vital Signs Date Time Temp Pulse Resp B/P Pulse Ox O2 Delivery O2 Flow Rate FiO2 06/18/17 07:26 99.2 80 18 143/77 99 06/16/17 17:58 5.0 06/16/17 17:00 Room Air 06/15/17 11:37 33 Intake and Output 06/17/17 06/17/17 06/18/17 15:00 23:00 07:00 Intake Total 1520 ml Output Total 600 ml Balance 920 ml Exam Review of Systems: CONSTITUTIONAL: No fevers, chills. PULMONARY: No sob CARDIOVASCULAR: No chest pain/palpitations GASTROINTESTINAL: No nausea/vomiting. GENITOURINARY: No hematuria/dysuria. MUSCULOSKELETAL: No myagias/arthalgias. PSYCHIATRIC: The patient denies depression. NEUROLOGIC: No weakness Constitutional: alert, oriented Psych: no complaints Head: normocephalic ENMT: mucosa pink and moist Neck: jvd (8-9 cm water), supple Respiratory: diminished breath sounds (at bases/B) Cardiovascular: regular rate and rhythm Gastrointestinal: soft Musculoskeletal: muscle tone (normal) Extremities: edema (trace/B) Neurological: other (No focal deficits) Results Result Diagram: 06/18/17 0603 06/17/17 0608 Results 24 hrs Laboratory Tests Test 06/17/17 12:06 06/17/17 17:34 06/17/17 20:56 06/18/17 02:09 Hemoglobin 8.2 L Hematocrit 25.2 L Bedside Glucose 116 176 229 H 104 Test 06/18/17 06:03 06/18/17 08:32 White Blood Count 12.8 #H Red Blood Count 2.88 L Hemoglobin 7.5 L Hematocrit 23.8 L Mean Corpuscular Volume 82.6 Mean Corpuscular Hemoglobin 26.0 L Mean Corpuscular Hemoglobin Concent 31.5 L Red Cell Distribution Width 16.7 H Platelet Count 225 Mean Platelet Volume 9.9 Neutrophils % 56.1 Lymphocytes % 21.8 Monocytes % 15.6 H Eosinophils % 3.9 Basophils % 0.2 Nucleated Red Blood Cells % 0.2 H Neutrophils # 7.2 Lymphocytes # 2.8 Monocytes # 2.0 H Eosinophils # 0.5 Basophils # 0.0 Nucleated Red Blood Cells # 0.0 Bedside Glucose 91 Medications Medications Current Medications Acetaminophen/ Hydrocodone Bitart ([place] (5/325)) 1 tab Q4H PRN PO PAIN LEVEL 4 -7 Last administered on 06/10/17 16:55; Admin Dose 1 TAB; Start 06/09/17 at 14:00 ; Status Future Hold Acetaminophen/ Hydrocodone Bitart ([place] (5/325)) 2 tab Q4H PRN PO PAIN LEVEL 7 -10; Start 06/09/17 at 14:00; Status Future Hold Hydromorphone HCl (Dilaudid) 0.5 mg Q2H PRN IV PAIN; Start 06/09/17 at 14:00 Hydromorphone HCl (Dilaudid) 1 mg Q2H PRN IV PAIN Last administered on 21:26; Admin Dose 1 MG; Start 06/09/17 at 14:00 Docusate Sodium (Colace) 100 mg BID PRN PO CONSTIPATION; Start 06/09/17 at 14:00 Bisacodyl (Dulcolax Supp) 10 mg BID PRN [place] CONSTIPATION; Start 06/09/17 at 14:00 Sodium Biphosphate/ Sodium Phosphate (Fleet Enema) 133 ml BID PRN [place] CONSTIPATION; Start 06/09/17 at 14:00 Enoxaparin Sodium (Lovenox) 40 mg DAILY SC Last administered on 06/13/17 08:22 ; Admin Dose 40 MG; Start 06/10/17 at 09:00; Status Future Hold Miscellaneous Information 1 ea NOTE XX ; Start 06/09/17 at 17:30 Glucose (Glutose) 15 gm Q15M PRN PO DECREASED GLUCOSE; Start 06/09/17 at 17:30 Glucose (Glutose) 22.5 gm Q15M PRN PO DECREASED GLUCOSE; Start 06/09/17 at 17:30 Dextrose (D50w Syringe) 25 ml Q15M PRN IV DECREASED GLUCOSE; Start 06/09/17 at 17:30 Dextrose (D50w Syringe) 50 ml Q15M PRN IV DECREASED GLUCOSE Last administered on 06/09/17 17:47; Admin Dose 50 ML; Start 06/09/17 at 17:30 Glucagon (Glucagen) 1 mg Q15M PRN IM DECREASED GLUCOSE; Start 06/09/17 at 17:30 Glucose (Glutose) 15 gm Q15M PRN BUCCAL DECREASED GLUCOSE; Start 06/09/17 at 17: 30 Hydralazine HCl (Apresoline) 10 mg Q4H PRN IV SBP>170 Last administered on 01:59; Admin Dose 10 MG; Start 06/09/17 at 18:30 Diagnostic Test (Pha) (Accu-Chek) 1 ea 02 XX Last administered on 06/18/17 02: 12; Admin Dose 1 EA; Start 06/11/17 at 02:00 Hydromorphone HCl (Dilaudid COMPUTER HELP DESK REPRESENTATIVE) 0.1 MG DOSE 10 ... Q4PCA IV Last administered on 06/12/17 14:48; Admin Dose 0.1 MG; Start 06/10/17 at 18:30 Simethicone (Mylicon) 80 mg Q6H PRN GTB DISTENSION/GAS/BLOATING Last administered on 06/17/17 13:28; Admin Dose 80 MG; Start 06/11/17 at 18:00 Clonidine (Catapres) 0.2 mg TID PO Last administered on 06/18/17 08:16; Admin Dose 0.2 MG; Start 06/12/17 at 09:00 Hydralazine HCl (Apresoline) 100 mg TID PO Last administered on 06/18/17 08:16 ; Admin Dose 100 MG; Start 06/12/17 at 09:00 Nifedipine (Procardia Xl) 30 mg BID PO Last administered on 06/17/17 09:38; Admin Dose 30 MG; Start 06/12/17 at 12:00 Labetalol HCl (Normodyne) 200 mg TID PO Last administered on 06/17/17 09:37; Admin Dose 200 MG; Start 06/12/17 at 12:00 Insulin Glargine (Lantus) 35 unit QHS SC Last administered on 06/17/17 21:06; Admin Dose 35 UNIT; Start 06/12/17 at 21:00 Mupirocin (Bactroban) 1 applic BID TOP Last administered on 06/18/17 08:35; Admin Dose 1 APPLIC; Start 06/13/17 at 09:00 Ondansetron HCl (Zofran Inj) 4 mg Q6H PRN IV NAUSEA AND/OR VOMITING Last administered on 06/15/17 06:01; Admin Dose 4 MG; Start 06/13/17 at 20:30 Pantoprazole 40 mg 40 mg BID@06,18 PO Last administered on 06/18/17 06:07; Admin Dose 40 MG; Start 06/16/17 at 18:00 Sodium Chloride (NS) 1,000 ml @ 0 mls/hr Q0M PRN IV TO KEEP SBP ABOVE 90; Start 06/17/17 at 14:00 Bumetanide (Bumex) 1 mg BID@06,18 PO Last administered on 06/18/17 06:07; Admin Dose 1 MG; Start 06/17/17 at 18:00 SAI FITZPATRICK Jun 18, 2017 10:43
--- NOTE | 2017-06-18 14:41 | PN ---
Date/Time of Note Date/Time of Note DATE: 06/18/17 TIME: 14:38 Assessment/Plan VTE Prophylaxis VTE Prophylaxis Intervention: SCD's Lines/Catheters [facility]from [facility] Central Line Central line still needed: Yes Urinary Cath still in place: Yes Reason Cath still needed: urinary retention Assessment/Plan Assessment/Plan GI bleeding/melena * EGD * Severe erosive esophagitis * Moderate gastritis * No biopsies * Chronic hepatitis C/post Harvoni treatment with eradication * Hepatocellular carcinoma/post segmental hepatectomy * Renal failure on dialysis * Hypertension * Diabetes mellitus Plan * continue present management * case discussed with Dr Cortes * Further orders will depend on clinical course Subjective 24 Hr Interval Summary Free Text/Dictation * course reviewed with RN * Patient seen and examined * No active bleeding * No untoward events overnight Exam/Review of Systems Vital Signs Vitals Vital Signs Date Time Temp Pulse Resp B/P Pulse Ox O2 Delivery O2 Flow Rate FiO2 06/18/17 07:26 99.2 80 18 143/77 99 06/16/17 17:58 5.0 06/16/17 17:00 Room Air 06/15/17 11:37 33 Intake and Output 06/17/17 06/17/17 06/18/17 15:00 23:00 07:00 Intake Total 1520 ml Output Total 600 ml Balance 920 ml Exam Constitutional: alert, frail Head: normocephalic Eyes: nl conjunctiva Neck: non-tender, supple Respiratory: clear to auscultation, normal air movement Cardiovascular: nl pulses, regular rate and rhythm Gastrointestinal: non-tender, soft Musculoskeletal: nl extremities to inspection, nl gait and stance Extremities: normal pulses Neurological: nl mental status, nl speech, nl strength Skin: nl turgor, No rash or lesions Results Result Diagram: 06/18/17 0603 06/17/17 0608 Results 24 hrs Laboratory Tests Test 06/17/17 17:34 06/17/17 20:56 06/18/17 02:09 06/18/17 06:03 Bedside Glucose 176 229 H 104 White Blood Count 12.8 #H Red Blood Count 2.88 L Hemoglobin 7.5 L Hematocrit 23.8 L Mean Corpuscular Volume 82.6 Mean Corpuscular Hemoglobin 26.0 L Mean Corpuscular Hemoglobin Concent 31.5 L Red Cell Distribution Width 16.7 H Platelet Count 225 Mean Platelet Volume 9.9 Neutrophils % 56.1 Lymphocytes % 21.8 Monocytes % 15.6 H Eosinophils % 3.9 Basophils % 0.2 Nucleated Red Blood Cells % 0.2 H Neutrophils # 7.2 Lymphocytes # 2.8 Monocytes # 2.0 H Eosinophils # 0.5 Basophils # 0.0 Nucleated Red Blood Cells # 0.0 Test 06/18/17 08:32 06/18/17 11:57 Bedside Glucose 91 129 Medications Medications Current Medications Acetaminophen/ Hydrocodone Bitart ([place] (5/325)) 1 tab Q4H PRN PO PAIN LEVEL 4 -7 Last administered on 06/10/17 16:55; Admin Dose 1 TAB; Start 06/09/17 at 14:00 ; Status Future Hold Acetaminophen/ Hydrocodone Bitart ([place] (5/325)) 2 tab Q4H PRN PO PAIN LEVEL 7 -10; Start 06/09/17 at 14:00; Status Future Hold Hydromorphone HCl (Dilaudid) 0.5 mg Q2H PRN IV PAIN; Start 06/09/17 at 14:00 Hydromorphone HCl (Dilaudid) 1 mg Q2H PRN IV PAIN Last administered on 21:26; Admin Dose 1 MG; Start 06/09/17 at 14:00 Docusate Sodium (Colace) 100 mg BID PRN PO CONSTIPATION; Start 06/09/17 at 14:00 Bisacodyl (Dulcolax Supp) 10 mg BID PRN [place] CONSTIPATION; Start 06/09/17 at 14:00 Sodium Biphosphate/ Sodium Phosphate (Fleet Enema) 133 ml BID PRN [place] CONSTIPATION; Start 06/09/17 at 14:00 Enoxaparin Sodium (Lovenox) 40 mg DAILY SC Last administered on 06/13/17 08:22 ; Admin Dose 40 MG; Start 06/10/17 at 09:00; Status Future Hold Miscellaneous Information 1 ea NOTE XX ; Start 06/09/17 at 17:30 Glucose (Glutose) 15 gm Q15M PRN PO DECREASED GLUCOSE; Start 06/09/17 at 17:30 Glucose (Glutose) 22.5 gm Q15M PRN PO DECREASED GLUCOSE; Start 06/09/17 at 17:30 Dextrose (D50w Syringe) 25 ml Q15M PRN IV DECREASED GLUCOSE; Start 06/09/17 at 17:30 Dextrose (D50w Syringe) 50 ml Q15M PRN IV DECREASED GLUCOSE Last administered on 06/09/17 17:47; Admin Dose 50 ML; Start 06/09/17 at 17:30 Glucagon (Glucagen) 1 mg Q15M PRN IM DECREASED GLUCOSE; Start 06/09/17 at 17:30 Glucose (Glutose) 15 gm Q15M PRN BUCCAL DECREASED GLUCOSE; Start 06/09/17 at 17: 30 Hydralazine HCl (Apresoline) 10 mg Q4H PRN IV SBP>170 Last administered on 01:59; Admin Dose 10 MG; Start 06/09/17 at 18:30 Diagnostic Test (Pha) (Accu-Chek) 1 ea 02 XX Last administered on 06/18/17 02: 12; Admin Dose 1 EA; Start 06/11/17 at 02:00 Hydromorphone HCl (Dilaudid RAMP MANAGER) 0.1 MG DOSE 10 ... Q4PCA IV Last administered on 06/12/17 14:48; Admin Dose 0.1 MG; Start 06/10/17 at 18:30 Simethicone (Mylicon) 80 mg Q6H PRN GTB DISTENSION/GAS/BLOATING Last administered on 06/18/17 13:20; Admin Dose 80 MG; Start 06/11/17 at 18:00 Hydralazine HCl (Apresoline) 100 mg TID PO Last administered on 06/18/17 13:15 ; Admin Dose 100 MG; Start 06/12/17 at 09:00 Nifedipine (Procardia Xl) 30 mg BID PO Last administered on 06/17/17 09:38; Admin Dose 30 MG; Start 06/12/17 at 12:00 Labetalol HCl (Normodyne) 200 mg TID PO Last administered on 06/18/17 13:15; Admin Dose 200 MG; Start 06/12/17 at 12:00 Insulin Glargine (Lantus) 35 unit QHS SC Last administered on 06/17/17 21:06; Admin Dose 35 UNIT; Start 06/12/17 at 21:00 Mupirocin (Bactroban) 1 applic BID TOP Last administered on 06/18/17 08:35; Admin Dose 1 APPLIC; Start 06/13/17 at 09:00 Ondansetron HCl (Zofran Inj) 4 mg Q6H PRN IV NAUSEA AND/OR VOMITING Last administered on 06/15/17 06:01; Admin Dose 4 MG; Start 06/13/17 at 20:30 Pantoprazole 40 mg 40 mg BID@06,18 PO Last administered on 06/18/17 06:07; Admin Dose 40 MG; Start 06/16/17 at 18:00 Sodium Chloride (NS) 1,000 ml @ 0 mls/hr Q0M PRN IV TO KEEP SBP ABOVE 90; Start 06/17/17 at 14:00 Bumetanide (Bumex) 1 mg BID@,18 PO Last administered on 06/18/17 06:07; Admin Dose 1 MG; Start 06/17/17 at 18:00 Clonidine (Catapres) 0.2 mg BID PO ; Start 06/18/17 at 21:00 AMANDA CABAN NP Jun 18, 2017 14:41
[2017-06-18 15:51] VITALS: BP 139/75; RESP 18
--- NOTE | 2017-06-18 17:52 | PN ---
Date/Time of Note Date/Time of Note DATE: 06/18/17 TIME: 17:49 Assessment/Plan VTE Prophylaxis VTE Prophylaxis Intervention: SCD's Lines/Catheters IV Catheter Type (from Nrsg): Central Line Central line still needed: Yes Urinary Cath still in place: Yes Reason Cath still needed: other (indicate) (as per ) Assessment/Plan Assessment/Plan 61 yo M with h/o HepC admitted with hcc admitted for partial heatectomy, post op course c/b KYLE and hyperkalemia on CKD, and acute respiratory failure requiring intubation which has resolved and acute on chronic hypertension #hyperK, KYLE on CKD -HD as per renal and HD access -cont PO bumex #elevated BPs: cont current regimen though unclear to me why labetalol chosen over metop/carvedilol -acei on hold given KYLE on CKD #melena: FOBT NEGATIVE -EGD with just gastritis/esophagitis. Pt now on PPI #DM2: cont current insulin Prophylaxis: SCD's discharge pending outpatient HD arrangements. I spoke to renal and CM. Once this is set up, no contraindication to discharge from hospitalist standpoint as long as hemoglobin stability persists Subjective 24 Hr Interval Summary Free Text/Dictation pt wants to know when he'll get discharged. Apparently wrong line was inserted ( karl and not permacath) Exam/Review of Systems Vital Signs Vitals Vital Signs Date Time Temp Pulse Resp B/P Pulse Ox O2 Delivery O2 Flow Rate FiO2 06/18/17 15:51 98.5 79 18 139/75 94 06/16/17 17:58 5.0 06/16/17 17:00 Room Air 06/15/17 11:37 33 Intake and Output 06/17/17 06/17/17 06/18/17 15:00 23:00 07:00 Intake Total 1520 ml Output Total 600 ml Balance 920 ml Exam nad, sitting up in bed no mrg lungs clear abd soft no rashes Results Result Diagram: 06/18/17 0603 06/17/17 0608 Results 24 hrs Laboratory Tests Test 06/17/17 20:56 06/18/17 02:09 06/18/17 06:03 06/18/17 08:32 Bedside Glucose 229 H 104 91 White Blood Count 12.8 #H Red Blood Count 2.88 L Hemoglobin 7.5 L Hematocrit 23.8 L Mean Corpuscular Volume 82.6 Mean Corpuscular Hemoglobin 26.0 L Mean Corpuscular Hemoglobin Concent 31.5 L Red Cell Distribution Width 16.7 H Platelet Count 225 Mean Platelet Volume 9.9 Neutrophils % 56.1 Lymphocytes % 21.8 Monocytes % 15.6 H Eosinophils % 3.9 Basophils % 0.2 Nucleated Red Blood Cells % 0.2 H Neutrophils # 7.2 Lymphocytes # 2.8 Monocytes # 2.0 H Eosinophils # 0.5 Basophils # 0.0 Nucleated Red Blood Cells # 0.0 Test 06/18/17 11:57 06/18/17 17:18 Bedside Glucose 129 201 Medications Medications Current Medications Acetaminophen/ Hydrocodone Bitart ([place] (5/325)) 1 tab Q4H PRN PO PAIN LEVEL 4 -7 Last administered on 06/10/17 16:55; Admin Dose 1 TAB; Start 06/09/17 at 14:00 ; Status Future Hold Acetaminophen/ Hydrocodone Bitart ([place] (5/325)) 2 tab Q4H PRN PO PAIN LEVEL 7 -10; Start 06/09/17 at 14:00; Status Future Hold Hydromorphone HCl (Dilaudid) 0.5 mg Q2H PRN IV PAIN; Start 06/09/17 at 14:00 Hydromorphone HCl (Dilaudid) 1 mg Q2H PRN IV PAIN Last administered on 21:26; Admin Dose 1 MG; Start 06/09/17 at 14:00 Docusate Sodium (Colace) 100 mg BID PRN PO CONSTIPATION; Start 06/09/17 at 14:00 Bisacodyl (Dulcolax Supp) 10 mg BID PRN [place] CONSTIPATION; Start 06/09/17 at 14:00 Sodium Biphosphate/ Sodium Phosphate (Fleet Enema) 133 ml BID PRN [place] CONSTIPATION; Start 06/09/17 at 14:00 Enoxaparin Sodium (Lovenox) 40 mg DAILY SC Last administered on 06/13/17 08:22 ; Admin Dose 40 MG; Start 06/10/17 at 09:00; Status Future Hold Miscellaneous Information 1 ea NOTE XX ; Start 06/09/17 at 17:30 Glucose (Glutose) 15 gm Q15M PRN PO DECREASED GLUCOSE; Start 06/09/17 at 17:30 Glucose (Glutose) 22.5 gm Q15M PRN PO DECREASED GLUCOSE; Start 06/09/17 at 17:30 Dextrose (D50w Syringe) 25 ml Q15M PRN IV DECREASED GLUCOSE; Start 06/09/17 at 17:30 Dextrose (D50w Syringe) 50 ml Q15M PRN IV DECREASED GLUCOSE Last administered on 06/09/17 17:47; Admin Dose 50 ML; Start 06/09/17 at 17:30 Glucagon (Glucagen) 1 mg Q15M PRN IM DECREASED GLUCOSE; Start 06/09/17 at 17:30 Glucose (Glutose) 15 gm Q15M PRN BUCCAL DECREASED GLUCOSE; Start 06/09/17 at 17: 30 Hydralazine HCl (Apresoline) 10 mg Q4H PRN IV SBP>170 Last administered on 01:59; Admin Dose 10 MG; Start 06/09/17 at 18:30 Diagnostic Test (Pha) (Accu-Chek) 1 ea 02 XX Last administered on 06/18/17 02: 12; Admin Dose 1 EA; Start 06/11/17 at 02:00 Hydromorphone HCl (Dilaudid CRITICAL CARE PHYSICIAN ASSISTANT) 0.1 MG DOSE 10 ... Q4PCA IV Last administered on 06/12/17 14:48; Admin Dose 0.1 MG; Start 06/10/17 at 18:30 Simethicone (Mylicon) 80 mg Q6H PRN GTB DISTENSION/GAS/BLOATING Last administered on 06/18/17 13:20; Admin Dose 80 MG; Start 06/11/17 at 18:00 Hydralazine HCl (Apresoline) 100 mg TID PO Last administered on 06/18/17 13:15 ; Admin Dose 100 MG; Start 06/12/17 at 09:00 Nifedipine (Procardia Xl) 30 mg BID PO Last administered on 06/17/17 09:38; Admin Dose 30 MG; Start 06/12/17 at 12:00 Labetalol HCl (Normodyne) 200 mg TID PO Last administered on 06/18/17 13:15; Admin Dose 200 MG; Start 06/12/17 at 12:00 Insulin Glargine (Lantus) 35 unit QHS SC Last administered on 06/17/17 21:06; Admin Dose 35 UNIT; Start 06/12/17 at 21:00 Mupirocin (Bactroban) 1 applic BID TOP Last administered on 06/18/17 08:35; Admin Dose 1 APPLIC; Start 06/13/17 at 09:00 Ondansetron HCl (Zofran Inj) 4 mg Q6H PRN IV NAUSEA AND/OR VOMITING Last administered on 06/15/17 06:01; Admin Dose 4 MG; Start 06/13/17 at 20:30 Pantoprazole 40 mg 40 mg BID@06,18 PO Last administered on 06/18/17 06:07; Admin Dose 40 MG; Start 06/16/17 at 18:00 Sodium Chloride (NS) 1,000 ml @ 0 mls/hr Q0M PRN IV TO KEEP SBP ABOVE 90; Start 06/17/17 at 14:00 Bumetanide (Bumex) 1 mg BID@06,18 PO Last administered on 06/18/17 06:07; Admin Dose 1 MG; Start 06/17/17 at 18:00 Clonidine (Catapres) 0.2 mg BID PO ; Start 06/18/17 at 21:00 PERRI JANE MD Jun 18, 2017 17:52
[2017-06-18 18:14] LABS: HEPATITIS B CORE ANTIBODY NEGATIVE (NEGATIVE)
--- NOTE | 2017-06-18 19:12 | PN ---
Date/Time of Note Date/Time of Note DATE: 06/18/17 TIME: 19:10 Assessment/Plan Lines/Catheters IV Catheter Type (from Nrs): Central Line Sadler in Place (from Nrs): Yes Assessment/Plan Assessment/Plan [facility] Progress Note Date of Service: 06/18/17 Today's Impression & Plan: Stable and appears to be improving with adequate liver function. White blood cell count continues to come down. Cultures so far negative. No indication for acute surgical intervention. Appreciate all the consultants excellent care. Answered multiple questions from the patient, his and his daughter to the best my ability. Patient and family appear to understand and agreed with the plans. Yesterday's overall assessment that is applicable for today: Multiple issues keeping him in the ICU including need for dialysis, tachycardia , which became under control with medications, hypertension which also became under control with medications, and others, including dark emesis which prompted gastroenterology consultation and upper endoscopy, which showed severe esophagitis, intermittent emesis that resolved, and rising white blood cell count of unclear etiology; no major wound problems. Throughout all this, the abdomen remained benign. In fact, the patient did not required any significant pain medication. No evidence for major intra-abdominal complication or surgical site infection. Suspected some of his symptoms are related to the need for dialysis. Preliminary pathology demonstrated possibility of residual separate HCC in his liver. Multiple medical issues postop and not unexpected given preoperative medical problems. With above assessment, I've recommended the following for today: 1. Cont current cares 2. Short-term dialysis, prophylactic anticoagulation and need for diuresis per renal 3. Labs in am 4. Increase ICS 5. Increase activity 6. Continue careful cardiopulmonary surveillance 7. Monitor culture results 8. Okay to discharge from my standpoint if okay by other physicians and if we have a plan for outpatient dialysis if needed Nature of presenting problem: High complexity Thank you again for your great care of this very pleasant patient and wonderful family. If there are any questions, please feel free to call me at [phone]. Disclaimer: Inadvertent spelling or grammatical errors are likely due to EHR/ dictation software use and do not reflect on the overall quality of patient care. Updated Clinical Summary: Patient is a very pleasant 60-year-old gentleman with comorbid issues including a BMI of 34, as well as history of hepatitis C, treated with Harvoni in August 2016 with near complete disappearance of his viral count, who was noted to have a liver lesion that was initially detected on 04/26/2016, liver CT of the abdomen and pelvis read as a somewhat well-defined 4.8 x 4.4 x 4.6 cm area of low attenuation within the right lobe of the liver. Note that he also had a few followup scans since then including ultrasound of the abdomen 05/22/2016 showing a solid mass 4.6 x 4.8 x 3.9 cm that appeared to be hypoechoic and no increased Doppler flow, liver dedicated MRI of the abdomen 06/19/2016 showing a 3.5 cm solid mass anteriorly in the right lobe of the liver that cannot be further characterized due to lack of contrast, liver dedicated contrast study of the abdomen on 07/08/2016 showing no evidence of increased uptake, corresponding to a liver mass seen in the right lobe of the liver and therefore not consistent with a hemangioma. He had a liver biopsy percutaneously done on 08/07/2016 with ultrasound guidance with the final pathology showing necrotic material, otherwise nondiagnostic. He had a repeat MRI of the liver with and without contrast 09/24/2016 that showed the previously seen lesion that was 3.8 cm at the junction of the right and left lobes but additional 2.3 cm lesion in segment 5 of the liver showing low signal intensity on the T1 weighted images, intermediate signal intensity on the T2 weighted images and arterial phase contrast enhancement. These findings were thought to be metastatic disease or multifocal hepatocellular carcinoma. Due to growth seen in segment 5 lesion, repeat biopsy of the liver was ordered which was done on 04/07/2017. Segment 5 lesion was biopsied and final pathology was consistent with moderately differentiated hepatocellular carcinoma in a background of chronic hepatitis C. Normal liver biopsy done at the same time showed grade 2 portal inflammation and interface hepatitis, grade 2 lobular activity and stage I fibrosis. Patient had a somewhat margaret course postoperatively with renal failure requiring dialysis and prolonged ICU stay. 06/14/17 RUQ duplex ultrasound demonstrated expected findings from the liver with normal blood flow and no major fluid collections around it indicating lack of obvious bile leak. Discharge from ICU 06/16/2017 to regular floor. Comorbidities: 1. Hepatocellular carcinoma in segment 5 of liver in the setting of hepatitis C , along with several regenerative nodules. Hepatitis C that was thought to be chronic, treated with Harvoni 08/2016 with near resolution and disappearance of the viral load. His hepatitis C is thought to be genotype 1A with prior viral load in 2012 of approximately 18 million international units per mL. 2. Diabetes mellitus type 2. 3. Hyperlipidemia. 4. Hypertension. 5. Left distal tibial fracture. 6. Left tibia fracture. 7. Obstructive sleep apnea. 8. Vitamin D deficiency. 9. Former smoker. 10. S/p laparoscopic exploration with intraoperative ultrasound of liver and core needle liver biopsy with ultrasound guidance segment 8 lesion and separately segment 4B normal liver, open partial hepatectomy segment 5/6, ultrasound-guided core needle liver biopsy segment 4B (left side) mass under direct visualization, cholecystectomy, lysis of adhesions, and umbilical hernia repair at [facility] 06/10/17. Subjective: No major events or complaints; reports overall feeling better; tolerating orals without any difficulty; no major abd pain and under control with medications; no n/v/d; no sob or cp; + flatus; + BM; minimal activity Objective: Vitals: See below Exam: GENERAL: On exam, the patient was laying in bed and appeared to be comfortable and in no acute distress. ABDOMEN: Soft, nontender and nondistended. Incisions are clean, dry and intact without any evidence of obvious erythema, edema, discharge, or hernia. There are no peritoneal signs or guarding. SKIN: Skin appears to be pink and feels warm to touch. NEUROLOGIC: Patient is awake, alert, and follows commands appropriately. Exam/Review of Systems Vital Signs Vitals Vital Signs Date Time Temp Pulse Resp B/P Pulse Ox O2 Delivery O2 Flow Rate FiO2 06/18/17 15:51 98.5 79 18 139/75 94 06/16/17 17:58 5.0 06/16/17 17:00 Room Air 06/15/17 11:37 33 Intake and Output 06/17/17 06/17/17 06/18/17 15:00 23:00 07:00 Intake Total 1520 ml Output Total 600 ml Balance 920 ml Results Result Diagram: 06/18/17 0603 06/17/17 0608 KAYA BERMAN M.D. Jun 18, 2017 19:12
[2017-06-18 19:26] VITALS: BP 140/71; RESP 18
--- NOTE | 2017-06-18 19:42 | PN ---
Date/Time of Note Date/Time of Note DATE: 06/18/17 TIME: 19:42 Assessment/Plan Lines/Catheters IV Catheter Type (from Nrsg): Central Line Sadler in Place (from Nrsg): Yes Assessment/Plan Chief Complaint/Hosp Course CKD SP Dialysis cath placement Status post dialysis today SP internal jugular vein cath will continue dialysis izabel for permcath placement tomorrow Problems: Subjective 24 Hr Interval Summary Constitutional: improved Pain Control: mild Exam/Review of Systems Vital Signs Vitals Vital Signs Date Time Temp Pulse Resp B/P Pulse Ox O2 Delivery O2 Flow Rate FiO2 06/18/17 19:26 99.5 85 18 140/71 92 06/16/17 17:58 5.0 06/16/17 17:00 Room Air 06/15/17 11:37 33 Intake and Output 06/17/17 06/17/17 06/18/17 15:00 23:00 07:00 Intake Total 1520 ml Output Total 600 ml Balance 920 ml Exam Neck: non-tender, supple Respiratory: clear to auscultation, normal air movement Cardiovascular: nl pulses, regular rate and rhythm Gastrointestinal: nl liver, spleen, non-tender, soft Results Result Diagram: 06/18/17 0603 06/17/17 0608 BEHZAD MICHEL MD Jun 18, 2017 19:42
--- NOTE | 2017-06-18 19:50 | CONS ---
Date/Time of Note Date/Time of Note DATE: 06/18/17 TIME: 19:46 Assessment/Plan Assessment/Plan Chief Complaint/Hosp Course 1. KYLE on CKD IV A/P HYPERKALEMIA BETTER S/P HD WITH INTERMITTENT HD .Pt has good UOP on Bumex but has with poor clearence ( BUN/cr 94/5.9 ) requiring HD 2. DM on Insulin 3 KYLE on CKD IV with ATN 4 Hyperphos 5 Hypokalemia 4 .HTN 5 HEP C s/p S/P LIVER SURGERY 6 Urinary retention s/p Straight cath 7 Anemia s/p EGD with erosive gastritis Recs: Pt will need permacath placement spoke to PMD C/w bumex to 1 mg po daily HD tmw> will keep on // schedule Will set up with [facility]. Hep panel CK BMP c/w renagel 800 tid with meals Problems: Consultation Date/Type/Reason Admit Date/Time Jun 09, 2017 at 06:00 Initial Consult Date 06/09/17 Type of Consultation: Nephrology Referring Provider: KAL BERMAN DPM 24 HR Interval Summary Free Text/Dictation s/p HD yesterday, Pt feels better Exam/Review of Systems Vital Signs Vitals Vital Signs Date Time Temp Pulse Resp B/P Pulse Ox O2 Delivery O2 Flow Rate FiO2 06/18/17 19:26 99.5 85 18 140/71 92 06/16/17 17:58 5.0 06/16/17 17:00 Room Air 06/15/17 11:37 33 Intake and Output 06/17/17 06/17/17 06/18/17 15:00 23:00 07:00 Intake Total 1520 ml Output Total 600 ml Balance 920 ml Exam constitutional: alert, oriented Eyes: EOMI Neck: supple Respiratory: diminished breath soundsB/L Cardiovascular: regular rate and rhythm Gastrointestinal: distended, surgical scars Extremities: edema Additional Comments rt IAngelaJ Results Result Diagram: 06/18/17 0603 06/17/17 0608 Results 24 hrs Laboratory Tests Test 06/17/17 20:56 06/18/17 02:09 06/18/17 06:03 06/18/17 07:50 Bedside Glucose 229 H 104 49 *L White Blood Count 12.8 #H Red Blood Count 2.88 L Hemoglobin 7.5 L Hematocrit 23.8 L Mean Corpuscular Volume 82.6 Mean Corpuscular Hemoglobin 26.0 L Mean Corpuscular Hemoglobin Concent 31.5 L Red Cell Distribution Width 16.7 H Platelet Count 225 Mean Platelet Volume 9.9 Neutrophils % 56.1 Lymphocytes % 21.8 Monocytes % 15.6 H Eosinophils % 3.9 Basophils % 0.2 Nucleated Red Blood Cells % 0.2 H Neutrophils # 7.2 Lymphocytes # 2.8 Monocytes # 2.0 H Eosinophils # 0.5 Basophils # 0.0 Nucleated Red Blood Cells # 0.0 Test 06/18/17 08:11 06/18/17 08:32 06/18/17 11:57 06/18/17 16:46 Bedside Glucose 66 L 91 129 Hepatitis B Surface Antigen NEGATIVE Hepatitis B Surface Antibody NEGATIVE Hepatitis B Core Total Antibody NEGATIVE Hepatitis C Antibody REACTIVE H Test 06/18/17 17:18 Bedside Glucose 201 Medications Medications Current Medications Acetaminophen/ Hydrocodone Bitart ([place] (5/325)) 1 tab Q4H PRN PO PAIN LEVEL 4 -7 Last administered on 06/10/17 16:55; Admin Dose 1 TAB; Start 06/09/17 at 14:00 ; Status Future Hold Acetaminophen/ Hydrocodone Bitart ([place] (5/325)) 2 tab Q4H PRN PO PAIN LEVEL 7 -10; Start 06/09/17 at 14:00; Status Future Hold Hydromorphone HCl (Dilaudid) 0.5 mg Q2H PRN IV PAIN; Start 06/09/17 at 14:00 Hydromorphone HCl (Dilaudid) 1 mg Q2H PRN IV PAIN Last administered on 21:26; Admin Dose 1 MG; Start 06/09/17 at 14:00 Docusate Sodium (Colace) 100 mg BID PRN PO CONSTIPATION; Start 06/09/17 at 14:00 Bisacodyl (Dulcolax Supp) 10 mg BID PRN [place] CONSTIPATION; Start 06/09/17 at 14:00 Sodium Biphosphate/ Sodium Phosphate (Fleet Enema) 133 ml BID PRN [place] CONSTIPATION; Start 06/09/17 at 14:00 Enoxaparin Sodium (Lovenox) 40 mg DAILY SC Last administered on 06/13/17 08:22 ; Admin Dose 40 MG; Start 06/10/17 at 09:00; Status Future Hold Miscellaneous Information 1 ea NOTE XX ; Start 06/09/17 at 17:30 Glucose (Glutose) 15 gm Q15M PRN PO DECREASED GLUCOSE; Start 06/09/17 at 17:30 Glucose (Glutose) 22.5 gm Q15M PRN PO DECREASED GLUCOSE; Start 06/09/17 at 17:30 Dextrose (D50w Syringe) 25 ml Q15M PRN IV DECREASED GLUCOSE; Start 06/09/17 at 17:30 Dextrose (D50w Syringe) 50 ml Q15M PRN IV DECREASED GLUCOSE Last administered on 06/09/17 17:47; Admin Dose 50 ML; Start 06/09/17 at 17:30 Glucagon (Glucagen) 1 mg Q15M PRN IM DECREASED GLUCOSE; Start 06/09/17 at 17:30 Glucose (Glutose) 15 gm Q15M PRN BUCCAL DECREASED GLUCOSE; Start 06/09/17 at 17: 30 Hydralazine HCl (Apresoline) 10 mg Q4H PRN IV SBP>170 Last administered on 01:59; Admin Dose 10 MG; Start 06/09/17 at 18:30 Diagnostic Test (Pha) (Accu-Chek) 1 ea 02 XX Last administered on 06/18/17 02: 12; Admin Dose 1 EA; Start 06/11/17 at 02:00 Hydromorphone HCl (Dilaudid CAMPUS ADMINISTRATOR) 0.1 MG DOSE 10 ... Q4PCA IV Last administered on 06/12/17 14:48; Admin Dose 0.1 MG; Start 06/10/17 at 18:30 Simethicone (Mylicon) 80 mg Q6H PRN GTB DISTENSION/GAS/BLOATING Last administered on 06/18/17 13:20; Admin Dose 80 MG; Start 06/11/17 at 18:00 Hydralazine HCl (Apresoline) 100 mg TID PO Last administered on 06/18/17 13:15 ; Admin Dose 100 MG; Start 06/12/17 at 09:00 Nifedipine (Procardia Xl) 30 mg BID PO Last administered on 06/17/17 09:38; Admin Dose 30 MG; Start 06/12/17 at 12:00 Labetalol HCl (Normodyne) 200 mg TID PO Last administered on 06/18/17 13:15; Admin Dose 200 MG; Start 06/12/17 at 12:00 Insulin Glargine (Lantus) 35 unit QHS SC Last administered on 06/17/17 21:06; Admin Dose 35 UNIT; Start 06/12/17 at 21:00 Mupirocin (Bactroban) 1 applic BID TOP Last administered on 06/18/17 08:35; Admin Dose 1 APPLIC; Start 06/13/17 at 09:00 Ondansetron HCl (Zofran Inj) 4 mg Q6H PRN IV NAUSEA AND/OR VOMITING Last administered on 06/15/17 06:01; Admin Dose 4 MG; Start 06/13/17 at 20:30 Pantoprazole 40 mg 40 mg BID@06,18 PO Last administered on 06/18/17 18:16; Admin Dose 40 MG; Start 06/16/17 at 18:00 Sodium Chloride (NS) 1,000 ml @ 0 mls/hr Q0M PRN IV TO KEEP SBP ABOVE 90; Start 06/17/17 at 14:00 Bumetanide (Bumex) 1 mg BID@06,18 PO Last administered on 06/18/17 18:33; Admin Dose 1 MG; Start 06/17/17 at 18:00 Clonidine (Catapres) 0.2 mg BID PO ; Start 06/18/17 at 21:00 OSIEL ISAACS MD Jun 18, 2017 19:50
[2017-06-18] MEDS: INSULIN GLARGINE [LANtus] 3 ML PEN SC SCH (22:00)
[2017-06-19] VITALS (11 sets, daily range): BP systolic 100–142; BP diastolic 60–75; PULSE 72–82; RESP 16–18
[2017-06-19] MEDS: ACCU-CHEK XX SCH ×4 (01:08→09:49)
[2017-06-19] MEDS: PANTOPRAZOLE (EC) 40 MG TAB PO SCH (05:07)
[2017-06-19] MEDS: BUMETANIDE 0.5 MG TAB PO SCH (05:07)
[2017-06-19 06:13] LABS: ABNORMAL IP MESSAGE 1; BASOPHILS % 0.2 % (0.0-2.0); EOSINOPHILS # 0.6 10^3/ul (0.0-0.5); EOSINOPHILS % 4.3 % (0.0-7.0); HEMATOCRIT 26.1 % (42.0-52.0); HEMOGLOBIN 8.4 g/dl (14.0-18.0); LYMPHOCYTES # 2.5 10^3/ul (0.8-2.9); LYMPHOCYTES % 19.5 % (15.0-51.0); MEAN CORPUSCULAR HEMOGLOBIN 26.8 pg (29.0-33.0); MEAN CORPUSCULAR HGB CONC 32.2 g/dl (32.0-37.0); MEAN CORPUSCULAR VOLUME 83.1 fl (82.0-101.0); MONOCYTE # 2.2 10^3/ul (0.3-0.9); MONOCYTES % 16.8 % (0.0-11.0); NEUTROPHIL # 7.4 10^3/ul (1.6-7.5); NEUTROPHILS % 57.1 % (39.0-77.0); PLATELET COUNT 278 10^3/UL (140-415); POSITIVE DIFF @See below; RED BLOOD COUNT 3.14 10^6/ul (4.70-6.10); RED CELL DISTRIBUTION WIDTH 16.9 % (11.5-14.5)
[2017-06-19] MEDS: INSULIN ASPART [NOVOLOG] 3 ML PEN SC SCH ×3 (08:08→12:44)
--- NOTE | 2017-06-19 08:29 | QN ---
Documentation Comment Hospitalist consult service sign off note 61 yo M with h/o HepC admitted with hcc admitted for partial heatectomy, post op course c/b KYLE and hyperkalemia on CKD, and acute respiratory failure requiring intubation which has resolved and acute on chronic hypertension -Pt with anemia during this admission and melena, FOBT was negative. EGD with just gastritis/esophagitis. Pt started on PPI. Hgb has remained stable. -Pt with KYLE on CKD, CM and nephrology setting up outpatient HD -Appears pt's BP is being monitored by cardiology service. Hospitalist service to sign off at this time. No contraindication to discharge once outpatient HD is set up. Do not hesitate to call with questions. Perri Mares MD hospitalist PERRI MARES MD Jun 19, 2017 08:29
[2017-06-19] MEDS ORDERED: HEPARIN 1000 UNITS/ML 10 ML INJ ONE (08:54)
[2017-06-19] MEDS ORDERED: LIDOCAINE 1% (MDV) 20 ML INJ ONE (08:54)
[2017-06-19] MEDS: MUPIROCIN 2% 22 GM OINT TOP SCH (09:47)
[2017-06-19] MEDS: LABETALOL 200 MG TAB PO SCH ×2 (09:48→13:00)
[2017-06-19] MEDS: NIFEdipine (XL) 30 MG TAB PO SCH (09:48)
--- NOTE | 2017-06-19 10:03 | CONS ---
Date/Time of Note Date/Time of Note DATE: 06/19/17 TIME: 09:59 Assessment/Plan Assessment/Plan Chief Complaint/Hosp Course IMP: 1. Hypertensive urgency emergency-now improved on current anti-hypertensive regimen 2. Tachycardia consistent with sinus tachycardia at this time- now improved 3. History of dyslipidemia. 4. Status post liver resection of hepatocellular carcinoma. 5. History of hepatocellular carcinoma, status post resection as above. 6. Acute on chronic renal failure now on HD 7. Hyperkalemia, resolved with dialysis. 8. Congestive heart failure-diastolic acute on chronic 9. Diabetes mellitus. REcc: -Continue current labetelol/hydralazine with reasonably controlled BP as patient will comply -will attempt to slowly wean clonidine in favor of alternative agents such as procardia which I willuptitrate today slightly -HD for volume removal s/p permacath placement Problems: Consultation Date/Type/Reason Admit Date/Time Jun 09, 2017 at 06:00 Initial Consult Date 06/14/17 Type of Consultation: cardiology Reason for Consultation HTN Referring Provider: KAL BERMAN DPM Exam/Review of Systems Vital Signs Vitals Vital Signs Date Time Temp Pulse Resp B/P Pulse Ox O2 Delivery O2 Flow Rate FiO2 06/19/17 07:34 98.5 79 18 139/75 94 06/16/17 17:58 5.0 06/16/17 17:00 Room Air 06/15/17 11:37 33 Intake and Output 06/18/17 06/18/17 06/19/17 15:00 23:00 07:00 Intake Total 620 ml 240 ml Output Total 500 ml Balance 620 ml -260 ml Exam Review of Systems: CONSTITUTIONAL: No fevers, chills. PULMONARY: No sob CARDIOVASCULAR: No chest pain/palpitations GASTROINTESTINAL: No nausea/vomiting. GENITOURINARY: No hematuria/dysuria. MUSCULOSKELETAL: No myagias/arthalgias. PSYCHIATRIC: The patient denies depression. NEUROLOGIC: No weakness Constitutional: alert, oriented Psych: no complaints Head: normocephalic ENMT: mucosa pink and moist Neck: jvd (9 cm water), other (permacath R chest), supple Respiratory: diminished breath sounds (at bases/B) Cardiovascular: regular rate and rhythm Gastrointestinal: non-tender, soft Musculoskeletal: muscle tone (normal) Extremities: edema (none) Neurological: other (No focal deficits) Results Result Diagram: 06/19/17 0528 06/17/17 0608 Results 24 hrs Laboratory Tests Test 06/18/17 11:57 06/18/17 16:46 06/18/17 17:18 06/18/17 20:42 Bedside Glucose 129 201 164 Hepatitis B Surface Antigen NEGATIVE Hepatitis B Surface Antibody NEGATIVE Hepatitis B Core Total Antibody NEGATIVE Hepatitis C Antibody REACTIVE H Test 06/18/17 21:55 06/19/17 00:50 06/19/17 05:02 06/19/17 05:28 Bedside Glucose 133 131 155 White Blood Count 13.0 H Red Blood Count 3.14 L Hemoglobin 8.4 L Hematocrit 26.1 L Mean Corpuscular Volume 83.1 Mean Corpuscular Hemoglobin 26.8 L Mean Corpuscular Hemoglobin Concent 32.2 Red Cell Distribution Width 16.9 H Platelet Count 278 # Mean Platelet Volume 10.0 Neutrophils % 57.1 Lymphocytes % 19.5 Monocytes % 16.8 H Eosinophils % 4.3 Basophils % 0.2 Nucleated Red Blood Cells % 0.0 Neutrophils # 7.4 Lymphocytes # 2.5 Monocytes # 2.2 H Eosinophils # 0.6 H Basophils # 0.0 Nucleated Red Blood Cells # 0.0 Test 06/19/17 09:43 Bedside Glucose 150 Medications Medications Current Medications Acetaminophen/ Hydrocodone Bitart ([place] (5/325)) 1 tab Q4H PRN PO PAIN LEVEL 4 -7 Last administered on 06/10/17 16:55; Admin Dose 1 TAB; Start 06/09/17 at 14:00 ; Status Future Hold Acetaminophen/ Hydrocodone Bitart ([place] (5/325)) 2 tab Q4H PRN PO PAIN LEVEL 7 -10; Start 06/09/17 at 14:00; Status Future Hold Hydromorphone HCl (Dilaudid) 0.5 mg Q2H PRN IV PAIN; Start 06/09/17 at 14:00 Hydromorphone HCl (Dilaudid) 1 mg Q2H PRN IV PAIN Last administered on 21:26; Admin Dose 1 MG; Start 06/09/17 at 14:00 Docusate Sodium (Colace) 100 mg BID PRN PO CONSTIPATION; Start 06/09/17 at 14:00 Bisacodyl (Dulcolax Supp) 10 mg BID PRN [place] CONSTIPATION; Start 06/09/17 at 14:00 Sodium Biphosphate/ Sodium Phosphate (Fleet Enema) 133 ml BID PRN [place] CONSTIPATION; Start 06/09/17 at 14:00 Enoxaparin Sodium (Lovenox) 40 mg DAILY SC Last administered on 06/13/17 08:22 ; Admin Dose 40 MG; Start 06/10/17 at 09:00; Status Future Hold Miscellaneous Information 1 ea NOTE XX ; Start 06/09/17 at 17:30 Glucose (Glutose) 15 gm Q15M PRN PO DECREASED GLUCOSE; Start 06/09/17 at 17:30 Glucose (Glutose) 22.5 gm Q15M PRN PO DECREASED GLUCOSE; Start 06/09/17 at 17:30 Dextrose (D50w Syringe) 25 ml Q15M PRN IV DECREASED GLUCOSE; Start 06/09/17 at 17:30 Dextrose (D50w Syringe) 50 ml Q15M PRN IV DECREASED GLUCOSE Last administered on 06/09/17 17:47; Admin Dose 50 ML; Start 06/09/17 at 17:30 Glucagon (Glucagen) 1 mg Q15M PRN IM DECREASED GLUCOSE; Start 06/09/17 at 17:30 Glucose (Glutose) 15 gm Q15M PRN BUCCAL DECREASED GLUCOSE; Start 06/09/17 at 17: 30 Hydralazine HCl (Apresoline) 10 mg Q4H PRN IV SBP>170 Last administered on 01:59; Admin Dose 10 MG; Start 06/09/17 at 18:30 Diagnostic Test (Pha) (Accu-Chek) 1 ea 02 XX Last administered on 06/18/17 02: 12; Admin Dose 1 EA; Start 06/11/17 at 02:00 Hydromorphone HCl (Dilaudid AIRCRAFT MECHANIC) 0.1 MG DOSE 10 ... Q4PCA IV Last administered on 06/12/17 14:48; Admin Dose 0.1 MG; Start 06/10/17 at 18:30 Simethicone (Mylicon) 80 mg Q6H PRN GTB DISTENSION/GAS/BLOATING Last administered on 06/18/17 13:20; Admin Dose 80 MG; Start 06/11/17 at 18:00 Hydralazine HCl (Apresoline) 100 mg TID PO Last administered on 06/19/17 09:49 ; Admin Dose 100 MG; Start 06/12/17 at 09:00 Nifedipine (Procardia Xl) 30 mg BID PO Last administered on 06/19/17 09:48; Admin Dose 30 MG; Start 06/12/17 at 12:00 Labetalol HCl (Normodyne) 200 mg TID PO Last administered on 06/19/17 09:48; Admin Dose 200 MG; Start 06/12/17 at 12:00 Insulin Glargine (Lantus) 35 unit QHS SC Last administered on 06/18/17 22:00; Admin Dose 10 UNIT; Start 06/12/17 at 21:00 Mupirocin (Bactroban) 1 applic BID TOP Last administered on 06/19/17 09:47; Admin Dose 1 APPLIC; Start 06/13/17 at 09:00 Ondansetron HCl (Zofran Inj) 4 mg Q6H PRN IV NAUSEA AND/OR VOMITING Last administered on 06/15/17 06:01; Admin Dose 4 MG; Start 06/13/17 at 20:30 Pantoprazole 40 mg 40 mg BID@06,18 PO Last administered on 06/18/17 18:16; Admin Dose 40 MG; Start 06/16/17 at 18:00 Sodium Chloride (NS) 1,000 ml @ 0 mls/hr Q0M PRN IV TO KEEP SBP ABOVE 90; Start 06/17/17 at 14:00 Bumetanide (Bumex) 1 mg BID@06,18 PO Last administered on 06/18/17 18:33; Admin Dose 1 MG; Start 06/17/17 at 18:00 Clonidine (Catapres) 0.2 mg BID PO Last administered on 06/19/17 09:49; Admin Dose 0.2 MG; Start 06/18/17 at 21:00 Diagnostic Test (Pha) (Accu-Chek) 1 ea Q4 XX Last administered on 06/19/17 09: 49; Admin Dose 1 EA; Start 06/19/17 at 01:00 SAI FITZPATRICK Jun 19, 2017 10:03
--- NOTE | 2017-06-19 10:34 | OPR ---
Date/Time of Note Date/Time of Note DATE: 06/19/17 TIME: 10:28 Operative Report Procedure Date: Jun 19, 2017 Preoperative Diagnosis Renal failure Operation Performed 1 Right internal jugular vein tunneled him for catheter placement 2 ultrasound guidance into the central vein 3 Fluoroscopy 4 Conscious sedation for 1 hour Surgeon: BEHZAD MICHEL MD Anesthesia Type: MAC, other Estimated Blood Loss: minimal Transfusion Required: no Complications: no Pt Condition Post Procedure: critical Procedure Description Patient was taken to the cardiac catheterization lab prepped and draped in usual sterile fashion Timeout was called Under ultrasonic guidance access was gained the right internal jugular vein Guidewire was advanced through without any difficulty Subcutaneous tissues were dilated 19 cm tunneled from the catheter was brought into the field advanced into the subcutaneous tunnel The catheter was advanced into the right internal jugular jugular vein superior vena cava all under fluoroscopic guidance The tip of the catheter was placed at the junction of the superior vena cava and right atrium Both ports of the catheter were aspirated and injected using heparinized saline solution Catheter was secured to skin using 2-0 nylon sutures The next site and exit site was closed using a single 3-0 Vicryl suture in interrupted fashion BEHZAD MICHEL MD Jun 19, 2017 10:34
[2017-06-19] MEDS ORDERED: LINAGLIPTIN 5 MG TABLET PO SCH (12:00)
--- NOTE | 2017-06-19 12:05 | CONS ---
Date/Time of Note Date/Time of Note DATE: 06/19/17 TIME: 11:59 Assessment/Plan Assessment/Plan Chief Complaint/Hosp Course 1. Acute kidney injury 2. HEPATIS C 3. S/P LIVER BIOPSY 4. dm TYPE II, controlled 5. CKD moderate Problems: Additional Assessment/Plan 1. Continue HD Consultation Date/Type/Reason Admit Date/Time Jun 09, 2017 at 06:00 Initial Consult Date 06/10/17 Type of Consultation: nephrology Reason for Consultation Dr Perales Referring Provider: KAL BERMAN DPM 24 HR Interval Summary Constitutional: no complaints Exam/Review of Systems Vital Signs Vitals Vital Signs Date Time Temp Pulse Resp B/P Pulse Ox O2 Delivery O2 Flow Rate FiO2 06/19/17 07:34 98.5 79 18 139/75 94 06/16/17 17:58 5.0 06/16/17 17:00 Room Air 06/15/17 11:37 33 Intake and Output 06/18/17 06/18/17 06/19/17 15:00 23:00 07:00 Intake Total 620 ml 240 ml Output Total 500 ml Balance 620 ml -260 ml Exam Constitutional: alert, oriented Head: normocephalic Neck: other (catheter), supple Results Result Diagram: 06/19/17 0528 06/17/17 0608 Results 24 hrs Laboratory Tests Test 06/18/17 16:46 06/18/17 17:18 06/18/17 20:42 06/18/17 21:55 Hepatitis B Surface Antigen NEGATIVE Hepatitis B Surface Antibody NEGATIVE Hepatitis B Core Total Antibody NEGATIVE Hepatitis C Antibody REACTIVE H Bedside Glucose 201 164 133 Test 06/19/17 00:50 06/19/17 05:02 06/19/17 05:28 06/19/17 09:43 Bedside Glucose 131 155 150 White Blood Count 13.0 H Red Blood Count 3.14 L Hemoglobin 8.4 L Hematocrit 26.1 L Mean Corpuscular Volume 83.1 Mean Corpuscular Hemoglobin 26.8 L Mean Corpuscular Hemoglobin Concent 32.2 Red Cell Distribution Width 16.9 H Platelet Count 278 # Mean Platelet Volume 10.0 Neutrophils % 57.1 Lymphocytes % 19.5 Monocytes % 16.8 H Eosinophils % 4.3 Basophils % 0.2 Nucleated Red Blood Cells % 0.0 Neutrophils # 7.4 Lymphocytes # 2.5 Monocytes # 2.2 H Eosinophils # 0.6 H Basophils # 0.0 Nucleated Red Blood Cells # 0.0 Medications Medications Current Medications Acetaminophen/ Hydrocodone Bitart ([place] (5/325)) 1 tab Q4H PRN PO PAIN LEVEL 4 -7 Last administered on 06/10/17 16:55; Admin Dose 1 TAB; Start 06/09/17 at 14:00 ; Status Future Hold Acetaminophen/ Hydrocodone Bitart ([place] (5/325)) 2 tab Q4H PRN PO PAIN LEVEL 7 -10; Start 06/09/17 at 14:00; Status Future Hold Hydromorphone HCl (Dilaudid) 0.5 mg Q2H PRN IV PAIN; Start 06/09/17 at 14:00 Hydromorphone HCl (Dilaudid) 1 mg Q2H PRN IV PAIN Last administered on 21:26; Admin Dose 1 MG; Start 06/09/17 at 14:00 Docusate Sodium (Colace) 100 mg BID PRN PO CONSTIPATION; Start 06/09/17 at 14:00 Bisacodyl (Dulcolax Supp) 10 mg BID PRN [place] CONSTIPATION; Start 06/09/17 at 14:00 Sodium Biphosphate/ Sodium Phosphate (Fleet Enema) 133 ml BID PRN [place] CONSTIPATION; Start 06/09/17 at 14:00 Enoxaparin Sodium (Lovenox) 40 mg DAILY SC Last administered on 06/13/17 08:22 ; Admin Dose 40 MG; Start 06/10/17 at 09:00; Status Future Hold Miscellaneous Information 1 ea NOTE XX ; Start 06/09/17 at 17:30 Glucose (Glutose) 15 gm Q15M PRN PO DECREASED GLUCOSE; Start 06/09/17 at 17:30 Glucose (Glutose) 22.5 gm Q15M PRN PO DECREASED GLUCOSE; Start 06/09/17 at 17:30 Dextrose (D50w Syringe) 25 ml Q15M PRN IV DECREASED GLUCOSE; Start 06/09/17 at 17:30 Dextrose (D50w Syringe) 50 ml Q15M PRN IV DECREASED GLUCOSE Last administered on 06/09/17 17:47; Admin Dose 50 ML; Start 06/09/17 at 17:30 Glucagon (Glucagen) 1 mg Q15M PRN IM DECREASED GLUCOSE; Start 06/09/17 at 17:30 Glucose (Glutose) 15 gm Q15M PRN BUCCAL DECREASED GLUCOSE; Start 06/09/17 at 17: 30 Hydralazine HCl (Apresoline) 10 mg Q4H PRN IV SBP>170 Last administered on 01:59; Admin Dose 10 MG; Start 06/09/17 at 18:30 Diagnostic Test (Pha) (Accu-Chek) 1 ea 02 XX Last administered on 06/18/17 02: 12; Admin Dose 1 EA; Start 06/11/17 at 02:00 Hydromorphone HCl (Dilaudid CHILLER TECHNICIAN) 0.1 MG DOSE 10 ... Q4PCA IV Last administered on 06/12/17 14:48; Admin Dose 0.1 MG; Start 06/10/17 at 18:30 Simethicone (Mylicon) 80 mg Q6H PRN GTB DISTENSION/GAS/BLOATING Last administered on 06/18/17 13:20; Admin Dose 80 MG; Start 06/11/17 at 18:00 Hydralazine HCl (Apresoline) 100 mg TID PO Last administered on 06/19/17 09:49 ; Admin Dose 100 MG; Start 06/12/17 at 09:00 Labetalol HCl (Normodyne) 200 mg TID PO Last administered on 06/19/17 09:48; Admin Dose 200 MG; Start 06/12/17 at 12:00 Insulin Glargine (Lantus) 35 unit QHS SC Last administered on 06/18/17 22:00; Admin Dose 10 UNIT; Start 06/12/17 at 21:00 Mupirocin (Bactroban) 1 applic BID TOP Last administered on 06/19/17 09:47; Admin Dose 1 APPLIC; Start 06/13/17 at 09:00 Ondansetron HCl (Zofran Inj) 4 mg Q6H PRN IV NAUSEA AND/OR VOMITING Last administered on 06/15/17 06:01; Admin Dose 4 MG; Start 06/13/17 at 20:30 Pantoprazole 40 mg 40 mg BID@18 PO Last administered on 06/18/17 18:16; Admin Dose 40 MG; Start 06/16/17 at 18:00 Sodium Chloride (NS) 1,000 ml @ 0 mls/hr Q0M PRN IV TO KEEP SBP ABOVE 90; Start 06/17/17 at 14:00 Bumetanide (Bumex) 1 mg BID@06,18 PO Last administered on 06/18/17 18:33; Admin Dose 1 MG; Start 06/17/17 at 18:00 Clonidine (Catapres) 0.2 mg BID PO Last administered on 06/19/17 09:49; Admin Dose 0.2 MG; Start 06/18/17 at 21:00 Diagnostic Test (Pha) (Accu-Chek) 1 ea Q4 XX Last administered on 06/19/17 09: 49; Admin Dose 1 EA; Start 06/19/17 at 01:00 Nifedipine (Procardia Xl) 30 mg AM PO ; Start 06/20/17 at 09:00 Nifedipine (Procardia Xl) 60 mg HS PO ; Start 06/19/17 at 21:00 DELGADO LORENZ Jun 19, 2017 12:04
--- NOTE | 2017-06-19 12:54 | PN ---
Date/Time of Note Date/Time of Note DATE: 06/19/17 TIME: 12:51 Assessment/Plan VTE Prophylaxis VTE Prophylaxis Intervention: heparin Lines/Catheters IV Catheter Type (from [facility]): Permacath Central line still needed: Yes Urinary Cath still in place: Yes Reason Cath still needed: urinary retention Assessment/Plan Assessment/Plan GI bleeding/melena resolved * EGD * Severe erosive esophagitis * Moderate gastritis * No biopsies * Chronic hepatitis C/post Harvoni treatment with eradication * Hepatocellular carcinoma/post segmental hepatectomy * Renal failure on dialysis * Hypertension * Diabetes mellitus Plan * * sign out but will follow up as needed * continue present management * case discussed with Dr Cortes * Further orders will depend on clinical course Subjective 24 Hr Interval Summary Free Text/Dictation * Course reviewed with RN * patient seen and examined * No untoward events overnight Exam/Review of Systems Vital Signs Vitals Vital Signs Date Time Temp Pulse Resp B/P Pulse Ox O2 Delivery O2 Flow Rate FiO2 06/19/17 07:34 98.5 79 18 139/75 94 06/16/17 17:58 5.0 06/16/17 17:00 Room Air 06/15/17 11:37 33 Intake and Output 06/18/17 06/18/17 06/19/17 15:00 23:00 07:00 Intake Total 620 ml 240 ml Output Total 500 ml Balance 620 ml -260 ml Exam Constitutional: alert, oriented, well developed Psych: nl mood/affect, no complaints Neck: non-tender, supple Respiratory: clear to auscultation, normal air movement Cardiovascular: nl pulses, regular rate and rhythm Gastrointestinal: non-tender, soft Musculoskeletal: nl extremities to inspection, nl gait and stance Extremities: normal pulses Neurological: nl speech, nl strength Skin: nl turgor, No rash or lesions Lymph: nl lymph nodes Results Result Diagram: 06/19/17 0528 06/17/17 0608 Results 24 hrs Laboratory Tests Test 06/18/17 16:46 06/18/17 17:18 06/18/17 20:42 06/18/17 21:55 Hepatitis B Surface Antigen NEGATIVE Hepatitis B Surface Antibody NEGATIVE Hepatitis B Core Total Antibody NEGATIVE Hepatitis C Antibody REACTIVE H Bedside Glucose 201 164 133 Test 06/19/17 00:50 06/19/17 05:02 06/19/17 05:28 06/19/17 09:43 Bedside Glucose 131 155 150 White Blood Count 13.0 H Red Blood Count 3.14 L Hemoglobin 8.4 L Hematocrit 26.1 L Mean Corpuscular Volume 83.1 Mean Corpuscular Hemoglobin 26.8 L Mean Corpuscular Hemoglobin Concent 32.2 Red Cell Distribution Width 16.9 H Platelet Count 278 # Mean Platelet Volume 10.0 Neutrophils % 57.1 Lymphocytes % 19.5 Monocytes % 16.8 H Eosinophils % 4.3 Basophils % 0.2 Nucleated Red Blood Cells % 0.0 Neutrophils # 7.4 Lymphocytes # 2.5 Monocytes # 2.2 H Eosinophils # 0.6 H Basophils # 0.0 Nucleated Red Blood Cells # 0.0 Test 06/19/17 12:17 Bedside Glucose 231 H Medications Medications Current Medications Acetaminophen/ Hydrocodone Bitart ([place] (5/325)) 1 tab Q4H PRN PO PAIN LEVEL 4 -7 Last administered on 06/10/17 16:55; Admin Dose 1 TAB; Start 06/09/17 at 14:00 ; Status Future Hold Acetaminophen/ Hydrocodone Bitart ([place] (5/325)) 2 tab Q4H PRN PO PAIN LEVEL 7 -10; Start 06/09/17 at 14:00; Status Future Hold Hydromorphone HCl (Dilaudid) 0.5 mg Q2H PRN IV PAIN; Start 06/09/17 at 14:00 Hydromorphone HCl (Dilaudid) 1 mg Q2H PRN IV PAIN Last administered on 21:26; Admin Dose 1 MG; Start 06/09/17 at 14:00 Docusate Sodium (Colace) 100 mg BID PRN PO CONSTIPATION; Start 06/09/17 at 14:00 Bisacodyl (Dulcolax Supp) 10 mg BID PRN [place] CONSTIPATION; Start 06/09/17 at 14:00 Sodium Biphosphate/ Sodium Phosphate (Fleet Enema) 133 ml BID PRN [place] CONSTIPATION; Start 06/09/17 at 14:00 Enoxaparin Sodium (Lovenox) 40 mg DAILY SC Last administered on 06/13/17 08:22 ; Admin Dose 40 MG; Start 06/10/17 at 09:00; Status Future Hold Miscellaneous Information 1 ea NOTE XX ; Start 06/09/17 at 17:30 Glucose (Glutose) 15 gm Q15M PRN PO DECREASED GLUCOSE; Start 06/09/17 at 17:30 Glucose (Glutose) 22.5 gm Q15M PRN PO DECREASED GLUCOSE; Start 06/09/17 at 17:30 Dextrose (D50w Syringe) 25 ml Q15M PRN IV DECREASED GLUCOSE; Start 06/09/17 at 17:30 Dextrose (D50w Syringe) 50 ml Q15M PRN IV DECREASED GLUCOSE Last administered on 06/09/17 17:47; Admin Dose 50 ML; Start 06/09/17 at 17:30 Glucagon (Glucagen) 1 mg Q15M PRN IM DECREASED GLUCOSE; Start 06/09/17 at 17:30 Glucose (Glutose) 15 gm Q15M PRN BUCCAL DECREASED GLUCOSE; Start 06/09/17 at 17: 30 Hydralazine HCl (Apresoline) 10 mg Q4H PRN IV SBP>170 Last administered on 01:59; Admin Dose 10 MG; Start 06/09/17 at 18:30 Diagnostic Test (Pha) (Accu-Chek) 1 ea 02 XX Last administered on 06/18/17 02: 12; Admin Dose 1 EA; Start 06/11/17 at 02:00 Hydromorphone HCl (Dilaudid ORGANIC CHEMIST) 0.1 MG DOSE 10 ... Q4PCA IV Last administered on 06/12/17 14:48; Admin Dose 0.1 MG; Start 06/10/17 at 18:30 Simethicone (Mylicon) 80 mg Q6H PRN GTB DISTENSION/GAS/BLOATING Last administered on 06/18/17 13:20; Admin Dose 80 MG; Start 06/11/17 at 18:00 Hydralazine HCl (Apresoline) 100 mg TID PO Last administered on 06/19/17 09:49 ; Admin Dose 100 MG; Start 06/12/17 at 09:00 Labetalol HCl (Normodyne) 200 mg TID PO Last administered on 06/19/17 09:48; Admin Dose 200 MG; Start 06/12/17 at 12:00 Mupirocin (Bactroban) 1 applic BID TOP Last administered on 06/19/17 09:47; Admin Dose 1 APPLIC; Start 06/13/17 at 09:00 Ondansetron HCl (Zofran Inj) 4 mg Q6H PRN IV NAUSEA AND/OR VOMITING Last administered on 06/15/17 06:01; Admin Dose 4 MG; Start 06/13/17 at 20:30 Pantoprazole 40 mg 40 mg BID@06,18 PO Last administered on 06/18/17 18:16; Admin Dose 40 MG; Start 06/16/17 at 18:00 Sodium Chloride (NS) 1,000 ml @ 0 mls/hr Q0M PRN IV TO KEEP SBP ABOVE 90; Start 06/17/17 at 14:00 Bumetanide (Bumex) 1 mg BID@18 PO Last administered on 06/18/17 18:33; Admin Dose 1 MG; Start 06/17/17 at 18:00 Clonidine (Catapres) 0.2 mg BID PO Last administered on 06/19/17 09:49; Admin Dose 0.2 MG; Start 06/18/17 at 21:00 Nifedipine (Procardia Xl) 30 mg AM PO ; Start 06/20/17 at 09:00 Nifedipine (Procardia Xl) 60 mg HS PO ; Start 06/19/17 at 21:00 Insulin Glargine (Lantus) 40 unit QHS SC ; Start 06/19/17 at 21:00 Linagliptin (Tradjenta) 5 mg DAILY PO Last administered on 06/19/17 12:40; Admin Dose 5 MG; Start 06/19/17 at 12:00 AMANDA CABAN NP Jun 19, 2017 12:54
--- NOTE | 2017-06-19 14:38 | PDOCDIS ---
Discharge Instructions CONDITION Patient Condition: Good HOME CARE INSTRUCTIONS: Diet Instructions: RegularSpecial Diet: 1800 ramonita Renal Diet 2gm ACTIVITY: Activity Restrictions: Avoid heavy lifting Do not Drive Bathing Restrictions: Shower FOLLOW UP/APPOINTMENTS Follow-up Plan "Please call [phone] if any of fever, nausea, vomiting, discharge from wound, wound redness, increase or sudden pain, blood in stool or vomit, or any other unusual signs or symptoms. Also, please call the same number in a few days to schedule an appointment for your follow up visit. Patient may remove dressings tomorrow. Showers OK starting tomorrow. No swimming , hot tub or bath for 2 weeks. No lifting more than 25 lbs for 8 weeks." OTHER ORDERS: Other Orders: "Please call [phone] if any of fever, nausea, vomiting, discharge from wound, wound redness, increase or sudden pain, blood in stool or vomit, or any other unusual signs or symptoms. Also, please call the same number in a few days to schedule an appointment for your follow up visit. Patient may remove dressings tomorrow. Showers OK starting tomorrow. No swimming , hot tub or bath for 2 weeks. No lifting more than 25 lbs for 8 weeks." KAYA BERMAN M.D. Jun 19, 2017 14:38
--- NOTE | 2017-06-19 14:42 | DS ---
Date/Time of Note Date/Time of Note DATE: 06/19/17 TIME: 14:40 Discharge Summary Admission/Discharge Info Admit Date/Time Jun 09, 2017 at 06:00 Discharge Date/Time 06/19/2017 Discharge Diagnosis Hepatocellular carcinoma in the setting of hep C cirrhosis Patient Condition: Good Hx of Present Illness Medicine HPI Patient is a 61-year-old male with history of Hepatocellular carcinoma secondary to chronic hepatitis C status post treatment with Harvoni 08/2016 with near resolution and disappearance of the viral load. Patient also has a history of CKD, diabetes type 2, dyslipidemia, hypertension, obesity with sleep apnea. Patient is status post partial hepatectomy of segment 5/6 as well as well as liver biopsy. Cholecystectomy, lysis of adhesions and umbilical hernia repair postop day #0. Patient was extubated in recovery but was noted to go into respiratory distress and hence was reintubated. Patient's potassium was checked and was found to be elevated at 9.1, patient did have peak T waves and widened QRS complexes was given calcium which normalized his cardiac rhythm. Of note patient was also given insulin in the PACU. Patient's potassium was rechecked and was reportedly still elevated. Patient does have a history of CKD and last known potassium was not significantly elevated. Patient is currently intubated in the PACU and is unable to provide any history, history is obtained from medical records. Hospital Course Updated Clinical Summary: Patient is a very pleasant 60-year-old gentleman with comorbid issues including a BMI of 34, as well as history of hepatitis C, treated with Harvoni in August 2016 with near complete disappearance of his viral count, who was noted to have a liver lesion that was initially detected on 04/26/2016, liver CT of the abdomen and pelvis read as a somewhat well-defined 4.8 x 4.4 x 4.6 cm area of low attenuation within the right lobe of the liver. Note that he also had a few followup scans since then including ultrasound of the abdomen 05/22/2016 showing a solid mass 4.6 x 4.8 x 3.9 cm that appeared to be hypoechoic and no increased Doppler flow, liver dedicated MRI of the abdomen 06/19/2016 showing a 3.5 cm solid mass anteriorly in the right lobe of the liver that cannot be further characterized due to lack of contrast, liver dedicated contrast study of the abdomen on 07/08/2016 showing no evidence of increased uptake, corresponding to a liver mass seen in the right lobe of the liver and therefore not consistent with a hemangioma. He had a liver biopsy percutaneously done on 08/07/2016 with ultrasound guidance with the final pathology showing necrotic material, otherwise nondiagnostic. He had a repeat MRI of the liver with and without contrast 09/24/2016 that showed the previously seen lesion that was 3.8 cm at the junction of the right and left lobes but additional 2.3 cm lesion in segment 5 of the liver showing low signal intensity on the T1 weighted images, intermediate signal intensity on the T2 weighted images and arterial phase contrast enhancement. These findings were thought to be metastatic disease or multifocal hepatocellular carcinoma. Due to growth seen in segment 5 lesion, repeat biopsy of the liver was ordered which was done on 04/07/2017. Segment 5 lesion was biopsied and final pathology was consistent with moderately differentiated hepatocellular carcinoma in a background of chronic hepatitis C. Normal liver biopsy done at the same time showed grade 2 portal inflammation and interface hepatitis, grade 2 lobular activity and stage I fibrosis. Patient had a somewhat margaret course postoperatively with renal failure requiring dialysis and prolonged ICU stay. 06/14/17 RUQ duplex ultrasound demonstrated expected findings from the liver with normal blood flow and no major fluid collections around it indicating lack of obvious bile leak. Discharge from ICU 06/16/2017 to regular floor. Dialysis continued. Patient continued to do well without any further issues with his wound, abdominal pain, nausea, vomiting, diarrhea, or other complications. He was discharged home on with plans for outpatient follow-up with renal for dialysis as well as follow with surgery. Long-term plan is for multidisciplinary treatment of remaining liver cancer and will likely include transarterial chemoembolization as well as possible transplant evaluation. Comorbidities: 1. Hepatocellular carcinoma in segment 5 of liver in the setting of hepatitis C , along with several regenerative nodules. Hepatitis C that was thought to be chronic, treated with Harvoni 08/2016 with near resolution and disappearance of the viral load. His hepatitis C is thought to be genotype 1A with prior viral load in 2012 of approximately 18 million international units per mL. 2. Diabetes mellitus type 2. 3. Hyperlipidemia. 4. Hypertension. 5. Left distal tibial fracture. 6. Left tibia fracture. 7. Obstructive sleep apnea. 8. Vitamin D deficiency. 9. Former smoker. 10. S/p laparoscopic exploration with intraoperative ultrasound of liver and core needle liver biopsy with ultrasound guidance segment 8 lesion and separately segment 4B normal liver, open partial hepatectomy segment 5/6, ultrasound-guided core needle liver biopsy segment 4B (left side) mass under direct visualization, cholecystectomy, lysis of adhesions, and umbilical hernia repair at [facility] 06/10/17. Medicine hospital course: IMP: 1. Hypertensive urgency emergency-now improved on current anti-hypertensive regimen 2. Tachycardia consistent with sinus tachycardia at this time- now improved 3. History of dyslipidemia. 4. Status post liver resection of hepatocellular carcinoma. 5. History of hepatocellular carcinoma, status post resection as above. 6. Acute on chronic renal failure now on HD 7. Hyperkalemia, resolved with dialysis. 8. Congestive heart failure-diastolic acute on chronic 9. Diabetes mellitus. REcc: -Continue current labetelol/hydralazine with reasonably controlled BP as patient will comply -will attempt to slowly wean clonidine in favor of alternative agents such as procardia which I willuptitrate today slightly -HD for volume removal s/p permacath placement Home Meds Reported Medications Lisinopril* (Lisinopril*) 40 Mg Tablet, 40 MG PO DAILY, #30 TAB 06/09/17 Insulin Regular, Human (Humulin R) 100 Unit/1 Ml Vial, 32 UNIT SQ BID, VIAL 06/09/17 Hydralazine Hcl* (Hydralazine Hcl*) 100 Mg Tablet, 100 MG PO BID, #90 TAB 06/09/17 Aspirin* (Ecotrin*) 81 Mg Tablet.dr, 81 MG PO DAILY, TAB 12/01/16 Atorvastatin Calcium* (Atorvastatin Calcium*) 20 Mg Tablet, 20 MG PO QHS, #30 TAB 12/01/16 NPH, Human Insulin Isophane (Humulin N Kwikpen) 100 Unit/1 Ml Insuln.pen, 53 UNIT SQ BID, EA 12/01/16 Clonidine Hcl* (Clonidine Hcl*) 0.1 Mg Tab, 0.2 MG PO BID, TAB 12/01/16 Primary Care Provider Yariel Shook Pending Labs Laboratory Tests Test 06/18/17 16:46 06/18/17 17:18 06/18/17 20:42 06/18/17 21:55 Hepatitis B Surface Antigen NEGATIVE (NEGATIVE) Hepatitis B Surface Antibody NEGATIVE (NEGATIVE) Hepatitis B Core Total Antibody NEGATIVE (NEGATIVE) Hepatitis C Antibody REACTIVE (NEGATIVE) Bedside Glucose 201mg/dL (70-220) 164mg/dL (70-220) 133mg/dL (70-220) Test 06/19/17 00:50 06/19/17 05:02 06/19/17 05:28 06/19/17 09:43 Bedside Glucose 131mg/dL (70-220) 155mg/dL (70-220) 150mg/dL (70-220) White Blood Count 13.010^3/ul (4.8-10.8) Red Blood Count 3.1410^6/ul (4.70-6.10) Hemoglobin 8.4g/dl (14.0-18.0) Hematocrit 26.1% (42.0-52.0) Mean Corpuscular Volume 83.1fl (82.0-101.0) Mean Corpuscular Hemoglobin 26.8pg (29.0-33.0) Mean Corpuscular Hemoglobin Concent 32.2g/dl (32.0-37.0) Red Cell Distribution Width 16.9% (11.5-14.5) Platelet Count 22384^3/UL (140-415) Mean Platelet Volume 10.0fl (7.4-10.4) Neutrophils % 57.1% (39.0-77.0) Lymphocytes % 19.5% (15.0-51.0) Monocytes % 16.8% (0.0-11.0) Eosinophils % 4.3% (0.0-7.0) Basophils % 0.2% (0.0-2.0) Nucleated Red Blood Cells % 0.0/100WBC (0.0-0.0) Neutrophils # 7.410^3/ul (1.6-7.5) Lymphocytes # 2.510^3/ul (0.8-2.9) Monocytes # 2.210^3/ul (0.3-0.9) Eosinophils # 0.610^3/ul (0.0-0.5) Basophils # 0.010^3/ul (0.0-0.1) Nucleated Red Blood Cells # 0.010^3/ul (0.0-0.0) Test 06/19/17 12:17 Bedside Glucose 231mg/dL (70-220) KAYA BERMAN M.D. Jun 19, 2017 14:42
[2017-06-19] MEDS ORDERED: INSULIN GLARGINE [LANtus] 3 ML PEN SC SCH (21:00)
[2017-06-19] MEDS ORDERED: NIFEdipine (XL) 60 MG TAB PO SCH (21:00)
--- NOTE | 2017-06-20 03:07 | CONS ---
DATE OF ADMISSION: 06/09/2017 DATE OF CONSULTATION: 06/19/2017 REASON FOR CONSULTATION: Antibiotic management. HISTORY OF PRESENT ILLNESS: John Edmondson is a 61-year-old male who comes in with a diagnosis of hepatocellular carcinoma in the setting of hepatitis C. Hepatitis C was thought to be chronic, treated with Harvoni in August 2016 with near resolution and disappearance of the viral load. His hepatitis disease thought to be genotype 1a with prior viral load in 2012 being approximately 18,000,000 units per mL. His other problems include: 1. Adult-onset diabetes mellitus. 2. Hyperlipidemia. 3. Hypertension. 4. Left distal tibial fracture. 5. Left tibia fracture. 6. Obstructive sleep apnea. 7. Vitamin D deficiency. 8. Former smoker. The patient underwent surgery on 06/09. He had a laparoscopic exploration with intraoperative ultrasound of the liver and core needle liver biopsy with ultrasound guidance of segment 8 lesion and separately segment 4B normal liver. He had an open partial hepatectomy, ultrasound-guided core needle biopsy of a liver segment, had cholecystectomy, lysis of adhesions and umbilical hernia repair. HOSPITAL COURSE: The patient was placed on a respirator for acute respiratory failure. His white count on admission was 20.1, H and H 14.2 and 46.3, platelet count 372,000. BUN creatinine 35/3.52. He was put on perioperative antibiotics. On the , a culture was done, which showed normal respiratory jered. His blood cultures have been negative. Urine cultures have been negative. A chest x-ray from 06/16 shows no evidence of acute cardiopulmonary disease. He has right internal jugular venous catheter. An abdominal ultrasound shows heterogeneous liver with mild broad-based bulging of the anterior margin of the left lobe, which is similar in appearance from prior ultrasound. There is also small 1.4 cm echogenic mass within the medial segment of left hepatic lobe, which is slightly smaller than prior ultrasound. The patient has been seen by multiple consultants. The patient has noted to have an acute kidney injury status post liver biopsy. He had a right internal jugular vein tunneled catheter under ultrasound guidance by Dr. Bills. So a PermCath was placed. His acute respiratory failure has virtually resolved. The EGD showed gastritis and esophagitis. The patient is set up for hemodialysis. Currently, white count is 13,000. BUN and creatinine is 94/5.9. Hepatitis C antibody is still positive. Occult blood is negative. PAST MEDICAL HISTORY: Operations as outlined. FAMILY HISTORY: Noncontributory. SOCIAL HISTORY: Does not smoke, drink, or abuse drugs. He smoked in the past. ALLERGIES: NONE TO PENICILLIN, SULFA, OR FOODS. MEDICATION: Per chart. REVIEW OF SYSTEMS: As per HPI. PHYSICAL EXAMINATION: GENERAL: The patient is a well-developed, well-nourished elderly appearing male who is alert, responsive, and in no acute distress. VITAL SIGNS: Stable. He is afebrile. SKIN: Without generalized rash. HEENT: Within normal limits. NECK: Supple. Lymph nodes are nonpalpable. He has a catheter in place, PermCath. CHEST: Decreased breath sounds at the bases. HEART: Without murmur or gallop. ABDOMEN: Soft and nontender without organosplenomegaly or masses. EXTREMITIES: Without cyanosis, clubbing, or edema. RECTAL EXAM: Deferred. NEUROLOGIC: No focal neurological abnormalities. IMPRESSION AND PLAN: At this point, I see no reason to start the patient on antibiotic therapy. He seems to be stable at this point. He shows no evidence of acute cardiopulmonary disease. I will be happy to follow in his care. I will dictate my findings to the hospitalist. Dictated By: Jonathon Bui MD JD/[email or web address]/gideon /Document#: [id number]
[2017-06-20] MEDS ORDERED: NIFEdipine (XL) 30 MG TAB PO SCH (09:00)
--- NOTE | 2017-06-20 15:14 | QN ---
Documentation Comment [id number] consult JAY JIANG MD Jun 20, 2017 15:14
--- NOTE | 2017-06-21 04:10 | CONS ---
DATE OF ADMISSION: 06/09/2017 DATE OF CONSULTATION: 06/19/2017 HISTORY OF PRESENT ILLNESS: John Edmondson has a history of CKD, history of diabetes mellitus, hepatocellular carcinoma, and history of hepatitis C. The patient also has a history of hcv treated in 2016 with near resolution and disappearance of the viral load. His virus hepatitis C is thought to be genotype 1a. The patient has diabetes mellitus, dyslipidemia, hypertension, and history of left distal tibial fracture, obstructive sleep apnea, and the patient underwent laparoscopic exploration with intraoperative ultrasound of the liver and liver biopsy with cholecystectomy open partial hepatectomy, segment 5 and 6, cholecystectomy, lysis of adhesions, and umbilical hernia. Post procedure, the patient developed electrolyte imbalance, including hyperlipidemia, and nephrology consultation was requested. PAST MEDICAL HISTORY: CKD, diabetes, dyslipidemia, hypertension, left distal tibial fracture, obstructive sleep apnea. ALLERGIES: NEGATIVE. FAMILY HISTORY: Negative. SOCIAL HISTORY: Negative. HOME MEDICATIONS: 1. Aspirin. 2. Lipitor. 3. Clonidine. 4. Hydralazine. 5. Insulin. 6. Lisinopril. 7. Humulin N. REVIEW OF SYSTEMS: Could not be done. The patient is intubated. PHYSICAL EXAMINATION: GENERAL: The patient is intubated. VITAL SIGNS: Stable. HEENT: Head is atraumatic, normocephalic. Pupils are equal and reactive to light. NECK: Supple. LUNGS: Rhonchi bilaterally. CVS: Normal. ABDOMEN: Distended. Bowel sounds positive. EXTREMITIES: No cyanosis, clubbing, or edema noted. CIRCUS SUPERVISOR: The patient is awake, alert, and moving both upper and lower extremities. LABORATORY DATA: Sodium 140, potassium 9.1, BUN 35, creatinine 3.52, glucose was 232. The patient had a chest x-ray, ET tube 3.0 cm above the ellen. IMPRESSION: 1. The patient has severe hyperkalemia postop. 2. The patient has underlying chronic kidney disease, worsening. 3. Status post cholecystectomy, hepatectomy. 4. History of hepatocellular carcinoma. 5. History of hepatitis C. 6. Ventilator-dependent respiratory failure. 7. Diabetes mellitus. 8. Electrolyte imbalance, including hyperlipidemia, hyperphosphatemia. 9. Obesity. 10. Sleep apnea. 11. 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 PLAN: Continue to treat hyperkalemia with Kayexalate. Medical treatment and fluid successful, the patient will need hemodialysis. I discussed with Dr. Caceres and Dr. Bills and Dr. Banerjee. Dictated By: Terry Perales MD /[email or web address]/gideon /Document#: [id number] MTDD
== END 2017-06-19 17:30 | disposition home or self-care (01) | DRG 405 ==
LOC: REC 06:00 → ICU 21:03 → MS1 06-11 15:30 → ICU 06-12 05:14 → MS2 06-16 18:23
PROVIDERS: ADMIT Transplant Surgery; ATTEND Transplant Surgery
PROC: 0WJP4ZZ Inspection of Gastrointestinal Tract, Percutaneous Endoscopic Approach (ICD-10-PCS; 2017-06-09)
PROC: 0FT40ZZ Resection of Gallbladder, Open Approach (ICD-10-PCS; 2017-06-09)
PROC: 0WQF0ZZ Repair Abdominal Wall, Open Approach (ICD-10-PCS; 2017-06-09)
PROC: 5A1D60Z (ICD-10-PCS; 2017-06-09)
PROC: 0BH17EZ Insertion of Endotracheal Airway into Trachea, Via Natural or Artificial Opening (ICD-10-PCS; 2017-06-09)
PROC: 5A1935Z Respiratory Ventilation, Less than 24 Consecutive Hours (ICD-10-PCS; 2017-06-09)
PROC: 06HM33Z Insertion of Infusion Device into Right Femoral Vein, Percutaneous Approach (ICD-10-PCS; 2017-06-09)
PROC: 0FB00ZZ Excision of Liver, Open Approach (ICD-10-PCS; principal; 2017-06-09 07:30)
PROC: 30233N1 Transfusion of Nonautologous Red Blood Cells into Peripheral Vein, Percutaneous Approach (ICD-10-PCS; 2017-06-15)
PROC: 0DJ08ZZ Inspection of Upper Intestinal Tract, Via Natural or Artificial Opening Endoscopic (ICD-10-PCS; 2017-06-15)
PROC: 02HV33Z Insertion of Infusion Device into Superior Vena Cava, Percutaneous Approach (ICD-10-PCS; 2017-06-16)
DX: C22.0 Liver cell carcinoma (principal); J96.00 Acute respiratory failure, unspecified whether with hypoxia or hypercapnia; N17.0 Acute kidney failure with tubular necrosis; I50.33 Acute on chronic diastolic (congestive) heart failure; J18.9 Pneumonia, unspecified organism; K92.0 Hematemesis; I13.0 Hypertensive heart and chronic kidney disease with heart failure and stage 1 through stage 4 chronic kidney disease, or unspecified chronic kidney disease; K92.1 Melena; R71.0 Precipitous drop in hematocrit; K22.10 Ulcer of esophagus without bleeding; B19.20 Unspecified viral hepatitis C without hepatic coma; E11.9 Type 2 diabetes mellitus without complications; E78.5 Hyperlipidemia, unspecified; G47.33 Obstructive sleep apnea (adult) (pediatric); E55.9 Vitamin D deficiency, unspecified; Z87.891 Personal history of nicotine dependence; K42.9 Umbilical hernia without obstruction or gangrene; E87.5 Hyperkalemia; E66.9 Obesity, unspecified; Z68.33 Body mass index [BMI] 33.0-33.9, adult; Z53.31 Laparoscopic surgical procedure converted to open procedure; R00.0 Tachycardia, unspecified; I16.0 Hypertensive urgency; D64.9 Anemia, unspecified; D72.829 Elevated white blood cell count, unspecified; K29.70 Gastritis, unspecified, without bleeding; R33.9 Retention of urine, unspecified; E86.0 Dehydration; N18.3 Chronic kidney disease, stage 3 (moderate)
CPT/HCPCS: 31500; 36430; 36600; 71010; 76705; 76775; 80048; 80053; 80061; 81001; 81003; 82270; 82550; 82553; 82570; 82803; 82947; 82962; 83036; 83605; 83690; 83735; 83880; 84100; 84132; 84300; 84484; 85014; 85018; 85025; 85610; 85730; 86704; 86706; 86803; 86850; 86900; 86901; 86920; 87040; 87070; 87081; 87086; 87340; 88304; 88307; 88313; 88331; 89190; 90935; 93005; 93306; 94002; 94003; 97116; 97161; A4310; C1750; C1752; C1769; C9113; J0360; J1170; J1644; J1650; J1815; J1940; J2250; J2370; J2405; J2543; J2710; J3010; J7030; J7040; J7050; J7999; P9016

== ENCOUNTER 2017-06-24 11:24 | Outpatient (CLI) | payer BC ==
[~2017-06-24] VITALS: Ht 170.2 cm; Wt 93.6 kg
[~2017-06-24 11:24] MED LIST changes: -DILT240C79 PO; -HYDR-3672 PO; +HYDR100T7 PO; +INSU100V3 SQ; -LEDI1TAB PO; -LISI20TA11 PO; +LISI40TA9 PO; -NACL 0.9% 3 ML SYG IV SCH; -PIPER-TAZO 3.375 GM IV (PMX) 100 ML IVPB SCH
[2017-06-24 11:34] VITALS: BP 137/74; PULSE 91; RESP 18; Ht 170.2 cm; Wt 93.6 kg
--- NOTE | 2017-06-24 18:13 | PN ---
Date/Time of Note Date/Time of Note DATE: 06/24/17 TIME: 18:07 Assessment/Plan Assessment/Plan Assessment/Plan [facility] Progress Note Date of Service: 06/24/17 Today's Impression & Plan: Stable and appears to be improving with adequate liver function. No indication for acute surgical intervention. Can benefit from local therapy to liver (TACE ) and transplant eval. Dialysis ongoing, but patient is making plenty of urine. Answered multiple questions from the patient, his and his daughter to the best my ability. Patient and family appear to understand and agreed with the plans. With above assessment, I've recommended the following for today: 1. D/c indu 2. TACE 3. Transplant evaluation 4. Multidisciplinary tumor board presentation to consider options for residual HCC Nature of presenting problem: High complexity Thank you again for your great care of this very pleasant patient and wonderful family. If there are any questions, please feel free to call me at [phone]. Disclaimer: Inadvertent spelling or grammatical errors are likely due to EHR/ dictation software use and do not reflect on the overall quality of patient care. Updated Clinical Summary: Patient is a very pleasant 60-year-old gentleman with comorbid issues including a BMI of 34, as well as history of hepatitis C, treated with Harvoni in August 2016 with near complete disappearance of his viral count, who was noted to have a liver lesion that was initially detected on 04/26/2016, liver CT of the abdomen and pelvis read as a somewhat well-defined 4.8 x 4.4 x 4.6 cm area of low attenuation within the right lobe of the liver. Note that he also had a few followup scans since then including ultrasound of the abdomen 05/22/2016 showing a solid mass 4.6 x 4.8 x 3.9 cm that appeared to be hypoechoic and no increased Doppler flow, liver dedicated MRI of the abdomen 06/19/2016 showing a 3.5 cm solid mass anteriorly in the right lobe of the liver that cannot be further characterized due to lack of contrast, liver dedicated contrast study of the abdomen on 07/08/2016 showing no evidence of increased uptake, corresponding to a liver mass seen in the right lobe of the liver and therefore not consistent with a hemangioma. He had a liver biopsy percutaneously done on 08/07/2016 with ultrasound guidance with the final pathology showing necrotic material, otherwise nondiagnostic. He had a repeat MRI of the liver with and without contrast 09/24/2016 that showed the previously seen lesion that was 3.8 cm at the junction of the right and left lobes but additional 2.3 cm lesion in segment 5 of the liver showing low signal intensity on the T1 weighted images, intermediate signal intensity on the T2 weighted images and arterial phase contrast enhancement. These findings were thought to be metastatic disease or multifocal hepatocellular carcinoma. Due to growth seen in segment 5 lesion, repeat biopsy of the liver was ordered which was done on 04/07/2017. Segment 5 lesion was biopsied and final pathology was consistent with moderately differentiated hepatocellular carcinoma in a background of chronic hepatitis C. Normal liver biopsy done at the same time showed grade 2 portal inflammation and interface hepatitis, grade 2 lobular activity and stage I fibrosis. Patient had a somewhat margaret course postoperatively with renal failure requiring dialysis and prolonged ICU stay. 06/14/17 RUQ duplex ultrasound demonstrated expected findings from the liver with normal blood flow and no major fluid collections around it indicating lack of obvious bile leak. Discharge from ICU 06/16/2017 to regular floor. D/c home 06/19/17. Comorbidities: 1. Hepatocellular carcinoma in segment 5 of liver in the setting of hepatitis C , along with several regenerative nodules. Hepatitis C that was thought to be chronic, treated with Harvoni 08/2016 with near resolution and disappearance of the viral load. His hepatitis C is thought to be genotype 1A with prior viral load in 2012 of approximately 18 million international units per mL. 2. Diabetes mellitus type 2. 3. Hyperlipidemia. 4. Hypertension. 5. Left distal tibial fracture. 6. Left tibia fracture. 7. Obstructive sleep apnea. 8. Vitamin D deficiency. 9. Former smoker. 10. S/p laparoscopic exploration with intraoperative ultrasound of liver and core needle liver biopsy with ultrasound guidance segment 8 lesion and separately segment 4B normal liver, open partial hepatectomy segment 5/6, ultrasound-guided core needle liver biopsy segment 4B (left side) mass under direct visualization, cholecystectomy, lysis of adhesions, and umbilical hernia repair at [facility] 06/10/17. Subjective: No major events or complaints; reports overall feeling better; tolerating orals without any difficulty; no major abd pain and under control with medications; no n/v/d; no sob or cp; + flatus; + BM; minimal activity Objective: Vitals: See below Exam: GENERAL: On exam, the patient was sitting in a chair and appeared to be comfortable and in no acute distress. ABDOMEN: Soft, nontender and nondistended. Incisions are clean, dry and intact without any evidence of obvious erythema, edema, discharge, or hernia. There are no peritoneal signs or guarding. Ray removed in the office. SKIN: Skin appears to be pink and feels warm to touch. NEUROLOGIC: Patient is awake, alert, and follows commands appropriately. Exam/Review of Systems Vital Signs Vitals Vital Signs Date Time Temp Pulse Resp B/P Pulse Ox O2 Delivery O2 Flow Rate FiO2 06/24/17 11:34 98.9 91 18 137/74 92 Room Air KAYA BERMAN M.D. Jun 24, 2017 18:13
== END 2017-06-24 15:03 | disposition home or self-care (01) ==
LOC: HPC 11:24
PROVIDERS: ATTEND Transplant Surgery
DX: C22.0 Liver cell carcinoma (principal); B19.20 Unspecified viral hepatitis C without hepatic coma; I10 Essential (primary) hypertension; E11.9 Type 2 diabetes mellitus without complications; E78.5 Hyperlipidemia, unspecified; G47.33 Obstructive sleep apnea (adult) (pediatric); E55.9 Vitamin D deficiency, unspecified; Z87.891 Personal history of nicotine dependence
CPT/HCPCS: G0463

== ENCOUNTER 2017-12-23 14:11 | Outpatient (CLI) | END 2017-12-23 15:53 | disposition home or self-care (01) ==

== ENCOUNTER 2018-03-05 22:45 | Inpatient (IN) | END 2018-03-14 19:30 | disposition home or self-care (01) | DRG 64 ==

== ENCOUNTER 2018-03-15 20:53 | Emergency (ER) | END 2018-03-16 05:41 | disposition home or self-care (01) ==

== ENCOUNTER 2018-03-17 12:26 | Inpatient (IN) | END 2018-04-03 20:30 | disposition EXP | DRG 314 ==